=== PATIENT | male | born 1965 | race African-American/Black ===

== ENCOUNTER 2017-02-21 07:56 | Inpatient (IN) | payer OTHER ==
[~2017-02-21] VITALS: Ht 170.2 cm; Wt 97.3 kg
[2017-02-21] VITALS (7 sets, daily range): BP systolic 101–117; BP diastolic 71–75; PULSE 66–82; RESP 16–22; TEMP 98; O2SAT 93–98
[~2017-02-21 07:56] MED LIST: CLON0.2T PO; CYCL5TAB PO; LISI-360 PO; NAPR500 OR
--- NOTE | 2017-02-21 08:09 | PD ---
HPI Chief Complaint: STEMI Alert Time Seen by Provider: 07:58 Travel History International Travel<30 days: No Contact w/Intl Traveler<30days: No Traveled to known affect area: No History of Present Illness HPI The patient is a 51-year-old [place] male who presents to the emergency department via EMS for chest pain. According to the patient he developed chest pain at approximately 3 AM, that awakened him from sleeping. The chest pain was substernal, radiating to the jaw, associated with shortness of breath and diaphoresis. The patient has a [employer] business, states he has had exertional shortness of breath and chest pain with more milling over the last several months that improves at rest. The patient does have a history of hypertension and hyperlipidemia. The patient is unsure if he has any history of coronary artery disease, but denies any previous stent placement. The patient denies any tobacco use or diabetes. He does have a significant family history of heart disease, states his mother after CABG and his sister has 9 stents. The patient was being followed by Darien Mejia's office, but does not currently have a primary physician. Symptoms are moderate, alleviated with aspirin and nitroglycerin, his pain went from a 10/10 to a 6/10 with nitroglycerin provided by EMS. PFSH Past Medical History Asthma: Yes Cardiovascular Problems: Yes (HTN) High Cholesterol: Yes Diminished Hearing: No Hypertension: Yes Past Surgical History Appendectomy: Yes Social History Alcohol Use: No Tobacco Use: No Substance Use: No Allergies-Medications (Allergen,Severity, Reaction): Coded Allergies: No Known Allergies (Unverified , 02/21/17) Reported Meds & Prescriptions Reported Meds & Active Scripts Active No Active Prescriptions or Reported Medications Review of Systems Except as stated in HPI: all other systems reviewed are Neg General / Constitutional: No: Fever HENT: Positive: Lightheadedness Cardiovascular: Positive: Chest Pain or Discomfort, Diaphoresis, Dyspnea on exertion Respiratory: Positive: Shortness of Breath Gastrointestinal: No: Nausea, Vomiting, Abdominal Pain Musculoskeletal: No: Weakness Neurologic: No: Dizziness Physical Exam Narrative GENERAL: Awake, alert, pleasant 51-year-old male who appears his stated age and is in no acute respiratory distress. SKIN: Warm and dry. HEAD: Atraumatic. Normocephalic. EYES: No injection or drainage. ENT: No nasal bleeding or discharge. Mucous membranes pink and moist. NECK: Trachea midline. No JVD. CARDIOVASCULAR: Regular rate and rhythm. No murmur appreciated. RESPIRATORY: No accessory muscle use. Clear to auscultation. Breath sounds equal bilaterally. GASTROINTESTINAL: Abdomen soft, non-tender, nondistended. No rebound tenderness. MUSCULOSKELETAL: No obvious deformities. No clubbing. No cyanosis. No edema. NEUROLOGICAL: Awake and alert. No obvious cranial nerve deficits. Motor grossly within normal limits. Normal speech. PSYCHIATRIC: Appropriate mood and affect; insight and judgment normal. Data Data Last Documented VS Vital Signs Date Time Temp Pulse Resp B/P Pulse Ox O2 Delivery O2 Flow Rate FiO2 02/21/17 09:28 82 22 111/71 93 Nasal Cannula 2 02/21/17 08:02 98.0 Orders Electrocardiogram (02/21/17 08:04) Ckmb (Isoenzyme) Profile (02/21/17 08:04) Complete Blood Count With Diff (02/21/17 08:04) Comprehensive Metabolic Panel (02/21/17 08:04) Magnesium (Mg) (02/21/17 08:04) Prothrombin Time / Inr (Pt) (02/21/17 08:04) Act Partial Throm Time (Ptt) (02/21/17 08:04) Troponin I (02/21/17 08:04) Chest, Single Ap (02/21/17 08:04) Ecg Monitoring (02/21/17 08:04) Bilateral Bp Monitoring (02/21/17 08:04) Iv Access Insert/Monitor (02/21/17 08:04) Oximetry (02/21/17 08:04) Oxygen Administration (02/21/17 08:04) Morphine Inj (Morphine Inj) (02/21/17 08:15) Nitroglycerin 2% Oint (Nitroglycerin 2% (02/21/17 08:15) Sodium Chloride 0.9% Flush (Ns Flush) (02/21/17 08:15) Sodium Chlorid 0.9% 500 Ml Inj (Ns 500 M (02/21/17 08:15) Ondansetron Inj (Zofran Inj) (02/21/17 08:15) CKMB (02/21/17 08:10) CKMB% (02/21/17 08:10) Sodium Chlorid 0.9% 500 Ml Inj (Ns 500 M (02/21/17 09:00) Heparin Infusion NEERAJ.Q1H (02/21/17 09:26) Heparin Inj (Heparin Inj) (02/21/17 09:30) Heparin Inj (Heparin Inj) (02/21/17 15:30) Heparin Inj (Heparin Inj) (02/21/17 15:30) Heparin-D5w Inj (Heparin-D5w Inj) (02/21/17 09:30) Cbc No Diff, Includes Plts (02/24/17 06:00) Act Partial Throm Time (Ptt) (02/21/17 16:26) Occult Blood (Hemoccult) Stool (02/21/17 09:26) Consult Cardiology (02/21/17 ) Admit Order (Ed Use Only) (02/21/17 09:28) Labs Laboratory Tests Test 02/21/17 08:10 White Blood Count 6.1 TH/MM3 Red Blood Count 5.10 MIL/MM3 Hemoglobin 15.6 GM/DL Hematocrit 46.2 % Mean Corpuscular Volume 90.5 FL Mean Corpuscular Hemoglobin 30.6 PG Mean Corpuscular Hemoglobin 33.8 % Concent Red Cell Distribution Width 13.9 % Platelet Count 180 TH/MM3 Mean Platelet Volume 9.4 FL Neutrophils (%) (Auto) 60.7 % Lymphocytes (%) (Auto) 30.0 % Monocytes (%) (Auto) 6.3 % Eosinophils (%) (Auto) 2.1 % Basophils (%) (Auto) 0.9 % Neutrophils # (Auto) 3.7 TH/MM3 Lymphocytes # (Auto) 1.8 TH/MM3 Monocytes # (Auto) 0.4 TH/MM3 Eosinophils # (Auto) 0.1 TH/MM3 Basophils # (Auto) 0.1 TH/MM3 CBC Comment DIFF FINAL Differential Comment Prothrombin Time 11.1 SEC Prothromb Time International 1.0 RATIO Ratio Activated Partial 25.6 SEC Thromboplast Time Sodium Level 139 MEQ/L Potassium Level 3.8 MEQ/L Chloride Level 101 MEQ/L Carbon Dioxide Level 31.4 MEQ/L Anion Gap 7 MEQ/L Blood Urea Nitrogen 14 MG/DL Creatinine 1.61 MG/DL Estimat Glomerular Filtration 55 ML/MIN Rate Random Glucose 139 MG/DL Calcium Level 8.5 MG/DL Magnesium Level 2.2 MG/DL Total Bilirubin 0.9 MG/DL Aspartate Amino Transf 26 U/L (AST/SGOT) Alanine Aminotransferase 26 U/L (ALT/SGPT) Alkaline Phosphatase 75 U/L Total Creatine Kinase 170 U/L Creatine Kinase MB 3.3 NG/ML Troponin I 1.94 NG/ML Total Protein 6.3 GM/DL Albumin 3.3 GM/DL Exceptions Acute Myocardial Infarction ASA Not Given on Arrival: Already Given by EMS MDM Medical Decision Making Medical Screen Exam Complete: Yes Emergency Medical Condition: Yes Medical Record Reviewed: Yes Interpretation(s) EKG reveals normal sinus rhythm with a rate 81. Biphasic P wave noted in V1. Left ventricular hypertrophy. ST elevation in V1 that is not seen in V2. Tall R-wave in V2. EKG #2 reveals normal sinus rhythm with a rate 84. Tall R-wave in V2 that was initially evaluated as resolved. However, patient now has inverted T waves in lead V4, V5, and V6. Last Impressions Chest X-Ray 02/21/17 0804 Signed Impressions: Service Date/Time: Tuesday, February 21, 2017 08:09 - CONCLUSION: 1. Cardiomegaly with interstitial pulmonary edema. Mauricio Amezcua Jr., MD Laboratory Tests Test 02/21/17 08:10 White Blood Count 6.1 TH/MM3 Red Blood Count 5.10 MIL/MM3 Hemoglobin 15.6 GM/DL Hematocrit 46.2 % Mean Corpuscular Volume 90.5 FL Mean Corpuscular Hemoglobin 30.6 PG Mean Corpuscular Hemoglobin 33.8 % Concent Red Cell Distribution Width 13.9 % Platelet Count 180 TH/MM3 Mean Platelet Volume 9.4 FL Neutrophils (%) (Auto) 60.7 % Lymphocytes (%) (Auto) 30.0 % Monocytes (%) (Auto) 6.3 % Eosinophils (%) (Auto) 2.1 % Basophils (%) (Auto) 0.9 % Neutrophils # (Auto) 3.7 TH/MM3 Lymphocytes # (Auto) 1.8 TH/MM3 Monocytes # (Auto) 0.4 TH/MM3 Eosinophils # (Auto) 0.1 TH/MM3 Basophils # (Auto) 0.1 TH/MM3 CBC Comment DIFF FINAL Differential Comment Prothrombin Time 11.1 SEC Prothromb Time International 1.0 RATIO Ratio Activated Partial 25.6 SEC Thromboplast Time Sodium Level 139 MEQ/L Potassium Level 3.8 MEQ/L Chloride Level 101 MEQ/L Carbon Dioxide Level 31.4 MEQ/L Anion Gap 7 MEQ/L Blood Urea Nitrogen 14 MG/DL Creatinine 1.61 MG/DL Estimat Glomerular Filtration 55 ML/MIN Rate Random Glucose 139 MG/DL Calcium Level 8.5 MG/DL Magnesium Level 2.2 MG/DL Total Bilirubin 0.9 MG/DL Aspartate Amino Transf 26 U/L (AST/SGOT) Alanine Aminotransferase 26 U/L (ALT/SGPT) Alkaline Phosphatase 75 U/L Total Creatine Kinase 170 U/L Troponin I 1.94 NG/ML Total Protein 6.3 GM/DL Albumin 3.3 GM/DL Differential Diagnosis Differential diagnosis includes STEMI, acute coronary syndrome, GERD, esophageal spasm, cardiomyopathy, pancreatitis, pulmonary embolism. Narrative Course IV was established, labs are drawn and sent, and the patient was placed on cardiac telemetry monitoring and continuous pulse oximetry monitoring. The patient received aspirin and nitroglycerin by EMS prior to arrival. The patient was administered morphine, Zofran, and Nitropaste. Chest x-ray was obtained. Chest x-ray reveals cardiomegaly with mild interstitial edema. Troponin is positive at 1.94. The patient was reassessed at 8:55 AM, his chest pain had came back, was now 9/10. Therefore, repeat EKG was ordered. The on- call director clinical pharmacology was paged at 8:59 AM. Repeat EKG reveals inverted T waves in V4, V5, V6 that are new. Chest x-ray did reveal mild interstitial edema, however, patient's systolic blood pressure is 116 with Nitropaste, therefore, was administered another 500 cc bolus. I discussed the patient with Dr. Garcia, the on-call director clinical pharmacology, who agrees with a heparin drip. I discussed the patient with the on-call medical team who agrees with admission to [facility]. Critical Care Narrative Aggregate critical care time was 40 minutes. Time to perform other separately billable procedures was not included in the critical care time. My time did not include minutes spent treating any other patients simultaneously or on activities that did not directly contribute to the patient's treatment. The services I provided to this patient were to treat and/or prevent clinically significant deterioration that could result in: Anoxia, hypoxia, arrhythmia, sudden . I provided critical care services requiring my management, as noted below: Chart data review, documentation time, medication orders and management, vital sign assessments/reviewing monitor data, ordering and reviewing lab tests, ordering and interpreting/reviewing x-rays and diagnostic studies, care of the patient and discussion of the patient with the admitting physicians. Physician Communication Physician Communication I discussed the patient with the on-call director clinical pharmacology, Dr. Garcia. I discussed the patient with the on-call residents, who agreed with admission. Diagnosis Primary Impression: NSTEMI (non-ST elevated myocardial infarction) Admitting Information Admitting Physician Requests: Admit Scripts No Active Prescriptions or Reported Meds Condition: Stable Long Colon MD Feb 21, 2017 08:09
[2017-02-21] MEDS ORDERED: ONDANSETRON HCL 4 MG/2 ML VIAL IV PUSH ONE (08:15)
[2017-02-21] MEDS ORDERED: SODIUM CHLORIDE 0.9% FLUSH 10 ML FLUSH IVF PRN ×2 (08:15→18:15)
[2017-02-21] MEDS ORDERED: MORPHINE SULFATE 4 MG/ML INJ IV PUSH ONE (08:15)
[2017-02-21] MEDS ORDERED: NITROGLYCERIN 2% OINT 1 GM PACKET TOP ONE (08:15)
[2017-02-21] MEDS ORDERED: SODIUM CHLORID 0.9% 500 ML INJ 500 ML IV ONE ×2 (08:15→09:00)
[2017-02-21 08:16] LABS: AUTOMATED NEUTROPHIL # 3.7 TH/MM3 (1.8-7.7); BASOPHIL # 0.1 TH/MM3 (0-0.2); BASOPHIL % 0.9 % (0.0-2.0); EOSINOPHIL # 0.1 TH/MM3 (0-0.4); EOSINOPHIL % 2.1 % (0.0-4.0); HEMATOCRIT 46.2 % (39.0-51.0); HEMO FLAGS DIFF FINAL; LYMPHOCYTE # 1.8 TH/MM3 (1.0-4.8); MEAN CELL VOLUME 90.5 FL (80.0-100.0); MEAN CORPUSCULAR HEMOGLOBIN 30.6 PG (27.0-34.0); MEAN CORPUSCULAR HGB CONC 33.8 % (32.0-36.0); MONO % 6.3 % (0.0-8.0); NEUT % 60.7 % (16.0-70.0); PLATELET COUNT 180 TH/MM3 (150-450); RED CELL DISTRIBUTION WIDTH 13.9 % (11.6-17.2); WHITE BLOOD COUNT 6.1 TH/MM3 (4.0-11.0)
[2017-02-21 08:25] LABS: APTT (PATIENT) 25.6 SEC (24.3-30.1); PROTHROMBIN TIME - PATIENT 11.1 SEC (9.8-11.6)
[2017-02-21 08:45] LABS: ANION GAP 7 MEQ/L (5-15); AST (GOT) 26 U/L (15-37); BICARBONATE 31.4 MEQ/L (21.0-32.0); BLOOD UREA NITROGEN 14 MG/DL (7-18); CHLORIDE 101 MEQ/L (98-107); GLOMERULAR FILTRATION RATE 55 ML/MIN (>89); MAGNESIUM 2.2 MG/DL (1.5-2.5); POTASSIUM 3.8 MEQ/L (3.5-5.1); SODIUM (NA) 139 MEQ/L (136-145)
[2017-02-21 08:50] LABS: ALKALINE PHOSPHATASE 75 U/L (45-117); ALT (GPT) 26 U/L (12-78); CREATINE KINASE 170 U/L (39-308); TOTAL BILIRUBIN ADULT 0.9 MG/DL (0.2-1.0)
--- NOTE | 2017-02-21 08:51 | RADRPT ---
EXAM DATE/TIME: 02/21/2017 08:09 [facility] COMPARISON: CHEST SINGLE AP, January 21, 2013, 13:17. INDICATIONS : Chest pain radiating to jaw. MEDICAL HISTORY : None. SURGICAL HISTORY : None. ENCOUNTER: Initial ACUITY: 1 day PAIN SCORE: 7/10 LOCATION: Left middle chest FINDINGS: A single portable frontal view the chest shows cardiomegaly. Bilateral interstitial opacities most pr onounced in the bases. No effusions or intra-alveolar infiltrates. Degenerative thoracic spine. CONCLUSION: 1. Cardiomegaly with interstitial pulmonary edema. Mauricio Amezcua Jr., MD on February 21, 2017 at 8:49 Board Certified Radiologist. This report was verified electronically.
[2017-02-21 09:09] LABS: CKMB 3.3 NG/ML (0.5-3.6)
[2017-02-21] MEDS ORDERED: HEPARIN SODIUM - IV 10,000 UNITS/10 ML VIAL IV ONE (09:30)
--- NOTE | 2017-02-21 09:41 | HHI.HP ---
[facility] Service Family Medicine Primary Care Physician No Primary Care Physician Admission Diagnosis NSTEMI Diagnoses: Chief Complaint: Chest pain International Travel<30 Days: No Contact w/Intl Traveler<30days: No Known Affected Area: No History of Present Illness 51 y/o male with no past medical history presents with chest pain. He states that it initially started several months ago. 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 Then, after mowing, he started having chest pain, SOB. He had to rest for awhile for it go go away, then he would start mowing again. Then pain became more regular and frequent in the last few weeks, having episode everyday. The last few days, the pain was bad enough that sitting down wouldn't relieve the pain. Today, the chest pain started at 3am this morning. Was constant and worse than before so he came in to the ED. Pain in middle of chest. Feels like pressure. Pain radiates up to jaw. Endorses sweating. Sometimes takes sip of water, makes it go away. Nitro made the pain go away today in the ED. Sees doctor in [facility], doesn't have any insurance. No history of heart disease, states he was diagnosed with "enlarged heart." No palpitations or nausea/vomiting. No leg pain. (Cristiano Flor MD R1) Review of Systems Constitutional: COMPLAINS OF: Diaphoretic episodes, Dizziness, DENIES: Fever, Chills Endocrine: DENIES: Heat/cold intolerance, Polydipsia Eyes: DENIES: Eye pain, Vision loss Ears, nose, mouth, throat: DENIES: Hearing loss, Running Nose Respiratory: COMPLAINS OF: Cough, Shortness of breath Cardiovascular: COMPLAINS OF: Chest pain, DENIES: Palpitations, Syncope, Lower Extremity Edema Gastrointestinal: DENIES: Constipation, Diarrhea, Nausea, Vomiting Musculoskeletal: DENIES: Back pain, Neck pain Hematologic/lymphatic: DENIES: Bruising, Lymphadenopathy (Cristiano Flor MD R1) Past Family Social History Past Medical History "enlarged heart" HTN Past Surgical History Appendectomy Reported Medications Reported Meds & Active Scripts Active No Active Prescriptions or Reported Medications (Cristiano Flor MD R1) Allergies: Coded Allergies: No Known Allergies (Unverified , 02/21/17) Active Ordered Medications Active Medications Heparin Sodium (Porcine) (Heparin Inj) 4,000 units ONCE ONCE IV; Start at 09:30; Stop 02/21/17 at 09:31 Heparin Sodium (Porcine) (Heparin Inj) 5,000 units UNSCH PRN IV; Start at 15:30 Heparin Sodium (Porcine) 2500 units 2,500 units UNSCH PRN IV; Start 02/21/17 at 15:30 Heparin Sodium/ Dextrose (Heparin-D5W Inj) 250 ml @ 0 mls/hr TITRATE IV; Start 02/21/17 at 09:30 Morphine Sulfate (Morphine Inj) 4 mg ONCE ONCE IV PUSH Last administered on 08:34; Admin Dose 4 MG; Start 02/21/17 at 08:15; Stop 02/21/17 at 08:16 ; Status DC Nitroglycerin (Nitroglycerin 2% Oint) 1 inch ONCE ONCE TOP Last administered on 02/21/17 08:34; Admin Dose 1 INCH; Start 02/21/17 at 08:15; Stop 02/21/17 at 08:16; Status DC Ondansetron HCl 4 mg 4 mg ONCE ONCE IV PUSH Last administered on 02/21/17 08: 34; Admin Dose 4 MG; Start 02/21/17 at 08:15; Stop 02/21/17 at 08:16; Status DC Sodium Chloride (NS 500 ml Inj) 500 ml @ 500 mls/hr BOLUS ONCE IV Last administered on 02/21/17 09:28; Admin Dose 500 MLS/HR; Start 02/21/17 at 09:00 ; Stop 02/21/17 at 09:59 Sodium Chloride (NS 500 ml Inj) 500 ml @ 500 mls/hr ONCE ONCE IV Last administered on 02/21/17 08:12; Admin Dose 500 MLS/HR; Start 02/21/17 at 08:15 ; Stop 02/21/17 at 09:14; Status DC Sodium Chloride 2 ml 2 ml UNSCH PRN IVF; Start 02/21/17 at 08:15 Family History Mother-several [place], CABG Father-DM, lung cx Sister-8 heart stents Sister-[place] 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 Negative Lavines sign. No acute distress. EYES: EOMI. Lids and conjunctivae reveal no gross abnormality. No scleral icterus. ENT: Head NCAT. MMM. OP/OC clear. No cervical or supraclavicular LAD. NECK: No JVD. No carotid bruits. Neck supple, no masses. Trachea midline. No thyromegaly. RESPIRATORY: Lungs essentially CTAB, no wheezing, crackles, or increased WOB. CARDIOVASCULAR: Regular rate and rhythm, no murmurs or rubs. Radial and DP pulses 2+ and symmetric bilaterally. Brisk capillary refill. ABDOMEN: S/NT/ND. Bowel sounds x 4. No hepatosplenomegaly. Chronic mass right abdomen EXTREMITIES: No remarkable dependent edema or varicosities. No clubbing, cyanosis, or erythema. MUSCULOSKELETAL: MAEW without significant joint pain or deformity. Strength 5/5 in upper and lower extremities. No calf tenderness. SKIN: Essentially clear with no significant rash or lesions. Adequate skin turgor. Accessory nipple right upper abdomen NEUROLOGICAL: NFND. Cranial nerves 2-12 grossly intact. Reflexes +2, symmetric bilaterally in upper and lower extremities. PSYCHIATRIC: Mental status normal for age. Laboratory Laboratory Tests Test 02/21/17 08:10 White Blood Count 6.1 Red Blood Count 5.10 Hemoglobin 15.6 Hematocrit 46.2 Mean Corpuscular Volume 90.5 Mean Corpuscular Hemoglobin 30.6 Mean Corpuscular Hemoglobin 33.8 Concent Red Cell Distribution Width 13.9 Platelet Count 180 Mean Platelet Volume 9.4 Neutrophils (%) (Auto) 60.7 Lymphocytes (%) (Auto) 30.0 Monocytes (%) (Auto) 6.3 Eosinophils (%) (Auto) 2.1 Basophils (%) (Auto) 0.9 Neutrophils # (Auto) 3.7 Lymphocytes # (Auto) 1.8 Monocytes # (Auto) 0.4 Eosinophils # (Auto) 0.1 Basophils # (Auto) 0.1 CBC Comment DIFF FINAL Differential Comment Prothrombin Time 11.1 Prothromb Time International 1.0 Ratio Activated Partial 25.6 Thromboplast Time Sodium Level 139 Potassium Level 3.8 Chloride Level 101 Carbon Dioxide Level 31.4 Anion Gap 7 Blood Urea Nitrogen 14 Creatinine 1.61 Estimat Glomerular Filtration 55 Rate Random Glucose 139 Calcium Level 8.5 Magnesium Level 2.2 Total Bilirubin 0.9 Aspartate Amino Transf 26 (AST/SGOT) Alanine Aminotransferase 26 (ALT/SGPT) Alkaline Phosphatase 75 Total Creatine Kinase 170 Creatine Kinase MB 3.3 Troponin I 1.94 Total Protein 6.3 Albumin 3.3 (Cristiano Flor MD R1) Result Diagram: 02/21/17 0810 02/21/17809 Imaging Last Impressions Chest X-Ray 02/21/17803 Signed Impressions: Service Date/Time: Tuesday, February 21, 2017 08:09 - CONCLUSION: 1. Cardiomegaly with interstitial pulmonary edema. Mauricio Amezcua Jr., MD (Cristiano Flor MD R1) Assessment and Plan Assessment and Plan 51 y/o male with history of HTN presents with chest pain. Found to have STEMI. Cardiology consulted, started on heparin drip and scheduled for PCI. Code Status Full Discussed Condition With Drs. Blackmon & Rossy (Cristiano Flor MD R1) Attending Attestation Patient seen and examined. Case reviewed and discussed with the resident team. Agree with plan of care as discussed with me and documented in the resident note. (Richelle Blackmon MD) Problem List: (1) STEMI (ST elevation myocardial infarction) Status: Acute Plan: CAD risk factors include HTN, FH of [place], DM Cocaine use in the last week. Pt. states CP has resolved with nitro and morphine. Unknown previous EKG, no previous workup EKG showed normal sinus rhythm. ST elevation in V1 and V2. Inverted T waves in V4, V5 and V6. CXR showed cardiomegaly with interstitial pulmonary edema. Initial Trop 1.94. -Cardiology consulted, appreciate recs -Dr. Garcia aware of patient, taking back for PCI -Started on heparin drip -NPO except meds -UDS pending -Trend EKGs -Supplemental O2. Daily aspirin. -Lipitor 80mg HS -Morphine 2mg Q2 hrs PRN chest pain only. -No metoprolol due to cocaine use -NTG PRN -Tele. -AM BMP (2) Cocaine abuse Status: Acute Plan: Pt states he uses cocaine weekly. Started using a couple months ago. May be contributing to cardiac disease. -Counseled on the risks of cocaine and recommendations for quitting (3) FEN Status: Acute Plan: Fluids: none Electrolytes: wnl; monitor & replace PRN Nutrition: NPO for PCI DVT ppx: heparin drip (Cristiano Flor MD R1) Physician Certification 2 Midnight Certification Type: Admission for Inpatient Services Order for Inpatient Services The services are ordered in accordance with Medicare regulations or non- Medicare payer requirements, as applicable. In the case of services not specified as inpatient-only, they are appropriately provided as inpatient services in accordance with the 2-midnight benchmark. Estimated LOS (days): 2 days is the estimated time the patient will need to remain in the hospital, assuming treatment plan goals are met and no additional complications. Post-Hospital Plan: Home (Cristiano Flor MD R1) Problem Qualifiers (1) STEMI (ST elevation myocardial infarction): Qualified Code: I21.3 - ST elevation myocardial infarction (STEMI), unspecified artery Cristiano Flor MD R1 Feb 21, 2017 09:40 Richelle Blackmon MD Feb 21, 2017 15:11
[2017-02-21] MEDS: HEPARIN-D5W INJ 250 ML IV SCH ×2 (09:47→20:43)
[2017-02-21] MEDS ORDERED: ASPIRIN EC 325 MG TABEC PO SCH (10:00)
[2017-02-21] MEDS ORDERED: METOPROLOL TARTRATE 25 MG TAB PO SCH ×2 (10:00→18:15)
[2017-02-21] MEDS ORDERED: ONDANSETRON HCL 4 MG/2 ML VIAL IV PRN ×2 (10:00→13:00)
[2017-02-21] MEDS ORDERED: NITROGLYCERIN 0.4 MG SL 25 TABS/BTL SL PRN (10:00)
[2017-02-21] MEDS ORDERED: DOCUSATE SODIUM 100 MG CAP PO PRN (10:00)
[2017-02-21] MEDS ORDERED: ACETAMINOPHEN 325 MG TAB PO PRN (10:00)
--- NOTE | 2017-02-21 10:04 | HHI.FPPN ---
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 For the past 4-5 months has noticed chest pain with exertion which is relieved by rest. This has progressed to more frequent spells, lasting longer, recurring sooner. Chest pain is central, radiates to jaw, associated with diaphoresis. No SOB. this a.m. he awoke with chest pain at rest and presented to ED for care. He is a nonsmoker, nondrinker, uses cocaine admittedly every 4-5 days for the past many months. Lives with roommates. Family is here with him, sister reports significant family history of cardiac disease, with many members with DE, stents. Also + for diabetes. Father with lung ca. Please refer to admission H&P for this hospitalization for additional past, family, social history and review of systems. Objective Vitals Vital Signs Date Time Temp Pulse Resp B/P Pulse Ox O2 Delivery O2 Flow Rate FiO2 02/21/17 09:28 82 22 111/71 93 Nasal Cannula 2 02/21/17 08:14 95 Nasal Cannula 2 02/21/17 08:02 98.0 80 16 117/75 93 Room Air Result Diagram: 02/21/17 0810 02/21/17 0810 Other Results Laboratory Tests Test 02/21/17 08:10 Creatinine 1.61 MG/DL Estimat Glomerular Filtration 55 ML/MIN Rate Random Glucose 139 MG/DL Troponin I 1.94 NG/ML Total Protein 6.3 GM/DL Albumin 3.3 GM/DL Imaging EKG: normal sinus rhythm with a rate 84. Tall R-wave in V2 that was initially evaluated as resolved. However, patient now has inverted T waves in lead V4, V5 , and V6. Mild ST elevation in anteroseptal leads. Last Impressions Chest X-Ray 02/21/17 0804 Signed Impressions: Service Date/Time: Tuesday, February 21, 2017 08:09 - CONCLUSION: 1. Cardiomegaly with interstitial pulmonary edema. Mauricio Amezcua Jr., MD Objective Remarks O. CONSTITUTIONAL/GEN: normally nourished, in NAD. EYES: conjunctiva normal, PERRLA, EOMI. ENT: Mouth and pharynx normal. NECK: thyroid midline, no neck masses LUNGS: clear A-P, respiratory effort is normal. CARDIOVASCULAR: RR without murmur or gallop. No significant edema. GI/ABD: soft without masses, without organomegaly. Mass (chronic) right mid- abdomen. : no CVA tenderness, several SQ mobile nontender masses. NEURO: No focal deficits. SKIN: color normal, no rashes noted. Supernumerary nipple right upper abdomen. HEME/LYMPH: no bruising, petechia or significant adenopathy MUSC: back is normal in appearance. Extremities are normal in appearance. PSYCH/MENTAL STATUS: Alert and oriented x 3. A/P Assessment and Plan 51 yo male with exertional chest pain, abnormal EKG and elevated troponin. Hx of cocaine use. Attending Attestation Patient seen and examined. Case reviewed and discussed with the resident team. Agree with plan of care as discussed with me and documented in the resident note. Richelle Blackmon MD Feb 21, 2017 10:04
[2017-02-21] MEDS ORDERED: SODIUM CHLOR 0.9% 1000 ML INJ 1,000 ML IV SCH ×2 (10:38→13:00)
[2017-02-21] MEDS ORDERED: HEPARIN-NS/PF INJ 500 ML ONE ×2 (11:18→12:02)
[2017-02-21] MEDS ORDERED: MIDAZOLAM HCL 2 MG/2 ML VIAL ONE (11:18)
[2017-02-21] MEDS ORDERED: HEPARIN SODIUM - IV 10,000 UNITS/10 ML VIAL ONE (11:19)
[2017-02-21] MEDS ORDERED: VERAPAMIL HCL 5 MG/2 ML VIAL ONE (11:19)
--- NOTE | 2017-02-21 11:19 | MB ---
cc: CHUCK NDIAYE DO DATE OF CONSULTATION: February 21, 2017 REASON FOR CONSULTATION N-STEMI. HISTORY OF PRESENT ILLNESS Zohaib Azevedo is a pleasant 51-year-old male who presents to [facility] Emergency Room on February 21, 2017 due to chest pain and shortness of breath. 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 He previously was able to continue to finish the yard without stopping. Lately he has been getting more significant chest pain and shortness of breath so he has to sit down and rest before restarting. If he restarts too quickly the chest pain comes back on immediately. Chest pain and shortness of breath have been coming on more regular in the past few weeks. He did not seek medical advice for his chest pain. This morning at 03:00 a.m. he got pain in the center of his chest which was constant and feels like a pressure. Pain radiates up to his jaw. He also had some diaphoretic episode with it. Because of this he presented to [facility] Emergency Room. On arrival he was given nitro and this decreased the pain. In seeing him at this point, he states that the chest pain is essentially gone away. He denies shortness of breath. He does admit to cocaine use regularly around one to two times a week. His last time using cocaine was around 4-5 days ago. He also states that he was previously on medications for hypertension but has since stopped them due to not having insurance. PAST MEDICAL HISTORY 1. "Enlarged heart" most likely dilated cardiomyopathy. 2. Hypertension. 3. Cocaine abuse. PAST SURGICAL HISTORY Appendectomy. ALLERGIES NO KNOWN DRUG ALLERGIES. MEDICATIONS Denies current medications. Previous medications: 1. Lisinopril. 2. Clonidine. FAMILY HISTORY Mother had several heart attacks and underwent coronary artery bypass grafting. Father had diabetes and lung cancer. Sister has had nine heart attacks and has had eight stents. 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 He denies tobacco or alcohol. Admits to cocaine one to two times per week with his last episode being 4-5 days ago. REVIEW OF SYSTEMS 14-systems were reviewed including osteopathic pertinent positives and negatives above, otherwise negative. PHYSICAL EXAMINATION VITAL SIGNS: Temperature 98.0, heart rate 82, blood pressure 111/71, respirations 20, pulse ox 93% on 2 liters. GENERAL: In general the patient appears well, in no acute distress, alert, awake and oriented x3. HEENT: Extraocular muscles intact. Mucous membranes moist. NECK: Neck is supple. No JVD at 45 degrees. No carotid bruits heard bilaterally. Carotid upstroke is brisk in nature. HEART: Heart is regular rate and rhythm. Positive first and second heart sounds with no murmurs, gallops or rubs. PMI is difficult to determine. LUNGS: Lungs have decreased breath sounds at bilateral bases but no overt wheezes, rales or rhonchi. ABDOMEN: Abdomen is soft, nontender, nondistended. No organomegaly noted. EXTREMITIES: Show no clubbing, cyanosis or edema. Femoral and distal pulses intact bilaterally. NEUROLOGIC: No focal deficits. SKIN: Warm, dry and intact. OSTEOPATHIC: No kyphoscoliosis, lordosis or paraspinal tender points. LABORATORY FINDINGS Hemoglobin 15.6, hematocrit 46.2, platelets 180. Potassium 3.8, BUN 14, creatinine 1.61, troponin 1.94. Electrocardiogram (February 21, 2017 at 0900) sinus rhythm 84 beats per minute, left atrial enlargement, left axis deviation, LVH with possible secondary ST-T wave inversions, cannot rule out ischemia. IMPRESSION 1. [id number] myocardial infarction. 2. Increasing chest pain and shortness of breath with exertion concerning for progressive coronary artery disease with unstable angina. 3. Cocaine abuse, one to two times per week with last use around 4 days ago. 4. Noncompliance with medications due to inability to afford. 5. History of "enlarged heart" most likely dilated cardiomyopathy. 6. Hypertension. 7. Chronic kidney disease versus acute kidney injury. RECOMMENDATIONS 1. As Mr. Azevedo had significant chest pain with an elevation of his troponin to 1.94, he will plan on undergoing coronary visualization today. He will be n.p.o. in anticipation of the procedure. 2. I did discuss with him his current use of cocaine and its consequences to the cardiovascular system including arrhythmias, sudden cardiac , rapidly progressing coronary artery disease and increased plaque rupture. My other concern is for increased risk of restenosis and acute stent thrombosis with increased noncompliance within this group. 3. We will plan on placing him on aspirin and statin therapy. We will hold off on beta aleksandra therapy due to his current history and recent use of cocaine. 4. Will check a 2-D echo to look at his overall left ventricular function, cardiac structure and overall possible valvulopathies. 5. Further recommendations will be made after coronary visualization. Thank you for allowing me to see Zohaib Azevedo, if there are any questions, please do not hesitate to call. Chuck Ndiaye DO VGP/TLL /10:29 AM /11:01 AM
[2017-02-21] MEDS ORDERED: SODIUM CHLORIDE 0.9% FLUSH 10 ML FLUSH IV FLUSH PRN ×2 (12:45)
[2017-02-21] MEDS ORDERED: ATROPINE SULFATE 1 MG/ML VIAL IV PRN (12:45)
[2017-02-21] MEDS ORDERED: SODIUM CHLOR 0.9% 250 ML INJ 250 ML IV PRN (13:00)
[2017-02-21 15:05] LABS: HDL CHOLESTEROL 54.6 MG/DL (40.0-60.0)
[2017-02-21] MEDS ORDERED: HEPARIN SODIUM - IV 10,000 UNITS/10 ML VIAL IV PRN (15:30)
[2017-02-21] MEDS: MORPHINE SULFATE 4 MG/ML INJ IV PRN ×2 (15:39→22:25)
--- NOTE | 2017-02-21 17:12 | EC ---
Study Study Date:02/21/2017 STUDY CONCLUSIONS SUMMARY - Left ventricle: The cavity size was moderately dilated. Wall thickness was increased in a pattern of mild LVH. There was concentric hypertrophy. Systolic function was severely reduced. The estimated ejection fraction was in the range of 20% to 25%. Akinesis of the inferior myocardium; consistent with infarction. Hypokinesis of the anterior, lateral, and apical myocardium. 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 Doppler parameters are consistent with a reversible restrictive pattern, indicative of decreased left ventricular diastolic compliance and/or increased left atrial pressure (grade 3 diastolic dysfunction). - Mitral valve: Mild to moderate regurgitation. - Right ventricle: Systolic function was moderately reduced. - Tricuspid valve: Mild regurgitation. If LV function is below 40, please consider prescribing an ACEI or ARB or document rationale for non-use. PROCEDURE DATA STUDY STATUS: Elective. Procedure: Transthoracic echocardiography. Image quality was good. Scanning was performed from the parasternal, apical, and subcostal acoustic windows. Study completion: The patient tolerated the procedure well. Transthoracic echocardiography. M-mode, complete 2D, complete spectral Doppler, and color Doppler. Height: Height: 67in. Weight: Weight: 210.6lb. Body mass index: BMI: 33kg/m^2. Body surface area: BSA: 2.07m^2. Patient status: Inpatient. CARDIAC ANATOMY LEFT VENTRICLE: The cavity size was moderately dilated. Wall thickness was increased in a pattern of mild LVH. There was concentric hypertrophy. Systolic function was severely reduced. The estimated ejection fraction was in the range of 20% to 25%. Regional wall motion abnormalities: Akinesis of the inferior myocardium; consistent with infarction. Hypokinesis of the anterior, lateral, and apical myocardium. 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 Doppler parameters are consistent with a reversible restrictive pattern, indicative of decreased left ventricular diastolic compliance and/or increased left atrial pressure (grade 3 diastolic dysfunction). AORTIC VALVE: The valve appears to be grossly normal. Trileaflet. Doppler: There was no stenosis. No significant regurgitation. Valve area: 2.76cm^2(VTI). Indexed valve area: 1.33cm^2/m^2 (VTI). Valve area: 2.48cm^2 (Vmax). Indexed valve area: 1.2cm^2/m^2 (Vmax). Mean gradient: 5mm Hg (S). MITRAL VALVE: The valve appears to be grossly normal. Doppler: There was no evidence for stenosis. Mild to moderate regurgitation. Peak gradient: 5mm Hg (D). LEFT ATRIUM: The atrium was mildly dilated. RIGHT VENTRICLE: Systolic function was moderately reduced. PULMONIC VALVE: Not well visualized. Doppler: There was no evidence for stenosis. No significant regurgitation. TRICUSPID VALVE: The valve appears to be grossly normal. Doppler: There was no evidence for stenosis. Mild regurgitation. PERICARDIUM: There was no pericardial effusion. Patient weight: 210.6lb _Ejection fraction:_ 65-75% _Fractional shortening:_ 32% up to 5Kg 5-11.5Kg 11.6-22.9Kg 23-45Kg 45-57Kg Aortic Root 7-13 <17 13-22 17-27 17-27 LA diam 6-13 <23 24-38 33-47 37-40 RVID 10-17 7-15 7-15 7-18 8-17 LVIDd 12-22 <32 24-38 33-47 37-40 LVPW 2-4 3-6 5-7 6-8 7-8 IVS 2-4 3-6 5-7 6-8 7-8 BASIC MEASUREMENTS ADULT NORMAL Left ventricle LV internal dimension, ED, chordal *64.6 mm 43-52 level, PLAX LV internal dimension, ES, chordal *59.4 mm 23-38 level, PLAX Fractional shortening, chordal level, *8 % >29 PLAX LV posterior wall thickness, ED 10.5 mm IVS/LVPW ratio, ED *1.33 <1.3 Ventricular septum Septal thickness, ED 14 mm Aortic valve Leaflet separation 21 mm 15-26 Aorta Root diameter, ED 32 mm Left atrium Anterior-posterior dimension 42 mm Anterior-posterior dimension index 2.03 cm/m^2 <2.2 BASIC MEASUREMENTS ADULT NORMAL Aortic valve Leaflet separation 21 mm 15-26 DOPPLER MEASUREMENTS ADULT NORMAL Aortic valve Peak velocity, S 148 cm/s Mean velocity, S 105 cm/s VTI, S 23.6 cm Mean gradient, S 5 mm Hg Valve area, VTI 2.76 cm^2 Valve area index, VTI 1.33 cm^2/m^2 Valve area, Vmax 2.48 cm^2 Valve area index, Vmax 1.2 cm^2/m^2 Mitral valve Peak E-wave velocity 112 cm/s Peak A-wave velocity 49.4 cm/s Deceleration time *123 ms 150-230 Peak gradient, D 5 mm Hg Peak E/A ratio 2.3 Pulmonic valve Peak velocity, S 66.9 cm/s LEGEND: Mean values are shown as u=mean value. Asterisk (*) fletcher values outside specified normal range. Prepared and signed by Chuck Garcia [id number]
[2017-02-21] MEDS ORDERED: INSULIN REGULAR (IV INFUSION) 100 UNITS in SODIUM CHLORIDE 0.9% INJ 100 ML IV SCH (18:15)
[2017-02-21] MEDS ORDERED: CEFAZOLIN INJ 500 MG in SODIUM CHLORIDE 0.9% IRR BTL 500 ML IRRIGATION SCH (18:15)
[2017-02-21] MEDS ORDERED: PAPAVERINE INJ 60 MG, NITROGLYCERIN INJ 100 MCG, DILTIAZEM INJ 100 MG in SODIUM CHLORID... IRRIGATION SCH (18:15)
[2017-02-21] MEDS ORDERED: ceFAZolin 2 GM PREMIX 50 ML IV SCH (18:15)
[2017-02-21] MEDS ORDERED: CHLORHEXIDINE GLUCONATE 4% SOLN 120 ML BTL TOPICAL SCH (18:15)
--- NOTE | 2017-02-21 18:22 | PD.CAR.PN ---
CVT Progress Note Subjective/Hospital Course: sts data discussed with pt RISK SCORES About the STS Risk Calculator Procedure: CAB Only Risk of Mortality: 1.419% Morbidity or Mortality: 25.988% Long Length of Stay: 7.843% Short Length of Stay: 35.078% Permanent Stroke: 1.039% Prolonged Ventilation: 18.079% DSW Infection: 0.605% Renal Failure: 5.039% Reoperation: 8.084% Objective: Vital Signs Date Time Temp Pulse Resp B/P Pulse Ox O2 Delivery O2 Flow Rate FiO2 02/21/17 13:28 95 Room Air 02/21/17 10:52 93 Nasal Cannula 2.00 02/21/17 09:28 82 22 111/71 93 Nasal Cannula 2 02/21/17 08:14 95 Nasal Cannula 2 02/21/17 08:02 98.0 80 16 117/75 93 Room Air Labs: Laboratory Tests Test 02/21/17 08:10 White Blood Count 6.1 TH/MM3 (4.0-11.0) Red Blood Count 5.10 MIL/MM3 (4.50-5.90) Hemoglobin 15.6 GM/DL (13.0-17.0) Hematocrit 46.2 % (39.0-51.0) Mean Corpuscular Volume 90.5 FL (80.0-100.0) Mean Corpuscular Hemoglobin 30.6 PG (27.0-34.0) Mean Corpuscular Hemoglobin 33.8 % Concent (32.0-36.0) Red Cell Distribution Width 13.9 % (11.6-17.2) Platelet Count 180 TH/MM3 (150-450) Mean Platelet Volume 9.4 FL (7.0-11.0) Neutrophils (%) (Auto) 60.7 % (16.0-70.0) Lymphocytes (%) (Auto) 30.0 % (9.0-44.0) Monocytes (%) (Auto) 6.3 % (0.0-8.0) Eosinophils (%) (Auto) 2.1 % (0.0-4.0) Basophils (%) (Auto) 0.9 % (0.0-2.0) Neutrophils # (Auto) 3.7 TH/MM3 (1.8-7.7) Lymphocytes # (Auto) 1.8 TH/MM3 (1.0-4.8) Monocytes # (Auto) 0.4 TH/MM3 (0-0.9) Eosinophils # (Auto) 0.1 TH/MM3 (0-0.4) Basophils # (Auto) 0.1 TH/MM3 (0-0.2) CBC Comment DIFF FINAL Differential Comment Prothrombin Time 11.1 SEC (9.8-11.6) Prothromb Time International 1.0 RATIO Ratio Activated Partial 25.6 SEC Thromboplast Time (24.3-30.1) Sodium Level 139 MEQ/L (136-145) Potassium Level 3.8 MEQ/L (3.5-5.1) Chloride Level 101 MEQ/L (98-107) Carbon Dioxide Level 31.4 MEQ/L (21.0-32.0) Anion Gap 7 MEQ/L (5-15) Blood Urea Nitrogen 14 MG/DL (7-18) Creatinine 1.61 MG/DL (0.60-1.30) Estimat Glomerular Filtration 55 ML/MIN (>89) Rate Random Glucose 139 MG/DL (74-106) Calcium Level 8.5 MG/DL (8.5-10.1) Magnesium Level 2.2 MG/DL (1.5-2.5) Total Bilirubin 0.9 MG/DL (0.2-1.0) Aspartate Amino Transf 26 U/L (15-37) (AST/SGOT) Alanine Aminotransferase 26 U/L (12-78) (ALT/SGPT) Alkaline Phosphatase 75 U/L (45-117) Total Creatine Kinase 170 U/L (39-308) Creatine Kinase MB 3.3 NG/ML (0.5-3.6) Troponin I 1.94 NG/ML (0.02-0.05) Total Protein 6.3 GM/DL (6.4-8.2) Albumin 3.3 GM/DL (3.4-5.0) Triglycerides Level 81 MG/DL (42-150) Cholesterol Level 174 MG/DL (120-200) LDL Cholesterol 103 MG/DL (0-99) HDL Cholesterol 54.6 MG/DL (40.0-60.0) Cholesterol/HDL Ratio 3.18 RATIO Result Diagram: 02/21/17 0810 02/21/17 0810 Pattie Godinez Feb 21, 2017 18:22
[2017-02-21] MEDS ORDERED: PILL SPLITTER OTHER PRN (18:45)
[2017-02-21] MEDS: SODIUM CHLORIDE 0.9% FLUSH 10 ML FLUSH IVF SCH (21:00)
[2017-02-21] MEDS ORDERED: SODIUM CHLORIDE 0.9% FLUSH 10 ML FLUSH IV FLUSH SCH ×3 (21:00)
[2017-02-21] MEDS ORDERED: ATORVASTATIN 10 MG TAB PO SCH (21:00)
[2017-02-21] MEDS: ATORVASTATIN 80 MG TAB PO SCH (21:50)
[2017-02-21] MEDS: NITROGLYCERIN 2% OINT 1 GM PACKET TOP PRN (22:32)
--- NOTE | 2017-02-21 22:57 | RADRPT ---
EXAM DATE/TIME: 02/21/2017 22:05 [facility] COMPARISON: No previous studies available for comparison. INDICATIONS : Preop cardiac surgery. MEDICAL HISTORY : Hypercholesterolemia. Hypertension. Osteoarthritis. Hyperlipidemia. Asthma. Dyspnea. Chronic back nalini n. Substance use. Chest pain. SOB. SURGICAL HISTORY : Appendectomy. Cardiac cath. ENCOUNTER: Initial ACUITY: 2 day PAIN SCORE: 6/10 LOCATION: Bilateral leg. GREATER SAPHENOUS VEIN THIGH: PROXIMAL: Right 4 mm Left 4 mm MID: Right 4 mm Left 4 mm DISTAL: Right 4 mm Left 3 mm CALF: PROXIMAL: Right 2 mm Left 2 mm MID: Right 2 mm Left 1 mm DISTAL: Right 2 mm Left 2 mm FINDINGS: The venous system of the lower extremities are patent by color Doppler imaging. Measurements of the leg veins (in mm) are listed above. CONCLUSION: Normal examination. Mushtaq Harrison MD on February 21, 2017 at 22:54 Board Certified Radiologist. This report was verified electronically.
--- NOTE | 2017-02-21 23:06 | RADRPT ---
EXAM DATE/TIME: 02/21/2017 21:57 [facility] COMPARISON: No previous studies available for comparison. INDICATIONS : Preop cardiac surgery. MEDICAL HISTORY : Hypercholesterolemia. Hypertension. Osteoarthritis. Hyperlipidemia. Asthma. Dyspnea. Chronic back nalini n. Substance use. Chest pain. SOB. SURGICAL HISTORY : Appendectomy. Cardiac cath. ENCOUNTER: Initial ACUITY: 2 day PAIN SCORE: 6/10 LOCATION: Bilateral leg. TECHNIQUE: Venous ultrasound of the left and right leg was performed from the inguinal ligament to the proximal calf. Real-time, color Doppler and spectral tracing, compression and augmentation techniques were us ed. FINDINGS: RIGHT LEG: There is normal compressibility of the deep venous system from the inguinal region to the proximal ca lf. No echogenic clot is seen in the lumen of the common femoral, femoral, popliteal, and posterior tibial veins. There is a normal response of the venous system to proximal and distal augmentation an d respiration. LEFT LEG: There is normal compressibility of the deep venous system from the inguinal region to the proximal ca lf. No echogenic clot is seen in the lumen of the common femoral, femoral, popliteal, and posterior tibial veins. There is a normal response of the venous system to proximal and distal augmentation an d respiration. CONCLUSION: No evidence of deep venous thrombosis within the lower extremities. Carlos Randolph MD on February 21, 2017 at 23:04 Board Certified Radiologist. This report was verified electronically.
--- NOTE | 2017-02-21 23:07 | RADRPT ---
EXAM DATE/TIME: 02/21/2017 21:37 [facility] COMPARISON: No previous studies available for comparison. INDICATIONS : Preop cardiac surgery. MEDICAL HISTORY : Hypertension. Hypercholesterolemia. Osteoarthritis. Hyperlipidemia. Asthma. Dyspnea. Chronic back nalini n. Substance use. Chest pain. SOB. SURGICAL HISTORY : Appendectomy. Cardiac cath. ENCOUNTER: Initial ACUITY: 2 days PAIN SCORE: 6/10 LOCATION: Bilateral neck PEAK SYSTOLIC VELOCITIES (cm/sec): ICA/CCA RATIO: Right: 1.3 Left: 0.8 ICA: Right: 84 Left: 64 CCA: Right: 67 Left: 82 ECA: Right: 79 Left: 121 VERTEBRAL: Right: 46 antegrade Left: 38 antegrade Elevated flow velocities and ICA/CCA ratios have been found to correlate with increased degrees of vessel stenosis, calculated as percentage of diameter relative to a normal segment of distal ICA/CCA FINDINGS: RIGHT CAROTID: No significant stenosis is visualized. The waveforms are within normal limits. Minimal calcified ath erosclerotic plaque is noted within the right carotid bulb and right proximal internal carotid artery .LEFT CAROTID: No significant stenosis is visualized. The waveforms are within normal limits. VERTEBRAL ARTERIES: Antegrade flow is seen in both vertebral arteries. MISCELLANEOUS: None. CONCLUSION: No hemodynamically significant stenosis. Minimal calcified atherosclerotic plaque wit hin the right carotid bulb and right proximal internal carotid artery. Carlos Randolph MD on February 21, 2017 at 23:04 Board Certified Radiologist. This report was verified electronically.
[2017-02-22] VITALS (28 sets, daily range): BP systolic 79–128; BP diastolic 50–88; PULSE 63–88; RESP 18; TEMP 97.9–98.6; O2SAT 96–98
[2017-02-22 03:48] LABS: AUTOMATED NEUTROPHIL # 3.5 TH/MM3 (1.8-7.7); BASOPHIL % 0.4 % (0.0-2.0); EOSINOPHIL # 0.2 TH/MM3 (0-0.4); EOSINOPHIL % 2.7 % (0.0-4.0); HEMATOCRIT 42.3 % (39.0-51.0); HEMO FLAGS DIFF FINAL; LYMPH % 36.3 % (9.0-44.0); LYMPHOCYTE # 2.3 TH/MM3 (1.0-4.8); MEAN CELL VOLUME 90.7 FL (80.0-100.0); MEAN CORPUSCULAR HEMOGLOBIN 31.4 PG (27.0-34.0); MEAN CORPUSCULAR HGB CONC 34.6 % (32.0-36.0); MONO % 6.1 % (0.0-8.0); NEUT % 54.5 % (16.0-70.0); PLATELET COUNT 164 TH/MM3 (150-450); RED BLOOD COUNT 4.66 MIL/MM3 (4.50-5.90); RED CELL DISTRIBUTION WIDTH 13.9 % (11.6-17.2); WHITE BLOOD COUNT 6.4 TH/MM3 (4.0-11.0)
[2017-02-22 03:56] LABS: APTT (PATIENT) 30.7 SEC (24.3-30.1)
[2017-02-22 04:05] LABS: ANION GAP 7 MEQ/L (5-15); BICARBONATE 28.1 MEQ/L (21.0-32.0); BLOOD UREA NITROGEN 14 MG/DL (7-18); CHLORIDE 108 MEQ/L (98-107); GLOMERULAR FILTRATION RATE 73 ML/MIN (>89); POTASSIUM 4.2 MEQ/L (3.5-5.1); SODIUM (NA) 143 MEQ/L (136-145)
[2017-02-22] MEDS: HEPARIN SODIUM - IV 10,000 UNITS/10 ML VIAL IV PRN ×3 (04:06→17:05)
--- NOTE | 2017-02-22 06:43 | MA ---
cc: CHUCK NDIAYE DO DATE OF PROCEDURE February 21, 2017 PROCEDURE Left heart catheterization, coronary angiogram. Moderate sedation for 45 minutes. PREPROCEDURE DIAGNOSIS NSTEMI, chest pain. POSTPROCEDURE DIAGNOSIS NSTEMI. Multivessel coronary artery disease. MEDICATIONS GIVEN 1. Nitroglycerin 200 mcg. 2. Verapamil 5 mg. 3. Heparin 3800 units. 4. Versed 0.5 mg. 5. Fentanyl 25 mcg. CONTRAST 90 cc. FLUOROSCOPY 14.1 minutes. SEDATION Moderate sedation given for 45 minutes. PROCEDURAL STATEMENT Zohaib Azevedo is a pleasant 51-year-old male who presented to [facility] emergency room due to chest pain. He was found to have an NSTEMI and it was felt that he should undergo cardiac catheterization. The risks, benefits and alternatives were explained to him and he consented as such. He was brought to the lab and prepped in the usual sterile fashion. The right radial artery was accessed using a modified Seldinger technique and placement of a 5/6 Slender Sheath. This was easily aspirated and flushed. The JR-4 was then advanced over a J-wire to the ascending aorta and across the aortic valve. LVEDP was measured at 21. This was pulled back across the aortic valve showing no significant gradient of aortic stenosis. A JR-4 was unable to engage the right coronary artery so it was then exchanged for a 3DRC catheter. The 3DRC was unable to engage the right coronary artery. This was then exchanged for a JL-3.5. The JL-3.5 was used for selective angiography of the left coronary system. The left main is a long vessel with a 60% distal tapering. It bifurcates into an LAD and circumflex. The LAD proximally has a 50% lesion. The midportion of the LAD has a 70% lesion with a distal lesion of 50%. The LAD gives off one major diagonal which has a 60-70% lesion within it. The left circumflex has a 95% lesion in the proximal portion of it. It gives off two obtuse marginals with the first obtuse marginal being a relatively small vessel with a 90% lesion. The JL-3.5 was then attempted to be exchanged for the JR-4 but during this I was unable to advance the JR-4 into the ascending aorta due to tortuosity and radial spasm. The JR-4 was then removed and he was given another dose of verapamil 2.5. Once again I attempted to advance the JR-4 but was unable to. At this time I felt that radial access should be abandoned for femoral access. The right femoral artery was accessed using a modified Seldinger technique and placement of a 5-Divehi sheath. The patient has a somewhat high bifurcation and access appears to be at the ostium of the right SFA. JR-4 was advanced over a J-wire to the ascending aorta. This was used for selective angiography of the right coronary artery. It is difficult to determine true Dominance of the heart as the RCA is occluded in the midportion. The right coronary artery does supply collaterals to what appears to be the distal circumflex which may provide an LPDA. At this point the JR-4 was then removed over a J-wire. The right femoral arterial line was sutured into place with a plan to remove once ACTs were at an acceptable level. The patient left the cardiac catheterization lab cardiovascularly stable. IMPRESSION 1. NSTEMI. 2. Multivessel coronary artery disease, as above. 3. Elevated LVEDP. 4. Acute kidney injury versus chronic kidney disease. 5. Cocaine abuse. RECOMMENDATIONS 1. Mr. Azevedo appears to have had an NSTEMI with multivessel coronary artery disease. Because of his significant coronary artery disease, it was felt that he was a better coronary artery bypass grafting candidate. 2. He will be placed back on a heparin drip 6 hours after removal of this femoral sheath. 3. He will be placed on fluids due to his acute kidney injury versus chronic kidney disease. 4. We will obtain a 2-D echo to look at his overall left ventricular function, cardiac structure and possible valvopathies. 5. The case will be discussed with CT surgery about possible targets for coronary artery bypass grafting. Thank you for allowing me to see Zohaib Azevedo. If there are any questions, please do not hesitate to call. Chuck Ndiaye DO VGP/SSB /11:00 PM /6:31 AM
--- NOTE | 2017-02-22 07:21 | MB ---
cc: ASHLEY DEL VALLE DATE OF CONSULTATION 02/21/2017 DATE OF 1965, 51-year-old male HISTORY A 51 year-old male presented to the emergency room with chest pain. 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 Started having some chest pain and shortness of breath. Normally he had been able to finish the yard without stopping, lately he has had more significant chest discomfort, shortness of breath where he had to sit down and rest before restarting. He has had the pain off and on for the past couple of weeks. He did not initially seek advice for his chest pain. Apparently he woke up 3 o'clock in the morning and had this significant pain radiating to his jaw, also became diaphoretic. He presented to the emergency room and was found to have a Non-ST elevation myocardial infarction. Troponin was elevated to 1.94. He does apparently admit to using cocaine one to two times a week, the last time was four or five days ago. He was also known to have history of enlarged heart and hypertension but has run out of his medication for quite some time. PAST MEDICAL HISTORY The patient underwent cardiac cath by Dr. Garcia showing a left main disease of 60%, proximal LAD 50%, mid distal LAD 70%, diagonal 30%. The circ was 95%. OM 90%. RCA 100%. He underwent also echocardiogram which showed a reduced ejection fraction of 20-25% with severe systolic function reduced. Also some consistent akinesis of the inferior myocardium consistent with infarct. 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 Doppler parameters consistent with reversible restrictive pattern. Also some decreased left ventricular diastolic compliance, grade 3 diastolic dysfunction. Mitral valve had some mild moderate regurgitation. The systolic function of the right ventricle was moderately reduced and some mild tricuspid regurgitation. Also some mild LVH. 1. Other past medical history of: Hypertension. 2. Enlarged heart most likely dilated cardiomyopathy. 3. Cocaine abuse. PAST SURGICAL HISTORY Surgeries include: Appendectomy. MEDICATIONS No home medications. FAMILY HISTORY Mother had in her 70s after having coronary artery bypass grafting. Father had diabetes and lung cancer. He has had a sister who has had multiple heart attacks and multiple stents. SOCIAL HISTORY The patient , works in the [employer] business. Denies tobacco or alcohol. Admits to cocaine one to two times a week, the last being four to five days ago. He has been incarcerated in the past. REVIEW OF SYSTEMS As above in the HPI. Other 12 systems unremarkable other than pertinent positives. PHYSICAL EXAMINATION VITAL SIGNS: On exam blood pressure 110/70, heart rate of 82, afebrile. O2 sat 95 on room air. GENERAL: Patient is awake, alert, no acute distress. HEENT: Head is normocephalic, atraumatic. Pupils equal and reactive. Oral mucosa pink, moist. NECK: Supple. No JVD. CARDIOVASCULAR: Heart sounds S1-S2, regular rate and rhythm. No rubs, murmurs, gallops. LUNGS: Clear to auscultation. No wheezes, rales or rhonchi. ABDOMEN: Soft, nontender. No masses or organomegaly. EXTREMITIES: No cyanosis, clubbing or edema. LABORATORY DATA Lab work shows hemoglobin 15, hematocrit of 46, white cell count 6.1, platelet count went 180. Sodium 139, potassium 3.8, BUN 14, creatinine 1.61. Troponin 1.94. Triglycerides 81, cholesterol 174, LDL 103. INR 1.0. IMAGING Chest x-ray shows cardiomegaly with some interstitial pulmonary edema. IMPRESSION This is a 51-year-old male with multivessel disease with [id number] also cocaine abuse, noncompliance with medications which he was unable to afford. Systolic function severely reduced with EF of 20-25%, akinesis of the inferior myocardium consistent with infarct. Concern for also possible reversal restrictive pattern indicative of decreased left ventricular diastolic compliance. Also mild to moderate regurgitation. Cardiac cath will be reviewed by Dr. Ashley Del Valle. Procedures, alternatives and risks will be discussed and evaluated for possible coronary artery bypass grafting. The patient presents at increased risk due to his poor ejection fraction and history of cocaine use and noncompliance. STS data will be discussed with the patient and documented in the electronic record. DICTATED BY: NAVDEEP Cummins MD TIFFANY Diaz/MANSI /6:25 PM /7:20 AM
[2017-02-22] MEDS: ASPIRIN 81 MG CHEW TAB CHEW SCH (08:43)
[2017-02-22] MEDS: SODIUM CHLORIDE 0.9% FLUSH 10 ML FLUSH IVF SCH ×2 (08:43→20:13)
[2017-02-22] MEDS ORDERED: SODIUM CHLORID 0.9% 500 ML INJ 500 ML IV ONE (09:30)
[2017-02-22 09:53] LABS: APTT (PATIENT) 39.5 SEC (24.3-30.1)
--- NOTE | 2017-02-22 12:28 | HHI.FPPN ---
Subjective Remarks No acute events overnight the patient did have cardiac catheter on the day of admission which showed multivessel disease requiring treatment with CABG. This morning he reports that his chest pain comes and goes but is currently asymptomatic. He otherwise has no concerns this morning besides being hungry and wanting breakfast. (Marleni Blair MD R2) Objective Vitals Vital Signs Date Time Temp Pulse Resp B/P Pulse Ox O2 Delivery O2 Flow Rate FiO2 02/22/17 12:00 69 02/22/17 11:00 73 02/22/17 11:00 98.6 66 18 102/74 98 02/22/17 10:00 79 02/22/17 09:47 97 21 02/22/17 09:00 68 02/22/17 08:00 82 02/22/17 07:00 98.4 80 18 83/56 98 02/22/17 07:00 82 02/22/17 06:00 66 02/22/17 05:00 66 02/22/17 04:00 98.3 80 18 123/78 98 02/22/17 04:00 65 02/22/17 03:00 79 02/22/17 02:00 77 02/22/17 01:00 82 02/22/17 00:00 79 02/22/17 00:00 98.1 66 18 111/69 98 02/21/17 23:00 82 02/21/17 22:00 66 02/21/17 21:00 74 02/21/17 20:00 98.0 79 18 101/71 98 02/21/17 13:28 95 Room Air I/O 02/21/17 02/21/17 02/21/17 02/22/17 02/22/17 02/22/17 07:00 15:00 23:00 07:00 15:00 23:00 Intake Total 480 ml 124 ml Output Total 900 ml Balance 480 ml -776 ml Intake Oral 480 ml IV Total 124 ml Output Urine Total 900 ml (Marleni Blair MD R2) Result Diagram: 02/22/1731902/22/17319 Objective Remarks GEN: Well-developed, well-nourished patient. No acute distress. CV: Regular rate and rhythm without obvious murmurs LUNGS: Clear to auscultation bilaterally. Normal respiratory effort. No wheezes , rales, rhonchi. EXT: No edema. No calf tenderness. NEURO/PSYCH: Awake, alert. Appropriate insight and judgment. Normal speech ( Marleni Blair MD R2) A/P Assessment and Plan 51 y/o male with history of HTN presents with chest pain. Admitted for STEMI Discharge Planning 3-5days pending recovery from CABG sdw Dr. Blackmon and Dr. Flor (Marleni Blair MD R2) Attending Attestation Patient seen and examined. Case reviewed and discussed with the resident team. Agree with plan of care as discussed with me and documented in the resident note. (Richelle Blackmon MD) Problem List: (1) STEMI (ST elevation myocardial infarction) Status: Acute Plan: CAD risk factors include HTN, FH of NE, DM. Cocaine use in the last week. Initial EKG showed normal sinus rhythm. ST elevation in V1 and V2. Inverted T waves in V4, V5 and V6. CXR showed cardiomegaly with interstitial pulmonary edema. -Initial Trop 1.94. -Cr improved -lipid panel unremarkable -A1c pending Cardiology consulted, appreciate recs -cardiac cath showed multivessel disease -continue heparin drip -EF of 20-25% with mild to moderate MR, will need follow up for consideration of ICD placement in 3mths -ASA/Lipitor -No metoprolol due to cocaine use CT surgery consulted: appreciate recs * plan for CABG 02/23/17 * pt at increased risk due to poor ejection fraction, history of cocaine use and noncompliance (2) Cocaine abuse Status: Acute Plan: Pt states he uses cocaine weekly. Started using a couple months ago. May be contributing to cardiac disease. -Counseled on the risks of cocaine and recommendations for quitting (3) FEN Status: Acute Plan: Fluids: none Electrolytes: wnl; monitor & replace PRN Nutrition: NPO for CABG DVT ppx: heparin drip GI PPX: not indicated (Marleni Blair MD R2) Problem Qualifiers (1) STEMI (ST elevation myocardial infarction): Qualified Code: I21.3 - ST elevation myocardial infarction (STEMI), unspecified artery Marleni Blair MD R2 Feb 22, 2017 12:28 Richelle Blackmon MD Feb 23, 2017 09:16
--- NOTE | 2017-02-22 12:33 | PD.CARD.PN ---
Subjective Subjective Remarks Chest pain last night, although somewhat pleuritic in nature No chest pain this morning, no shortness of breath Objective Medications Current Medications Medications (Trade) Dose Ordered Sig/Angel Route Start Time Stop Time Status Last Admin (Heparin Inj) 5,000 units UNSCH PRN IV 02/21/17 15:30 Heparin Sodium (Porcine) 2500 units 2,500 units UNSCH PRN IV 02/21/17 15:30 02/22/17 10:14 (Heparin-D5W Inj) 250 ml @ 0 mls/hr TITRATE IV 02/21/17 09:30 02/21/17 20:43 (Nitroglycerin 2% Oint) 1.5 inch Q6HR PRN TOP 02/21/17 10:00 02/21/17 22:32 (Nitrostat Sl) 0.4 mg Q5M PRN SL 02/21/17 10:00 (Morphine Inj) 2 mg Q30M PRN IV 02/21/17 10:00 02/21/17 22:25 (Tylenol) 650 mg Q6H PRN PO 02/21/17 10:00 (Colace) 100 mg BID PRN PO 02/21/17 10:00 (Lipitor) 80 mg HS PO 02/21/17 21:00 02/21/17 21:50 (Aspirin Chew) 81 mg DAILY CHEW 02/22/17 09:00 02/22/17 08:43 Atropine Sulfate 0.5 mg 0.5 mg UNSCH PRN IV 02/21/17 12:45 (NS 250 ml Inj) 250 ml @ 500 mls/hr ONCE PRN IV 02/21/17 13:00 02/22/17 12:59 (Zofran Inj) 4 mg Q4H PRN IV 02/21/17 13:00 (NS Flush) 2 ml BID IVF 02/21/17 21:00 02/21/17 21:00 (NS Flush) 2 ml UNSCH PRN IVF 02/21/17 18:15 (Pill Splitter) 1 ea UNSCH PRN OTHER 02/21/17 18:45 Vital Signs / I&O Vital Signs Date Time Temp Pulse Resp B/P Pulse Ox O2 Delivery O2 Flow Rate FiO2 02/22/17 12:00 69 02/22/17 11:00 73 02/22/17 11:00 98.6 66 18 102/74 98 02/22/17 10:00 79 02/22/17 09:47 97 21 02/22/17 09:00 68 02/22/17 08:00 82 02/22/17 07:00 98.4 80 18 83/56 98 02/22/17 07:00 82 02/22/17 06:00 66 02/22/17 05:00 66 02/22/17 04:00 98.3 80 18 123/78 98 02/22/17 04:00 65 02/22/17 03:00 79 02/22/17 02:00 77 02/22/17 01:00 82 02/22/17 00:00 79 02/22/17 00:00 98.1 66 18 111/69 98 02/21/17 23:00 82 02/21/17 22:00 66 02/21/17 21:00 74 02/21/17 20:00 98.0 79 18 101/71 98 02/21/17 13:28 95 Room Air I/O 02/21/17 02/21/17 02/21/17 02/22/17 02/22/17 02/22/17 07:00 15:00 23:00 07:00 15:00 23:00 Intake Total 480 ml 124 ml Output Total 900 ml Balance 480 ml -776 ml Intake Oral 480 ml IV Total 124 ml Output Urine Total 900 ml Physical Exam GENERAL: NAD, AAOx3 SKIN: Warm and dry. HEAD: Atraumatic. Normocephalic. EYES: Pupils equal and round. No scleral icterus. No injection or drainage. ENT: No nasal bleeding or discharge. Mucous membranes pink and moist. NECK: Trachea midline. No JVD. CARDIOVASCULAR: Regular rate and rhythm. RESPIRATORY: No accessory muscle use. Clear to auscultation. Breath sounds equal bilaterally. GASTROINTESTINAL: Abdomen soft, non-tender, nondistended. Hepatic and splenic margins not palpable. MUSCULOSKELETAL: Extremities without clubbing, cyanosis, or edema. No obvious deformities. NEUROLOGICAL: Awake and alert. No obvious cranial nerve deficits. Motor grossly within normal limits. Five out of 5 muscle strength in the arms and legs. Normal speech. PSYCHIATRIC: Appropriate mood and affect; insight and judgment normal. Laboratory Laboratory Tests Test 02/22/17 02/22/17 02/22/17 03:20 04:15 09:33 White Blood Count 6.4 TH/MM3 Red Blood Count 4.66 MIL/MM3 Hemoglobin 14.6 GM/DL Hematocrit 42.3 % Mean Corpuscular Volume 90.7 FL Mean Corpuscular Hemoglobin 31.4 PG Mean Corpuscular Hemoglobin 34.6 % Concent Red Cell Distribution Width 13.9 % Platelet Count 164 TH/MM3 Mean Platelet Volume 9.6 FL Neutrophils (%) (Auto) 54.5 % Lymphocytes (%) (Auto) 36.3 % Monocytes (%) (Auto) 6.1 % Eosinophils (%) (Auto) 2.7 % Basophils (%) (Auto) 0.4 % Neutrophils # (Auto) 3.5 TH/MM3 Lymphocytes # (Auto) 2.3 TH/MM3 Monocytes # (Auto) 0.4 TH/MM3 Eosinophils # (Auto) 0.2 TH/MM3 Basophils # (Auto) 0.0 TH/MM3 CBC Comment DIFF FINAL Differential Comment Activated Partial 30.7 SEC 39.5 SEC Thromboplast Time Sodium Level 143 MEQ/L Potassium Level 4.2 MEQ/L Chloride Level 108 MEQ/L Carbon Dioxide Level 28.1 MEQ/L Anion Gap 7 MEQ/L Blood Urea Nitrogen 14 MG/DL Creatinine 1.25 MG/DL Estimat Glomerular Filtration 73 ML/MIN Rate Random Glucose 82 MG/DL Calcium Level 8.0 MG/DL Blood Type B POSITIVE B POSITIVE Antibody Screen NEGATIVE Crossmatch Leukocyte-Reduced Red Blood Cells Blood Bank Comment Assessment and Plan Problem List: (1) NSTEMI (non-ST elevated myocardial infarction) (2) Congestive heart failure (CHF) (3) Cocaine abuse (4) 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
[2017-02-22 13:27] LABS: BLOOD, URINE NEG (NEG); COMMENT (UR) CULT NOT INDICATED; CULTURE IF INDICATED CULT NOT INDICATED; GLUCOSE,URINE NEG (NEG); KETONE, URINE NEG (NEG); MUCUS URINE FEW /lpf (OCC); NITRITE,URINE NEG (NEG); PH, URINE 5.5 (5.0-8.5); SQUAMOUS EPITHELIAL CELL URINE <1 /hpf (0-5); URINE COLOR LIGHT-YELLOW (YELLW/STRAW)
[2017-02-22 14:05] LABS: AMPHETAMINE, URINE NEG (NEG); BARBITURATES, URINE NEG (NEG); COCAINE, URINE POS (NEG)
--- NOTE | 2017-02-22 15:53 | PD.CAR.PN ---
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 hx of dilated CM 02/22 remains pain free, on heparin gtt/ scheduled for surgery in am may need to be eval for Life Vest at discharge/ will discuss with Dr Garcia Objective: GENERAL: SKIN: Warm and dry. HEAD: Normocephalic. EYES: No scleral icterus. No injection or drainage. NECK: Supple, trachea midline. No JVD or lymphadenopathy. CARDIOVASCULAR: Regular rate and rhythm without murmurs, gallops, or rubs. RESPIRATORY: Breath sounds equal bilaterally. No accessory muscle use. GASTROINTESTINAL: Abdomen soft, non-tender, nondistended. MUSCULOSKELETAL: No cyanosis, or edema. BACK: Nontender without obvious deformity. No CVA tenderness. Vital Signs Date Time Temp Pulse Resp B/P Pulse Ox O2 Delivery O2 Flow Rate FiO2 02/22/17 15:10 98.4 66 18 79/50 97 02/22/17 14:00 76 02/22/17 13:00 63 02/22/17 12:00 69 02/22/17 11:00 73 02/22/17 11:00 98.6 66 18 102/74 98 02/22/17 10:00 79 02/22/17 09:47 97 21 02/22/17 09:00 68 02/22/17 08:00 82 02/22/17 07:00 98.4 80 18 83/56 98 02/22/17 07:00 82 02/22/17 06:00 66 02/22/17 05:00 66 02/22/17 04:00 98.3 80 18 123/78 98 02/22/17 04:00 65 02/22/17 03:00 79 02/22/17 02:00 77 02/22/17 01:00 82 02/22/17 00:00 79 02/22/17 00:00 98.1 66 18 111/69 98 02/21/17 23:00 82 02/21/17 22:00 66 02/21/17 21:00 74 02/21/17 20:00 98.0 79 18 101/71 98 Labs: Laboratory Tests Test 02/22/17 02/22/17 02/22/17 02/22/17 04:15 09:33 12:05 12:42 Blood Type B POSITIVE Activated Partial 39.5 SEC Thromboplast Time (24.3-30.1) Nasal Screen MRSA (PCR) NEGATIVE (NEGATIVE) Urine Color LIGHT-YELLOW (YELLW/STRAW) Urine Turbidity CLEAR (CLEAR) Urine pH 5.5 (5.0-8.5) Urine Specific [place] 1.010 (1.002-1.035) Urine Protein NEG mg/dL (NEG-TRACE) Urine Glucose (UA) NEG mg/dL (NEG) Urine Ketones NEG mg/dL (NEG) Urine Occult Blood NEG (NEG) Urine Nitrite NEG (NEG) Urine Bilirubin NEG (NEG) Urine Urobilinogen LESS THAN 2.0 MG/DL (LESS THAN 2.0) Urine Leukocyte Esterase NEG (NEG) Urine RBC LESS THAN 1 /hpf (0-3) Urine WBC 3 /hpf (0-5) Urine Squamous Epithelial <1 /hpf (0-5) Cells Urine Mucus FEW /lpf (OCC) Microscopic Urinalysis Comment CULT NOT INDICATED Urine Opiates Screen NEG (NEG) Urine Barbiturates Screen NEG (NEG) Urine Amphetamines Screen NEG (NEG) Urine Benzodiazepines Screen NEG (NEG) Urine Cocaine Screen POS (NEG) Urine Cannabinoids Screen NEG (NEG) Result Diagram: 02/22/17 0320 02/22/17 0320 (1) NSTEMI (non-ST elevated myocardial infarction) Plan: on ASA, statin , for surgery in am will need to caution use of BB, with his hx of cocaine use/ will need to discuss importance of illicit drug cessation (2) Congestive heart failure (CHF) (3) Cocaine abuse Plan: illicit drug cessation (4) 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
[2017-02-22 16:20] LABS: APTT (PATIENT) 29.7 SEC (24.3-30.1)
[2017-02-22 16:29] LABS: HEMOGLOBIN A1a 1.2 %; HEMOGLOBIN Ao 85.7 %; HEMOGLOBIN F 0.9 %; HEMOGLOBIN LA1C 1.6 %; HEMOGLOBIN P3 3.5 %
[2017-02-22] MEDS: ATORVASTATIN 80 MG TAB PO SCH (20:12)
--- NOTE | 2017-02-22 21:42 | EKG ---
Date Performed: 02/21/2017 Time Performed: 09:00:37 PTAGE: 51 years EKG: Sinus rhythm LEFT ATRIAL ENLARGEMENT MARKED LEFT AXIS DEVIATION LEFT VENTRICULAR HYPERTROPHY AND ST-T CHANGE POSS IBLE INFERIOR MYOCARDIAL INFARCTION Since previous tracing, no significant change noted ABNORMAL ECG PREVIOUS TRACING : 02/21/2017 08.02 DOCTOR: Yumiko Joseph Interpretating Date/Time 02/22/2017 21:40:38
[2017-02-22 23:59] LABS: APTT (PATIENT) 47.1 SEC (24.3-30.1)
[2017-02-23] VITALS (16 sets, daily range): BP systolic 110–133; BP diastolic 64–74; PULSE 65–95; RESP 16–20; TEMP 97.4–99.1; O2SAT 82–96
[2017-02-23] MEDS: NITROGLYCERIN 2% OINT 1 GM PACKET TOP PRN (00:35)
[2017-02-23] MEDS: MORPHINE SULFATE 4 MG/ML INJ IV PRN (00:37)
[2017-02-23] MEDS ORDERED: ceFAZolin 2 GM PREMIX 50 ML IV ONE (05:00)
[2017-02-23] MEDS ORDERED: PROPOFOL 1000 MG/100 ML INJ 100 ML IV ONE (05:00)
[2017-02-23] MEDS ORDERED: DOPamine INJ PREMIX 500 ML IV ONE (05:00)
[2017-02-23] MEDS ORDERED: FUROSEMIDE 100 MG/10 ML VIAL IV PUSH ONE (05:00)
[2017-02-23] MEDS ORDERED: PROTAMINE SULFATE 250 MG/25 ML VIAL IV ONE ×2 (05:00→11:08)
[2017-02-23] MEDS ORDERED: PHENYLEPHRINE HCL 10 MG/ML VIAL IV ONE (05:00)
[2017-02-23] MEDS ORDERED: AMINOCAPROIC ACID INJ 250 MG/ML 20 ML VIAL IV ONE ×2 (05:00→11:08)
[2017-02-23] MEDS ORDERED: EPINEPHrine HCL (1:1000) 30 MG/30 ML VIAL IV ONE (05:00)
[2017-02-23] MEDS ORDERED: ceFAZolin INJ 1,000 MG VIAL IV ONE (05:00)
[2017-02-23] MEDS ORDERED: MAGNESIUM SULFATE 1000 MG/2 ML VIAL (PED) IV ONE (05:00)
[2017-02-23] MEDS ORDERED: EPINEPHrine HCL (1:10,000) 1 MG/10 ML SYRINGE IV ONE (05:00)
[2017-02-23] MEDS ORDERED: DEXMEDETOMIDINE INJ 50 ML IV ONE (05:00)
[2017-02-23] MEDS ORDERED: HEPARIN SODIUM - SQ 10,000 UNITS/ML VIAL SQ ONE (05:00)
[2017-02-23] MEDS ORDERED: CALCIUM CHLORIDE 10% SOLN 1 GRAM/10 ML SYR IV ONE (05:00)
[2017-02-23] MEDS ORDERED: HEPARIN SODIUM - SQ 10,000 UNITS/ML VIAL ONE (06:32)
[2017-02-23] MEDS ORDERED: methylPREDNISolone SOD SUCC 125 MG/2 ML VIAL ONE (06:32)
[2017-02-23] MEDS ORDERED: VANCOMYCIN HCL 1000 MG VIAL ONE (06:32)
[2017-02-23] MEDS ORDERED: CARDIOPLEGIC IRR 1,000 ML ONE (06:49)
[2017-02-23] MEDS ORDERED: POTASSIUM CHLORIDE 40 MEQ/20 ML VIAL ONE (06:49)
[2017-02-23] MEDS ORDERED: ALBUMIN HUMAN 25% 12.5 GM/50 ML BAGP IV ONE (06:49)
[2017-02-23] MEDS ORDERED: SODIUM BICARBONATE 8.4% INJ 50 ML ONE (06:50)
[2017-02-23] MEDS ORDERED: MANNITOL INJ 50 ML ONE (06:50)
--- NOTE | 2017-02-23 08:21 | EKG ---
Date Performed: 02/21/2017 Time Performed: 08:02:01 PTAGE: 51 years EKG: Sinus rhythm LEFT ATRIAL ENLARGEMENT MARKED LEFT AXIS DEVIATION LEFT VENTRICULAR HYPERTROPHY AND ST-T CHANGE ABNO RMAL ECG Compared to PREVIOUS TRACING , the patient has developed progressive criteria for LVH with secondary ST-T wave changes. The previously noted deep symetric T-wave inversion in the anterolateral leads is no longer evident. PREVIOUS TRACIN01/22/2013 00.48 DOCTOR: Yumiko Joseph Interpretating Date/Time 02/23/2017 08:20:01
--- NOTE | 2017-02-23 09:20 | RSPPFT ---
DATE OF PROCEDURE: 02/22/17 COMMENTS: VOLUMES DYNAMIC: FVC and FEV1 moderately reduced. FLOWS: FEV1% normal; FEF 25-75 mildly reduced. IMPRESSION: Probable mild restrictive ventilatory defect although full lung volumes would be required to exclude obstruction. Post-bronchodilator study may be helpful as well in managing therapy.
[2017-02-23] MEDS ORDERED: LACTATED RINGER'S 1000 ML INJ 1,000 ML IV ONE (11:08)
[2017-02-23] MEDS ORDERED: SODIUM CHLOR 0.9% 250 ML INJ 250 ML IV ONE (11:08)
[2017-02-23] MEDS ORDERED: SODIUM CHLORID 0.9% 500 ML INJ 500 ML IV ONE (11:08)
[2017-02-23] MEDS ORDERED: SODIUM CHLORIDE 0.9% INJ 100 ML IV ONE (11:08)
[2017-02-23] MEDS ORDERED: NORMOSOL R INJ 2,000 ML IV ONE (11:08)
[2017-02-23] MEDS ORDERED: SODIUM CHLOR 0.9% 1000 ML INJ 1,000 ML IV ONE (11:08)
[2017-02-23] MEDS ORDERED: LACTATED RINGER'S 1000 ML INJ 500 ML IV PRN (12:47)
[2017-02-23] MEDS ORDERED: POTASSIUM CHLORIDE 20 MEQ CONTROLLED RELEASE TAB PO PRN ×2 (13:00)
[2017-02-23] MEDS ORDERED: POTASSIUM CHLOR 20 MEQ PREMIX 100 ML IV PRN ×3 (13:00)
[2017-02-23] MEDS ORDERED: CALCIUM CHLORIDE INJ 1 GM in SODIUM CHLORIDE 0.9% INJ 100 ML IV PRN (13:00)
[2017-02-23] MEDS ORDERED: oxyCODONE/ACETAMINOPHEN 5 MG/325 MG TAB PO PRN (13:00)
[2017-02-23] MEDS ORDERED: INSULIN REGULAR (IV INFUSION) 100 UNITS in SODIUM CHLORIDE 0.9% INJ 99 ML IV SCH (13:00)
[2017-02-23] MEDS ORDERED: DEXTROSE 50% IN WATER 50 ML VIAL(D50) IV PUSH PRN (13:00)
[2017-02-23] MEDS ORDERED: MAGNESIUM SULFATE INJ 2 GM in SODIUM CHLORIDE 0.9% INJ 100 ML IV PRN ×4 (13:00)
[2017-02-23] MEDS ORDERED: CALCIUM CHLORIDE 10% 1 GRAM/10 ML VIAL IV PRN (13:00)
[2017-02-23] MEDS ORDERED: ACETAMINOPHEN 650 MG SUPP RECTAL PRN (13:00)
[2017-02-23] MEDS ORDERED: DOPamine INJ PREMIX 500 ML IV SCH (13:00)
[2017-02-23] MEDS ORDERED: hydrALAZINE HCL 20 MG/ML VIAL IV PRN (13:00)
[2017-02-23] MEDS ORDERED: METOPROLOL TARTRATE 5 MG/5 ML VIAL IV PUSH PRN (13:00)
[2017-02-23] MEDS ORDERED: ACETAMINOPHEN 325 MG TAB PO PRN (13:00)
[2017-02-23] MEDS ORDERED: Post-op Orders (for Pharmacy) MISC OTHER ONE (13:00)
--- NOTE | 2017-02-23 13:11 | PD.OP ---
cc: Ashley Del Valle MD; GarciaChuck zamarripa DO Operative Report Date of Surgery: Feb 23, 2017 Preoperative Diagnosis: (1) NSTEMI (non-ST elevated myocardial infarction) (2) Multi-vessel coronary artery stenosis (3) Systolic CHF Postoperative Diagnosis: same Procedure: Urgent CABG x 3 ART to LAD - good SVG to OM2 - good SVG to OM1 - poor EVH MOUNA Anesthesia: Dr. Casanova Surgeon: Ashley Del Valle Prepress Proofer(s): Aaron Verdin Operation and Findings: The risks, benefits, complications, treatment options, and expected outcomes were discussed with the patient. The possibilities of reaction to medication, pulmonary aspiration, perforation of viscus, bleeding, recurrent infection, the need for additional procedures, failure to diagnose a condition, and creating a complication requiring transfusion or operation were discussed with the patient. The patient concurred with the proposed plan, giving informed consent. The site of surgery properly noted/marked. The patient was taken to Operating Room, identified as Zohaib Azevedo and the procedure verified as CABG, EVH, MOUNA. A Time Out was held and the above information confirmed. Standard monitoring lines and Guzman catheter were placed. General anesthesia was induced. The patient was prepped and draped in a sterile fashion. A median sternotomy was performed and electrocautery was used to obtain hemostasis. The left internal mammary artery was procured as a pedicle from the 7th rib to the 1st rib in the usual manner. Simultaneously left greater saphenous vein was procured from the left leg using a minimally invasive endoscopic technique. The vein was prepared for anastomosis and the leg wound was irrigated and closed in 2 layers. The pericardium was opened and a pericardial sling was created using interrupted 0 silk sutures. The patient was heparinized for cardiopulmonary bypass and the distal mammary pedicle was instrumented for anastomosis. The heart was instrumented for cardiopulmonary bypass in the usual manner. Antegrade blood cardioplegia was employed. The patient was placed on cardiopulmonary bypass. An aortic cross-clamp was applied and the heart was arrested using cold blood cardioplegia. Antegrade cardioplegia was administered after he each anastomosis. After adequate arrest, the OM2 was opened with a [place] blade and found to be a 2 millimeter good target. Saphenous vein was approximated to the OM2 artery using a running 7 0 Prolene suture. The graft was measured for length and orientation and the proximal anastomosis was constructed to the ascending aorta using a running 5 0 Prolene suture after creating an aortotomy with a 5 millimeter punch. The 1st circumflex marginal artery was then opened with a [place] blade and found to be a 1 millimeter poor target. Saphenous vein was approximated to the OM1 artery using a running 7 0 Prolene suture. The graft was measured for length and orientation and was suspended from the pericardium. The distal LAD was opened with a [place] blade and found to be a 1.5 millimeter good target. The left internal mammary artery was approximated to the LAD using a running 7 0 Prolene suture. The pedicle was attached to the epicardium using interrupted 5 0 silk suture. The patient was systemically rewarmed and received a hotshot dose of warm blood cardioplegia. The aorta was vented and the proximal anastomosis to the OM1 graft was accomplished using a running 5 0 Prolene suture after creating an aortotomy was a 5 millimeter punch. The cross -clamp was removed and all proximal and distal anastomoses were examined for hemostasis. The patient was weaned from cardiopulmonary bypass. Protamine was given. There was no adverse reaction. Decannulation was carried out without incident. Wound was checked for hemostasis which was obtained using electrocautery. A 36 [place] mediastinal and 32 [place] left pleural chest was were placed and secured to the skin with 0 silk suture. The sternum was closed with stainless steel wire. The fascia was closed with 1. PDS. The subcutaneous tissue was closed using a running 2-0 Vicryl suture. The skin was closed with 4- 0 Monocryl. Sterile dressings were placed. At the end of the operation, all sponge, instruments, and needle counts were correct. The patient was transferred to the CICU in stable condition. Findings: Poor OM1 target. Very small left PDA was noted - too small to graft. XC: 79 min CPB: 94 min Drains: mediastinal x 1 pleural x 1 Complications: none Disposition: to CVICU instable condition Ashley Del Valle MD Feb 23, 2017 13:11
[2017-02-23] MEDS ORDERED: RESP: ALBUTEROL 2.5 MG/IPRATROPIUM 0.5 MG NEB (PRN) NEB (14:00)
[2017-02-23] MEDS ORDERED: ceFAZolin 2 GM PREMIX 50 ML IV SCH (14:00)
[2017-02-23] MEDS ORDERED: RESP: RACEPINEPHRINE 2.25% 0.5 ML NEB NEB PRN (14:00)
[2017-02-23] MEDS: ACETAMINOPHEN 1000 MG/100 ML VIAL IV SCH ×2 (14:11→19:29)
[2017-02-23] MEDS ORDERED: MIDAZOLAM HCL 5 MG/5 ML VIAL ONE (14:21)
[2017-02-23] MEDS ORDERED: fentaNYL CITRATE 1000 MCG/20 ML VIAL ONE (14:22)
--- NOTE | 2017-02-23 14:31 | RADRPT ---
EXAM DATE/TIME: 02/23/2017 13:47 [facility] COMPARISON: CHEST SINGLE AP, February 21, 2017, 8:09. INDICATIONS : Post-op CABG. MEDICAL HISTORY : None. SURGICAL HISTORY : None. ENCOUNTER: Subsequent ACUITY: 3 days PAIN SCORE: Non-responsive. LOCATION: chest FINDINGS: A single portable frontal view of the chest shows interval median sternotomy. Thoracostomy tube is se en in a subxiphoid location as well as overlying the left hemithorax and no pneumothorax the right-si ded central line with the tip at the cava atrial junction. Tip of the endotracheal tube 4 cm cephalad to the hever. Tip of the NG tube just at the GE junction. Lungs are clear. Heart enlarged. No effus ions. CONCLUSION: 1. Interval median sternotomy with life-support lines as detailed above. Tip of the NG tube is just a t the GE junction. 2. Cardiomegaly. 3. No pneumothorax. Mauricio Amezcua Jr., MD on February 23, 2017 at 14:28 Board Certified Radiologist. This report was verified electronically.
--- NOTE | 2017-02-23 14:55 | HHI.FPPN ---
Subjective Remarks Patient seen this afternoon after CABG. Patient remains intubated but is awake and follows commands. (Marleni Blair MD R2) Objective Vitals Vital Signs Date Time Temp Pulse Resp B/P Pulse Ox O2 Delivery O2 Flow Rate FiO2 02/23/17 14:35 95 Nasal Cannula 5.00 02/23/17 14:35 95 Nasal Cannula 5 02/23/17 13:36 82 50 02/23/17 13:35 94 Mechanical Ventilator 50 02/23/17 13:35 97.4 85 20 114/69 95 110/65 02/23/17 13:35 50 02/23/17 06:00 65 02/23/17 05:00 69 02/23/17 04:00 77 02/23/17 03:00 75 02/23/17 03:00 98.4 77 18 111/64 96 02/23/17 02:00 74 02/23/17 01:00 71 02/23/17 00:00 77 02/22/17 23:00 98.2 74 18 124/68 97 02/22/17 23:00 74 02/22/17 22:00 88 02/22/17 21:00 79 02/22/17 20:17 96 21 02/22/17 20:00 80 02/22/17 19:00 85 02/22/17 19:00 97.9 85 18 128/88 98 02/22/17 18:00 76 02/22/17 17:41 97 21 02/22/17 17:00 75 02/22/17 16:00 74 02/22/17 15:10 98.4 66 18 79/50 97 02/22/17 15:00 73 I/O 02/22/17 02/22/17 02/22/17 02/23/17 02/23/17 02/23/17 07:00 15:00 23:00 07:00 15:00 23:00 Intake Total 124 ml 1100 ml 850 ml Output Total 900 ml 800 ml 750 ml Balance -776 ml 300 ml 100 ml Intake Oral 1100 ml 720 ml IV Total 124 ml 130 ml Output Urine Total 900 ml 800 ml 750 ml # Bowel Movements 0 1 (Marleni Blair MD R2) Result Diagram: 02/22/1731902/22/17319 Objective Remarks GEN: Well-developed, well-nourished patient. Intubated but awake. Follows commands and moves all 4 extremities. CV: Regular rate and rhythm without obvious murmurs. Bandage over incision clean and dry. LUNGS: Clear to auscultation bilaterally. Normal respiratory effort. No wheezes , rales, rhonchi. NEURO/PSYCH: Awake, alert. (Marleni Blair MD R2) A/P Assessment and Plan 51 y/o male with history of HTN presents with chest pain. Admitted for STEMI Discharge Planning 3-5days pending recovery from CABG wdw Dr. Blackmon (Marleni Blair MD R2) Attending Attestation Patient seen and examined. Case reviewed and discussed with the resident team. Agree with plan of care as discussed with me and documented in the resident note. (Richelle Blackmon MD) Problem List: (1) STEMI (ST elevation myocardial infarction) Status: Acute Plan: CAD risk factors include HTN, FH of [place], DM. Cocaine use in the last week. Initial EKG showed normal sinus rhythm. ST elevation in V1 and V2. Inverted T waves in V4, V5 and V6. CXR showed cardiomegaly with interstitial pulmonary edema. -Initial Trop 1.94. -Cr improved -lipid panel and A1c unremarkable Cardiology consulted, appreciate recs -cardiac cath showed multivessel disease, will need CABG -EF of 20-25% with mild to moderate MR, will need follow up for consideration of ICD placement in 3mths -ASA/Lipitor -No metoprolol due to cocaine use CT surgery consulted: appreciate recs * s/p CABG 02/23/17 * pt at increased risk due to poor ejection fraction, history of cocaine use and noncompliance (2) Cocaine abuse Status: Acute Plan: Pt states he uses cocaine weekly. Started using a couple months ago. May be contributing to cardiac disease. -Counseled on the risks of cocaine and recommendations for quitting (3) FEN Status: Acute Plan: Fluids: none Electrolytes: wnl; monitor & replace PRN Nutrition: NPO for CABG DVT ppx: heparin drip discontinued, will need SCD once patient is stabilized s/ p surgery GI PPX: not indicated (Marleni Blair MD R2) Problem Qualifiers (1) STEMI (ST elevation myocardial infarction): Qualified Code: I21.3 - ST elevation myocardial infarction (STEMI), unspecified artery Marleni Blair MD R2 Feb 23, 2017 14:55 Richelle Blackmon MD Feb 23, 2017 15:52
[2017-02-23] MEDS: RESP: ALBUTEROL 2.5 MG/IPRATROPIUM 0.5 MG NEB (SCH) NEB ×2 (15:51→21:00)
[2017-02-23] MEDS: METOCLOPRAMIDE HCL 10 MG/2 ML VIAL IV PUSH SCH ×2 (16:00→22:05)
[2017-02-23] MEDS: ceFAZolin 2 GM PREMIX 50 ML IV SCH (19:25)
[2017-02-23] MEDS: SODIUM CHLORIDE 0.9% FLUSH 10 ML FLUSH IVF SCH (21:00)
[2017-02-23] MEDS: AMIODARONE 200 MG TAB PO SCH (21:13)
[2017-02-23] MEDS: ATORVASTATIN 80 MG TAB PO SCH (21:14)
--- NOTE | 2017-02-23 23:43 | PD.CARD.PN ---
Subjective Subjective Remarks Patient seen earlier No chest pain, no shortness of breath, doing well post-operatively Objective Medications Current Medications Medications (Trade) Dose Ordered Sig/Angel Route Start Time Stop Time Status Last Admin (Heparin Inj) 5,000 units UNSCH PRN IV 02/21/17 15:30 Heparin Sodium (Porcine) 2500 units 2,500 units UNSCH PRN IV 02/21/17 15:30 02/22/17 17:05 (Heparin-D5W Inj) 250 ml @ 0 mls/hr TITRATE IV 02/21/17 09:30 02/21/17 20:43 (Colace) 100 mg BID PRN PO 02/21/17 10:00 (Lipitor) 80 mg HS PO 02/21/17 21:00 02/23/17 21:14 (Aspirin Chew) 81 mg DAILY CHEW 02/22/17 09:00 02/22/17 08:43 (Atropine Inj) 0.5 mg UNSCH PRN IV 02/21/17 12:45 (NS Flush) 2 ml BID IVF 02/21/17 21:00 02/23/17 21:00 (NS Flush) 2 ml UNSCH PRN IVF 02/21/17 18:15 Miscellaneous 1 ea 1 ea UNSCH PRN OTHER 02/21/17 18:45 Dopamine HCl/ Dextrose 500 ml @ 0 mls/hr UNSCH IV 02/23/17 13:00 (Lr 1000 ml Inj) 500 ml @ 500 mls/hr Q1H PRN IV 02/23/17 12:47 (Protonix) 40 mg DAILY@06 PO 02/24/17 06:00 (Reglan Inj) 10 mg ACHS IV PUSH 02/23/17 16:00 02/23/17 22:05 (Cordarone) 200 mg Q12HR PO 02/23/17 21:00 02/23/17 21:13 (Tylenol) 650 mg Q4H PRN PO 02/23/17 13:00 (Tylenol Supp) 650 mg Q4H PRN RECTAL 02/23/17 13:00 (Ofirmev Inj) 1,000 mg Q6H IV 02/23/17 14:00 02/24/17 08:01 02/23/17 19:29 (Percocet 5-325 Mg) 1 tab Q3H PRN PO 02/23/17 13:00 02/23/17 18:16 (fentaNYL INJ) 25 mcg Q1H PRN IV 02/23/17 13:00 02/23/17 19:30 (Zofran Inj) 4 mg Q6H PRN IV PUSH 02/23/17 13:00 (Apresoline Inj) 10 mg Q4H PRN IV 02/23/17 13:00 Metoprolol Tartrate 2.5 mg 2.5 mg Q1H PRN IV PUSH 02/23/17 13:00 Potassium Chloride 100 ml @ 50 mls/hr UNSCH PRN IV 02/23/17 13:00 02/23/17 21:13 Potassium Chloride 100 ml @ 50 mls/hr UNSCH PRN IV 02/23/17 13:00 Potassium Chloride 100 ml @ 50 mls/hr UNSCH PRN IV 02/23/17 13:00 Magnesium Sulfate 2 gm/Sodium Chloride 104 ml @ 100 mls/hr UNSCH PRN IV 02/23/17 13:00 Magnesium Sulfate 2 gm/Sodium Chloride 104 ml @ 50 mls/hr UNSCH PRN IV 02/23/17 13:00 (Calcium Chloride Inj/NS Inj) 110 ml @ 100 mls/hr UNSCH PRN IV 02/23/17 13:00 02/23/17 14:11 Calcium Chloride 0.5 gm 0.5 gm UNSCH PRN IV 02/23/17 13:00 (NovoLIN R (IV INFUSION)/NS Inj) 100 ml @ 0 mls/hr TITRATE IV 02/23/17 13:00 Dextrose 25 ml 25 ml UNSCH PRN IV PUSH 02/23/17 13:00 02/23/17 17:32 (Ancef 2 Gm Premix) 50 ml @ 100 mls/hr Q8H IV 02/23/17 20:00 02/25/17 04:29 02/23/17 19:25 Vital Signs / I&O Vital Signs Date Time Temp Pulse Resp B/P Pulse Ox O2 Delivery O2 Flow Rate FiO2 02/23/17 21:00 95 Nasal Cannula 4.00 02/23/17 20:15 20 02/23/17 20:15 20 02/23/17 20:00 94 Nasal Cannula 4.00 02/23/17 20:00 99.1 95 20 94 132/74 02/23/17 19:00 96 Nasal Cannula 4.00 02/23/17 17:38 89 02/23/17 15:30 79 02/23/17 15:25 97.6 79 16 95 133/74 02/23/17 15:00 79 02/23/17 14:35 95 Nasal Cannula 5.00 02/23/17 14:35 95 Nasal Cannula 5 02/23/17 14:00 40 02/23/17 13:36 82 50 02/23/17 13:35 94 Mechanical Ventilator 50 02/23/17 13:35 85 02/23/17 13:35 97.4 85 20 114/69 95 110/65 02/23/17 13:35 85 02/23/17 13:35 50 02/23/17 06:00 65 02/23/17 05:00 69 02/23/17 04:00 77 02/23/17 03:00 75 02/23/17 03:00 98.4 77 18 111/64 96 02/23/17 02:00 74 02/23/17 01:00 71 02/23/17 00:00 77 I/O 02/22/17 02/22/17 02/22/17 02/23/17 02/23/17 02/23/17 07:00 15:00 23:00 07:00 15:00 23:00 Intake Total 124 ml 1100 ml 850 ml 2590 ml Output Total 900 ml 800 ml 750 ml 1635 ml Balance -776 ml 300 ml 100 ml 955 ml Intake Oral 1100 ml 720 ml IV Total 124 ml 130 ml 2590 ml Output Urine Total 900 ml 800 ml 750 ml 1490 ml Gastric Drainage Total 0 ml Chest Tube Drainage Total 145 ml # Bowel Movements 0 1 0 Physical Exam GENERAL: NAD, AAOx3 SKIN: Warm and dry. HEAD: Atraumatic. Normocephalic. EYES: Pupils equal and round. No scleral icterus. No injection or drainage. ENT: No nasal bleeding or discharge. Mucous membranes pink and moist. NECK: Trachea midline. No JVD. CARDIOVASCULAR: Regular rate and rhythm. RESPIRATORY: No accessory muscle use. Clear to auscultation. Breath sounds equal bilaterally. GASTROINTESTINAL: Abdomen soft, non-tender, nondistended. Hepatic and splenic margins not palpable. MUSCULOSKELETAL: Extremities without clubbing, cyanosis, or edema. No obvious deformities. NEUROLOGICAL: Awake and alert. No obvious cranial nerve deficits. Motor grossly within normal limits. Five out of 5 muscle strength in the arms and legs. Normal speech. PSYCHIATRIC: Appropriate mood and affect; insight and judgment normal. 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
[2017-02-24] VITALS (13 sets, daily range): BP systolic 114–145; BP diastolic 72–91; PULSE 86–103; RESP 18; TEMP 98–99.3; O2SAT 91–97
[2017-02-24] MEDS: RESP: ALBUTEROL 2.5 MG/IPRATROPIUM 0.5 MG NEB (SCH) NEB ×3 (03:41→20:19)
[2017-02-24] MEDS: ceFAZolin 2 GM PREMIX 50 ML IV SCH ×3 (04:01→21:23)
[2017-02-24] MEDS: ACETAMINOPHEN 1000 MG/100 ML VIAL IV SCH ×2 (04:02→09:31)
[2017-02-24 05:53] LABS: HEMATOCRIT 40.7 % (39.0-51.0); MEAN CELL VOLUME 90.1 FL (80.0-100.0); MEAN CORPUSCULAR HEMOGLOBIN 30.8 PG (27.0-34.0); MEAN CORPUSCULAR HGB CONC 34.2 % (32.0-36.0); PLATELET COUNT 137 TH/MM3 (150-450); RED BLOOD COUNT 4.51 MIL/MM3 (4.50-5.90); REVIEW FLAG FINAL; WHITE BLOOD COUNT 13.3 TH/MM3 (4.0-11.0)
--- NOTE | 2017-02-24 05:59 | RADRPT ---
EXAM DATE/TIME: 02/24/2017 04:10 [facility] COMPARISON: CHEST SINGLE AP, February 23, 2017, 13:47. INDICATIONS : Shortness of breath, possible pulmonary disease. MEDICAL HISTORY : None. SURGICAL HISTORY : CABG. ENCOUNTER: Subsequent ACUITY: 4 - 6 days PAIN SCORE: 7/10 LOCATION: Bilateral chest FINDINGS: A single view of the chest demonstrates right central line in superior vena cava. Central and left ch est tube present. Global cardiomegaly. Mild basilar airspace disease. No effusion or pneumothorax. CONCLUSION: 1. Extubation and removal of previous NG tube. Chest tubes remain without pneumothorax. Mild basilar airspace disease similar to prior study. Mushtaq Harrison MD on February 24, 2017 at 5:56 Board Certified Radiologist. This report was verified electronically.
[2017-02-24 06:11] LABS: BICARBONATE 25.9 MEQ/L (21.0-32.0); MAGNESIUM 2.3 MG/DL (1.5-2.5); POTASSIUM 4.4 MEQ/L (3.5-5.1)
[2017-02-24] MEDS: PANTOPRAZOLE SOD 40 MG DELAYED RELEASE TAB PO SCH (06:35)
[2017-02-24] MEDS: METOCLOPRAMIDE HCL 10 MG/2 ML VIAL IV PUSH SCH (06:35)
[2017-02-24] MEDS: SODIUM CHLORIDE 0.9% FLUSH 10 ML FLUSH IVF SCH (09:00)
[2017-02-24] MEDS ORDERED: DEXTROSE 50% IN WATER 50 ML VIAL(D50) IV PRN (09:15)
[2017-02-24] MEDS ORDERED: BISACODYL 10 MG SUPP RECTAL PRN (09:15)
[2017-02-24] MEDS ORDERED: GLUCAGON 1 MG/ML VIAL OTHER PRN (09:15)
[2017-02-24] MEDS ORDERED: SOD PHOSPHATE/SOD BIPHOSPHATE (ADULT) ENEMA 133ML RECTAL PRN (09:15)
--- NOTE | 2017-02-24 09:18 | RSPPFT ---
DATE OF PROCEDURE: 02/21/17 COMMENTS: VOLUMES DYNAMIC: FVC and FEV1 mildly reduced. FLOWS: FEV1% normal; FEF 25-75 mildly reduced. IMPRESSION: Possible mild restrictive ventilatory defect with terminal airflow obstruction. Full lung volumes would be necessary for further information.
[2017-02-24] MEDS: ASPIRIN 81 MG CHEW TAB CHEW SCH (09:32)
[2017-02-24] MEDS: AMIODARONE 200 MG TAB PO SCH ×2 (09:32→21:20)
[2017-02-24] MEDS: oxyCODONE/ACETAMINOPHEN 5 MG/325 MG TAB PO PRN ×3 (09:32→21:19)
--- NOTE | 2017-02-24 09:45 | HHI.FPPN ---
Subjective Remarks Pt seen and examined this morning. No acute events overnight. Pt reports back pain this morning, has history of back injury and has pain after laying supine for long periods. Otherwise, doing well, no complaints. (Cristiano Flor MD R1 ) Objective Vitals Vital Signs Date Time Temp Pulse Resp B/P Pulse Ox O2 Delivery O2 Flow Rate FiO2 02/24/17 05:25 18 02/24/17 04:43 18 02/24/17 04:00 99.3 100 18 132/85 97 145/81 02/24/17 04:00 100 02/24/17 00:10 99.0 02/24/17 00:00 99.1 86 18 93 143/91 02/24/17 00:00 86 02/23/17 21:00 95 Nasal Cannula 4.00 02/23/17 20:15 20 02/23/17 20:00 94 Nasal Cannula 4.00 02/23/17 20:00 99.1 95 20 94 132/74 02/23/17 20:00 95 02/23/17 19:00 96 Nasal Cannula 4.00 02/23/17 17:38 89 02/23/17 15:30 79 02/23/17 15:25 97.6 79 16 95 133/74 02/23/17 15:00 79 02/23/17 14:35 95 Nasal Cannula 5.00 02/23/17 14:35 95 Nasal Cannula 5 02/23/17 14:00 40 02/23/17 13:36 82 50 02/23/17 13:35 94 Mechanical Ventilator 50 02/23/17 13:35 85 02/23/17 13:35 97.4 85 20 114/69 95 110/65 02/23/17 13:35 85 02/23/17 13:35 50 I/O 02/23/17 02/23/17 02/23/17 02/24/17 02/24/17 02/24/17 07:00 15:00 23:00 07:00 15:00 23:00 Intake Total 850 ml 2590 ml 1498 ml Output Total 750 ml 1635 ml 1935 ml Balance 100 ml 955 ml -437 ml Intake Oral 720 ml 240 ml IV Total 130 ml 2590 ml 1258 ml Output Urine Total 750 ml 1490 ml 1750 ml Gastric Drainage Total 0 ml Chest Tube Drainage Total 145 ml 185 ml # Bowel Movements 1 0 0 (Cristiano Flor MD R1) Result Diagram: 02/24/17 0500 02/24/17 0500 Objective Remarks GEN: Well-developed, well-nourished patient. Laying in bed, NAD CV: Regular rate and rhythm without obvious murmurs. Bandage over incision clean and dry. LUNGS: Clear to auscultation bilaterally. Normal respiratory effort. No wheezes , rales, rhonchi. NEURO/PSYCH: Awake, alert, oriented. (Cristiano Flor MD R1) A/P Assessment and Plan 51 y/o male with history of HTN presents with chest pain. Admitted for STEMI Discharge Planning 3-5days pending recovery from CABG wdw Dr. Blackmon (Cristiano Flor MD R1) Attending Attestation Patient seen and examined. Case reviewed and discussed with the resident team. Agree with plan of care as discussed with me and documented in the resident note. (Richelle Blackmon MD) Problem List: (1) STEMI (ST elevation myocardial infarction) Status: Acute Plan: CAD risk factors include HTN, FH of [place], DM. Cocaine use in the last week. Initial EKG showed normal sinus rhythm. ST elevation in V1 and V2. Inverted T waves in V4, V5 and V6. CXR showed cardiomegaly with interstitial pulmonary edema. -Initial Trop 1.94. -Cr improved -lipid panel and A1c unremarkable Cardiology consulted, appreciate recs -cardiac cath showed multivessel disease, will need CABG -EF of 20-25% with mild to moderate MR, will need follow up for consideration of ICD placement in 3mths -ASA/Lipitor -No metoprolol due to cocaine use CT surgery consulted: appreciate recs * s/p CABG 02/23/17 * Continue post-op management, per CTS * pt at increased risk due to poor ejection fraction, history of cocaine use and noncompliance (2) Cocaine abuse Status: Acute Plan: Pt states he uses cocaine weekly. Started using a couple months ago. May be contributing to cardiac disease. -Counseled on the risks of cocaine and recommendations for quitting -Avoid beta aleksandra use (3) FEN Status: Acute Plan: Fluids: none Electrolytes: wnl; monitor & replace PRN Nutrition: CLD DVT ppx: Rickie hose GI PPX: not indicated (Cristiano Flor MD R1) Problem Qualifiers (1) STEMI (ST elevation myocardial infarction): Qualified Code: I21.3 - ST elevation myocardial infarction (STEMI), unspecified artery Cristiano Flor MD R1 Feb 24, 2017 09:45 Richelle Blackmon MD Feb 24, 2017 12:12
[2017-02-24] MEDS ORDERED: FUROSEMIDE 40 MG/4 ML VIAL IV PUSH ONE (10:00)
[2017-02-24] MEDS ORDERED: POTASSIUM CHLORIDE 20 MEQ CONTROLLED RELEASE TAB PO ONE (10:00)
[2017-02-24] MEDS: INSULIN ASPART SUPPLEMENTAL SCALE SQ SCH ×4 (10:00→22:00)
--- NOTE | 2017-02-24 10:09 | PD.CARD.PN ---
Subjective Subjective Remarks No chest pain, no shortness of breath Back pain Objective Medications Current Medications Medications (Trade) Dose Ordered Sig/Angel Route Start Time Stop Time Status Last Admin (Lipitor) 80 mg HS PO 02/21/17 21:00 02/23/17 21:14 (Aspirin Chew) 81 mg DAILY CHEW 02/22/17 09:00 02/24/17 09:32 (NS Flush) 2 ml BID IVF 02/21/17 21:00 02/24/17 09:00 (NS Flush) 2 ml UNSCH PRN IVF 02/21/17 18:15 Miscellaneous 1 ea 1 ea UNSCH PRN OTHER 02/21/17 18:45 (Lr 1000 ml Inj) 500 ml @ 500 mls/hr Q1H PRN IV 02/23/17 12:47 (Protonix) 40 mg DAILY@06 PO 02/24/17 06:00 02/24/17 06:35 (Cordarone) 200 mg Q12HR PO 02/23/17 21:00 02/24/17 09:32 (Tylenol) 650 mg Q4H PRN PO 02/23/17 13:00 (Percocet 5-325 Mg) 1 tab Q3H PRN PO 02/23/17 13:00 02/23/17 18:16 (Zofran Inj) 4 mg Q6H PRN IV PUSH 02/23/17 13:00 Hydralazine HCl 10 mg 10 mg Q4H PRN IV 02/23/17 13:00 Magnesium Sulfate 2 gm/Sodium Chloride 104 ml @ 100 mls/hr UNSCH PRN IV 02/23/17 13:00 Magnesium Sulfate 2 gm/Sodium Chloride 104 ml @ 50 mls/hr UNSCH PRN IV 02/23/17 13:00 (Ancef 2 Gm Premix) 50 ml @ 100 mls/hr Q8H IV 02/23/17 20:00 02/25/17 04:29 02/24/17 04:01 (Percocet 5-325 Mg) 2 tab Q3H PRN PO 02/24/17 04:30 02/24/17 09:32 (Colace) 100 mg BID PO 02/24/17 21:00 (Theragran M Tab) 1 tab DAILY PO 02/25/17 09:00 (Milk Of Magnesia Liq) 30 ml DAILY PO 02/25/17 09:00 (Miralax) 17 gm DAILY PO 02/25/17 09:00 (Senokot) 8.6 mg HS PO 02/24/17 21:00 (Fleets Enema (Adult)) 133 ml UNSCH PRN RECTAL 02/24/17 09:15 (NovoLOG SUPPLEMENTAL SCALE) 1 02,06,10,14,18,22 SQ 02/24/17 10:00 02/25/17 06:01 (D50w (Vial) Inj) 25 ml UNSCH PRN IV 02/24/17 09:15 (Glucagon Inj) 1 mg UNSCH PRN OTHER 02/24/17 09:15 Vital Signs / I&O Vital Signs Date Time Temp Pulse Resp B/P Pulse Ox O2 Delivery O2 Flow Rate FiO2 02/24/17 05:25 18 02/24/17 04:43 18 02/24/17 04:00 99.3 100 18 132/85 97 145/81 02/24/17 04:00 100 02/24/17 00:10 99.0 02/24/17 00:00 99.1 86 18 93 143/91 02/24/17 00:00 86 02/23/17 21:00 95 Nasal Cannula 4.00 02/23/17 20:15 20 02/23/17 20:00 94 Nasal Cannula 4.00 02/23/17 20:00 99.1 95 20 94 132/74 02/23/17 20:00 95 02/23/17 19:00 96 Nasal Cannula 4.00 02/23/17 17:38 89 02/23/17 15:30 79 02/23/17 15:25 97.6 79 16 95 133/74 02/23/17 15:00 79 02/23/17 14:35 95 Nasal Cannula 5.00 02/23/17 14:35 95 Nasal Cannula 5 02/23/17 14:00 40 02/23/17 13:36 82 50 02/23/17 13:35 94 Mechanical Ventilator 50 02/23/17 13:35 85 02/23/17 13:35 97.4 85 20 114/69 95 110/65 02/23/17 13:35 85 02/23/17 13:35 50 I/O 02/23/17 02/23/17 02/23/17 02/24/1730/17 3/30/17 07:00 15:00 23:00 07:00 15:00 23:00 Intake Total 850 ml 2590 ml 1498 ml Output Total 750 ml 1635 ml 1935 ml Balance 100 ml 955 ml -437 ml Intake Oral 720 ml 240 ml IV Total 130 ml 2590 ml 1258 ml Output Urine Total 750 ml 1490 ml 1750 ml Gastric Drainage Total 0 ml Chest Tube Drainage Total 145 ml 185 ml # Bowel Movements 1 0 0 Physical Exam GENERAL: NAD, AAOx3 SKIN: Warm and dry. HEAD: Atraumatic. Normocephalic. EYES: Pupils equal and round. No scleral icterus. No injection or drainage. ENT: No nasal bleeding or discharge. Mucous membranes pink and moist. NECK: Trachea midline. No JVD. CARDIOVASCULAR: Regular rate and rhythm. Sternotomy with wound vac RESPIRATORY: No accessory muscle use. Decreased breath sounds bilaterally GASTROINTESTINAL: Abdomen soft, non-tender, nondistended. Hepatic and splenic margins not palpable. MUSCULOSKELETAL: Extremities without clubbing, cyanosis, or edema. No obvious deformities. NEUROLOGICAL: Awake and alert. No obvious cranial nerve deficits. Motor grossly within normal limits. Five out of 5 muscle strength in the arms and legs. Normal speech. PSYCHIATRIC: Appropriate mood and affect; insight and judgment normal. Laboratory Laboratory Tests Test 02/24/17 05:00 White Blood Count 13.3 TH/MM3 Red Blood Count 4.51 MIL/MM3 Hemoglobin 13.9 GM/DL Hematocrit 40.7 % Mean Corpuscular Volume 90.1 FL Mean Corpuscular Hemoglobin 30.8 PG Mean Corpuscular Hemoglobin 34.2 % Concent Red Cell Distribution Width 14.0 % Platelet Count 137 TH/MM3 Mean Platelet Volume 9.6 FL Sodium Level 140 MEQ/L Potassium Level 4.4 MEQ/L Chloride Level 107 MEQ/L Carbon Dioxide Level 25.9 MEQ/L Anion Gap 7 MEQ/L Blood Urea Nitrogen 9 MG/DL Creatinine 1.06 MG/DL Estimat Glomerular Filtration 89 ML/MIN Rate Random Glucose 122 MG/DL Calcium Level 8.0 MG/DL Magnesium Level 2.3 MG/DL Assessment and Plan Problem List: (1) NSTEMI (non-ST elevated myocardial infarction) (2) Congestive heart failure (CHF) (3) Cocaine abuse (4) 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
--- NOTE | 2017-02-24 11:59 | PD.CAR.PN ---
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 hx of dilated CM 02/22 remains pain free, on heparin gtt/ scheduled for surgery in am may need to be eval for Life Vest at discharge/ will discuss with Dr Garcia 02/23 surgery: Urgent CABG x 3, ART to LAD - good, SVG to OM2 - good, SVG to OM1 - poor, L EVH Objective: GENERAL: SKIN: Warm and dry.prevena to chest, osbaldo wrap to left leg HEAD: Normocephalic. EYES: No scleral icterus. No injection or drainage. NECK: Supple, trachea midline. No JVD or lymphadenopathy. CARDIOVASCULAR: Regular rate and rhythm without murmurs, gallops, or rubs. RESPIRATORY: Breath sounds equal bilaterally. No accessory muscle use. chest tube to wall suction/ no air leak GASTROINTESTINAL: Abdomen soft, non-tender, nondistended. MUSCULOSKELETAL: No cyanosis, or edema. BACK: Nontender without obvious deformity. No CVA tenderness. Vital Signs Date Time Temp Pulse Resp B/P Pulse Ox O2 Delivery O2 Flow Rate FiO2 02/24/17 05:25 18 02/24/17 04:43 18 02/24/17 04:00 99.3 100 18 132/85 97 145/81 02/24/17 04:00 100 02/24/17 00:10 99.0 02/24/17 00:00 99.1 86 18 93 143/91 02/24/17 00:00 86 02/23/17 21:00 95 Nasal Cannula 4.00 02/23/17 20:15 20 02/23/17 20:00 94 Nasal Cannula 4.00 02/23/17 20:00 99.1 95 20 94 132/74 02/23/17 20:00 95 02/23/17 19:00 96 Nasal Cannula 4.00 02/23/17 17:38 89 02/23/17 15:30 79 02/23/17 15:25 97.6 79 16 95 133/74 02/23/17 15:00 79 02/23/17 14:35 95 Nasal Cannula 5.00 02/23/17 14:35 95 Nasal Cannula 5 02/23/17 14:00 40 02/23/17 13:36 82 50 02/23/17 13:35 94 Mechanical Ventilator 50 02/23/17 13:35 85 02/23/17 13:35 97.4 85 20 114/69 95 110/65 02/23/17 13:35 85 02/23/17 13:35 50 Labs: Laboratory Tests Test 02/24/17 05:00 White Blood Count 13.3 TH/MM3 (4.0-11.0) Red Blood Count 4.51 MIL/MM3 (4.50-5.90) Hemoglobin 13.9 GM/DL (13.0-17.0) Hematocrit 40.7 % (39.0-51.0) Mean Corpuscular Volume 90.1 FL (80.0-100.0) Mean Corpuscular Hemoglobin 30.8 PG (27.0-34.0) Mean Corpuscular Hemoglobin 34.2 % Concent (32.0-36.0) Red Cell Distribution Width 14.0 % (11.6-17.2) Platelet Count 137 TH/MM3 (150-450) Mean Platelet Volume 9.6 FL (7.0-11.0) Sodium Level 140 MEQ/L (136-145) Potassium Level 4.4 MEQ/L (3.5-5.1) Chloride Level 107 MEQ/L (98-107) Carbon Dioxide Level 25.9 MEQ/L (21.0-32.0) Anion Gap 7 MEQ/L (5-15) Blood Urea Nitrogen 9 MG/DL (7-18) Creatinine 1.06 MG/DL (0.60-1.30) Estimat Glomerular Filtration 89 ML/MIN (>89) Rate Random Glucose 122 MG/DL (74-106) Calcium Level 8.0 MG/DL (8.5-10.1) Magnesium Level 2.3 MG/DL (1.5-2.5) Result Diagram: 02/24/17 0500 02/24/17 0500 Telemetry: NSR (1) NSTEMI (non-ST elevated myocardial infarction) (2) S/P CABG x 3 Plan: ASA, statin , weaning off dopamine avoid BB with his History of cocaine abuse pulm toileting nebs/ ezpap wean 02 as tolerated OOB / ambulate (3) Congestive heart failure (CHF) (4) Cocaine abuse Plan: illicit drug cessation (5) Multi-vessel coronary artery stenosis (6) Non-compaction cardiomyopathy Plan: EF 20% / will need life vest as per Dr Garcia at discharge Pattie Godinez Feb 24, 2017 11:59
--- NOTE | 2017-02-24 12:04 | HHI.FF ---
Face to Face Verification Diagnosis: (1) NSTEMI (non-ST elevated myocardial infarction) (2) Congestive heart failure (CHF) (3) Non-compaction cardiomyopathy (4) S/P CABG x 3 (5) Cocaine abuse Physical Therapy Order: Evaluate and Treat Home Health Nursing Order: Signs/symptoms of disease process CHF education Wound care and dressing changes Instructions: Heart and Vascular Surgery patients *Special attention to sternal dressing Mandatory frequency Assess and evaluation, 4 days in a row The next week 3X week 2 times a week for 4 weeks 1 time a week for 5 weeks Schedule Heart and Vascular patients for full 60 day certification period Initial visit Review Open Heart Surgery Discharge Instructions (Sternal precautions, Activity, Elastic hose, Incision care, Driving, Incentive spirometry, Smoking, [place], Work and other) Need Betadine to paint incision Medication reconciliation Importance of follow up care/ check on appointments Make calendar record temperature daily When to call [facility] nurse, review instructions, phone list Incentive Spirometry, demonstration Visit 1- Begin discharge instruction for patient family and/ or caregiver using teach back method- Signs and symptoms of infection Disease characteristics Medicines and side effects Foods and nutrition/ appetite Infection control/ hand washing/ hygiene Visit 2- Continue teaching Discharge instructions- include additional information on smoking cessation , sternal dressing (sternal vac) Visit 3- Continue teaching- Cough and deep breathing, incision monitoring. Choose my plate Visit 4- Continue teaching- Discuss limitations Discuss how they are feeling Discuss progress toward goals Remaining visits- continue teaching and monitoring Incentive spirometry Q1 hr x 10, while awake, also use acapella device hourly whole awake Sternal Breast Bone Precautions: NO pushing or pulling, ( pt must use sternal pillow to support chest with all activities and with coughing ( takes up to 3 months breast bone to heal ) Daily incision care: ok to shower daily, no tub bath. Wash all incisions with liquid dial soap, clean wash cloth to each site, rinse and pat dry. Observe for any signs of infection, such as drainage which is dark yellow, bueno, green or foul smelling. Immediately report to the surgeon any drainage from the chest incision, or legs, and for any abnormal drainage from the chest tube sites. Notify surgeon if any temp >101.5 degrees F. When specialty dressing removed/ or if you do not have one, continue to shower daily as above, then rinse and pat incision dry and paint with betadine daily x 5 days. Allow steri strips to fall off if you have any. Avoid lotions, creams, salves, oils, etc. for the first month Please see attached forms for additional instructions regarding post Open Heart specialty wound vacuum dressings. PIPER or Prevena , Dressing to be removed by Nursing staff on For Dr. Del Valle patients , please obtain CBC, BMP, PA & Lat CXR in 2 weeks, results to Dr. Del Valle ( prescription will be given) ( ) (Tele: [phone]) , F/U appointment: as per DC instructions: PCP in 2 weeks, CV surgeon 2 weeks, Road Design Engineer 3-4 weeks For any questions regarding incisions/ dressing / meds / post op care or above Symptoms, Tuesday 8am-5pm Heart & Vascular Surgery Office ( Dr. Paniagua & Dr. Del Valle), After Hours / Nights (5pm -8am) Weekends and Holidays Please call [facility] Card[facility] ([facility]) Charge Nurse I have seen patient Zohaib Azevedo on 02/24/17. My clinical findings support the need for the requested home health care services because: Deconditioned w/ increased weakness I certify that my clinical findings support that this patient is homebound because: Post-op weakness Pattie Godinez Feb 24, 2017 12:04
--- NOTE | 2017-02-24 13:37 | EKG ---
Date Performed: 02/24/2017 Time Performed: 06:27:24 PTAGE: 51 years EKG: Sinus rhythm Leftward axis LVH with secondary repolarization abnormality Extensive ST-T changes may be due to hyp ertrophy and/or ischemia Abnormal ECG PREVIOUS TRACING : 02/21/2017 09.00 Compared to prior tracing no significant change DOCTOR: Remy Arteaga Interpretating Date/Time 02/24/2017 13:35:07
[2017-02-24] MEDS: ATORVASTATIN 80 MG TAB PO SCH (21:18)
[2017-02-24] MEDS: DOCUSATE SODIUM 100 MG CAP PO SCH (21:19)
[2017-02-24] MEDS: SENNOSIDES 8.6 MG TAB PO SCH (21:20)
[2017-02-25] VITALS (16 sets, daily range): BP systolic 113–149; BP diastolic 42–85; PULSE 82–104; RESP 16–20; TEMP 98–98.9; O2SAT 90–94
[2017-02-25] MEDS: oxyCODONE/ACETAMINOPHEN 5 MG/325 MG TAB PO PRN ×4 (00:01→09:11)
[2017-02-25] MEDS: SODIUM CHLORIDE 0.9% FLUSH 10 ML FLUSH IVF SCH ×2 (00:01→21:18)
[2017-02-25] MEDS: INSULIN ASPART SUPPLEMENTAL SCALE SQ SCH ×4 (02:00→21:00)
[2017-02-25] MEDS: ceFAZolin 2 GM PREMIX 50 ML IV SCH (03:10)
[2017-02-25 04:54] LABS: AUTOMATED NEUTROPHIL # 10.7 TH/MM3 (1.8-7.7); BASOPHIL % 0.1 % (0.0-2.0); EOSINOPHIL % 0.2 % (0.0-4.0); HEMATOCRIT 39.9 % (39.0-51.0); HEMO FLAGS DIFF FINAL; LYMPH % 10.5 % (9.0-44.0); LYMPHOCYTE # 1.4 TH/MM3 (1.0-4.8); MEAN CELL VOLUME 91.1 FL (80.0-100.0); MONO % 7.9 % (0.0-8.0); NEUT % 81.3 % (16.0-70.0); PLATELET COUNT 133 TH/MM3 (150-450); RED BLOOD COUNT 4.37 MIL/MM3 (4.50-5.90); RED CELL DISTRIBUTION WIDTH 14.1 % (11.6-17.2); WHITE BLOOD COUNT 13.1 TH/MM3 (4.0-11.0)
[2017-02-25 04:55] LABS: BICARBONATE 30.4 MEQ/L (21.0-32.0); MAGNESIUM 2.3 MG/DL (1.5-2.5); POTASSIUM 4.2 MEQ/L (3.5-5.1)
[2017-02-25] MEDS: PANTOPRAZOLE SOD 40 MG DELAYED RELEASE TAB PO SCH (06:00)
[2017-02-25] MEDS: RESP: ALBUTEROL 2.5 MG/IPRATROPIUM 0.5 MG NEB (SCH) NEB ×3 (07:30→20:09)
--- NOTE | 2017-02-25 08:16 | HHI.FPPN ---
Subjective Remarks Pt seen and examined this morning. No acute events overnight. Pt reports doing well this morning. Pain much improved today. No SOB. (Cristiano Flor MD R1) Objective Vitals Vital Signs Date Time Temp Pulse Resp B/P Pulse Ox O2 Delivery O2 Flow Rate FiO2 02/25/17 07:33 94 21 02/25/17 07:30 82 02/25/17 07:30 98.5 92 18 137/84 93 Arterial Line 02/25/17 07:30 94 Room Air 02/25/17 05:53 98.2 97 18 149/42 94 02/25/17 02:49 98.0 99 18 126/85 91 02/25/17 02:00 96 02/25/17 01:00 100 02/25/17 00:00 102 02/24/17 23:00 103 02/24/17 22:00 94 02/24/17 21:54 91 Nasal Cannula 2.00 02/24/17 21:00 102 02/24/17 21:00 98.0 101 18 138/89 91 02/24/17 20:19 95 02/24/17 20:00 92 02/24/17 19:00 98 02/24/17 15:50 98.8 92 18 114/82 95 02/24/17 11:50 99.0 89 18 122/82 95 I/O 02/24/17 02/24/17 02/24/17 02/25/17 02/25/17 02/25/17 07:00 15:00 23:00 07:00 15:00 23:00 Intake Total 1498 ml 864 ml 240 ml Output Total 1935 ml 1510 ml 450 ml Balance -437 ml -646 ml -210 ml Intake Oral 240 ml 750 ml 240 ml IV Total 1258 ml 114 ml Output Urine Total 1750 ml 1300 ml 400 ml Chest Tube Drainage Total 185 ml 210 ml 50 ml # Bowel Movements 0 0 (Cristiano Flor MD R1) Result Diagram: 02/25/1732902/25/17329 Objective Remarks GEN: Well-developed, well-nourished patient. Laying in bed, NAD CV: Regular rate and rhythm without obvious murmurs. Bandage over incision clean and dry. LUNGS: Clear to auscultation bilaterally. Normal respiratory effort. No wheezes , rales, rhonchi. NEURO/PSYCH: Awake, alert, oriented. (Cristiano Flor MD R1) A/P Assessment and Plan 51 y/o male with history of HTN presents with chest pain. Admitted for NSTEMI Discharge Planning Pending recovery from CABG & CTS recs (Cristiano Flor MD R1) Attending Attestation Patient seen and examined. Case reviewed and discussed with the resident team. Agree with plan of care as discussed with me and documented in the resident note. pleasant gentleman doing his best to get up and walk around. doing very well post op (Danelle Arizmendi MD) Problem List: (1) NSTEMI (non-ST elevated myocardial infarction) Status: Acute Plan: CAD risk factors include HTN, FH of [place], DM. Cocaine use in the last week. Initial EKG showed normal sinus rhythm. ST elevation in V1 and V2. Inverted T waves in V4, V5 and V6. CXR showed cardiomegaly with interstitial pulmonary edema. -Initial Trop 1.94. -Cr improved -lipid panel and A1c unremarkable Cardiology consulted, appreciate recs -cardiac cath showed multivessel disease, will need CABG -EF of 20-25% with mild to moderate MR, will need follow up for consideration of ICD placement in 3mths -ASA/Lipitor -Amiodarone -Percocet for pain -No metoprolol due to cocaine use CT surgery consulted: appreciate recs * s/p CABG 02/23/17 * Continue post-op management, per CTS * pt at increased risk due to poor ejection fraction, history of cocaine use and noncompliance (2) Cocaine abuse Status: Acute Plan: Pt states he uses cocaine weekly. Started using a couple months ago. May be contributing to cardiac disease. -Counseled on the risks of cocaine and recommendations for quitting -Avoid beta aleksandra use (3) FEN Status: Acute Plan: Fluids: none Electrolytes: wnl; monitor & replace PRN Nutrition: Heart healthy DVT ppx: Rickie hose GI PPX: not indicated (Cristiano Flor MD R1) Cristiano Flor MD R1 Feb 25, 2017 08:16 Danelle Arizmendi MD Feb 27, 2017 10:10
--- NOTE | 2017-02-25 08:43 | PD.CARD.PN ---
Subjective Subjective Remarks Doing better out of bed, back pain better controlled No chest pain, no shortness of breath Objective Medications Current Medications Medications (Trade) Dose Ordered Sig/Angel Route Start Time Stop Time Status Last Admin (Lipitor) 80 mg HS PO 02/21/17 21:00 02/24/17 21:18 (Aspirin Chew) 81 mg DAILY CHEW 02/22/17 09:00 02/24/17 09:32 (NS Flush) 2 ml BID IVF 02/21/17 21:00 02/25/17 00:01 (NS Flush) 2 ml UNSCH PRN IVF 02/21/17 18:15 02/24/17 11:06 Miscellaneous 1 ea 1 ea UNSCH PRN OTHER 02/21/17 18:45 (Lr 1000 ml Inj) 500 ml @ 500 mls/hr Q1H PRN IV 02/23/17 12:47 (Protonix) 40 mg DAILY@06 PO 02/24/17 06:00 02/25/17 06:00 (Cordarone) 200 mg Q12HR PO 02/23/17 21:00 02/24/17 21:20 (Tylenol) 650 mg Q4H PRN PO 02/23/17 13:00 (Percocet 5-325 Mg) 1 tab Q3H PRN PO 02/23/17 13:00 02/23/17 18:16 (Zofran Inj) 4 mg Q6H PRN IV PUSH 02/23/17 13:00 Hydralazine HCl 10 mg 10 mg Q4H PRN IV 02/23/17 13:00 Magnesium Sulfate 2 gm/Sodium Chloride 104 ml @ 100 mls/hr UNSCH PRN IV 02/23/17 13:00 (Magnesium Sulfate Inj/NS Inj) 104 ml @ 50 mls/hr UNSCH PRN IV 02/23/17 13:00 (Percocet 5-325 Mg) 2 tab Q3H PRN PO 02/24/17 04:30 02/25/17 06:12 (Colace) 100 mg BID PO 02/24/17 21:00 02/24/17 21:19 (Theragran M Tab) 1 tab DAILY PO 02/25/17 09:00 (Milk Of Magnesia Liq) 30 ml DAILY PO 02/25/17 09:00 (Miralax) 17 gm DAILY PO 02/25/17 09:00 (Senokot) 8.6 mg HS PO 02/24/17 21:00 02/24/17 21:20 (Fleets Enema (Adult)) 133 ml UNSCH PRN RECTAL 02/24/17 09:15 (D50w (Vial) Inj) 25 ml UNSCH PRN IV 02/24/17 09:15 (Glucagon Inj) 1 mg UNSCH PRN OTHER 02/24/17 09:15 Vital Signs / I&O Vital Signs Date Time Temp Pulse Resp B/P Pulse Ox O2 Delivery O2 Flow Rate FiO2 02/25/17 07:33 94 21 02/25/17 07:30 82 02/25/17 07:30 98.5 92 18 137/84 93 Arterial Line 02/25/17 07:30 94 Room Air 02/25/17 05:53 98.2 97 18 149/42 94 02/25/17 02:49 98.0 99 18 126/85 91 02/25/17 02:00 96 02/25/17 01:00 100 02/25/17 00:00 102 02/24/17 23:00 103 02/24/17 22:00 94 02/24/17 21:54 91 Nasal Cannula 2.00 02/24/17 21:00 102 02/24/17 21:00 98.0 101 18 138/89 91 02/24/17 20:19 95 02/24/17 20:00 92 02/24/17 19:00 98 02/24/17 15:50 98.8 92 18 114/82 95 02/24/17 11:50 99.0 89 18 122/82 95 I/O 02/24/17 02/24/17 02/24/17 02/25/17 02/25/17 02/25/17 07:00 15:00 23:00 07:00 15:00 23:00 Intake Total 1498 ml 864 ml 240 ml Output Total 1935 ml 1510 ml 450 ml Balance -437 ml -646 ml -210 ml Intake Oral 240 ml 750 ml 240 ml IV Total 1258 ml 114 ml Output Urine Total 1750 ml 1300 ml 400 ml Chest Tube Drainage Total 185 ml 210 ml 50 ml # Bowel Movements 0 0 Physical Exam GENERAL: NAD, AAOx3 SKIN: Warm and dry. HEAD: Atraumatic. Normocephalic. EYES: Pupils equal and round. No scleral icterus. No injection or drainage. ENT: No nasal bleeding or discharge. Mucous membranes pink and moist. NECK: Trachea midline. No JVD. CARDIOVASCULAR: Regular rate and rhythm. Sternotomy with wound vac RESPIRATORY: No accessory muscle use. Decreased breath sounds bilaterally GASTROINTESTINAL: Abdomen soft, non-tender, nondistended. Hepatic and splenic margins not palpable. MUSCULOSKELETAL: Extremities without clubbing, cyanosis, or edema. No obvious deformities. NEUROLOGICAL: Awake and alert. No obvious cranial nerve deficits. Motor grossly within normal limits. Five out of 5 muscle strength in the arms and legs. Normal speech. PSYCHIATRIC: Appropriate mood and affect; insight and judgment normal. Laboratory Laboratory Tests Test 02/25/17 03:30 White Blood Count 13.1 TH/MM3 Red Blood Count 4.37 MIL/MM3 Hemoglobin 13.6 GM/DL Hematocrit 39.9 % Mean Corpuscular Volume 91.1 FL Mean Corpuscular Hemoglobin 31.0 PG Mean Corpuscular Hemoglobin 34.0 % Concent Red Cell Distribution Width 14.1 % Platelet Count 133 TH/MM3 Mean Platelet Volume 10.1 FL Neutrophils (%) (Auto) 81.3 % Lymphocytes (%) (Auto) 10.5 % Monocytes (%) (Auto) 7.9 % Eosinophils (%) (Auto) 0.2 % Basophils (%) (Auto) 0.1 % Neutrophils # (Auto) 10.7 TH/MM3 Lymphocytes # (Auto) 1.4 TH/MM3 Monocytes # (Auto) 1.0 TH/MM3 Eosinophils # (Auto) 0.0 TH/MM3 Basophils # (Auto) 0.0 TH/MM3 CBC Comment DIFF FINAL Differential Comment Sodium Level 140 MEQ/L Potassium Level 4.2 MEQ/L Chloride Level 102 MEQ/L Carbon Dioxide Level 30.4 MEQ/L Anion Gap 8 MEQ/L Blood Urea Nitrogen 15 MG/DL Creatinine 1.12 MG/DL Estimat Glomerular Filtration 83 ML/MIN Rate Random Glucose 127 MG/DL Calcium Level 8.3 MG/DL Magnesium Level 2.3 MG/DL Assessment and Plan Problem List: (1) NSTEMI (non-ST elevated myocardial infarction) (2) S/P CABG x 3 (3) Congestive heart failure (CHF) (4) Cocaine abuse (5) Multi-vessel coronary artery stenosis (6) Non-compaction cardiomyopathy Assessment and Plan 1) CABG x3 (ART to LAD, SVG to OM1, SVG to OM2) POD#2 2) ASA/Lipitor/Amio 3) Will avoid BB therapy due to cocaine history 4) Probable non-compaction of the LV with EF 20-25%, discussed with him about Lifevest, will have sales representative public utilities come talk to him about it today 5) Will need repeat echo in 3 months to consider ICD therapy Chuck Garcia DO Feb 25, 2017 08:43
[2017-02-25] MEDS: DOCUSATE SODIUM 100 MG CAP PO SCH ×2 (09:00→21:18)
[2017-02-25] MEDS: POLYETHYLENE GLYCOL 17 GM PKG PO SCH (09:12)
[2017-02-25] MEDS: ASPIRIN 81 MG CHEW TAB CHEW SCH (09:13)
[2017-02-25] MEDS: AMIODARONE 200 MG TAB PO SCH ×2 (09:13→21:18)
[2017-02-25] MEDS: MAGNESIUM HYDROXIDE SUSP 30 ML CUP PO SCH (09:13)
[2017-02-25] MEDS: MULTIVITAMINS/MINERALS THERAPEUTIC TAB PO SCH (09:13)
[2017-02-25] MEDS: oxyCODONE/ACETAMINOPHEN 7.5 MG/325 MG TAB PO PRN ×2 (15:37→21:19)
--- NOTE | 2017-02-25 17:09 | PD.CAR.PN ---
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 hx of dilated CM 02/22 remains pain free, on heparin gtt/ scheduled for surgery in am may need to be eval for Life Vest at discharge/ will discuss with Dr Torres 02/23 surgery: Urgent CABG x 3, ART to LAD - good, SVG to OM2 - good, SVG to OM1 - poor, L EVH 02/24 keep chest tubes in place wean [address] torres/ will need Life vest at discharge 2/ EF 20 % no BB 2/2 recent cocaine abuse transfer to stepdown 02/25 pt taking 2 percocets at a time for pain / changed to 7.5mg prn q4hr chest tube removed without difficulty ambulating gentle diuresis Objective: GENERAL: SKIN: Warm and dry.prevena dressing to chest / incision intact to leg HEAD: Normocephalic. EYES: No scleral icterus. No injection or drainage. NECK: Supple, trachea midline. No JVD or lymphadenopathy. CARDIOVASCULAR: Regular rate and rhythm without murmurs, gallops, or rubs. mild general edema RESPIRATORY: diminished in bases Breath sounds equal bilaterally. No accessory muscle use. GASTROINTESTINAL: Abdomen soft, non-tender, nondistended. MUSCULOSKELETAL: No cyanosis, or edema. BACK: Nontender without obvious deformity. No CVA tenderness. Vital Signs Date Time Temp Pulse Resp B/P Pulse Ox O2 Delivery O2 Flow Rate FiO2 02/25/17 15:50 98.2 97 20 122/84 94 02/25/17 11:30 98.9 97 18 142/82 94 02/25/17 07:33 94 21 02/25/17 07:30 82 02/25/17 07:30 98.5 92 18 137/84 93 Arterial Line 02/25/17 07:30 94 Room Air 02/25/17 05:53 98.2 97 18 149/42 94 3/31/17 02:49 98.0 99 18 126/85 91 02/25/17 02:00 96 02/25/17 01:00 100 02/25/17 00:00 102 02/24/17 23:00 103 02/24/17 22:00 94 02/24/17 21:54 91 Nasal Cannula 2.00 02/24/17 21:54 91 Nasal Cannula 2.00 02/24/17 21:00 102 02/24/17 21:00 98.0 101 18 138/89 91 02/24/17 20:19 95 02/24/17 20:00 92 02/24/17 19:00 98 Result Diagram: 02/25/1732902/25/17329 (1) NSTEMI (non-ST elevated myocardial infarction) (2) S/P CABG x 3 Plan: on statin , no BB with cocaine hx ASA will need life vest at discharge ambulate, wean 02 eval for possible dc on tuesday (3) Congestive heart failure (CHF) (4) Cocaine abuse Plan: illicit drug cessation (5) 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
[2017-02-25] MEDS ORDERED: FUROSEMIDE 40 MG/4 ML VIAL IV PUSH ONE (17:15)
[2017-02-25] MEDS ORDERED: POTASSIUM CHLORIDE 20 MEQ CONTROLLED RELEASE TAB PO ONE (17:15)
[2017-02-25] MEDS: DILTIAZEM HCL 30 MG TAB PO SCH (17:58)
[2017-02-25] MEDS: ATORVASTATIN 80 MG TAB PO SCH (21:18)
[2017-02-25] MEDS: SENNOSIDES 8.6 MG TAB PO SCH (21:19)
[2017-02-25] MEDS: ONDANSETRON HCL 4 MG/2 ML VIAL IV PUSH PRN (21:22)
[2017-02-26] VITALS (26 sets, daily range): BP systolic 113–147; BP diastolic 60–94; PULSE 76–89; RESP 16–18; TEMP 98.2–98.8; O2SAT 90–97
[2017-02-26] MEDS: oxyCODONE/ACETAMINOPHEN 7.5 MG/325 MG TAB PO PRN ×3 (01:38→20:29)
[2017-02-26] MEDS: DILTIAZEM HCL 30 MG TAB PO SCH ×2 (01:38→05:38)
[2017-02-26 05:11] LABS: MEAN CELL VOLUME 91.3 FL (80.0-100.0); MEAN CORPUSCULAR HEMOGLOBIN 30.8 PG (27.0-34.0); MEAN CORPUSCULAR HGB CONC 33.8 % (32.0-36.0); PLATELET COUNT 136 TH/MM3 (150-450); RED BLOOD COUNT 4.06 MIL/MM3 (4.50-5.90); RED CELL DISTRIBUTION WIDTH 13.8 % (11.6-17.2); REVIEW FLAG FINAL; WHITE BLOOD COUNT 11.3 TH/MM3 (4.0-11.0)
--- NOTE | 2017-02-26 05:20 | RADRPT ---
EXAM DATE/TIME: 02/26/2017 04:42 [place] COMPARISON: CHEST SINGLE AP, February 24, 2017, 4:10. INDICATIONS : Shortness of breath, possible pulmonary disease. MEDICAL HISTORY : None. SURGICAL HISTORY : CABG. ENCOUNTER: Subsequent ACUITY: 1 week PAIN SCORE: 3/10 LOCATION: Bilateral chest FINDINGS: Portable AP view of the chest demonstrates mild enlargement of the cardiac silhouette in this patient post median sternotomy. The lungs are underinflated and there is mild streaky opacity at the lung ba ses likely representing atelectasis. The left chest tube and mediastinal drain have been removed and no pneumothorax is visualized. Right IJ line has also been removed. CONCLUSION: 1. Interval left chest tube removal without a pneumothorax visualized. 2. Linear opacities at the bases likely represents atelectasis. 3. Stable moderate enlargement of the cardiac silhouette. Jacek Shine MD on February 26, 2017 at 5:17 Board Certified Radiologist. This report was verified electronically.
[2017-02-26 05:25] LABS: BICARBONATE 33.1 MEQ/L (21.0-32.0); POTASSIUM 4.4 MEQ/L (3.5-5.1)
[2017-02-26] MEDS: PANTOPRAZOLE SOD 40 MG DELAYED RELEASE TAB PO SCH (05:37)
--- NOTE | 2017-02-26 08:07 | HHI.FPPN ---
Subjective Remarks Pt seen and examined this morning. No acute events overnight. Pt reports pain well controlled and is getting out of bed without difficulty. Denies any SOB, abdominal pain, leg pain. (Cristiano Flor MD R1) Objective Vitals Vital Signs Date Time Temp Pulse Resp B/P Pulse Ox O2 Delivery O2 Flow Rate FiO2 02/26/17 05:45 98.4 84 16 113/60 94 02/26/17 04:00 82 02/26/17 03:00 84 02/26/17 02:00 84 02/26/17 01:19 98.2 87 16 136/74 92 02/26/17 01:00 88 02/26/17 00:00 82 02/25/17 23:00 84 02/25/17 22:00 94 02/25/17 21:04 93 Room Air 02/25/17 21:03 98.4 98 16 113/84 93 02/25/17 21:00 92 02/25/17 20:11 90 Nasal Cannula 21 02/25/17 20:00 96 02/25/17 19:00 104 02/25/17 15:50 98.2 97 20 122/84 94 02/25/17 11:30 98.9 97 18 142/82 94 I/O 02/25/17 02/25/17 02/25/17 02/26/17 02/26/17 02/26/17 07:00 15:00 23:00 07:00 15:00 23:00 Intake Total 240 ml 1020 ml 240 ml Output Total 450 ml 730 ml 50 ml Balance -210 ml 290 ml 190 ml Intake Oral 240 ml 1020 ml 240 ml IV Total 0 ml Output Urine Total 400 ml 700 ml Chest Tube Drainage Total 50 ml 30 ml 50 ml # Voids 2 # Bowel Movements 0 0 (Cristiano Flor MD R1) Result Diagram: 02/26/1742702/26/17427 Objective Remarks GEN: Well-developed, well-nourished patient. Laying in bed, NAD CV: Regular rate and rhythm without obvious murmurs. Bandage over incision clean and dry. LUNGS: Clear to auscultation bilaterally. No wheezes, rales, rhonchi. NEURO/PSYCH: Awake, alert, oriented. (Cristiano Flor MD R1) A/P Assessment and Plan 51 y/o male with history of HTN presents with chest pain. Admitted for NSTEMI Discharge Planning Pending recovery from CABG & CTS recs. Possibly tomorrow after receiving Lifevest (Cristiano Flor MD R1) Attending Attestation Patient seen and examined. Case reviewed and discussed with the resident team. Agree with plan of care as discussed with me and documented in the resident note. doing well overall (Danelle Arizmendi MD) Problem List: (1) NSTEMI (non-ST elevated myocardial infarction) Status: Acute Plan: CAD risk factors include HTN, FH of [place], DM. Cocaine use in the last week. Initial EKG showed normal sinus rhythm. ST elevation in V1 and V2. Inverted T waves in V4, V5 and V6. CXR showed cardiomegaly with interstitial pulmonary edema. -Initial Trop 1.94. -Cr improved -Lipid panel and A1c unremarkable Cardiology consulted, appreciate recs -Cardiac cath showed multivessel disease, will need CABG -EF of 20-25% with mild to moderate MR, will need follow up for consideration of ICD placement in 3mths -ASA/Lipitor -Amiodarone/Cardizem -Percocet for pain -No metoprolol due to cocaine use -Will need Lifevest upon discharge CT surgery consulted: appreciate recs * s/p CABG 02/23/17 * Continue post-op management, per CTS * Pt at increased risk due to poor ejection fraction, history of cocaine use and noncompliance (2) Cocaine abuse Status: Acute Plan: Pt states he uses cocaine weekly. Started using a couple months ago. May be contributing to cardiac disease. -Counseled on the risks of cocaine and recommendations for quitting -Avoid beta aleksandra use (3) FEN Status: Acute Plan: Fluids: none Electrolytes: wnl; monitor & replace PRN Nutrition: Heart healthy DVT ppx: Rickie hose GI PPX: not indicated (Cristiano Flor MD R1) Cristiano Flor MD R1 Feb 26, 2017 08:07 Danelle Arizmendi MD Feb 27, 2017 14:31
[2017-02-26] MEDS: RESP: ALBUTEROL 2.5 MG/IPRATROPIUM 0.5 MG NEB (SCH) NEB ×2 (08:15→12:48)
[2017-02-26] MEDS: SODIUM CHLORIDE 0.9% FLUSH 10 ML FLUSH IVF SCH ×2 (09:00→21:06)
[2017-02-26] MEDS: AMIODARONE 200 MG TAB PO SCH ×2 (09:12→21:06)
[2017-02-26] MEDS: MULTIVITAMINS/MINERALS THERAPEUTIC TAB PO SCH (09:12)
[2017-02-26] MEDS: MAGNESIUM HYDROXIDE SUSP 30 ML CUP PO SCH (09:12)
[2017-02-26] MEDS: ONDANSETRON HCL 4 MG/2 ML VIAL IV PUSH PRN (09:13)
[2017-02-26] MEDS: DOCUSATE SODIUM 100 MG CAP PO SCH ×2 (09:14→21:06)
[2017-02-26] MEDS: POLYETHYLENE GLYCOL 17 GM PKG PO SCH (09:17)
[2017-02-26] MEDS: ASPIRIN 81 MG CHEW TAB CHEW SCH (09:18)
--- NOTE | 2017-02-26 09:29 | PD.CARD.PN ---
Subjective Subjective Remarks No chest pain, no shortness of breath No bowel movement yet Objective Medications Current Medications Medications (Trade) Dose Ordered Sig/Angel Route Start Time Stop Time Status Last Admin (Lipitor) 80 mg HS PO 02/21/17 21:00 02/25/17 21:18 (Aspirin Chew) 81 mg DAILY CHEW 02/22/17 09:00 02/25/17 09:13 (NS Flush) 2 ml BID IVF 02/21/17 21:00 02/25/17 21:18 (NS Flush) 2 ml UNSCH PRN IVF 02/21/17 18:15 02/24/17 11:06 Miscellaneous 1 ea 1 ea UNSCH PRN OTHER 02/21/17 18:45 (Lr 1000 ml Inj) 500 ml @ 500 mls/hr Q1H PRN IV 02/23/17 12:47 (Protonix) 40 mg DAILY@06 PO 02/24/17 06:00 02/26/17 05:37 (Cordarone) 200 mg Q12HR PO 02/23/17 21:00 03/12/17 09:00 02/25/17 21:18 (Tylenol) 650 mg Q4H PRN PO 02/23/17 13:00 (Zofran Inj) 4 mg Q6H PRN IV PUSH 02/23/17 13:00 02/25/17 21:22 Hydralazine HCl 10 mg 10 mg Q4H PRN IV 02/23/17 13:00 Magnesium Sulfate 2 gm/Sodium Chloride 104 ml @ 100 mls/hr UNSCH PRN IV 02/23/17 13:00 (Magnesium Sulfate Inj/NS Inj) 104 ml @ 50 mls/hr UNSCH PRN IV 02/23/17 13:00 (Colace) 100 mg BID PO 02/24/17 21:00 02/25/17 21:18 (Theragran M Tab) 1 tab DAILY PO 02/25/17 09:00 02/25/17 09:13 (Milk Of Magnesia Liq) 30 ml DAILY PO 02/25/17 09:00 02/25/17 09:13 (Miralax) 17 gm DAILY PO 02/25/17 09:00 02/25/17 09:12 (Senokot) 8.6 mg HS PO 02/24/17 21:00 02/25/17 21:19 (Fleets Enema (Adult)) 133 ml UNSCH PRN RECTAL 02/24/17 09:15 (D50w (Vial) Inj) 25 ml UNSCH PRN IV 02/24/17 09:15 (Glucagon Inj) 1 mg UNSCH PRN OTHER 02/24/17 09:15 (Cardizem) 30 mg Q6HR PO 02/25/17 12:00 02/26/17 05:38 (Percocet 7.5-325 Mg) 1 tab Q4H PRN PO 02/25/17 15:45 02/26/17 05:39 Vital Signs / I&O Vital Signs Date Time Temp Pulse Resp B/P Pulse Ox O2 Delivery O2 Flow Rate FiO2 02/26/17 05:45 98.4 84 16 113/60 94 02/26/17 04:00 82 02/26/17 03:00 84 02/26/17 02:00 84 02/26/17 01:19 98.2 87 16 136/74 92 02/26/17 01:00 88 02/26/17 00:00 82 02/25/17 23:00 84 02/25/17 22:00 94 02/25/17 21:04 93 Room Air 02/25/17 21:03 98.4 98 16 113/84 93 02/25/17 21:00 92 02/25/17 20:11 90 Nasal Cannula 21 02/25/17 20:00 96 02/25/17 19:00 104 02/25/17 15:50 98.2 97 20 122/84 94 02/25/17 11:30 98.9 97 18 142/82 94 I/O 02/25/17 02/25/17 02/25/17 02/26/17 02/26/17 02/26/17 07:00 15:00 23:00 07:00 15:00 23:00 Intake Total 240 ml 1020 ml 240 ml Output Total 450 ml 730 ml 50 ml Balance -210 ml 290 ml 190 ml Intake Oral 240 ml 1020 ml 240 ml IV Total 0 ml Output Urine Total 400 ml 700 ml Chest Tube Drainage Total 50 ml 30 ml 50 ml # Voids 2 # Bowel Movements 0 0 Physical Exam GENERAL: NAD, AAOx3 SKIN: Warm and dry. HEAD: Atraumatic. Normocephalic. EYES: Pupils equal and round. No scleral icterus. No injection or drainage. ENT: No nasal bleeding or discharge. Mucous membranes pink and moist. NECK: Trachea midline. No JVD. CARDIOVASCULAR: Regular rate and rhythm. Sternotomy with wound vac RESPIRATORY: No accessory muscle use. Decreased breath sounds bilaterally GASTROINTESTINAL: Abdomen soft, non-tender, nondistended. Hepatic and splenic margins not palpable. MUSCULOSKELETAL: Extremities without clubbing, cyanosis, or edema. No obvious deformities. NEUROLOGICAL: Awake and alert. No obvious cranial nerve deficits. Motor grossly within normal limits. Five out of 5 muscle strength in the arms and legs. Normal speech. PSYCHIATRIC: Appropriate mood and affect; insight and judgment normal. Laboratory Laboratory Tests Test 02/26/17 04:28 White Blood Count 11.3 TH/MM3 Red Blood Count 4.06 MIL/MM3 Hemoglobin 12.5 GM/DL Hematocrit 37.0 % Mean Corpuscular Volume 91.3 FL Mean Corpuscular Hemoglobin 30.8 PG Mean Corpuscular Hemoglobin 33.8 % Concent Red Cell Distribution Width 13.8 % Platelet Count 136 TH/MM3 Mean Platelet Volume 9.7 FL Sodium Level 138 MEQ/L Potassium Level 4.4 MEQ/L Chloride Level 100 MEQ/L Carbon Dioxide Level 33.1 MEQ/L Anion Gap 5 MEQ/L Blood Urea Nitrogen 19 MG/DL Creatinine 1.18 MG/DL Estimat Glomerular Filtration 78 ML/MIN Rate Random Glucose 106 MG/DL Calcium Level 8.7 MG/DL Assessment and Plan Problem List: (1) NSTEMI (non-ST elevated myocardial infarction) (2) S/P CABG x 3 (3) Congestive heart failure (CHF) (4) Cocaine abuse (5) 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
--- NOTE | 2017-02-26 09:50 | PD.CAR.PN ---
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 hx of dilated CM 02/22 remains pain free, on heparin gtt/ scheduled for surgery in am may need to be eval for Life Vest at discharge/ will discuss with Dr Torres 02/23 surgery: Urgent CABG x 3, ART to LAD - good, SVG to OM2 - good, SVG to OM1 - poor, L EVH 02/24 keep chest tubes in place wean [address] torres/ will need Life vest at discharge 2/ EF 20 % no BB 2/2 recent cocaine abuse transfer to stepdown 02/25 pt taking 2 percocets at a time for pain / changed to 7.5mg prn q4hr chest tube removed without difficulty ambulating gentle diuresis 02/26 Doing well Likely D/C tomorrow with Lifevest Objective: Vital Signs Date Time Temp Pulse Resp B/P Pulse Ox O2 Delivery O2 Flow Rate FiO2 02/26/17 05:45 98.4 84 16 113/60 94 02/26/17 04:00 82 02/26/17 03:00 84 02/26/17 02:00 84 02/26/17 01:19 98.2 87 16 136/74 92 02/26/17 01:00 88 02/26/17 00:00 82 02/25/17 23:00 84 02/25/17 22:00 94 02/25/17 21:04 93 Room Air 02/25/17 21:03 98.4 98 16 113/84 93 02/25/17 21:00 92 02/25/17 20:11 90 Nasal Cannula 21 02/25/17 20:00 96 02/25/17 19:00 104 02/25/17 15:50 98.2 97 20 122/84 94 02/25/17 11:30 98.9 97 18 142/82 94 Labs: Laboratory Tests Test 02/26/17 04:28 White Blood Count 11.3 TH/MM3 (4.0-11.0) Red Blood Count 4.06 MIL/MM3 (4.50-5.90) Hemoglobin 12.5 GM/DL (13.0-17.0) Hematocrit 37.0 % (39.0-51.0) Mean Corpuscular Volume 91.3 FL (80.0-100.0) Mean Corpuscular Hemoglobin 30.8 PG (27.0-34.0) Mean Corpuscular Hemoglobin 33.8 % Concent (32.0-36.0) Red Cell Distribution Width 13.8 % (11.6-17.2) Platelet Count 136 TH/MM3 (150-450) Mean Platelet Volume 9.7 FL (7.0-11.0) Sodium Level 138 MEQ/L (136-145) Potassium Level 4.4 MEQ/L (3.5-5.1) Chloride Level 100 MEQ/L (98-107) Carbon Dioxide Level 33.1 MEQ/L (21.0-32.0) Anion Gap 5 MEQ/L (5-15) Blood Urea Nitrogen 19 MG/DL (7-18) Creatinine 1.18 MG/DL (0.60-1.30) Estimat Glomerular Filtration 78 ML/MIN (>89) Rate Random Glucose 106 MG/DL (74-106) Calcium Level 8.7 MG/DL (8.5-10.1) Result Diagram: 02/26/1742702/26/17427 (1) NSTEMI (non-ST elevated myocardial infarction) (2) S/P CABG x 3 Plan: on statin , no BB with cocaine hx ASA will need life vest at discharge ambulate, wean 02 eval for possible dc on tuesday (3) Congestive heart failure (CHF) (4) Cocaine abuse Plan: illicit drug cessation (5) 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
[2017-02-26] MEDS: INSULIN ASPART SUPPLEMENTAL SCALE SQ SCH ×3 (11:00→21:00)
[2017-02-26] MEDS ORDERED: MAGNESIUM SULFATE 2 GM/NS 100 ML IV ONE ×2 (14:45)
[2017-02-26] MEDS: ATORVASTATIN 80 MG TAB PO SCH (21:06)
[2017-02-26] MEDS: SENNOSIDES 8.6 MG TAB PO SCH (21:07)
[2017-02-27] VITALS (28 sets, daily range): BP systolic 119–136; BP diastolic 62–84; PULSE 58–90; RESP 17–18; TEMP 97.8–98.4; O2SAT 95–99
[2017-02-27] MEDS: oxyCODONE/ACETAMINOPHEN 7.5 MG/325 MG TAB PO PRN ×3 (00:39→22:03)
[2017-02-27] MEDS: PANTOPRAZOLE SOD 40 MG DELAYED RELEASE TAB PO SCH (06:00)
[2017-02-27] MEDS: INSULIN ASPART SUPPLEMENTAL SCALE SQ SCH ×4 (06:51→21:00)
[2017-02-27 07:00] LABS: HEMATOCRIT 35.4 % (39.0-51.0); MEAN CELL VOLUME 91.6 FL (80.0-100.0); MEAN CORPUSCULAR HEMOGLOBIN 30.1 PG (27.0-34.0); MEAN CORPUSCULAR HGB CONC 32.9 % (32.0-36.0); PLATELET COUNT 149 TH/MM3 (150-450); RED BLOOD COUNT 3.87 MIL/MM3 (4.50-5.90); RED CELL DISTRIBUTION WIDTH 13.9 % (11.6-17.2); REVIEW FLAG FINAL; WHITE BLOOD COUNT 7.2 TH/MM3 (4.0-11.0)
[2017-02-27 07:05] LABS: BICARBONATE 32.8 MEQ/L (21.0-32.0); MAGNESIUM 2.5 MG/DL (1.5-2.5); POTASSIUM 4.4 MEQ/L (3.5-5.1)
[2017-02-27] MEDS: DOCUSATE SODIUM 100 MG CAP PO SCH ×2 (08:41→21:47)
[2017-02-27] MEDS: ASPIRIN 81 MG CHEW TAB CHEW SCH (08:41)
[2017-02-27] MEDS: POLYETHYLENE GLYCOL 17 GM PKG PO SCH (08:41)
[2017-02-27] MEDS: MAGNESIUM HYDROXIDE SUSP 30 ML CUP PO SCH (08:41)
[2017-02-27] MEDS: MULTIVITAMINS/MINERALS THERAPEUTIC TAB PO SCH (08:42)
[2017-02-27] MEDS: SODIUM CHLORIDE 0.9% FLUSH 10 ML FLUSH IVF SCH ×2 (08:42→21:00)
[2017-02-27] MEDS: AMIODARONE 200 MG TAB PO SCH ×2 (08:42→21:47)
--- NOTE | 2017-02-27 09:31 | PD.CAR.PN ---
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 hx of dilated CM 02/22 remains pain free, on heparin gtt/ scheduled for surgery in am may need to be eval for Life Vest at discharge/ will discuss with Dr Torres 02/23 surgery: Urgent CABG x 3, ART to LAD - good, SVG to OM2 - good, SVG to OM1 - poor, L EVH 02/24 keep chest tubes in place wean [address] torres/ will need Life vest at discharge 12/30 EF 20 % no BB 2/ recent cocaine abuse transfer to stepdown 02/25 pt taking 2 percocets at a time for pain / changed to 7.5mg prn q4hr chest tube removed without difficulty ambulating gentle diuresis 02/26 Doing well Likely D/C tomorrow with Lifevest 02/27 D/C pending Lifevest Objective: Vital Signs Date Time Temp Pulse Resp B/P Pulse Ox O2 Delivery O2 Flow Rate FiO2 02/27/17 06:00 78 02/27/17 05:00 80 02/27/17 04:00 86 02/27/17 03:32 98.4 68 120/77 95 02/27/17 03:00 76 02/27/17 02:00 90 02/27/17 01:00 84 02/27/17 00:00 82 02/26/17 23:00 98.4 85 137/76 97 02/26/17 23:00 85 02/26/17 22:00 88 02/26/17 21:00 84 02/26/17 20:00 88 02/26/17 20:00 98.8 87 18 129/82 95 02/26/17 19:00 89 02/26/17 19:00 Room Air 2.00 21 02/26/17 18:00 88 02/26/17 18:00 88 02/26/17 17:00 82 02/26/17 17:00 76 02/26/17 16:00 98.5 76 18 147/94 92 02/26/17 16:00 82 02/26/17 16:00 78 02/26/17 15:00 82 02/26/17 15:00 80 02/26/17 14:00 89 02/26/17 13:00 85 02/26/17 12:00 86 02/26/17 11:15 98.5 83 18 122/79 90 02/26/17 11:00 82 02/26/17 10:35 91 Room Air 02/26/17 10:00 88 Labs: Laboratory Tests Test 02/27/17 05:27 White Blood Count 7.2 TH/MM3 (4.0-11.0) Red Blood Count 3.87 MIL/MM3 (4.50-5.90) Hemoglobin 11.7 GM/DL (13.0-17.0) Hematocrit 35.4 % (39.0-51.0) Mean Corpuscular Volume 91.6 FL (80.0-100.0) Mean Corpuscular Hemoglobin 30.1 PG (27.0-34.0) Mean Corpuscular Hemoglobin 32.9 % Concent (32.0-36.0) Red Cell Distribution Width 13.9 % (11.6-17.2) Platelet Count 149 TH/MM3 (150-450) Mean Platelet Volume 9.6 FL (7.0-11.0) Sodium Level 140 MEQ/L (136-145) Potassium Level 4.4 MEQ/L (3.5-5.1) Chloride Level 102 MEQ/L (98-107) Carbon Dioxide Level 32.8 MEQ/L (21.0-32.0) Anion Gap 5 MEQ/L (5-15) Blood Urea Nitrogen 15 MG/DL (7-18) Creatinine 1.13 MG/DL (0.60-1.30) Estimat Glomerular Filtration 82 ML/MIN (>89) Rate Random Glucose 104 MG/DL (74-106) Calcium Level 8.4 MG/DL (8.5-10.1) Magnesium Level 2.5 MG/DL (1.5-2.5) Result Diagram: 02/27/1727 02/27/1727 (1) NSTEMI (non-ST elevated myocardial infarction) (2) S/P CABG x 3 Plan: on statin , no BB with cocaine hx ASA will need life vest at discharge ambulate, wean 02 eval for possible dc on tuesday (3) Congestive heart failure (CHF) (4) Cocaine abuse Plan: illicit drug cessation (5) Multi-vessel coronary artery stenosis (6) Non-compaction cardiomyopathy Plan: life vest at dc Gianfranco Paniagua MD Feb 27, 2017 09:31
[2017-02-27] MEDS ORDERED: LIPI80TA PO (09:35)
[2017-02-27] MEDS ORDERED: Aspirin Chew CHEW (09:35)
[2017-02-27] MEDS ORDERED: AMIO200T PO (09:35)
[2017-02-27] MEDS ORDERED: OXYC1TAB35 PO (09:35)
--- NOTE | 2017-02-27 09:36 | HHI.DS ---
Discharge Summary Admission Date Feb 21, 2017 at 09:30 Discharge Date: Feb 27, 2017 Admitting Diagnosis NSTEMI CBC/BMP: 02/27/17 0527 02/27/17 0527 Significant Findings Laboratory Tests Test 02/25/17 02/26/17 02/27/17 03:30 04:28 05:27 White Blood Count 13.1 TH/MM3 11.3 TH/MM3 (4.0-11.0) (4.0-11.0) Red Blood Count 4.37 MIL/MM3 4.06 MIL/MM3 3.87 MIL/MM3 (4.50-5.90) (4.50-5.90) (4.50-5.90) Platelet Count 133 TH/MM3 136 TH/MM3 149 TH/MM3 (150-450) (150-450) (150-450) Neutrophils (%) (Auto) 81.3 % (16.0-70.0) Neutrophils # (Auto) 10.7 TH/MM3 (1.8-7.7) Monocytes # (Auto) 1.0 TH/MM3 (0-0.9) Estimat Glomerular Filtration 83 ML/MIN (>89) 78 ML/MIN (>89) 82 ML/MIN (>89) Rate Random Glucose 127 MG/DL (74-106) Calcium Level 8.3 MG/DL 8.4 MG/DL (8.5-10.1) (8.5-10.1) Hemoglobin 12.5 GM/DL 11.7 GM/DL (13.0-17.0) (13.0-17.0) Hematocrit 37.0 % 35.4 % (39.0-51.0) (39.0-51.0) Carbon Dioxide Level 33.1 MEQ/L 32.8 MEQ/L (21.0-32.0) (21.0-32.0) Blood Urea Nitrogen 19 MG/DL (7-18) Hospital 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 hx of dilated CM 02/22 remains pain free, on heparin gtt/ scheduled for surgery in am may need to be eval for Life Vest at discharge/ will discuss with Dr Torres 02/23 surgery: Urgent CABG x 3, ART to LAD - good, SVG to OM2 - good, SVG to OM1 - poor, L EVH 02/24 keep chest tubes in place wean [address] torres/ will need Life vest at discharge 2/ EF 20 % no BB 2/ recent cocaine abuse transfer to stepdown 02/25 pt taking 2 percocets at a time for pain / changed to 7.5mg prn q4hr chest tube removed without difficulty ambulating gentle diuresis 02/26 Doing well Likely D/C tomorrow with Lifevest 02/27 D/C pending Lifevest Discharge Disposition: Disch w/ Home Health Serv Discharge Instructions DIET: Follow Instructions for: Heart Healthy Diet Activities you can perform: Full Weight Bearing, Shower Only-No Bath Activities to avoid: Lifting/Bending, Strenuous Activity, Driving, Sexual Activity Follow up Referrals: Cardiology Surgical New Medications: Amiodarone (Amiodarone) 200 Mg Tab 200 MG PO Q12HR z Days 14 TAB Atorvastatin (Lipitor) 80 Mg Tab 80 MG PO HS Cholesterol Management Days 90 TAB Oxycodone-Acetaminophen (Oxycodone-Acetaminophen) 7.5-325 mg Tab 1 TAB PO Q4H PRN PAIN #40 TAB ([Aspirin Chew]) 81 MG CHEW 81 MG CHEW DAILY #90 TAB.CHEW Gianfranco Paniagua MD Feb 27, 2017 09:36
--- NOTE | 2017-02-27 10:00 | HHI.FPPN ---
Subjective Remarks Pt seen and examined this morning. No acute events overnight. Pt reports doing well this morning, ready to go home. Awaiting lifevest fitting. Moving around well, no SOB. (Cristiano Flor MD R1) Objective Vitals Vital Signs Date Time Temp Pulse Resp B/P Pulse Ox O2 Delivery O2 Flow Rate FiO2 02/27/17 06:00 78 02/27/17 05:00 80 02/27/17 04:00 86 02/27/17 03:32 98.4 68 120/77 95 02/27/17 03:00 76 02/27/17 02:00 90 02/27/17 01:00 84 02/27/17 00:00 82 02/26/17 23:00 98.4 85 137/76 97 02/26/17 23:00 85 02/26/17 22:00 88 02/26/17 21:00 84 02/26/17 20:00 88 02/26/17 20:00 98.8 87 18 129/82 95 02/26/17 19:00 89 02/26/17 19:00 Room Air 2.00 21 02/26/17 18:00 88 02/26/17 18:00 88 02/26/17 17:00 82 02/26/17 17:00 76 02/26/17 16:00 98.5 76 18 147/94 92 02/26/17 16:00 82 02/26/17 16:00 78 02/26/17 15:00 82 02/26/17 15:00 80 02/26/17 14:00 89 02/26/17 13:00 85 02/26/17 12:00 86 02/26/17 11:15 98.5 83 18 122/79 90 02/26/17 11:00 82 02/26/17 10:35 91 Room Air 02/26/17 10:00 88 I/O 02/26/17 02/26/17 02/26/17 02/27/17 02/27/17 02/27/17 07:00 15:00 23:00 07:00 15:00 23:00 Intake Total 240 ml 1060 ml 240 ml Output Total 50 ml 1050 ml 950 ml Balance 190 ml 10 ml -710 ml Intake Oral 240 ml 960 ml 240 ml IV Total 0 ml 100 ml Output Urine Total 1050 ml 950 ml Chest Tube Drainage Total 50 ml # Voids 2 # Bowel Movements 0 0 (Cristiano Flor MD R1) Result Diagram: 02/27/1752602/27/17526 Objective Remarks GEN: Well-developed, well-nourished patient. Sitting up in bed, NAD. CV: Regular rate and rhythm without obvious murmurs. Bandage over incision clean and dry. LUNGS: Clear to auscultation bilaterally. No wheezes, rales, rhonchi. NEURO/PSYCH: Awake, alert, oriented. (Cristiano Flor MD R1) A/P Assessment and Plan 51 y/o male with history of HTN presents with chest pain. Admitted for NSTEMI Discharge Planning Pending recovery from CABG & CTS recs. Possibly today after receiving Lifevest ( Cristiano Flor MD R1) Attending Attestation Patient seen and examined. Case reviewed and discussed with the resident team. Agree with plan of care as discussed with me and documented in the resident note. he will likely get electrophysiology study tomorrow and may get life vest after that (Danelle Arizmendi MD) Problem List: (1) NSTEMI (non-ST elevated myocardial infarction) Status: Acute Plan: CAD risk factors include HTN, FH of [place], DM. Cocaine use in the last week. Initial EKG showed normal sinus rhythm. ST elevation in V1 and V2. Inverted T waves in V4, V5 and V6. CXR showed cardiomegaly with interstitial pulmonary edema. -Initial Trop 1.94. -Cr improved -Lipid panel and A1c unremarkable Cardiology consulted, appreciate recs -Cardiac cath showed multivessel disease, will need CABG -EF of 20-25% with mild to moderate MR, will need follow up for consideration of ICD placement in 3mths -ASA/Lipitor -Amiodarone/Cardizem -Percocet for pain -No metoprolol due to cocaine use -Will need Lifevest upon discharge CT surgery consulted: appreciate recs * s/p CABG 02/23/17 * Continue post-op management, per CTS * Pt at increased risk due to poor ejection fraction, history of cocaine use and noncompliance (2) Cocaine abuse Status: Acute Plan: Pt states he uses cocaine weekly. Started using a couple months ago. May be contributing to cardiac disease. -Counseled on the risks of cocaine and recommendations for quitting -Avoid beta aleksandra use (3) FEN Status: Acute Plan: Fluids: none Electrolytes: wnl; monitor & replace PRN Nutrition: Heart healthy DVT ppx: Rickie hose GI PPX: not indicated (Cristiano Flor MD R1) Cristiano Flor MD R1 Feb 27, 2017 10:00 Danelle Arizmendi MD Feb 27, 2017 14:49
--- NOTE | 2017-02-27 12:41 | PD.CARD.PN ---
Subjective Subjective Remarks No chest pain, no shortness of breath Having runs of 3-6 beats of NSVT over night (since stopping Cardizem) Objective Medications Current Medications Medications (Trade) Dose Ordered Sig/Angel Route Start Time Stop Time Status Last Admin (Lipitor) 80 mg HS PO 02/21/17 21:00 02/26/17 21:06 (Aspirin Chew) 81 mg DAILY CHEW 02/22/17 09:00 02/27/17 08:41 (NS Flush) 2 ml BID IVF 02/21/17 21:00 02/27/17 08:42 (NS Flush) 2 ml UNSCH PRN IVF 02/21/17 18:15 02/24/17 11:06 Miscellaneous 1 ea 1 ea UNSCH PRN OTHER 02/21/17 18:45 (Lr 1000 ml Inj) 500 ml @ 500 mls/hr Q1H PRN IV 02/23/17 12:47 (Protonix) 40 mg DAILY@06 PO 02/24/17 06:00 02/27/17 06:00 (Cordarone) 200 mg Q12HR PO 02/23/17 21:00 03/12/17 09:00 02/27/17 08:42 (Tylenol) 650 mg Q4H PRN PO 02/23/17 13:00 (Zofran Inj) 4 mg Q6H PRN IV PUSH 02/23/17 13:00 02/26/17 09:13 Hydralazine HCl 10 mg 10 mg Q4H PRN IV 02/23/17 13:00 Magnesium Sulfate 2 gm/Sodium Chloride 104 ml @ 100 mls/hr UNSCH PRN IV 02/23/17 13:00 (Magnesium Sulfate Inj/NS Inj) 104 ml @ 50 mls/hr UNSCH PRN IV 02/23/17 13:00 (Colace) 100 mg BID PO 02/24/17 21:00 02/27/17 08:41 (Theragran M Tab) 1 tab DAILY PO 02/25/17 09:00 02/27/17 08:42 (Milk Of Magnesia Liq) 30 ml DAILY PO 02/25/17 09:00 02/27/17 08:41 (Miralax) 17 gm DAILY PO 02/25/17 09:00 02/27/17 08:41 (Senokot) 8.6 mg HS PO 02/24/17 21:00 02/26/17 21:07 (Fleets Enema (Adult)) 133 ml UNSCH PRN RECTAL 02/24/17 09:15 (D50w (Vial) Inj) 25 ml UNSCH PRN IV 02/24/17 09:15 (Glucagon Inj) 1 mg UNSCH PRN OTHER 02/24/17 09:15 (Percocet 7.5-325 Mg) 1 tab Q4H PRN PO 02/25/17 15:45 02/27/17 08:41 Vital Signs / I&O Vital Signs Date Time Temp Pulse Resp B/P Pulse Ox O2 Delivery O2 Flow Rate FiO2 02/27/17 11:29 98.2 84 136/62 98 02/27/17 09:51 99 Room Air 02/27/17 07:30 97.8 77 17 119/82 99 02/27/17 06:00 78 02/27/17 05:00 80 02/27/17 04:00 86 02/27/17 03:32 98.4 68 120/77 95 02/27/17 03:00 76 02/27/17 02:00 90 02/27/17 01:00 84 02/27/17 00:00 82 02/26/17 23:00 98.4 85 137/76 97 02/26/17 23:00 85 02/26/17 22:00 88 02/26/17 21:00 84 02/26/17 20:00 88 02/26/17 20:00 98.8 87 18 129/82 95 02/26/17 19:00 89 02/26/17 19:00 Room Air 2.00 21 02/26/17 18:00 88 02/26/17 18:00 88 02/26/17 17:00 82 02/26/17 17:00 76 02/26/17 16:00 98.5 76 18 147/94 92 02/26/17 16:00 82 02/26/17 16:00 78 02/26/17 15:00 82 02/26/17 15:00 80 02/26/17 14:00 89 02/26/17 13:00 85 I/O 02/26/17 02/26/17 02/26/17 02/27/17 02/27/17 02/27/17 07:00 15:00 23:00 07:00 15:00 23:00 Intake Total 240 ml 1060 ml 240 ml Output Total 50 ml 1050 ml 950 ml Balance 190 ml 10 ml -710 ml Intake Oral 240 ml 960 ml 240 ml IV Total 0 ml 100 ml Output Urine Total 1050 ml 950 ml Chest Tube Drainage Total 50 ml # Voids 2 # Bowel Movements 0 1 Physical Exam GENERAL: NAD, AAOx3 SKIN: Warm and dry. HEAD: Atraumatic. Normocephalic. EYES: Pupils equal and round. No scleral icterus. No injection or drainage. ENT: No nasal bleeding or discharge. Mucous membranes pink and moist. NECK: Trachea midline. No JVD. CARDIOVASCULAR: Regular rate and rhythm. Sternotomy with wound vac RESPIRATORY: No accessory muscle use. Decreased breath sounds bilaterally GASTROINTESTINAL: Abdomen soft, non-tender, nondistended. Hepatic and splenic margins not palpable. MUSCULOSKELETAL: Extremities without clubbing, cyanosis, or edema. No obvious deformities. NEUROLOGICAL: Awake and alert. No obvious cranial nerve deficits. Motor grossly within normal limits. Five out of 5 muscle strength in the arms and legs. Normal speech. PSYCHIATRIC: Appropriate mood and affect; insight and judgment normal. Laboratory Laboratory Tests Test 02/27/17 05:27 White Blood Count 7.2 TH/MM3 Red Blood Count 3.87 MIL/MM3 Hemoglobin 11.7 GM/DL Hematocrit 35.4 % Mean Corpuscular Volume 91.6 FL Mean Corpuscular Hemoglobin 30.1 PG Mean Corpuscular Hemoglobin 32.9 % Concent Red Cell Distribution Width 13.9 % Platelet Count 149 TH/MM3 Mean Platelet Volume 9.6 FL Sodium Level 140 MEQ/L Potassium Level 4.4 MEQ/L Chloride Level 102 MEQ/L Carbon Dioxide Level 32.8 MEQ/L Anion Gap 5 MEQ/L Blood Urea Nitrogen 15 MG/DL Creatinine 1.13 MG/DL Estimat Glomerular Filtration 82 ML/MIN Rate Random Glucose 104 MG/DL Calcium Level 8.4 MG/DL Magnesium Level 2.5 MG/DL Assessment and Plan Problem List: (1) NSTEMI (non-ST elevated myocardial infarction) (2) S/P CABG x 3 (3) Congestive heart failure (CHF) (4) Cocaine abuse (5) 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 Since stopping Cardizem having NSVT... 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
[2017-02-27] MEDS: CARVEDILOL 3.125 MG TAB PO SCH ×2 (12:57→21:48)
[2017-02-27] MEDS ORDERED: LORazepam 1 MG TAB PO PRN (14:00)
[2017-02-27] MEDS ORDERED: CHLORHEXIDINE GLUCONATE 4% SOLN 120 ML BTL TOPICAL SCH (16:15)
[2017-02-27] MEDS: ATORVASTATIN 80 MG TAB PO SCH (21:47)
[2017-02-27] MEDS: SENNOSIDES 8.6 MG TAB PO SCH (21:48)
[2017-02-28] VITALS (27 sets, daily range): BP systolic 92–130; BP diastolic 54–95; PULSE 60–91; RESP 14–18; TEMP 97.3–98.7; O2SAT 95–98
[2017-02-28] MEDS ORDERED: POVIDONE IODINE 5% (ANTISEPSIS KIT) 4 APPLICATIONS EACH NARE PRN (01:00)
[2017-02-28] MEDS ORDERED: METOPROLOL TARTRATE 25 MG TAB PO PRN (01:00)
[2017-02-28] MEDS ORDERED: INSULIN HUMAN REGULAR 1,000 UNITS/10 ML VIAL SQ PRN (01:00)
[2017-02-28] MEDS ORDERED: SODIUM CHLORID 0.9% 500 ML IV PRN (01:00)
[2017-02-28] MEDS ORDERED: CHLORHEXIDINE GLUCONATE 2 % 1 PACK (2 CLOTHS) TOPICAL PRN (01:00)
[2017-02-28] MEDS ORDERED: LACTATED RINGER'S 1000 ML IV PRN (01:00)
[2017-02-28] MEDS: oxyCODONE/ACETAMINOPHEN 7.5 MG/325 MG TAB PO PRN ×4 (04:13→21:07)
[2017-02-28] MEDS: PANTOPRAZOLE SOD 40 MG DELAYED RELEASE TAB PO SCH (04:14)
--- NOTE | 2017-02-28 05:36 | MB ---
cc: EMANUEL VELA M.D., HANSCY M.D. MEYERS, CARY DATE OF CONSULTATION 02/27/2017 REASON FOR CONSULTATION Heart failure, nonsustained ventricular tachycardia. HISTORY OF PRESENT ILLNESS Mr. Azevedo is a 51-year-old -[place] gentleman with history of coronary artery disease, coronary artery bypass grafting by Dr. Michaud on February 23, 2017, ejection fraction 20%, on optimal medical treatment. A beta-aleksandra initiated despite the patient's history of cocaine abuse. During hospitalization he did develop an episode of nonsustained ventricular tachycardia. I was consulted by Dr. Garcia for further evaluation and management. The chart was reviewed. The patient was evaluated. ALLERGIES None reported. SOCIAL HISTORY As mentioned before, the patient used to use cocaine before hospitalization. FAMILY HISTORY Noncontributory to his current medical condition. MEDICATIONS The gentleman is currently on - 1. Magnesium. 2. Tylenol. 3. Amiodarone 200 mg twice a day. 4. Atorvastatin 80 mg a day. 5. He is on Coreg 3.125 mg twice a day. 6. He is on insulin on a sliding scale. 7. He is on Protonix. REVIEW OF SYSTEMS Currently the gentleman refers no chest pain, no chest discomfort. No vomiting. No fever. PHYSICAL EXAMINATION GENERAL: Alert, fully oriented. VITAL SIGNS: Blood pressure 136/62, pulse 84, respiratory rate 18. LUNGS: Ventilated. CARDIOVASCULAR: S1-S2 regular. No gallop. There is a wound VAC in the midsternal a area at the site of surgical wound. ABDOMEN: Soft. No mass or bruit. EXTREMITIES: No edema. ELECTROCARDIOGRAM Sinus rhythm. LVH. Diffuse ST changes. LABORATORY DATA Hemoglobin is 11.7, white blood cell 7.2 - coming down. Potassium 4.4, creatinine 1.13. INR is 1.0. ASSESSMENT AND RECOMMENDATIONS Mr. Azevedo has an EF of 20%. On conversation with Dr. Garcia, there is some doubt if the EF is going to be improved, but the gentleman just had a bypass eight. He is just getting revascularized. The surgery was on the . The gentleman subsequently yesterday developed episodes of nonsustained ventricular tachyarrhythmia. The gentleman is on amiodarone. He is on beta-aleksandra. My recommendation at this point is electrophysiology study. If ventricular tachycardia is induced, then he will need a defibrillator. If not the gentleman per guidelines will need a defibrillatory vest for at least 60 days. There is a lot of conversation about the possibility of EF improvement. There is some doubt about it, but in any case, if no VT is induced the best approach is defibrillatory vest and wait. Also I am going to decrease the amiodarone to 200 mg a day. If blood pressures are low, I will not increase the Coreg tomorrow. Case extensively discussed with the gentleman. Electrophysiology study and possible device tomorrow afternoon. MD ABELARDO Pennington/SSB /12:52 PM /5:22 AM
[2017-02-28] MEDS: INSULIN ASPART SUPPLEMENTAL SCALE SQ SCH ×4 (06:08→21:00)
[2017-02-28] MEDS: POLYETHYLENE GLYCOL 17 GM PKG PO SCH (07:53)
[2017-02-28] MEDS: ASPIRIN 81 MG CHEW TAB CHEW SCH ×2 (07:54→09:00)
[2017-02-28] MEDS: CARVEDILOL 3.125 MG TAB PO SCH ×2 (07:54→21:07)
[2017-02-28] MEDS: DOCUSATE SODIUM 100 MG CAP PO SCH ×2 (07:54→21:07)
[2017-02-28] MEDS: AMIODARONE 200 MG TAB PO SCH ×2 (07:54→21:07)
[2017-02-28] MEDS: MULTIVITAMINS/MINERALS THERAPEUTIC TAB PO SCH (07:54)
[2017-02-28] MEDS: MAGNESIUM HYDROXIDE SUSP 30 ML CUP PO SCH (07:55)
[2017-02-28] MEDS: SODIUM CHLORIDE 0.9% FLUSH 10 ML FLUSH IVF SCH ×2 (07:55→21:08)
--- NOTE | 2017-02-28 11:29 | HHI.FPPN ---
Subjective Remarks Pt seen and examined this morning. No acute events overnight. BP ranging from 90 -130s/60-90s. Pt denies chest pain, feeling short of breath, abdominal pain. He anticipates having electrophysiology study, per cardiology recommendations, later this afternoon. He also requests to see his sister who is in the [facility], as she will be having care withdrawn later today. (Manish Arteaga MD R2) Objective Vitals Vital Signs Date Time Temp Pulse Resp B/P Pulse Ox O2 Delivery O2 Flow Rate FiO2 02/28/17 09:15 18 02/28/17 07:30 98.5 91 18 121/68 97 02/28/17 07:30 97 Room Air 02/28/17 06:00 70 02/28/17 05:00 76 02/28/17 04:16 98.1 60 18 122/66 95 02/28/17 03:56 83 02/28/17 03:00 72 02/28/17 02:00 74 02/28/17 01:00 78 02/28/17 00:00 72 14 92/54 98 02/28/17 00:00 80 02/27/17 23:00 80 02/27/17 22:00 80 02/27/17 21:00 78 02/27/17 20:00 98.4 79 18 124/84 96 02/27/17 20:00 81 02/27/17 20:00 98 Room Air 02/27/17 19:00 78 02/27/17 18:00 78 02/27/17 17:00 82 02/27/17 16:00 73 02/27/17 15:30 98.0 80 18 119/76 97 02/27/17 15:00 78 02/27/17 14:00 86 02/27/17 13:00 82 02/27/17 12:00 82 02/27/17 11:29 98.2 84 136/62 98 I/O 02/27/17 02/27/17 02/27/17 02/28/17 02/28/17 02/28/17 07:00 15:00 23:00 07:00 15:00 23:00 Intake Total 240 ml 600 ml 480 ml Output Total 950 ml 700 ml 350 ml Balance -710 ml -100 ml 130 ml Intake Oral 240 ml 600 ml 480 ml IV Total 0 ml Output Urine Total 950 ml 700 ml 350 ml # Voids 3 # Bowel Movements 0 1 (Manish Arteaga MD R2) Result Diagram: 02/27/1752602/27/17526 Objective Remarks GEN: Well-developed, well-nourished patient. Sitting up in chair, NAD. CV: Regular rate and rhythm without obvious murmurs. Bandage over incision clean and dry. LUNGS: Clear to auscultation bilaterally. No wheezes, rales, rhonchi. NEURO/PSYCH: Awake, alert, oriented. (Manish Arteaga MD R2) A/P Assessment and Plan 51 y/o male with history of HTN presents with chest pain. Admitted for NSTEMI Discharge Planning Pending recovery from CABG & CTS recs. Possibly today after receiving Lifevest ( Manish Arteaga MD R2) Attending Attestation Patient seen and examined. Case reviewed and discussed with the resident team. Agree with plan of care as discussed with me and documented in the resident note. (Danelle Arizmendi MD) Problem List: (1) NSTEMI (non-ST elevated myocardial infarction) Status: Acute Plan: CAD risk factors include HTN, FH of [place], DM. Cocaine use in the last week. Initial EKG showed normal sinus rhythm. ST elevation in V1 and V2. Inverted T waves in V4, V5 and V6. CXR showed cardiomegaly with interstitial pulmonary edema. -Initial Trop 1.94. -Cr improved -Lipid panel and A1c unremarkable Cardiology consulted, appreciate recs -Cardiac cath showed multivessel disease, will need CABG -EF of 20-25% with mild to moderate MR, will need follow up for consideration of AICD placement in 3mths -ASA/Lipitor -Amiodarone/Cardizem -Percocet for pain -No metoprolol due to cocaine use -Electrophysiology study scheduled for later today, results will determine if pt will require AICD placement vs Lifevest CT surgery consulted: appreciate recs * s/p CABG 02/23/17 * Continue post-op management, per CTS * Pt at increased risk due to poor ejection fraction, history of cocaine use and noncompliance (2) Cocaine abuse Status: Acute Plan: Pt states he uses cocaine weekly. Started using a couple months ago. May be contributing to cardiac disease. -Counseled on the risks of cocaine and recommendations for quitting -Avoid beta aleksandra use (3) FEN Status: Acute Plan: Fluids: none Electrolytes: wnl; monitor & replace PRN Nutrition: NPO in anticipation of procedure later today DVT ppx: Rickie mckeon GI PPX: not indicated (Manish Arteaga MD R2) Manish Arteaga MD R2 Feb 28, 2017 11:29 Danelle Arizmendi MD Mar 06, 2017 14:08
--- NOTE | 2017-02-28 11:56 | PD.CAR.PN ---
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 hx of dilated CM 02/22 remains pain free, on heparin gtt/ scheduled for surgery in am may need to be eval for Life Vest at discharge/ will discuss with Dr Torres 02/23 surgery: Urgent CABG x 3, ART to LAD - good, SVG to OM2 - good, SVG to OM1 - poor, L EVH 02/24 keep chest tubes in place wean [address] torres/ will need Life vest at discharge 12/30 EF 20 % no BB 2/ recent cocaine abuse transfer to stepdown 02/25 pt taking 2 percocets at a time for pain / changed to 7.5mg prn q4hr chest tube removed without difficulty ambulating gentle diuresis 02/26 Doing well Likely D/C tomorrow with Lifevest 02/27 D/C pending Lifevest 02/28/17 No complaints. Doing well. On schedule for AICD today secondary to low EF Objective: Vital Signs Date Time Temp Pulse Resp B/P Pulse Ox O2 Delivery O2 Flow Rate FiO2 02/28/17 11:00 97.9 76 18 130/95 98 02/28/17 09:15 18 02/28/17 07:30 98.5 91 18 121/68 97 02/28/17 07:30 97 Room Air 02/28/17 06:00 70 02/28/17 05:00 76 02/28/17 04:16 98.1 60 18 122/66 95 02/28/17 03:56 83 02/28/17 03:00 72 02/28/17 02:00 74 02/28/17 01:00 78 02/28/17 00:00 72 14 92/54 98 02/28/17 00:00 80 02/27/17 23:00 80 02/27/17 22:00 80 02/27/17 21:00 78 02/27/17 20:00 98.4 79 18 124/84 96 02/27/17 20:00 81 02/27/17 20:00 98 Room Air 02/27/17 19:00 78 02/27/17 18:00 78 02/27/17 17:00 82 02/27/17 16:00 73 02/27/17 15:30 98.0 80 18 119/76 97 02/27/17 15:00 78 02/27/17 14:00 86 02/27/17 13:00 82 02/27/17 12:00 82 Result Diagram: 02/27/1752602/27/17526 Cardiovascular: RRR Pulmonary: CTA GI/: NABS, NT Incision: dry and intact Plan: AICD per Dr. Oropeza D/C pending AICD No acute issues in regard to CABG. (1) NSTEMI (non-ST elevated myocardial infarction) (2) S/P CABG x 3 (3) Congestive heart failure (CHF) (4) Cocaine abuse (5) Multi-vessel coronary artery stenosis (6) Non-compaction cardiomyopathy (7) NSVT (nonsustained ventricular tachycardia) Ashley Del Valle MD Feb 28, 2017 11:56
--- NOTE | 2017-02-28 16:14 | PD.CARD.PN ---
Subjective Subjective Remarks No chest pain, no shortness of breath, up and ambulating Objective Medications Current Medications Medications (Trade) Dose Ordered Sig/Angel Route Start Time Stop Time Status Last Admin (Lipitor) 80 mg HS PO 02/21/17 21:00 02/27/17 21:47 (Aspirin Chew) 81 mg DAILY CHEW 02/22/17 09:00 02/27/17 08:41 (NS Flush) 2 ml BID IVF 02/21/17 21:00 02/28/17 07:55 (NS Flush) 2 ml UNSCH PRN IVF 02/21/17 18:15 02/24/17 11:06 Miscellaneous 1 ea 1 ea UNSCH PRN OTHER 02/21/17 18:45 (Lr 1000 ml Inj) 500 ml @ 500 mls/hr Q1H PRN IV 02/23/17 12:47 (Protonix) 40 mg DAILY@06 PO 02/24/17 06:00 02/28/17 04:14 (Cordarone) 200 mg Q12HR PO 02/23/17 21:00 03/12/17 09:00 02/28/17 07:54 (Tylenol) 650 mg Q4H PRN PO 02/23/17 13:00 (Zofran Inj) 4 mg Q6H PRN IV PUSH 02/23/17 13:00 02/26/17 09:13 Hydralazine HCl 10 mg 10 mg Q4H PRN IV 02/23/17 13:00 Magnesium Sulfate 2 gm/Sodium Chloride 104 ml @ 100 mls/hr UNSCH PRN IV 02/23/17 13:00 (Magnesium Sulfate Inj/NS Inj) 104 ml @ 50 mls/hr UNSCH PRN IV 02/23/17 13:00 (Colace) 100 mg BID PO 02/24/17 21:00 02/28/17 07:54 (Theragran M Tab) 1 tab DAILY PO 02/25/17 09:00 02/28/17 07:54 (Milk Of Magnesia Liq) 30 ml DAILY PO 02/25/17 09:00 02/27/17 08:41 (Miralax) 17 gm DAILY PO 02/25/17 09:00 02/28/17 07:53 (Senokot) 8.6 mg HS PO 02/24/17 21:00 02/27/17 21:48 (Fleets Enema (Adult)) 133 ml UNSCH PRN RECTAL 02/24/17 09:15 (D50w (Vial) Inj) 25 ml UNSCH PRN IV 02/24/17 09:15 (Glucagon Inj) 1 mg UNSCH PRN OTHER 02/24/17 09:15 (Percocet 7.5-325 Mg) 1 tab Q4H PRN PO 02/25/17 15:45 02/28/17 08:10 (Coreg) 3.125 mg Q12HR PO 02/27/17 12:45 02/28/17 07:54 (Ativan) 1 mg Q8H PRN PO 02/27/17 14:00 02/27/17 21:48 Chlorhexidine Gluconate 1 applic 1 applic UNSCH TOPICAL 02/27/17 16:15 02/28/17 23:59 Lactated Ringer's 1,000 ml @ 0 mls/hr Q0M PRN IV 02/28/17 01:00 03/03/17 00:59 (NS 500 ml Inj) 500 ml @ 30 mls/hr [id number] PRN IV 02/28/17 01:00 03/03/17 00:59 Vital Signs / I&O Vital Signs Date Time Temp Pulse Resp B/P Pulse Ox O2 Delivery O2 Flow Rate FiO2 02/28/17 16:00 87 02/28/17 15:00 80 02/28/17 15:00 98.2 87 18 122/93 98 02/28/17 14:00 76 02/28/17 13:00 79 02/28/17 12:00 74 02/28/17 11:00 84 02/28/17 11:00 97.9 76 18 130/95 98 02/28/17 10:00 82 02/28/17 09:15 18 02/28/17 09:00 78 02/28/17 08:00 74 02/28/17 07:30 98.5 91 18 121/68 97 02/28/17 07:30 97 Room Air 02/28/17 07:00 73 02/28/17 06:00 70 02/28/17 05:00 76 02/28/17 04:16 98.1 60 18 122/66 95 02/28/17 03:56 83 02/28/17 03:00 72 02/28/17 02:00 74 02/28/17 01:00 78 02/28/17 00:00 72 14 92/54 98 02/28/17 00:00 80 02/27/17 23:00 80 02/27/17 22:00 80 02/27/17 21:00 78 02/27/17 20:00 98.4 79 18 124/84 96 02/27/17 20:00 81 02/27/17 20:00 98 Room Air 02/27/17 19:00 78 02/27/17 18:00 78 02/27/17 17:00 82 I/O 02/27/17 02/27/17 02/27/17 02/28/17 02/28/17 02/28/17 07:00 15:00 23:00 07:00 15:00 23:00 Intake Total 240 ml 600 ml 480 ml Output Total 950 ml 700 ml 350 ml Balance -710 ml -100 ml 130 ml Intake Oral 240 ml 600 ml 480 ml IV Total 0 ml Output Urine Total 950 ml 700 ml 350 ml # Voids 3 # Bowel Movements 0 1 Physical Exam GENERAL: NAD, AAOx3 SKIN: Warm and dry. HEAD: Atraumatic. Normocephalic. EYES: Pupils equal and round. No scleral icterus. No injection or drainage. ENT: No nasal bleeding or discharge. Mucous membranes pink and moist. NECK: Trachea midline. No JVD. CARDIOVASCULAR: Regular rate and rhythm. Sternotomy with wound vac RESPIRATORY: No accessory muscle use. Decreased breath sounds bilaterally GASTROINTESTINAL: Abdomen soft, non-tender, nondistended. Hepatic and splenic margins not palpable. MUSCULOSKELETAL: Extremities without clubbing, cyanosis, or edema. No obvious deformities. NEUROLOGICAL: Awake and alert. No obvious cranial nerve deficits. Motor grossly within normal limits. Five out of 5 muscle strength in the arms and legs. Normal speech. PSYCHIATRIC: Appropriate mood and affect; insight and judgment normal. Laboratory Laboratory Tests Test 02/26/17 02/27/17 04:28 05:27 White Blood Count 11.3 TH/MM3 7.2 TH/MM3 (4.0-11.0) (4.0-11.0) Red Blood Count 4.06 MIL/MM3 3.87 MIL/MM3 (4.50-5.90) (4.50-5.90) Hemoglobin 12.5 GM/DL 11.7 GM/DL (13.0-17.0) (13.0-17.0) Hematocrit 37.0 % 35.4 % (39.0-51.0) (39.0-51.0) Mean Corpuscular Volume 91.3 FL 91.6 FL (80.0-100.0) (80.0-100.0) Mean Corpuscular Hemoglobin 30.8 PG 30.1 PG (27.0-34.0) (27.0-34.0) Mean Corpuscular Hemoglobin 33.8 % 32.9 % Concent (32.0-36.0) (32.0-36.0) Red Cell Distribution Width 13.8 % 13.9 % (11.6-17.2) (11.6-17.2) Platelet Count 136 TH/MM3 149 TH/MM3 (150-450) (150-450) Mean Platelet Volume 9.7 FL 9.6 FL (7.0-11.0) (7.0-11.0) Sodium Level 138 MEQ/L 140 MEQ/L (136-145) (136-145) Potassium Level 4.4 MEQ/L 4.4 MEQ/L (3.5-5.1) (3.5-5.1) Chloride Level 100 MEQ/L 102 MEQ/L (98-107) (98-107) Carbon Dioxide Level 33.1 MEQ/L 32.8 MEQ/L (21.0-32.0) (21.0-32.0) Anion Gap 5 MEQ/L (5-15) 5 MEQ/L (5-15) Blood Urea Nitrogen 19 MG/DL (7-18) 15 MG/DL (7-18) Creatinine 1.18 MG/DL 1.13 MG/DL (0.60-1.30) (0.60-1.30) Estimat Glomerular Filtration 78 ML/MIN (>89) 82 ML/MIN (>89) Rate Random Glucose 106 MG/DL 104 MG/DL (74-106) (74-106) Calcium Level 8.7 MG/DL 8.4 MG/DL (8.5-10.1) (8.5-10.1) Magnesium Level 2.5 MG/DL (1.5-2.5) Assessment and Plan Problem List: (1) NSTEMI (non-ST elevated myocardial infarction) (2) S/P CABG x 3 (3) Congestive heart failure (CHF) (4) Cocaine abuse (5) Multi-vessel coronary artery stenosis (6) Non-compaction cardiomyopathy (7) NSVT (nonsustained ventricular tachycardia) Assessment and Plan 1) CABG x3 (ART to LAD, SVG to OM1, SVG to OM2) POD#5 2) ASA/Lipitor/Amio 3) Was avoiding BB due to cocaine history so placed on Cardizem, but with low ejection fraction will stop this... Since stopping Cardizem having NSVT... will place on Coreg due to alpha/beta blocking and consult EP 4) Probable non-compaction of the LV with EF 20-25%, discussed with him about Lifevest, currently working on getting him a vest for 3 months but case management saying hospital not willing to lease, will discuss further with administration 5) Will need repeat echo in 3 months to consider ICD therapy 6) Plan EP study today with possible ICD due to NSVT after NSTEMI Chuck Garcia DO Feb 28, 2017 16:14
[2017-02-28] MEDS: SENNOSIDES 8.6 MG TAB PO SCH (21:07)
[2017-02-28] MEDS: ATORVASTATIN 80 MG TAB PO SCH (21:07)
[2017-03-01] VITALS (23 sets, daily range): BP systolic 107–126; BP diastolic 59–83; PULSE 60–78; RESP 16–19; TEMP 98–98.7; O2SAT 97–99
[2017-03-01] MEDS: oxyCODONE/ACETAMINOPHEN 7.5 MG/325 MG TAB PO PRN ×4 (02:32→20:55)
[2017-03-01] MEDS: PANTOPRAZOLE SOD 40 MG DELAYED RELEASE TAB PO SCH (06:00)
[2017-03-01 06:20] LABS: BASOPHIL % 0.5 % (0.0-2.0); EOSINOPHIL # 0.3 TH/MM3 (0-0.4); HEMATOCRIT 36.5 % (39.0-51.0); HEMO FLAGS DIFF FINAL; LYMPH % 22.8 % (9.0-44.0); LYMPHOCYTE # 1.5 TH/MM3 (1.0-4.8); MEAN CELL VOLUME 91.8 FL (80.0-100.0); MEAN CORPUSCULAR HEMOGLOBIN 30.9 PG (27.0-34.0); MEAN CORPUSCULAR HGB CONC 33.7 % (32.0-36.0); MONO % 10.6 % (0.0-8.0); NEUT % 62.1 % (16.0-70.0); PLATELET COUNT 233 TH/MM3 (150-450); RED BLOOD COUNT 3.97 MIL/MM3 (4.50-5.90); WHITE BLOOD COUNT 6.4 TH/MM3 (4.0-11.0)
[2017-03-01 06:42] LABS: BICARBONATE 32.8 MEQ/L (21.0-32.0); POTASSIUM 4.4 MEQ/L (3.5-5.1)
[2017-03-01] MEDS: INSULIN ASPART SUPPLEMENTAL SCALE SQ SCH ×4 (06:45→20:55)
--- NOTE | 2017-03-01 08:37 | HHI.FPPN ---
Subjective Remarks Pt seen and examined this morning. AFVSS. No acute events overnight. Pts sister yesterday, he reports that his mood is stable. He believes that he is handling everything well. He is having some difficulty sleeping. He anticipates having electrophysiology study done later today and will be NPO after breakfast. He was unable to have this procedure done yesterday due to issues with scheduling. He is eager to go home as soon as possible after this procedure in order to assist with arrangements for his sister's . ( Manish Arteaga MD R2) Objective Vitals Vital Signs Date Time Temp Pulse Resp B/P Pulse Ox O2 Delivery O2 Flow Rate FiO2 03/01/17 06:33 67 03/01/17 05:09 71 03/01/17 04:16 72 03/01/17 03:03 98.4 72 16 111/73 97 03/01/17 03:03 74 03/01/17 02:17 74 03/01/17 01:04 76 03/01/17 00:50 77 02/28/17 23:10 98.7 79 16 108/64 97 02/28/17 23:10 78 02/28/17 22:52 81 02/28/17 21:00 88 02/28/17 20:00 78 02/28/17 19:22 98 21 02/28/17 19:20 88 02/28/17 19:20 97.3 82 16 126/77 97 02/28/17 18:00 91 02/28/17 17:34 18 02/28/17 17:00 80 02/28/17 16:00 87 02/28/17 15:00 80 02/28/17 15:00 98.2 87 18 122/93 98 02/28/17 14:00 76 02/28/17 13:00 79 02/28/17 12:00 84 02/28/17 12:00 74 02/28/17 11:00 84 02/28/17 11:00 97.9 76 18 130/95 98 02/28/17 10:00 82 02/28/17 09:00 78 I/O 02/28/17 02/28/17 02/28/17 03/01/17 03/01/17 03/01/17 07:00 15:00 23:00 07:00 15:00 23:00 Intake Total 480 ml 120 ml 960 ml Output Total 350 ml 900 ml Balance 130 ml 120 ml 60 ml Intake Oral 480 ml 120 ml 960 ml IV Total 0 ml Output Urine Total 350 ml 900 ml # Voids 3 3 # Bowel Movements 1 1 (Manish Arteaga MD R2) Result Diagram: 03/01/1753 03/01/1753 Objective Remarks GEN: Well-developed, well-nourished patient. Sitting up in chair, NAD. CV: Regular rate and rhythm without obvious murmurs. Bandage over incision clean and dry. LUNGS: Clear to auscultation bilaterally. No wheezes, rales, rhonchi. NEURO/PSYCH: Awake, alert, oriented. (Manish Arteaga MD R2) A/P Assessment and Plan 51 y/o male with history of HTN presents with chest pain. Admitted for NSTEMI. Discharge Planning Pending recovery from CABG & CTS recs. Patient to have electrophysiology study later today to determine if he in fact needs a LifeVest. (Manish Arteaga MD R2 ) Attending Attestation Patient seen and examined. Case reviewed and discussed with the resident team. Agree with plan of care as discussed with me and documented in the resident note. (Danelle Arizmendi MD) Problem List: (1) NSTEMI (non-ST elevated myocardial infarction) Status: Acute Plan: CAD risk factors include HTN, FH of [place], DM. Cocaine use in the last week. Initial EKG showed normal sinus rhythm. ST elevation in V1 and V2. Inverted T waves in V4, V5 and V6. CXR showed cardiomegaly with interstitial pulmonary edema. -Initial Trop 1.94. -Cr improved -Lipid panel and A1c unremarkable Cardiology consulted, appreciate recs -Cardiac cath showed multivessel disease, will need CABG -EF of 20-25% with mild to moderate MR, will need follow up for consideration of AICD placement in 3mths -ASA/Lipitor -Amiodarone -Carvedilol -Percocet for pain -No metoprolol due to cocaine use -Electrophysiology study scheduled for later today, results will determine if pt will require AICD placement vs Lifevest. Procedure did not take place yesterday due to scheduling conflicts. CT surgery consulted: appreciate recs * s/p CABG 02/23/17 * Continue post-op management, per CTS * Pt at increased risk due to poor ejection fraction, history of cocaine use and noncompliance (2) Cocaine abuse Status: Acute Plan: Pt states he uses cocaine weekly. Started using a couple months ago. May be contributing to cardiac disease. -Counseled on the risks of cocaine and recommendations for quitting -Avoid beta aleksandra use (3) FEN Status: Acute Plan: Fluids: none Electrolytes: wnl; monitor & replace PRN Nutrition: NPO after breakfast in anticipation of procedure later today DVT ppx: Rickie martine GI PPX: Protonix (Manish Arteaga MD R2) Manish Arteaga MD R2 Mar 01, 2017 08:37 Danelle Arizmendi MD Mar 06, 2017 14:09
[2017-03-01] MEDS: CARVEDILOL 3.125 MG TAB PO SCH (08:58)
[2017-03-01] MEDS: MULTIVITAMINS/MINERALS THERAPEUTIC TAB PO SCH (08:58)
[2017-03-01] MEDS: AMIODARONE 200 MG TAB PO SCH ×2 (08:58→20:55)
[2017-03-01] MEDS: DOCUSATE SODIUM 100 MG CAP PO SCH ×2 (08:58→20:55)
[2017-03-01] MEDS: ASPIRIN 81 MG CHEW TAB CHEW SCH (08:58)
[2017-03-01] MEDS: MAGNESIUM HYDROXIDE SUSP 30 ML CUP PO SCH (08:59)
[2017-03-01] MEDS: POLYETHYLENE GLYCOL 17 GM PKG PO SCH (08:59)
[2017-03-01] MEDS: SODIUM CHLORIDE 0.9% FLUSH 10 ML FLUSH IVF SCH (09:00)
[2017-03-01] MEDS ORDERED: PROPOFOL 200 MG/20 ML AMP OTHER ONE (10:01)
--- NOTE | 2017-03-01 11:33 | PD.CARD.PN ---
Subjective Subjective Remarks No chest pain, no shortness of breath EP study cancelled last night, plan for today Still with NSVT over night Objective Medications Current Medications Medications (Trade) Dose Ordered Sig/Angel Route Start Time Stop Time Status Last Admin (Lipitor) 80 mg HS PO 02/21/17 21:00 02/28/17 21:07 (Aspirin Chew) 81 mg DAILY CHEW 02/22/17 09:00 03/01/17 08:58 (NS Flush) 2 ml BID IVF 02/21/17 21:00 03/01/17 09:00 (NS Flush) 2 ml UNSCH PRN IVF 02/21/17 18:15 02/24/17 11:06 Miscellaneous 1 ea 1 ea UNSCH PRN OTHER 02/21/17 18:45 (Lr 1000 ml Inj) 500 ml @ 500 mls/hr Q1H PRN IV 02/23/17 12:47 (Protonix) 40 mg DAILY@06 PO 02/24/17 06:00 03/01/17 06:00 (Cordarone) 200 mg Q12HR PO 02/23/17 21:00 03/12/17 09:00 03/01/17 08:58 (Tylenol) 650 mg Q4H PRN PO 02/23/17 13:00 (Zofran Inj) 4 mg Q6H PRN IV PUSH 02/23/17 13:00 02/26/17 09:13 Hydralazine HCl 10 mg 10 mg Q4H PRN IV 02/23/17 13:00 Magnesium Sulfate 2 gm/Sodium Chloride 104 ml @ 100 mls/hr UNSCH PRN IV 02/23/17 13:00 (Magnesium Sulfate Inj/NS Inj) 104 ml @ 50 mls/hr UNSCH PRN IV 02/23/17 13:00 (Colace) 100 mg BID PO 02/24/17 21:00 03/01/17 08:58 (Theragran M Tab) 1 tab DAILY PO 02/25/17 09:00 03/01/17 08:58 (Milk Of Magnesia Liq) 30 ml DAILY PO 02/25/17 09:00 02/27/17 08:41 (Miralax) 17 gm DAILY PO 02/25/17 09:00 02/28/17 07:53 (Senokot) 8.6 mg HS PO 02/24/17 21:00 02/28/17 21:07 (Fleets Enema (Adult)) 133 ml UNSCH PRN RECTAL 02/24/17 09:15 (D50w (Vial) Inj) 25 ml UNSCH PRN IV 02/24/17 09:15 (Glucagon Inj) 1 mg UNSCH PRN OTHER 02/24/17 09:15 (Percocet 7.5-325 Mg) 1 tab Q4H PRN PO 02/25/17 15:45 03/01/17 10:36 (Coreg) 3.125 mg Q12HR PO 02/27/17 12:45 03/01/17 08:58 Lorazepam 1 mg 1 mg Q8H PRN PO 02/27/17 14:00 02/27/17 21:48 Lactated Ringer's 1,000 ml @ 0 mls/hr Q0M PRN IV 02/28/17 01:00 03/03/17 00:59 (NS 500 ml Inj) 500 ml @ 30 mls/hr [id number] PRN IV 02/28/17 01:00 03/03/17 00:59 Vital Signs / I&O Vital Signs Date Time Temp Pulse Resp B/P Pulse Ox O2 Delivery O2 Flow Rate FiO2 03/01/17 09:11 18 03/01/17 09:00 78 03/01/17 08:00 68 03/01/17 07:30 98.4 71 18 126/81 97 03/01/17 07:00 75 03/01/17 06:33 67 03/01/17 05:09 71 03/01/17 04:16 72 03/01/17 03:03 98.4 72 16 111/73 97 03/01/17 03:03 74 03/01/17 02:17 74 03/01/17 01:04 76 03/01/17 00:50 77 02/28/17 23:10 98.7 79 16 108/64 97 02/28/17 23:10 78 02/28/17 22:52 81 02/28/17 21:00 88 02/28/17 20:00 78 02/28/17 19:22 98 21 02/28/17 19:20 88 02/28/17 19:20 97.3 82 16 126/77 97 02/28/17 18:00 91 02/28/17 17:00 80 02/28/17 16:00 87 02/28/17 15:00 80 02/28/17 15:00 98.2 87 18 122/93 98 02/28/17 14:00 76 02/28/17 13:00 79 02/28/17 12:00 84 02/28/17 12:00 74 I/O 02/28/17 02/28/17 02/28/17 03/01/17 03/01/17 03/01/17 07:00 15:00 23:00 07:00 15:00 23:00 Intake Total 480 ml 120 ml 960 ml Output Total 350 ml 900 ml Balance 130 ml 120 ml 60 ml Intake Oral 480 ml 120 ml 960 ml IV Total 0 ml Output Urine Total 350 ml 900 ml # Voids 3 3 # Bowel Movements 1 1 Physical Exam GENERAL: NAD, AAOx3 SKIN: Warm and dry. HEAD: Atraumatic. Normocephalic. EYES: Pupils equal and round. No scleral icterus. No injection or drainage. ENT: No nasal bleeding or discharge. Mucous membranes pink and moist. NECK: Trachea midline. No JVD. CARDIOVASCULAR: Regular rate and rhythm. Sternotomy with wound vac RESPIRATORY: No accessory muscle use. Decreased breath sounds bilaterally GASTROINTESTINAL: Abdomen soft, non-tender, nondistended. Hepatic and splenic margins not palpable. MUSCULOSKELETAL: Extremities without clubbing, cyanosis, or edema. No obvious deformities. NEUROLOGICAL: Awake and alert. No obvious cranial nerve deficits. Motor grossly within normal limits. Five out of 5 muscle strength in the arms and legs. Normal speech. PSYCHIATRIC: Appropriate mood and affect; insight and judgment normal. Laboratory Laboratory Tests Test 03/01/17 05:53 White Blood Count 6.4 TH/MM3 Red Blood Count 3.97 MIL/MM3 Hemoglobin 12.3 GM/DL Hematocrit 36.5 % Mean Corpuscular Volume 91.8 FL Mean Corpuscular Hemoglobin 30.9 PG Mean Corpuscular Hemoglobin 33.7 % Concent Red Cell Distribution Width 14.0 % Platelet Count 233 TH/MM3 Mean Platelet Volume 8.9 FL Neutrophils (%) (Auto) 62.1 % Lymphocytes (%) (Auto) 22.8 % Monocytes (%) (Auto) 10.6 % Eosinophils (%) (Auto) 4.0 % Basophils (%) (Auto) 0.5 % Neutrophils # (Auto) 4.0 TH/MM3 Lymphocytes # (Auto) 1.5 TH/MM3 Monocytes # (Auto) 0.7 TH/MM3 Eosinophils # (Auto) 0.3 TH/MM3 Basophils # (Auto) 0.0 TH/MM3 CBC Comment DIFF FINAL Differential Comment Sodium Level 140 MEQ/L Potassium Level 4.4 MEQ/L Chloride Level 101 MEQ/L Carbon Dioxide Level 32.8 MEQ/L Anion Gap 6 MEQ/L Blood Urea Nitrogen 17 MG/DL Creatinine 1.13 MG/DL Estimat Glomerular Filtration 82 ML/MIN Rate Random Glucose 105 MG/DL Calcium Level 8.2 MG/DL Assessment and Plan Problem List: (1) NSTEMI (non-ST elevated myocardial infarction) (2) S/P CABG x 3 (3) Congestive heart failure (CHF) (4) Cocaine abuse (5) 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 Since stopping Cardizem having NSVT... Started on Coreg, still with NSVT, will titrate up 4) Probable non-compaction of the LV with EF 20-25%, discussed with him about Lifevest, currently working on getting him a vest for 3 months but case management saying hospital not willing to lease, will discuss further with administration after EP study 5) Will need repeat echo in 3 months to consider ICD therapy 6) Plan EP study today with possible ICD due to NSVT after NSTEMI Chuck Garcia DO Mar 01, 2017 11:33
--- NOTE | 2017-03-01 13:11 | PD.CAR.PN ---
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 hx of dilated CM 02/22 remains pain free, on heparin gtt/ scheduled for surgery in am may need to be eval for Life Vest at discharge/ will discuss with Dr Torres 02/23 surgery: Urgent CABG x 3, ART to LAD - good, SVG to OM2 - good, SVG to OM1 - poor, L EVH 02/24 keep chest tubes in place wean [address] torres/ will need Life vest at discharge 2/ EF 20 % no BB 2/2 recent cocaine abuse transfer to stepdown 02/25 pt taking 2 percocets at a time for pain / changed to 7.5mg prn q4hr chest tube removed without difficulty ambulating gentle diuresis 02/26 Doing well Likely D/C tomorrow with Lifevest 02/27 D/C pending Lifevest 02/28/17 No complaints. Doing well. On schedule for AICD today secondary to low EF 03/01 for EP study today / eval for AICD 2/2 arrhythmia and low EF will remove prevena dressing Objective: GENERAL: SKIN: Warm and dry.incision intact to chest and left leg HEAD: Normocephalic. EYES: No scleral icterus. No injection or drainage. NECK: Supple, trachea midline. No JVD or lymphadenopathy. CARDIOVASCULAR: Regular rate and rhythm without murmurs, gallops, or rubs. mild lower ext edema RESPIRATORY: Breath sounds equal bilaterally. No accessory muscle use. GASTROINTESTINAL: Abdomen soft, non-tender, nondistended. MUSCULOSKELETAL: No cyanosis, or edema. BACK: Nontender without obvious deformity. No CVA tenderness. Vital Signs Date Time Temp Pulse Resp B/P Pulse Ox O2 Delivery O2 Flow Rate FiO2 03/01/17 12:19 18 03/01/17 12:00 68 03/01/17 11:30 98.2 68 18 118/77 97 03/01/17 11:00 74 03/01/17 10:00 66 03/01/17 09:00 78 03/01/17 08:00 68 03/01/17 07:30 98.4 71 18 126/81 97 03/01/17 07:00 75 03/01/17 06:33 67 03/01/17 05:09 71 03/01/17 04:16 72 03/01/17 03:03 98.4 72 16 111/73 97 03/01/17 03:03 74 03/01/17 02:17 74 03/01/17 01:04 76 03/01/17 00:50 77 02/28/17 23:10 98.7 79 16 108/64 97 02/28/17 23:10 78 02/28/17 22:52 81 02/28/17 21:00 88 02/28/17 20:00 78 02/28/17 19:22 98 21 02/28/17 19:20 88 02/28/17 19:20 97.3 82 16 126/77 97 02/28/17 18:00 91 02/28/17 17:00 80 02/28/17 16:00 87 02/28/17 15:00 80 02/28/17 15:00 98.2 87 18 122/93 98 02/28/17 14:00 76 02/28/17 13:00 79 Labs: Laboratory Tests Test 03/01/17 05:53 White Blood Count 6.4 TH/MM3 (4.0-11.0) Red Blood Count 3.97 MIL/MM3 (4.50-5.90) Hemoglobin 12.3 GM/DL (13.0-17.0) Hematocrit 36.5 % (39.0-51.0) Mean Corpuscular Volume 91.8 FL (80.0-100.0) Mean Corpuscular Hemoglobin 30.9 PG (27.0-34.0) Mean Corpuscular Hemoglobin 33.7 % Concent (32.0-36.0) Red Cell Distribution Width 14.0 % (11.6-17.2) Platelet Count 233 TH/MM3 (150-450) Mean Platelet Volume 8.9 FL (7.0-11.0) Neutrophils (%) (Auto) 62.1 % (16.0-70.0) Lymphocytes (%) (Auto) 22.8 % (9.0-44.0) Monocytes (%) (Auto) 10.6 % (0.0-8.0) Eosinophils (%) (Auto) 4.0 % (0.0-4.0) Basophils (%) (Auto) 0.5 % (0.0-2.0) Neutrophils # (Auto) 4.0 TH/MM3 (1.8-7.7) Lymphocytes # (Auto) 1.5 TH/MM3 (1.0-4.8) Monocytes # (Auto) 0.7 TH/MM3 (0-0.9) Eosinophils # (Auto) 0.3 TH/MM3 (0-0.4) Basophils # (Auto) 0.0 TH/MM3 (0-0.2) CBC Comment DIFF FINAL Differential Comment Sodium Level 140 MEQ/L (136-145) Potassium Level 4.4 MEQ/L (3.5-5.1) Chloride Level 101 MEQ/L (98-107) Carbon Dioxide Level 32.8 MEQ/L (21.0-32.0) Anion Gap 6 MEQ/L (5-15) Blood Urea Nitrogen 17 MG/DL (7-18) Creatinine 1.13 MG/DL (0.60-1.30) Estimat Glomerular Filtration 82 ML/MIN (>89) Rate Random Glucose 105 MG/DL (74-106) Calcium Level 8.2 MG/DL (8.5-10.1) Result Diagram: 03/01/17 0553 03/01/17 0553 Telemetry: NSR (1) NSTEMI (non-ST elevated myocardial infarction) (2) S/P CABG x 3 Plan: ASA, statin , on coreg pulm toileting OOB, ambulate eval for dc tomorrow if cleared by Dr Oropeza (3) Congestive heart failure (CHF) (4) Cocaine abuse Plan: cessation (5) 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
[2017-03-01] MEDS ORDERED: MIDAZOLAM HCL 2 MG/2 ML VIAL ONE (14:18)
[2017-03-01] MEDS ORDERED: ISOPROTERENOL HCL 1 MG/5 ML AMP ONE (14:38)
[2017-03-01] MEDS ORDERED: BACITRACIN OINT 0.9 GM PKT TOP ONE (16:00)
[2017-03-01] MEDS ORDERED: LIDOCAINE HCL 1% 50 ML VIAL INFIL PRN (16:00)
[2017-03-01] MEDS ORDERED: ATROPINE SULFATE 1 MG/ML VIAL IV PRN (16:00)
[2017-03-01] MEDS ORDERED: METOCLOPRAMIDE HCL 10 MG/2 ML VIAL IV PRN (16:00)
[2017-03-01] MEDS ORDERED: SODIUM CHLOR 0.9% 250 ML INJ 250 ML IV PRN (16:00)
[2017-03-01] MEDS ORDERED: LORazepam 2 MG/ML VIAL IV PRN (16:00)
[2017-03-01] MEDS ORDERED: ONDANSETRON HCL 4 MG/2 ML VIAL IV PRN (16:00)
[2017-03-01] MEDS: CARVEDILOL 6.25 MG TAB PO SCH (20:52)
[2017-03-01] MEDS: ATORVASTATIN 80 MG TAB PO SCH (20:52)
[2017-03-01] MEDS: hydrOXYzine HCL 25 MG TAB PO PRN (20:55)
[2017-03-01] MEDS: SENNOSIDES 8.6 MG TAB PO SCH (21:00)
[2017-03-02] VITALS (24 sets, daily range): BP systolic 112–124; BP diastolic 65–81; PULSE 64–96; RESP 18–20; TEMP 97.5–98.7; O2SAT 20–100
[2017-03-02] MEDS: oxyCODONE/ACETAMINOPHEN 7.5 MG/325 MG TAB PO PRN ×4 (03:32→20:56)
[2017-03-02] MEDS: SODIUM CHLORIDE 0.9% FLUSH 10 ML FLUSH IVF SCH ×3 (03:35→20:57)
[2017-03-02] MEDS: PANTOPRAZOLE SOD 40 MG DELAYED RELEASE TAB PO SCH (05:08)
[2017-03-02 06:50] LABS: AUTOMATED NEUTROPHIL # 3.6 TH/MM3 (1.8-7.7); BASOPHIL # 0.1 TH/MM3 (0-0.2); BASOPHIL % 0.9 % (0.0-2.0); EOSINOPHIL # 0.2 TH/MM3 (0-0.4); EOSINOPHIL % 3.6 % (0.0-4.0); HEMATOCRIT 37.6 % (39.0-51.0); HEMO FLAGS DIFF FINAL; LYMPH % 31.6 % (9.0-44.0); LYMPHOCYTE # 2.1 TH/MM3 (1.0-4.8); MEAN CELL VOLUME 91.8 FL (80.0-100.0); MEAN CORPUSCULAR HGB CONC 32.6 % (32.0-36.0); MONO % 9.3 % (0.0-8.0); NEUT % 54.6 % (16.0-70.0); PLATELET COUNT 241 TH/MM3 (150-450); RED CELL DISTRIBUTION WIDTH 13.8 % (11.6-17.2); WHITE BLOOD COUNT 6.6 TH/MM3 (4.0-11.0)
[2017-03-02] MEDS: INSULIN ASPART SUPPLEMENTAL SCALE SQ SCH ×4 (07:00→21:00)
[2017-03-02 07:16] LABS: BICARBONATE 30.1 MEQ/L (21.0-32.0); POTASSIUM 4.1 MEQ/L (3.5-5.1)
[2017-03-02] MEDS: MAGNESIUM HYDROXIDE SUSP 30 ML CUP PO SCH (08:24)
[2017-03-02] MEDS: POLYETHYLENE GLYCOL 17 GM PKG PO SCH (08:24)
[2017-03-02] MEDS: AMIODARONE 200 MG TAB PO SCH ×2 (08:24→20:56)
[2017-03-02] MEDS: DOCUSATE SODIUM 100 MG CAP PO SCH ×2 (08:24→20:56)
[2017-03-02] MEDS: CARVEDILOL 6.25 MG TAB PO SCH ×2 (08:24→20:56)
[2017-03-02] MEDS: ASPIRIN 81 MG CHEW TAB CHEW SCH (08:24)
[2017-03-02] MEDS: MULTIVITAMINS/MINERALS THERAPEUTIC TAB PO SCH (08:27)
--- NOTE | 2017-03-02 09:47 | HHI.FPPN ---
Subjective Remarks Pt seen and examined this morning. No acute events overnight. AFVSS. Pt had Electrophysiology yesterday, it was determined that he does not need an AICD. He does need a LifeVest. He denies acute chest pain, shortness of breath, abdominal pain, pain of lower extremities. He has no other concerns at this time. (Manish Arteaga MD R2) Objective Vitals Vital Signs Date Time Temp Pulse Resp B/P Pulse Ox O2 Delivery O2 Flow Rate FiO2 03/02/17 09:00 75 03/02/17 08:00 72 03/02/17 07:00 97.9 65 18 121/81 100 03/02/17 07:00 69 03/02/17 06:00 73 03/02/17 05:00 70 03/02/17 04:00 64 03/02/17 03:00 98.0 66 20 112/71 99 03/02/17 03:00 68 03/02/17 02:00 65 03/02/17 01:00 66 03/02/17 00:00 70 03/01/17 23:00 69 03/01/17 23:00 98.4 69 19 107/59 99 03/01/17 22:00 70 03/01/17 21:00 69 03/01/17 20:00 60 03/01/17 19:00 98.7 67 18 117/81 97 03/01/17 19:00 73 03/01/17 16:45 98.0 77 18 121/83 99 03/01/17 16:30 74 03/01/17 13:00 70 03/01/17 12:19 18 03/01/17 12:00 68 03/01/17 11:30 98.2 68 18 118/77 97 03/01/17 11:00 74 03/01/17 10:00 66 I/O 03/01/17 03/01/17 03/01/17 03/02/17 03/02/17 03/02/17 07:00 15:00 23:00 07:00 15:00 23:00 Intake Total 960 ml 480 ml 840 ml Output Total 900 ml 1300 ml 650 ml Balance 60 ml -820 ml 190 ml Intake Oral 960 ml 480 ml 840 ml IV Total 0 ml Output Urine Total 900 ml 1300 ml 650 ml # Bowel Movements 1 0 (Mainsh Arteaga MD R2) Result Diagram: 03/02/17 0610 03/02/1710 Objective Remarks GEN: Well-developed, well-nourished patient. Sitting up in chair, NAD. CV: Regular rate and rhythm without obvious murmurs. Bandage over incision clean and dry. LUNGS: Clear to auscultation bilaterally. No wheezes, rales, rhonchi. NEURO/PSYCH: Awake, alert, oriented. (Manish Arteaga MD R2) A/P Assessment and Plan 51 y/o male with history of HTN presents with chest pain. Admitted for NSTEMI. Discharge Planning Pending arrangements for patient to receive LifeVest. (Manish Arteaga MD R2) Attending Attestation Patient seen and examined. Case reviewed and discussed with the resident team. Agree with plan of care as discussed with me and documented in the resident note. (Danelle Arizmendi MD) Problem List: (1) NSTEMI (non-ST elevated myocardial infarction) Status: Acute Plan: CAD risk factors include HTN, FH of FL, DM. Cocaine use in the last week. Initial EKG showed normal sinus rhythm. ST elevation in V1 and V2. Inverted T waves in V4, V5 and V6. CXR showed cardiomegaly with interstitial pulmonary edema. -Initial Trop 1.94. -Cr improved -Lipid panel and A1c unremarkable Cardiology consulted, appreciate recs -Cardiac cath showed multivessel disease, see below regarding CT surgery recs /intervention -EF of 20-25% with mild to moderate MR -ASA/Lipitor -Amiodarone -Carvedilol -Percocet for pain -No metoprolol due to cocaine use -Electrophysiology study determined that pt does not need an AICD placed and instead arrangements will be made for him to get a LifeVest. Pt is self pay. CT surgery consulted: appreciate recs * s/p CABG 02/23/17 * Continue post-op management, per CTS * Pt at increased risk due to poor ejection fraction, history of cocaine use and noncompliance (2) Cocaine abuse Status: Acute Plan: Pt states he uses cocaine weekly. Started using a couple months ago. May be contributing to cardiac disease. -Counseled on the risks of cocaine and recommendations for quitting -Avoid beta aleksandra use (3) FEN Status: Acute Plan: Fluids: none Electrolytes: wnl; monitor & replace PRN Nutrition: Heart Healthy diet DVT ppx: Rickie hose GI PPX: Protonix (Manish Arteaga MD R2) Manish Arteaga MD R2 Mar 02, 2017 09:47 Danelle Arizmendi MD Mar 06, 2017 14:09
--- NOTE | 2017-03-02 10:12 | PD.CAR.PN ---
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 hx of dilated CM 02/22 remains pain free, on heparin gtt/ scheduled for surgery in am may need to be eval for Life Vest at discharge/ will discuss with Dr Torres 02/23 surgery: Urgent CABG x 3, ART to LAD - good, SVG to OM2 - good, SVG to OM1 - poor, L EVH 02/24 keep chest tubes in place wean [address] torres/ will need Life vest at discharge 2/2 EF 20 % no BB 2/2 recent cocaine abuse transfer to stepdown 02/25 pt taking 2 percocets at a time for pain / changed to 7.5mg prn q4hr chest tube removed without difficulty ambulating gentle diuresis 02/26 Doing well Likely D/C tomorrow with Lifevest 02/27 D/C pending Lifevest 02/28/17 No complaints. Doing well. On schedule for AICD today secondary to low EF / for EP study today / eval for AICD 2/2 arrhythmia and low EF will remove prevena dressing / pt underwent EP study by Dr Oropeza no ICD placed, still recommend Life Vest at discharge continue amiodarone x 2 weeks ok to dc from CVS standpoint start low dose OSWALDO inhibitor / EF 20-25% Objective: GENERAL: SKIN: Warm and dry.incision intact and well approximated to chest / incision intact to leg HEAD: Normocephalic. EYES: No scleral icterus. No injection or drainage. NECK: Supple, trachea midline. No JVD or lymphadenopathy. CARDIOVASCULAR: Regular rate and rhythm without murmurs, gallops, or rubs. RESPIRATORY: Breath sounds equal bilaterally. No accessory muscle use. GASTROINTESTINAL: Abdomen soft, non-tender, nondistended. MUSCULOSKELETAL: No cyanosis, or edema. BACK: Nontender without obvious deformity. No CVA tenderness. Vital Signs Date Time Temp Pulse Resp B/P Pulse Ox O2 Delivery O2 Flow Rate FiO2 03/02/17 10:00 71 03/02/17 09:00 75 03/02/17 08:00 72 03/02/17 07:00 97.9 65 18 121/81 100 03/02/17 07:00 69 03/02/17 06:00 73 03/02/17 05:00 70 03/02/17 04:00 64 03/02/17 03:00 98.0 66 20 112/71 99 03/02/17 03:00 68 03/02/17 02:00 65 03/02/17 01:00 66 03/02/17 00:00 70 03/01/17 23:00 69 03/01/17 23:00 98.4 69 19 107/59 99 03/01/17 22:00 70 03/01/17 21:00 69 03/01/17 20:00 60 03/01/17 19:00 98.7 67 18 117/81 97 03/01/17 19:00 73 03/01/17 16:45 98.0 77 18 121/83 99 03/01/17 16:30 74 03/01/17 13:00 70 03/01/17 12:19 18 03/01/17 12:00 68 03/01/17 11:30 98.2 68 18 118/77 97 03/01/17 11:00 74 Labs: Laboratory Tests Test 03/02/17 06:10 White Blood Count 6.6 TH/MM3 (4.0-11.0) Red Blood Count 4.10 MIL/MM3 (4.50-5.90) Hemoglobin 12.3 GM/DL (13.0-17.0) Hematocrit 37.6 % (39.0-51.0) Mean Corpuscular Volume 91.8 FL (80.0-100.0) Mean Corpuscular Hemoglobin 30.0 PG (27.0-34.0) Mean Corpuscular Hemoglobin 32.6 % Concent (32.0-36.0) Red Cell Distribution Width 13.8 % (11.6-17.2) Platelet Count 241 TH/MM3 (150-450) Mean Platelet Volume 8.8 FL (7.0-11.0) Neutrophils (%) (Auto) 54.6 % (16.0-70.0) Lymphocytes (%) (Auto) 31.6 % (9.0-44.0) Monocytes (%) (Auto) 9.3 % (0.0-8.0) Eosinophils (%) (Auto) 3.6 % (0.0-4.0) Basophils (%) (Auto) 0.9 % (0.0-2.0) Neutrophils # (Auto) 3.6 TH/MM3 (1.8-7.7) Lymphocytes # (Auto) 2.1 TH/MM3 (1.0-4.8) Monocytes # (Auto) 0.6 TH/MM3 (0-0.9) Eosinophils # (Auto) 0.2 TH/MM3 (0-0.4) Basophils # (Auto) 0.1 TH/MM3 (0-0.2) CBC Comment DIFF FINAL Differential Comment Sodium Level 140 MEQ/L (136-145) Potassium Level 4.1 MEQ/L (3.5-5.1) Chloride Level 104 MEQ/L (98-107) Carbon Dioxide Level 30.1 MEQ/L (21.0-32.0) Anion Gap 6 MEQ/L (5-15) Blood Urea Nitrogen 12 MG/DL (7-18) Creatinine 1.18 MG/DL (0.60-1.30) Estimat Glomerular Filtration 78 ML/MIN (>89) Rate Random Glucose 111 MG/DL (74-106) Calcium Level 8.4 MG/DL (8.5-10.1) Result Diagram: 03/02/17 0610 03/02/17 0610 (1) NSTEMI (non-ST elevated myocardial infarction) (2) S/P CABG x 3 Plan: ASA, statin , on coreg, oswaldo pulm toileting OOB, ambulate ok to dc from CVS standpoint, still recommend placement of Life Vest at discharge (3) Congestive heart failure (CHF) (4) Cocaine abuse Plan: cessation (5) 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
[2017-03-02] MEDS: LISINOPRIL 5 MG TAB PO SCH (11:29)
[2017-03-02] MEDS: ATORVASTATIN 80 MG TAB PO SCH (20:55)
[2017-03-02] MEDS: SENNOSIDES 8.6 MG TAB PO SCH (20:56)
[2017-03-02] MEDS: hydrOXYzine HCL 25 MG TAB PO PRN (20:56)
--- NOTE | 2017-03-02 21:10 | PD.CARD.PN ---
Subjective Subjective Remarks Patient seen this morning No chest pain, no shortness of breath 5 beat run of NSVT today Objective Medications Current Medications Medications (Trade) Dose Ordered Sig/Angel Route Start Time Stop Time Status Last Admin (Lipitor) 80 mg HS PO 02/21/17 21:00 03/02/17 20:55 (Aspirin Chew) 81 mg DAILY CHEW 02/22/17 09:00 03/02/17 08:24 (NS Flush) 2 ml BID IVF 02/21/17 21:00 03/02/17 20:57 (NS Flush) 2 ml UNSCH PRN IVF 02/21/17 18:15 02/24/17 11:06 Miscellaneous 1 ea 1 ea UNSCH PRN OTHER 02/21/17 18:45 (Lr 1000 ml Inj) 500 ml @ 500 mls/hr Q1H PRN IV 02/23/17 12:47 (Protonix) 40 mg DAILY@06 PO 02/24/17 06:00 03/02/17 05:08 (Cordarone) 200 mg Q12HR PO 02/23/17 21:00 03/16/17 09:00 03/02/17 20:56 (Tylenol) 650 mg Q4H PRN PO 02/23/17 13:00 (Zofran Inj) 4 mg Q6H PRN IV PUSH 02/23/17 13:00 02/26/17 09:13 Hydralazine HCl 10 mg 10 mg Q4H PRN IV 02/23/17 13:00 Magnesium Sulfate 2 gm/Sodium Chloride 104 ml @ 100 mls/hr UNSCH PRN IV 02/23/17 13:00 (Magnesium Sulfate Inj/NS Inj) 104 ml @ 50 mls/hr UNSCH PRN IV 02/23/17 13:00 (Colace) 100 mg BID PO 02/24/17 21:00 03/02/17 20:56 (Theragran M Tab) 1 tab DAILY PO 02/25/17 09:00 03/02/17 08:27 (Milk Of Magnesia Liq) 30 ml DAILY PO 02/25/17 09:00 02/27/17 08:41 (Miralax) 17 gm DAILY PO 02/25/17 09:00 02/28/17 07:53 (Senokot) 8.6 mg HS PO 02/24/17 21:00 03/02/17 20:56 (Fleets Enema (Adult)) 133 ml UNSCH PRN RECTAL 02/24/17 09:15 (D50w (Vial) Inj) 25 ml UNSCH PRN IV 02/24/17 09:15 (Glucagon Inj) 1 mg UNSCH PRN OTHER 02/24/17 09:15 (Percocet 7.5-325 Mg) 1 tab Q4H PRN PO 02/25/17 15:45 03/02/17 20:56 Lorazepam 1 mg 1 mg Q8H PRN PO 02/27/17 14:00 02/27/17 21:48 Lactated Ringer's 1,000 ml @ 0 mls/hr Q0M PRN IV 02/28/17 01:00 03/03/17 00:59 (NS 500 ml Inj) 500 ml @ 30 mls/hr [id number] PRN IV 02/28/17 01:00 03/03/17 00:59 (Coreg) 6.25 mg Q12HR PO 03/01/17 21:00 03/02/17 20:56 (Atarax) 25 mg HS PRN PO 03/01/17 15:15 03/02/17 20:56 (Atropine Inj) 0.5 mg UNSCH PRN IV 03/01/17 16:00 (Reglan Inj) 10 mg Q4H PRN IV 03/01/17 16:00 (Zofran Inj) 4 mg Q4H PRN IV 03/01/17 16:00 (Prinivil) 2.5 mg DAILY PO 03/02/17 10:15 03/02/17 11:29 Vital Signs / I&O Vital Signs Date Time Temp Pulse Resp B/P Pulse Ox O2 Delivery O2 Flow Rate FiO2 03/02/17 18:00 79 03/02/17 17:00 81 03/02/17 16:00 70 03/02/17 15:03 97.5 67 18 124/80 100 03/02/17 15:00 69 03/02/17 14:00 67 03/02/17 13:08 69 03/02/17 12:00 75 03/02/17 11:30 98.4 66 18 115/65 100 03/02/17 11:30 69 03/02/17 10:00 71 03/02/17 09:00 75 03/02/17 08:00 72 03/02/17 07:00 97.9 65 18 121/81 100 03/02/17 07:00 69 03/02/17 06:00 73 03/02/17 05:00 70 03/02/17 04:00 64 03/02/17 03:00 98.0 66 20 112/71 99 03/02/17 03:00 68 03/02/17 02:00 65 03/02/17 01:00 66 03/02/17 00:00 70 03/01/17 23:00 69 03/01/17 23:00 98.4 69 19 107/59 99 03/01/17 22:00 70 I/O 03/01/17 03/01/17 03/01/17 03/02/17 03/02/17 03/02/17 07:00 15:00 23:00 07:00 15:00 23:00 Intake Total 960 ml 480 ml 840 ml 560 ml Output Total 900 ml 1300 ml 650 ml Balance 60 ml -820 ml 190 ml 560 ml Intake Oral 960 ml 480 ml 840 ml 560 ml IV Total 0 ml Output Urine Total 900 ml 1300 ml 650 ml # Voids 4 # Bowel Movements 1 0 Physical Exam GENERAL: NAD, AAOx3 SKIN: Warm and dry. HEAD: Atraumatic. Normocephalic. EYES: Pupils equal and round. No scleral icterus. No injection or drainage. ENT: No nasal bleeding or discharge. Mucous membranes pink and moist. NECK: Trachea midline. No JVD. CARDIOVASCULAR: Regular rate and rhythm. Sternotomy with wound vac RESPIRATORY: No accessory muscle use. Decreased breath sounds bilaterally GASTROINTESTINAL: Abdomen soft, non-tender, nondistended. Hepatic and splenic margins not palpable. MUSCULOSKELETAL: Extremities without clubbing, cyanosis, or edema. No obvious deformities. NEUROLOGICAL: Awake and alert. No obvious cranial nerve deficits. Motor grossly within normal limits. Five out of 5 muscle strength in the arms and legs. Normal speech. PSYCHIATRIC: Appropriate mood and affect; insight and judgment normal. Laboratory Laboratory Tests Test 03/02/17 06:10 White Blood Count 6.6 TH/MM3 Red Blood Count 4.10 MIL/MM3 Hemoglobin 12.3 GM/DL Hematocrit 37.6 % Mean Corpuscular Volume 91.8 FL Mean Corpuscular Hemoglobin 30.0 PG Mean Corpuscular Hemoglobin 32.6 % Concent Red Cell Distribution Width 13.8 % Platelet Count 241 TH/MM3 Mean Platelet Volume 8.8 FL Neutrophils (%) (Auto) 54.6 % Lymphocytes (%) (Auto) 31.6 % Monocytes (%) (Auto) 9.3 % Eosinophils (%) (Auto) 3.6 % Basophils (%) (Auto) 0.9 % Neutrophils # (Auto) 3.6 TH/MM3 Lymphocytes # (Auto) 2.1 TH/MM3 Monocytes # (Auto) 0.6 TH/MM3 Eosinophils # (Auto) 0.2 TH/MM3 Basophils # (Auto) 0.1 TH/MM3 CBC Comment DIFF FINAL Differential Comment Sodium Level 140 MEQ/L Potassium Level 4.1 MEQ/L Chloride Level 104 MEQ/L Carbon Dioxide Level 30.1 MEQ/L Anion Gap 6 MEQ/L Blood Urea Nitrogen 12 MG/DL Creatinine 1.18 MG/DL Estimat Glomerular Filtration 78 ML/MIN Rate Random Glucose 111 MG/DL Calcium Level 8.4 MG/DL Assessment and Plan Problem List: (1) NSTEMI (non-ST elevated myocardial infarction) (2) S/P CABG x 3 (3) Congestive heart failure (CHF) (4) Cocaine abuse (5) Multi-vessel coronary artery stenosis (6) Non-compaction cardiomyopathy (7) NSVT (nonsustained ventricular tachycardia) Assessment and Plan 1) CABG x3 (ART to LAD, SVG to OM1, SVG to OM2) POD#7 2) ASA/Lipitor/Amio/Coreg 3) Was avoiding BB due to cocaine history so placed on Cardizem, but with low ejection fraction will stop this... Since stopping Cardizem having NSVT... Started on Coreg 4) Probable non-compaction of the LV with EF 20-25%, discussed with him about Lifevest, currently working on getting him a vest for 3 months but case management saying hospital not willing to lease 5) Will need repeat echo in 3 months to consider ICD therapy 6) EP study showing no inducible VT 7) Unable to place ICD, unable to get Lifevest... unable to further decrease risk of VT, cardiovascularly stable for discharge Chuck Garcia DO Mar 02, 2017 21:10
[2017-03-03] VITALS (12 sets, daily range): BP systolic 115–125; BP diastolic 74–82; PULSE 59–77; RESP 18; TEMP 97.5–98.6; O2SAT 100
[2017-03-03] MEDS: PANTOPRAZOLE SOD 40 MG DELAYED RELEASE TAB PO SCH (04:27)
[2017-03-03] MEDS: oxyCODONE/ACETAMINOPHEN 7.5 MG/325 MG TAB PO PRN (04:27)
[2017-03-03 06:05] LABS: MEAN CELL VOLUME 92.2 FL (80.0-100.0); MEAN CORPUSCULAR HEMOGLOBIN 30.1 PG (27.0-34.0); MEAN CORPUSCULAR HGB CONC 32.6 % (32.0-36.0); PLATELET COUNT 267 TH/MM3 (150-450); RED BLOOD COUNT 4.12 MIL/MM3 (4.50-5.90); RED CELL DISTRIBUTION WIDTH 13.9 % (11.6-17.2); REVIEW FLAG FINAL; WHITE BLOOD COUNT 7.4 TH/MM3 (4.0-11.0)
[2017-03-03 06:33] LABS: BICARBONATE 30.8 MEQ/L (21.0-32.0); POTASSIUM 4.2 MEQ/L (3.5-5.1)
[2017-03-03] MEDS: INSULIN ASPART SUPPLEMENTAL SCALE SQ SCH ×2 (07:00→11:00)
[2017-03-03] MEDS: MULTIVITAMINS/MINERALS THERAPEUTIC TAB PO SCH (08:10)
[2017-03-03] MEDS: SODIUM CHLORIDE 0.9% FLUSH 10 ML FLUSH IVF SCH (08:10)
[2017-03-03] MEDS: AMIODARONE 200 MG TAB PO SCH (08:11)
[2017-03-03] MEDS: LISINOPRIL 5 MG TAB PO SCH (08:11)
[2017-03-03] MEDS: CARVEDILOL 6.25 MG TAB PO SCH (08:11)
[2017-03-03] MEDS: ASPIRIN 81 MG CHEW TAB CHEW SCH (08:11)
[2017-03-03] MEDS: DOCUSATE SODIUM 100 MG CAP PO SCH (08:11)
[2017-03-03] MEDS: POLYETHYLENE GLYCOL 17 GM PKG PO SCH (08:38)
[2017-03-03] MEDS: MAGNESIUM HYDROXIDE SUSP 30 ML CUP PO SCH (08:38)
--- NOTE | 2017-03-03 09:26 | PD.CARD.PN ---
Subjective Subjective Remarks No chest pain, no shortness of breath 3 and 4 beat run of NSVT, asymptomatic Objective Medications Current Medications Medications (Trade) Dose Ordered Sig/Angel Route Start Time Stop Time Status Last Admin (Lipitor) 80 mg HS PO 02/21/17 21:00 03/02/17 20:55 (Aspirin Chew) 81 mg DAILY CHEW 02/22/17 09:00 03/03/17 08:11 (NS Flush) 2 ml BID IVF 02/21/17 21:00 03/03/17 08:10 (NS Flush) 2 ml UNSCH PRN IVF 02/21/17 18:15 02/24/17 11:06 Miscellaneous 1 ea 1 ea UNSCH PRN OTHER 02/21/17 18:45 (Lr 1000 ml Inj) 500 ml @ 500 mls/hr Q1H PRN IV 02/23/17 12:47 (Protonix) 40 mg DAILY@06 PO 02/24/17 06:00 03/03/17 04:27 (Cordarone) 200 mg Q12HR PO 02/23/17 21:00 03/16/17 09:00 03/03/17 08:11 (Tylenol) 650 mg Q4H PRN PO 02/23/17 13:00 (Zofran Inj) 4 mg Q6H PRN IV PUSH 02/23/17 13:00 02/26/17 09:13 Hydralazine HCl 10 mg 10 mg Q4H PRN IV 02/23/17 13:00 Magnesium Sulfate 2 gm/Sodium Chloride 104 ml @ 100 mls/hr UNSCH PRN IV 02/23/17 13:00 (Magnesium Sulfate Inj/NS Inj) 104 ml @ 50 mls/hr UNSCH PRN IV 02/23/17 13:00 (Colace) 100 mg BID PO 02/24/17 21:00 03/03/17 08:11 (Theragran M Tab) 1 tab DAILY PO 02/25/17 09:00 03/03/17 08:10 (Milk Of Magnesia Liq) 30 ml DAILY PO 02/25/17 09:00 02/27/17 08:41 (Miralax) 17 gm DAILY PO 02/25/17 09:00 02/28/17 07:53 (Senokot) 8.6 mg HS PO 02/24/17 21:00 03/02/17 20:56 (Fleets Enema (Adult)) 133 ml UNSCH PRN RECTAL 02/24/17 09:15 (D50w (Vial) Inj) 25 ml UNSCH PRN IV 02/24/17 09:15 (Glucagon Inj) 1 mg UNSCH PRN OTHER 02/24/17 09:15 (Percocet 7.5-325 Mg) 1 tab Q4H PRN PO 02/25/17 15:45 03/03/17 04:27 (Ativan) 1 mg Q8H PRN PO 02/27/17 14:00 02/27/17 21:48 (Coreg) 6.25 mg Q12HR PO 03/01/17 21:00 03/03/17 08:11 (Atarax) 25 mg HS PRN PO 03/01/17 15:15 03/02/17 20:56 (Atropine Inj) 0.5 mg UNSCH PRN IV 03/01/17 16:00 (Reglan Inj) 10 mg Q4H PRN IV 03/01/17 16:00 (Zofran Inj) 4 mg Q4H PRN IV 03/01/17 16:00 (Prinivil) 2.5 mg DAILY PO 03/02/17 10:15 03/03/17 08:11 Vital Signs / I&O Vital Signs Date Time Temp Pulse Resp B/P Pulse Ox O2 Delivery O2 Flow Rate FiO2 03/03/17 08:00 69 03/03/17 07:00 98.6 77 18 118/82 100 03/03/17 07:00 65 03/03/17 06:00 62 03/03/17 05:00 64 03/03/17 04:20 97.5 68 18 115/74 100 03/03/17 04:19 76 03/03/17 03:26 68 03/03/17 01:06 64 03/03/17 00:00 59 03/02/17 23:00 98.2 96 20 121/81 20 03/02/17 23:00 72 03/02/17 22:00 64 03/02/17 21:00 68 03/02/17 19:00 75 03/02/17 19:00 98.7 72 18 114/69 98 03/02/17 18:00 79 03/02/17 17:00 81 03/02/17 16:00 70 03/02/17 15:03 97.5 67 18 124/80 100 03/02/17 15:00 69 03/02/17 14:00 67 03/02/17 13:08 69 03/02/17 12:00 75 03/02/17 11:30 98.4 66 18 115/65 100 03/02/17 11:30 69 03/02/17 10:00 71 I/O 03/02/17 03/02/17 03/02/17 03/03/17 03/03/17 03/03/17 07:00 15:00 23:00 07:00 15:00 23:00 Intake Total 840 ml 560 ml 800 ml Output Total 650 ml Balance 190 ml 560 ml 800 ml Intake Oral 840 ml 560 ml 800 ml IV Total 0 ml 0 ml Output Urine Total 650 ml # Voids 4 4 # Bowel Movements 0 0 Physical Exam GENERAL: NAD, AAOx3 SKIN: Warm and dry. HEAD: Atraumatic. Normocephalic. EYES: Pupils equal and round. No scleral icterus. No injection or drainage. ENT: No nasal bleeding or discharge. Mucous membranes pink and moist. NECK: Trachea midline. No JVD. CARDIOVASCULAR: Regular rate and rhythm. Sternotomy with wound vac RESPIRATORY: No accessory muscle use. Decreased breath sounds bilaterally GASTROINTESTINAL: Abdomen soft, non-tender, nondistended. Hepatic and splenic margins not palpable. MUSCULOSKELETAL: Extremities without clubbing, cyanosis, or edema. No obvious deformities. NEUROLOGICAL: Awake and alert. No obvious cranial nerve deficits. Motor grossly within normal limits. Five out of 5 muscle strength in the arms and legs. Normal speech. PSYCHIATRIC: Appropriate mood and affect; insight and judgment normal. Laboratory Laboratory Tests Test 03/03/17 05:30 White Blood Count 7.4 TH/MM3 Red Blood Count 4.12 MIL/MM3 Hemoglobin 12.4 GM/DL Hematocrit 38.0 % Mean Corpuscular Volume 92.2 FL Mean Corpuscular Hemoglobin 30.1 PG Mean Corpuscular Hemoglobin 32.6 % Concent Red Cell Distribution Width 13.9 % Platelet Count 267 TH/MM3 Mean Platelet Volume 8.4 FL Sodium Level 141 MEQ/L Potassium Level 4.2 MEQ/L Chloride Level 105 MEQ/L Carbon Dioxide Level 30.8 MEQ/L Anion Gap 5 MEQ/L Blood Urea Nitrogen 17 MG/DL Creatinine 1.23 MG/DL Estimat Glomerular Filtration 75 ML/MIN Rate Random Glucose 72 MG/DL Calcium Level 8.4 MG/DL Protein Corrected Calcium 9.0 MG/DL Total Protein 6.2 GM/DL Assessment and Plan Problem List: (1) NSTEMI (non-ST elevated myocardial infarction) (2) S/P CABG x 3 (3) Congestive heart failure (CHF) (4) Cocaine abuse (5) Multi-vessel coronary artery stenosis (6) Non-compaction cardiomyopathy (7) NSVT (nonsustained ventricular tachycardia) Assessment and Plan 1) CABG x3 (ART to LAD, SVG to OM1, SVG to OM2) POD#8 2) ASA/Lipitor/Amio/Coreg 3) Was avoiding BB due to cocaine history so placed on Cardizem, but with low ejection fraction will stop this... Since stopping Cardizem having NSVT... Started on Coreg 4) Probable non-compaction of the LV with EF 20-25%, discussed with him about Lifevest, currently working on getting him a vest for 3 months but case management saying hospital not willing to lease 5) Will need repeat echo in 3 months to consider ICD therapy 6) EP study showing no inducible VT 7) Unable to place ICD, unable to get Lifevest... unable to further decrease risk of VT, cardiovascularly stable for discharge... con't on BB/Amio for NSVT Chuck Garcia DO Mar 03, 2017 09:26
--- NOTE | 2017-03-03 11:30 | HHI.FPPN ---
Subjective Remarks Pt seen and examined. No acute events overnight. AFVSS. At this time pt will not be able to get LifeVest. He denies acute chest pain, difficulty breathing, abdominal pain, calf pain. He is eager to be discharged. He has no other acute concerns. (Manish Arteaga MD R2) Objective Vitals Vital Signs Date Time Temp Pulse Resp B/P Pulse Ox O2 Delivery O2 Flow Rate FiO2 03/03/17 11:00 98.6 61 18 125/78 100 03/03/17 10:00 70 03/03/17 09:00 68 03/03/17 08:00 69 03/03/17 07:00 98.6 77 18 118/82 100 03/03/17 07:00 65 03/03/17 06:00 62 03/03/17 05:00 64 03/03/17 04:20 97.5 68 18 115/74 100 03/03/17 04:19 76 03/03/17 03:26 68 03/03/17 01:06 64 03/03/17 00:00 59 03/02/17 23:00 98.2 96 20 121/81 20 03/02/17 23:00 72 03/02/17 22:00 64 03/02/17 21:00 68 03/02/17 19:00 75 03/02/17 19:00 98.7 72 18 114/69 98 03/02/17 18:00 79 03/02/17 17:00 81 03/02/17 16:00 70 03/02/17 15:03 97.5 67 18 124/80 100 03/02/17 15:00 69 03/02/17 14:00 67 03/02/17 13:08 69 03/02/17 12:00 75 03/02/17 11:30 98.4 66 18 115/65 100 03/02/17 11:30 69 I/O 03/02/17 03/02/17 03/02/17 03/03/17 03/03/17 03/03/17 07:00 15:00 23:00 07:00 15:00 23:00 Intake Total 840 ml 560 ml 800 ml Output Total 650 ml Balance 190 ml 560 ml 800 ml Intake Oral 840 ml 560 ml 800 ml IV Total 0 ml 0 ml Output Urine Total 650 ml # Voids 4 4 # Bowel Movements 0 0 (Manish Arteaga MD R2) Result Diagram: 03/03/17 0530 03/03/17 0530 Objective Remarks GEN: Well-developed, well-nourished patient. Sitting up in bed, NAD. CV: Regular rate and rhythm without obvious murmurs. Bandage over incision clean and dry. LUNGS: Clear to auscultation bilaterally. No wheezes, rales, rhonchi. EXT: no calf tenderness, vein harvest site on left leg appears to be well healing. NEURO/PSYCH: Awake, alert, oriented. (Manish Arteaga MD R2) A/P Assessment and Plan 51 y/o male with history of HTN presents with chest pain. Admitted for NSTEMI. Discharge Planning Anticipate discharge later today. (Manish Arteaga MD R2) Attending Attestation Patient seen and examined. Case reviewed and discussed with the resident team. Agree with plan of care as discussed with me and documented in the resident note. (Danelle Arizmendi MD) Problem List: (1) NSTEMI (non-ST elevated myocardial infarction) Status: Acute Plan: CAD risk factors include HTN, FH of NH, DM. Cocaine use in the last week. Initial EKG showed normal sinus rhythm. ST elevation in V1 and V2. Inverted T waves in V4, V5 and V6. CXR showed cardiomegaly with interstitial pulmonary edema. -Initial Trop 1.94. -Cr improved -Lipid panel and A1c unremarkable Cardiology consulted, appreciate recs -Cardiac cath showed multivessel disease, see below regarding CT surgery recs /intervention -EF of 20-25% with mild to moderate MR -ASA/Lipitor -Amiodarone -Carvedilol -Percocet for pain -No metoprolol due to cocaine use -Electrophysiology study determined that pt does not need an AICD placed. -He will not be able to get a LifeVest at this time. CT surgery consulted: appreciate recs * s/p CABG 02/23/17 * Continue post-op management, per CTS * Pt at increased risk due to poor ejection fraction, history of cocaine use and noncompliance (2) Cocaine abuse Status: Acute Plan: Pt states he uses cocaine weekly. Started using a couple months ago. May be contributing to cardiac disease. -Counseled on the risks of cocaine and recommendations for quitting -Avoid beta aleksandra use (3) FEN Status: Acute Plan: Fluids: None Electrolytes: wnl; monitor & replace PRN Nutrition: Heart Healthy diet DVT ppx: Rickie hose GI PPX: Protonix (Manish Arteaga MD R2) Manish Arteaga MD R2 Mar 03, 2017 11:30 Danelle Arizmendi MD Mar 06, 2017 14:10
[2017-03-03] MEDS ORDERED: LISI-519 PO (11:34)
[2017-03-03] MEDS ORDERED: PANT40TA3 PO (11:34)
[2017-03-03] MEDS ORDERED: CARV6.25 PO (11:34)
[2017-03-03] MEDS ORDERED: DOCU1CAP39 PO (11:34)
--- NOTE | 2017-03-14 12:23 | MA ---
cc: LATRELL CLIFTON M.D. DATE: 03/01/2017 PROCEDURE Electrophysiology study, CS cannulation, repeat electrophysiology study on Isuprel infusion. INDICATION Mr. Azevedo is a 51-year-old -[place] gentleman with history of myocardial infarction, congestive heart failure, cardiomyopathy, ejection fraction 20%, episode of nonsustained ventricular tachycardia, to undergo electrophysiology study. The risk, the nature and the benefit of the procedure are clearly stated to him. Risks include pneumothorax, cardiac perforation, stroke and even . He understood and agreed to proceed. PROCEDURE After written informed consent was obtained, the patient was brought to the EP lab where he was prepped and draped in the usual sterile fashion. Conscious sedation was initiated and maintained throughout the procedure by anesthesiologist. Once sedation was verified, the right inguinal area was anesthetized with 2% Xylocaine. Using modified Seldinger technique, the right femoral vein was cannulated on four occasions, four guidewires were advanced. Over the wire 3, 5 and a 6-E[place]ian Hemaquet were advanced. Then under fluoroscopic guidance through the 5 and 6 [place]ian Hemaquet, four 5-[place]ian Becca curved quadripolar electrophysiology catheters were advanced and placed around the His, upper right atrium, coronary sinus and right ventricular apex. Basic interval was measured. HV was prolonged. Then atrial pacing protocol was performed. Atrial pacing protocol consists of incremental atrial pacing as well as program stimulation with 110 cycle length and up to one excess stimuli delivered. No tachyarrhythmia was induced. Then ventricular pacing protocol was performed. There was VA conduction. Ventricular pacing protocol consists of incremental ventricular pacing as well as program stimulation with 110 cycle length and up to three excess stimuli delivered. No tachyarrhythmia was induced. Then Isuprel infusion was initiated. During Isuprel infusion no tachyarrhythmia was induced. Post Isuprel no tachyarrhythmia was induced. At that point the procedure was complete. All catheters were removed. The patient is going to be transferred to recovery room. No incident report. The patient tolerated the procedure. Blood loss was minimal. 1. Electrocardiogram. At baseline the patient was in sinus. Postprocedure electrocardiogram was unchanged. 2. Basic interval. Base cycle length was around 670 milliseconds, AH at 74 and HV at 70 milliseconds. 3. Atrial pacing protocol. Wenckebach of the node was around 380 milliseconds. ERP 600-120 milliseconds. 4. Ventricular pacing protocol. There was VA conduction. No tachyarrhythmia was induced. CONCLUSION 1. Negative electrophysiology study for supraventricular tachycardia. 2. ____. COMMENT AND RECOMMENDATION The gentleman's ejection fraction is 20%. He has an episode of ventricular tachycardia. He is on amiodarone as well as metoprolol. At this point my recommendation is defibrillatory vest, repeat echo in 60 days. If the patient's ejection fraction is still low, then he will need a defibrillator for sudden prevention. Case will be discussed with the patient and his family. MD ABELARDO Pennington/FLOWER /11:08 AM /12:09 PM
[2017-03-15] MEDS ORDERED: AMIO200T PO (10:00)
[2017-03-15] MEDS ORDERED: LISI-519 PO (10:00)
[2017-03-15] MEDS ORDERED: LIPI80TA PO (10:00)
[2017-03-15] MEDS ORDERED: CARV6.25 PO (10:00)
== END 2017-03-03 12:35 | disposition home health service (06) | DRG 234 ==
LOC: NEPE 07:56 → NEDA 09:30 → HCIS 20:25 → HCVR 02-22 18:27 → HCIN 02-24 13:00
PROVIDERS: ADMIT Family Medicine; ATTEND Family Medicine
PROC: 4A023N7 Measurement of Cardiac Sampling and Pressure, Left Heart, Percutaneous Approach (ICD-10-PCS; 2017-02-21)
PROC: B2111ZZ Fluoroscopy of Multiple Coronary Arteries using Low Osmolar Contrast (ICD-10-PCS; 2017-02-21)
PROC: 021109W Bypass Coronary Artery, Two Arteries from Aorta with Autologous Venous Tissue, Open Approach (ICD-10-PCS; 2017-02-23)
PROC: 06BQ4ZZ Excision of Left Saphenous Vein, Percutaneous Endoscopic Approach (ICD-10-PCS; 2017-02-23)
PROC: B246ZZ4 Ultrasonography of Right and Left Heart, Transesophageal (ICD-10-PCS; 2017-02-23)
PROC: 5A1221Z Performance of Cardiac Output, Continuous (ICD-10-PCS; 2017-02-23)
PROC: 02100Z9 Bypass Coronary Artery, One Artery from Left Internal Mammary, Open Approach (ICD-10-PCS; principal; 2017-02-23 07:15)
PROC: 4A0234Z Measurement of Cardiac Electrical Activity, Percutaneous Approach (ICD-10-PCS; 2017-03-01)
DX: I21.4 Non-ST elevation (NSTEMI) myocardial infarction (principal); I47.2 Ventricular tachycardia; I42.8 Other cardiomyopathies; I11.0 Hypertensive heart disease with heart failure; I50.20 Unspecified systolic (congestive) heart failure; E11.9 Type 2 diabetes mellitus without complications; I08.1 Rheumatic disorders of both mitral and tricuspid valves; I25.10 Atherosclerotic heart disease of native coronary artery without angina pectoris; F14.10 Cocaine abuse, uncomplicated; E78.5 Hyperlipidemia, unspecified; E78.00 Pure hypercholesterolemia, unspecified; Z91.19 Patient's noncompliance with other medical treatment and regimen; Z82.49 Family history of ischemic heart disease and other diseases of the circulatory system
CPT/HCPCS: 36430; 71010; 76937; 80048; 80053; 80061; 80307; 81001; 82550; 82552; 82948; 83036; 83735; 84155; 84484; 85002; 85014; 85025; 85027; 85610; 85730; 86850; 86900; 86901; 86920; 87641; 93005; 93306; 93318; 93454; 93620; 93623; 93880; 93970; 93998; 94002; 94010; 94150; 94640; 94664; 94667; 94668; 96361; 96374; 96375; C1730; C1769; C1893; C9399; J0131; J0171; J0690; J1265; J1644; J1815; J1940; J2150; J2250; J2270; J2370; J2405; J2440; J2720; J2765; J2930; J3010; J3370; J3475; J3480; J7030; J7040; J7050; J7120; P9016; P9047

== ENCOUNTER 2017-03-24 20:30 | Observation (INO) | payer OTHER ==
[~2017-03-24] VITALS: Ht 170.2 cm; Wt 101.1 kg
[~2017-03-24 20:30] MED LIST changes: +AMIO200T PO; +Aspirin Chew CHEW; +CARV6.25 PO; -CLON0.2T PO; -CYCL5TAB PO; +DOCU1CAP39 PO; +LIPI80TA PO; -LISI-360 PO; +LISI-519 PO; -NAPR500 OR; +OXYC1TAB35 PO; +PANT40TA3 PO
[2017-03-24 20:32] VITALS: BP 166/106; PULSE 61; RESP 16; TEMP 98.6; O2SAT 97
[2017-03-24 20:56] VITALS: BP_SYST 154; BP_SYST 156; BP_DIAS 78; BP_DIAS 91; PULSE 60; PULSE 63; RESP 18; TEMP 98.1; O2SAT 96; O2SAT 98
[2017-03-24] MEDS ORDERED: SODIUM CHLORIDE 0.9% FLUSH 10 ML FLUSH IVF PRN (21:00)
--- NOTE | 2017-03-24 21:00 | PD ---
HPI Chief Complaint: Chest Pain Time Seen by Provider: 20:42 Travel History International Travel<30 days: No Contact w/Intl Traveler<30days: No Traveled to known affect area: No History of Present Illness HPI 51yo M with PMH of HTN, CHF EF 20%, CAD with multivessel disease s/p CABG by Dr. Garcia, EP study by Dr. Sutherland 03/01/17 presents to the ED with c/o chest pain since 2-3pm today. Pain is midsternal and pressure like. It is constant and has been relieving on its own. Pain is worst with movement. Denies any sob, n/v, abdominal pain, focal weakness or numbness. As per record , pt was suppose to be discharge with lifevest but it said unable to get life vest. Pt has follow up with Dr. Garcia tomorrow but wanted to come today because of the chest pain. Pt took his aspirin today. PFSH Past Medical History Asthma: Yes Cardiovascular Problems: Yes (HTN) High Cholesterol: Yes Diminished Hearing: No Hypertension: Yes Past Surgical History Appendectomy: Yes Social History Alcohol Use: No Tobacco Use: No Substance Use: Yes (COCAINE) Allergies-Medications (Allergen,Severity, Reaction): Coded Allergies: No Known Allergies (Unverified , 03/24/17) Reported Meds & Prescriptions Reported Meds & Active Scripts Active Lisinopril 5 Mg Tab 2.5 Mg PO DAILY Coreg (Carvedilol) 6.25 Mg Tab 6.25 Mg PO Q12HR Lipitor (Atorvastatin Calcium) 80 Mg Tab 80 Mg PO HS Pantoprazole (Pantoprazole Sodium) 40 Mg Tab 40 Mg PO DAILY@06 Oxycodone-Acetaminophen 7.5-325 mg Tab 1 Tab PO Q4H PRN [Aspirin Chew] 81 MG Chew 81 Mg CHEW DAILY Review of Systems Except as stated in HPI: all other systems reviewed are Neg Physical Exam Narrative GENERAL: 51yo M in mild distress. SKIN: Desquamation of skin in bilateral legs. HEAD: Atraumatic. Normocephalic. EYES: Pupils equal and round. No scleral icterus. No injection or drainage. ENT: No nasal bleeding or discharge. Mucous membranes pink and moist. NECK: Trachea midline. No JVD. CARDIOVASCULAR: Regular rate and rhythm. No murmur appreciated. CHEST WALL: Midline surgical scar, well healed. No erythema or edema. No crepitus. +TTP around the scar. RESPIRATORY: No accessory muscle use. Clear to auscultation. Breath sounds equal bilaterally. GASTROINTESTINAL: Abdomen soft, non-tender, nondistended. Hepatic and splenic margins not palpable. MUSCULOSKELETAL: No obvious deformities. No clubbing. No cyanosis. +Bilateral lower ext edema. NEUROLOGICAL: Awake and alert. No obvious cranial nerve deficits. Motor grossly within normal limits. Normal speech. PSYCHIATRIC: Appropriate mood and affect; insight and judgment normal. Data Data Last Documented VS Vital Signs Date Time Temp Pulse Resp B/P Pulse Ox O2 Delivery O2 Flow Rate FiO2 03/24/17 20:56 96 Room Air 03/24/17 20:56 73 18 03/24/17 20:56 154/78 03/24/17 20:56 98.1 Orders Electrocardiogram (03/24/17 20:48) Basic Metabolic Panel (Bmp) (03/24/17 20:48) Ckmb (Isoenzyme) Profile (03/24/17 20:48) Complete Blood Count With Diff (03/24/17 20:48) Magnesium (Mg) (03/24/17 20:48) Prothrombin Time / Inr (Pt) (03/24/17 20:48) Act Partial Throm Time (Ptt) (03/24/17 20:48) Troponin I (03/24/17 20:48) Chest, Single Ap (03/24/17 20:48) Ecg Monitoring (03/24/17 20:48) Bilateral Bp Monitoring (03/24/17 20:48) Iv Access Insert/Monitor (03/24/17 20:48) Oximetry (03/24/17 20:48) Oxygen Administration (03/24/17 20:48) Sodium Chloride 0.9% Flush (Ns Flush) (03/24/17 21:00) Nitroglycerin Sl (Nitrostat Sl) (03/24/17 21:15) Admit Order (Ed Use Only) (03/24/17 23:05) Labs Laboratory Tests Test 03/24/17 20:57 White Blood Count 5.0 TH/MM3 Red Blood Count 4.56 MIL/MM3 Hemoglobin 13.7 GM/DL Hematocrit 41.2 % Mean Corpuscular Volume 90.3 FL Mean Corpuscular Hemoglobin 30.1 PG Mean Corpuscular Hemoglobin 33.4 % Concent Red Cell Distribution Width 14.2 % Platelet Count 230 TH/MM3 Mean Platelet Volume 9.1 FL Neutrophils (%) (Auto) 44.0 % Lymphocytes (%) (Auto) 40.2 % Monocytes (%) (Auto) 8.4 % Eosinophils (%) (Auto) 6.4 % Basophils (%) (Auto) 1.0 % Neutrophils # (Auto) 2.2 TH/MM3 Lymphocytes # (Auto) 2.0 TH/MM3 Monocytes # (Auto) 0.4 TH/MM3 Eosinophils # (Auto) 0.3 TH/MM3 Basophils # (Auto) 0.0 TH/MM3 CBC Comment DIFF FINAL Differential Comment Prothrombin Time 10.7 SEC Prothromb Time International 1.0 RATIO Ratio Activated Partial 26.0 SEC Thromboplast Time Sodium Level 139 MEQ/L Potassium Level 4.4 MEQ/L Chloride Level 104 MEQ/L Carbon Dioxide Level 27.8 MEQ/L Anion Gap 7 MEQ/L Blood Urea Nitrogen 23 MG/DL Creatinine 1.45 MG/DL Estimat Glomerular Filtration 62 ML/MIN Rate Random Glucose 86 MG/DL Calcium Level 8.7 MG/DL Magnesium Level 2.1 MG/DL Total Creatine Kinase 94 U/L Troponin I 0.03 NG/ML [facility] Medical Decision Making Medical Screen Exam Complete: Yes Emergency Medical Condition: Yes Interpretation(s) EKG: Sinus bradycardia at 57bpm. LAD. TWI I, aVL, V2-V6 and II. LVH. Similar to prior. Differential Diagnosis Unstable angina vs. musculoskeletal pain vs. arrhythmia Narrative Course 51yo M with recent CABG here with midsternal chest pain. Labs reviewed, no leukocytosis. BUN/creatinine mildly increased from baseline at 23/1.45. Troponin 0.03. CXR showed no acute cardiopulmonary disease. Pt given sublingual nitroglycerin with improvement of chest pain. Will consult Dr. Garcia. Accepted to Dr. Crain's service after discussion with Dr. Denton. Diagnosis Primary Impression: Chest pain Qualified Code: R07.9 - Chest pain, unspecified type Admitting Information Admitting Physician Requests: Admit Scripts Nitroglycerin SL (Nitrostat SL)0.4 Mg Subl0.4 Mg SL Q5M PRN (chest pain) #10 MG Ref 0 Prov:Madi Crain DO 03/25/17 Isosorbide Mononitrate ER 30 Mg Taber30 Mg PO DAILY@07 #30 TAB Ref 0 Prov:Madi Crain DO 03/25/17 Ciara Baig DO Mar 24, 2017 21:00
[2017-03-24] MEDS: NITROGLYCERIN 0.4 MG SL 25 TABS/BTL SL PRN (21:09)
--- NOTE | 2017-03-24 21:20 | RADRPT ---
EXAM DATE/TIME: 03/24/2017 20:58 [facility] COMPARISON: CHEST SINGLE AP, February 26, 2017, 4:42. INDICATIONS : Patient states he had chest pain since this morning. He had triple bypass surgery three weeks ago. Diego salvador had x-rays on Tuesday at Dr. Carbajal office. MEDICAL HISTORY : Hypertension. SURGICAL HISTORY : CABG. ENCOUNTER: Initial ACUITY: 1 day PAIN SCORE: 6/10 LOCATION: chest Center. FINDINGS: Cardiomegaly has not changed. Lungs are clear. There is evidence for prior median sternotomy. Previou sly seen parenchymal opacities have resolved. CONCLUSION: No acute cardiopulmonary disease. Jason Bacon MD on March 24, 2017 at 21:18 Board Certified Radiologist. This report was verified electronically.
[2017-03-24 21:22] LABS: AUTOMATED NEUTROPHIL # 2.2 TH/MM3 (1.8-7.7); EOSINOPHIL # 0.3 TH/MM3 (0-0.4); EOSINOPHIL % 6.4 % (0.0-4.0); HEMATOCRIT 41.2 % (39.0-51.0); HEMO FLAGS DIFF FINAL; LYMPH % 40.2 % (9.0-44.0); MEAN CELL VOLUME 90.3 FL (80.0-100.0); MEAN CORPUSCULAR HEMOGLOBIN 30.1 PG (27.0-34.0); MEAN CORPUSCULAR HGB CONC 33.4 % (32.0-36.0); MONO % 8.4 % (0.0-8.0); PLATELET COUNT 230 TH/MM3 (150-450); RED BLOOD COUNT 4.56 MIL/MM3 (4.50-5.90); RED CELL DISTRIBUTION WIDTH 14.2 % (11.6-17.2)
[2017-03-24 21:27] LABS: PROTHROMBIN TIME - PATIENT 10.7 SEC (9.8-11.6)
[2017-03-24 21:39] LABS: BICARBONATE 27.8 MEQ/L (21.0-32.0); MAGNESIUM 2.1 MG/DL (1.5-2.5); POTASSIUM 4.4 MEQ/L (3.5-5.1)
[2017-03-24] MEDS ORDERED: oxyCODONE/ACETAMINOPHEN 7.5 MG/325 MG TAB PO PRN (23:15)
[2017-03-24] MEDS ORDERED: ONDANSETRON HCL 4 MG/2 ML VIAL IVP PRN (23:15)
[2017-03-24] MEDS ORDERED: TEMAZEPAM 15 MG CAP PO PRN (23:15)
[2017-03-24] MEDS ORDERED: SODIUM CHLORIDE 0.9% FLUSH 10 ML FLUSH IV FLUSH PRN (23:15)
[2017-03-24] MEDS ORDERED: BISACODYL 10 MG SUPP RECTAL PRN (23:15)
[2017-03-24] MEDS ORDERED: NALOXONE HCL 0.4 MG/ML AMP IV PRN (23:15)
--- NOTE | 2017-03-24 23:27 | HHI.HP ---
HPI Service [facility] Hospitalists Primary Care Physician Obed Carbajal MD Admission Diagnosis Chest pain Chief Complaint: chest pain today Travel History International Travel<30 Days: No Contact w/Intl Traveler <30 Da: No Traveled to Known Affected Are: No History of Present Illness 51yo M with PMH of HTN, CHF EF 20%, CAD with multivessel disease s/p CABG by Dr. Garcia, EP study by Dr. Sutherland 03/01/17 presents to the ED with c/o chest pain since 2-3pm today. Pain is midsternal and pressure like. It is constant and has been relieving on its own. Pain is worst with movement. Denies any sob, n/v, abdominal pain, focal weakness or numbness. As per record , pt was suppose to be discharge with lifevest but it said unable to get life vest. Patient had problem with insurance before getting [facility] Pt has follow up with Dr. Garcia tomorrow but wanted to come today because of the chest pain. Dr. Garcia told patient any chest symptoms to come to hospital as he just had bypass surgery in january . Pt took his aspirin today. Patient work up in er has been negative for acute DC . Will admit and consult cardiology . Review of Systems Cardiovascular: COMPLAINS OF: Chest pain Past Family Social History Past Medical History asthma,hypertension,hyperlipidemia,hypertension,cad Past Surgical History appendix,CABS eps study not candidate for pacemaker and life vest considered. Reported Medications lisinopril2.5,coreg 6.25 q 12,lipitor 80,protonix 40,oxycodone 7.5/325 prn asa 81 Allergies: Coded Allergies: No Known Allergies (Unverified , 03/24/17) Social History cocaine in past Physical Exam Vital Signs Vital Signs Date Time Temp Pulse Resp B/P Pulse Ox O2 Delivery O2 Flow Rate FiO2 03/24/17 20:56 96 Room Air 03/24/17 20:56 73 18 98 Room Air 03/24/17 20:56 60 18 154/78 98 Room Air 03/24/17 20:56 96 Room Air 03/24/17 20:56 98.1 63 18 156/91 98 Room Air 03/24/17 20:32 98.6 61 16 166/106 97 Room Air Physical Exam GENERAL: This is a well-nourished, well-developed patient, in no apparent distress. SKIN: No rashes, ecchymoses or lesions. Cool and dry. Large scar from recent heart surgery HEAD: Atraumatic. Normocephalic. No temporal or scalp tenderness. EYES: Pupils equal round and reactive. Extraocular motions intact. No scleral icterus. No injection or drainage. ENT: Nose without bleeding, purulent drainage or septal hematoma. Throat without erythema, tonsillar hypertrophy or exudate. Uvula midline. Airway patent. NECK: Trachea midline. No JVD or lymphadenopathy. Supple, nontender, no meningeal signs. CARDIOVASCULAR: Regular rate and rhythm without murmurs, gallops, or rubs. RESPIRATORY: Clear to auscultation. Breath sounds equal bilaterally. No wheezes , rales, or rhonchi. GASTROINTESTINAL: Abdomen soft, non-tender, nondistended. No hepato-splenomegaly , or palpable masses. No guarding. MUSCULOSKELETAL: Extremities without clubbing, cyanosis, or edema. No joint tenderness, effusion, or edema noted. No calf tenderness. Negative Homans sign bilaterally. NEUROLOGICAL: Awake and alert. Cranial nerves II through XII intact. Motor and sensory grossly within normal limits. Five out of 5 muscle strength in all muscle groups. Normal speech. Laboratory Laboratory Tests Test 03/24/17 20:57 White Blood Count 5.0 Red Blood Count 4.56 Hemoglobin 13.7 Hematocrit 41.2 Mean Corpuscular Volume 90.3 Mean Corpuscular Hemoglobin 30.1 Mean Corpuscular Hemoglobin 33.4 Concent Red Cell Distribution Width 14.2 Platelet Count 230 Mean Platelet Volume 9.1 Neutrophils (%) (Auto) 44.0 Lymphocytes (%) (Auto) 40.2 Monocytes (%) (Auto) 8.4 Eosinophils (%) (Auto) 6.4 Basophils (%) (Auto) 1.0 Neutrophils # (Auto) 2.2 Lymphocytes # (Auto) 2.0 Monocytes # (Auto) 0.4 Eosinophils # (Auto) 0.3 Basophils # (Auto) 0.0 CBC Comment DIFF FINAL Differential Comment Prothrombin Time 10.7 Prothromb Time International 1.0 Ratio Activated Partial 26.0 Thromboplast Time Sodium Level 139 Potassium Level 4.4 Chloride Level 104 Carbon Dioxide Level 27.8 Anion Gap 7 Blood Urea Nitrogen 23 Creatinine 1.45 Estimat Glomerular Filtration 62 Rate Random Glucose 86 Calcium Level 8.7 Magnesium Level 2.1 Total Creatine Kinase 94 Troponin I 0.03 Result Diagram: 03/24/17205603/24/172056 Imaging Last 24 hours Impressions Chest X-Ray 03/24/172047 Signed Impressions: Service Date/Time: February 20:58 - CONCLUSION: No acute cardiopulmonary disease. Jason Bacon MD Course ekg sinus bradycardia lvh strain Assessment and Plan Problem List: (1) Chest pain Status: Acute Plan: patient did improve with ntg with give ntg paste seems to be somewhat atypical as worse with movement consult cardiology ekg enzymes am (2) S/P CABG x 3 Status: Chronic Plan: continue home meds Assessment and Plan patient with recent cardiac surgery with consider for life vest with ef 20% continue home meds further plan as per cardiology Code Status full Discussed Condition With patient Physician Certification 2 Midnight Certification Type: Admission for Inpatient Services Order for Inpatient Services The services are ordered in accordance with Medicare regulations or non- Medicare payer requirements, as applicable. In the case of services not specified as inpatient-only, they are appropriately provided as inpatient services in accordance with the 2-midnight benchmark. Estimated LOS (days): 2 2 days is the estimated time the patient will need to remain in the hospital, assuming treatment plan goals are met and no additional complications. Post-Hospital Plan: Not yet determined Problem Qualifiers (1) Chest pain: Qualified Code: R07.9 - Chest pain, unspecified type Manuel Valdez MD Mar 24, 2017 23:27
[2017-03-24] MEDS ORDERED: ACETAMINOPHEN 500 MG CPLT PO PRN (23:45)
[2017-03-25] VITALS (16 sets, daily range): BP systolic 106–141; BP diastolic 56–91; PULSE 46–83; RESP 16–18; TEMP 97.9–98.1; O2SAT 93–100
[2017-03-25] MEDS ORDERED: ENOXAPARIN SODIUM 40 MG/0.4 ML SYRINGE SQ SCH
[2017-03-25] MEDS: NITROGLYCERIN 0.4 MG SL 25 TABS/BTL SL PRN (00:26)
[2017-03-25] MEDS: NITROGLYCERIN 2% OINT 1 GM PACKET TOPICAL SCH ×2 (05:59→14:00)
[2017-03-25] MEDS ORDERED: PANTOPRAZOLE SOD 40 MG DELAYED RELEASE TAB PO SCH (06:00)
--- NOTE | 2017-03-25 07:49 | EKG ---
Date Performed: 03/24/2017 Time Performed: 20:49:39 PTAGE: 51 years EKG: SINUS BRADYCARDIA MARKED LEFT AXIS DEVIATION LEFT VENTRICULAR HYPERTROPHY AND ST-T CHANGE A BNORMAL ECG COMPARED TO PRIOR ELECTROCARDIOGRAM, Rate has slowed and T-wave changes are less marked. PREVIOUS TRACING : 02/24/2017 06.27 DOCTOR: Killian Knight Interpretating Date/Time 03/25/2017 07:47:54
[2017-03-25] MEDS ORDERED: SODIUM CHLORIDE 0.9% FLUSH 10 ML FLUSH IV FLUSH SCH (09:00)
[2017-03-25] MEDS ORDERED: CARVEDILOL 6.25 MG TAB PO SCH (09:00)
[2017-03-25] MEDS ORDERED: LISINOPRIL 5 MG TAB PO SCH (09:00)
[2017-03-25] MEDS ORDERED: ASPIRIN 81 MG CHEW TAB CHEW SCH (09:00)
--- NOTE | 2017-03-25 10:35 | MB ---
cc: CHUCK NDIAYE DO DATE OF CONSULTATION 03/25/2017 REASON FOR CONSULTATION Chest pain HISTORY OF PRESENT ILLNESS Zohaib Azevedo is a pleasant 51-year-old male who presents to [facility] on March 24, 2017 due to chest pain. He states that he was sitting on the couch around 02:00 p.m. and started getting pain centered over the right side of his chest. The pain was somewhat burning and pressure like. He said it was constant and did not change with moving. The pain was 4/5 out of 10. He denied shortness of breath or diaphoresis with the episode. He was extremely anxious once the pain came on because he understands he has a low ejection fraction and is concerned arrhythmias. The pain was relieved before he got to the emergency room. On arrival to the emergency room, he was found to have a blood pressure of 166/106. PAST MEDICAL HISTORY 1. Coronary artery disease. 2. 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 3. Hypertension 4. Hyperlipidemia 5. Asthma PAST SURGICAL HISTORY 1. Coronary artery bypass grafting (February 23, 2017) with ART to LAD, SVG to OM2, SVG to OM1. 2. EP study (March 01, 2017) with AH at 74 and HV at 70 milliseconds, Wenckebach of the node was around 380 milliseconds, unable to induce tachyarrhythmia. 3. Cardiac catheterization (February 21, 2017) left main 60%. LAD 70% mid. First diagonal 60-70%. Left circumflex 95% proximal. RCA occluded in the mid portion. 4. Appendectomy ALLERGIES NO KNOWN DRUG ALLERGIES. MEDICATIONS 1. Lisinopril 2.5 mg daily 2. Coreg 6.25 mg every 12 hours 3. Lipitor 80 mg every night 4. Oxycodone/acetaminophen 7.5/325 mg every 4 hours as needed for pain 5. Aspirin 81 mg daily 6. Protonix 40 mg daily FAMILY HISTORY Mother had several heart attacks and underwent coronary artery bypass grafting. Father had diabetes and lung cancer. Sister had nine heart attacks and has had eight stents. 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 He denies tobacco or alcohol abuse. He previously used cocaine one to two times per week, but denies use since recent hospitalization. REVIEW OF SYSTEMS 14-systems were reviewed including osteopathic pertinent positives and negatives as above, otherwise negative. PHYSICAL EXAMINATION VITAL SIGNS: Temperature 98.1, heart rate 58, blood pressure 137/91, respirations 18, pulse ox 95% on room air. GENERAL: The patient appears well in no acute distress, alert awake and oriented x3. HEAD, EYES, EARS, NOSE, AND THROAT: Extraocular muscles intact. Mucous membranes moist. NECK: Supple. No JVD at 45 degrees. No carotid bruits heard bilaterally. Carotid upstroke is brisk in nature. HEART: Regular rate and rhythm. Positive first and second heart sounds with no known murmurs, gallops or rubs. PMI is difficult to ascertain, but does not appear displaced. LUNGS: Clear to auscultation bilaterally. No wheezes, rales or rhonchi. ABDOMEN: Soft, nontender and nondistended. No organomegaly noted. EXTREMITIES: Show no clubbing, cyanosis or edema. Femoral and distal pulses intact bilaterally. NEUROLOGIC: No focal deficits. SKIN: Warm, dry and intact. OSTEOPATHIC: No kyphoscoliosis, lordosis or paraspinal tender points. LABORATORY FINDINGS Hemoglobin 13.7, hematocrit 41.2 was platelets 230. Potassium 4.4, BUN 23, creatinine 1.45, troponin negative x2. Electrocardiogram (March 24, 2017 at 9) sinus bradycardia, marked left axis deviation, LVH with secondary ST-T wave changes. Compared to previous from February 24, 2017, T-wave changes are less extensive. Compared to numerous EKG's going back to 2012, no significant change. IMPRESSION 1. Chest pain which does have some typical components but also has some atypical components 2. Coronary artery disease status post coronary artery bypass grafting x3 (February 23, 2017). 3. Accelerated hypertension 4. Anxiety 5. Non-compacted left ventricular cardiomyopathy. 6. History of cocaine abuse. 7. Previous nonsustained ventricular tachycardia while in the hospital with a negative EP study. RECOMMENDATIONS 1. Mr. Azevedo did come in with some chest pain which does have some typical angina components, but also some atypical components. During his CABG, he was completely revascularized. He was quite anxious and also was relatively hypertensive on arrival. I think our best option is to increase his antianginal and blood pressure medications. 2. I am unable to increase his Coreg as his heart rate is at baseline of 50-60. 3. We will plan on adding Imdur 30 mg daily to his medical regimen for antianginal and antihypertensive component. He was instructed that if he gets a headache from the Imdur, then he should attempt to Tylenol for it. 4. We will also plan on discharging him on nitro sublingual with instructions on how to use. If he needs a second nitroglycerin, he will call to get to the emergency room. 5. He will continue on aspirin, beta aleksandra, statin and DISHA inhibitor therapy for his coronary artery disease. 6. He does deny cocaine use since his last hospitalization, but because he did come in with chest pain and hypertension, I feel that we should check this for completeness. 7. If he does have further pain which is relieved with nitro glycerin, he will call the office for consideration of further stress testing versus if it is more extensive he may be recommended to go to the emergency room. 8. He now has insurance and because of this, with his cardiomyopathy and previous nonsustained ventricular tachycardia, I feel that we should attempt to get him a LifeVest. 9. We will check a 2-D echo to look for other causes of chest pain. 10. If he remains chest pain free, hemodynamically stable and third set of troponins are negative, as well as no findings concerning on the echo, he may be discharged from a cardiovascular standpoint for followup in the office with me. Thank you for allowing me to see Zohaib Azevedo. If there are any questions, please do not hesitate to call. Chuck Ndiaye DO VGP/DJL /9:40 AM /10:18 AM
[2017-03-25] MEDS ORDERED: ISOSORBIDE MONONITRATE 30 MG TAB PO ONE (12:00)
--- NOTE | 2017-03-25 13:51 | EC ---
Study Study Date:03/25/2017 STUDY CONCLUSIONS SUMMARY - Left ventricle: The cavity size was moderately dilated. Wall thickness was increased in a pattern of mild LVH. There was concentric hypertrophy. Systolic function was severely reduced. The estimated ejection fraction was in the range of 30% to 35%. Diffuse hypokinesis. Non-compaction of left ventricle. Features are consistent with a pseudonormal left ventricular filling pattern, with concomitant abnormal relaxation and increased filling pressure (grade 2 diastolic dysfunction). - Mitral valve: Mild regurgitation. - Right ventricle: The cavity size was mildly dilated. Impressions: Compared to previous echocardiogram from 02/21/17, ejection fraction appears to be slightly better, no other changes. If LV function is below 40, please consider prescribing an ACEI or ARB or document rationale for non-use. PROCEDURE DATA STUDY STATUS: Elective. Procedure: Transthoracic echocardiography. Image quality was good. Scanning was performed from the parasternal, apical, and subcostal acoustic windows. Study completion: The patient tolerated the procedure well. Transthoracic echocardiography. M-mode, complete 2D, complete spectral Doppler, and color Doppler. Height: Height: 67in. Weight: Weight: 221.5lb. Body mass index: BMI: 34.8kg/m^2. Body surface area: BSA: 2.11m^2. Patient status: Inpatient. CARDIAC ANATOMY LEFT VENTRICLE: The cavity size was moderately dilated. Wall thickness was increased in a pattern of mild LVH. There was concentric hypertrophy. Systolic function was severely reduced. The estimated ejection fraction was in the range of 30% to 35%. Diffuse hypokinesis. Non-compaction of left ventricle. Features are consistent with a pseudonormal left ventricular filling pattern, with concomitant abnormal relaxation and increased filling pressure (grade 2 diastolic dysfunction). AORTIC VALVE: Trileaflet. Doppler: There was no stenosis. Trace regurgitation. Valve area: 1.46cm^2(VTI). Indexed valve area: 0.69cm^2/m^2 (VTI). Valve area: 1.53cm^2 (Vmax). Indexed valve area: 0.73cm^2/m^2 (Vmax). Mean gradient: 6mm Hg (S). Peak gradient: 10mm Hg (S). MITRAL VALVE: The valve appears to be grossly normal. Doppler: There was no evidence for stenosis. Mild regurgitation. Peak gradient: 2mm Hg (D). LEFT ATRIUM: The atrium was normal in size. RIGHT VENTRICLE: The cavity size was mildly dilated. PULMONIC VALVE: The valve appears to be grossly normal. Doppler: There was no evidence for stenosis. Trace to mild regurgitation. TRICUSPID VALVE: The valve appears to be grossly normal. Doppler: There was no evidence for stenosis. Trace to mild regurgitation. PERICARDIUM: There was no pericardial effusion. Patient weight: 221.5lb _Ejection fraction:_ 65-75% _Fractional shortening:_ 32% up to 5Kg 5-11.5Kg 11.6-22.9Kg 23-45Kg 45-57Kg Aortic Root 7-13 <17 13-22 17-27 17-27 LA diam 6-13 <23 24-38 33-47 37-40 RVID 10-17 7-15 7-15 7-18 8-17 LVIDd 12-22 <32 24-38 33-47 37-40 LVPW 2-4 3-6 5-7 6-8 7-8 IVS 2-4 3-6 5-7 6-8 7-8 BASIC MEASUREMENTS ADULT NORMAL Left ventricle LV internal dimension, ED, chordal *55.5 mm 43-52 level, PLAX LV internal dimension, ES, chordal *48.9 mm 23-38 level, PLAX Fractional shortening, chordal level, *12 % >29 PLAX LV posterior wall thickness, ED 13.4 mm IVS/LVPW ratio, ED 1 <1.3 Ventricular septum Septal thickness, ED 13.4 mm Aortic valve Leaflet separation 22 mm 15-26 Aorta Root diameter, ED 32 mm Left atrium Anterior-posterior dimension 39 mm Anterior-posterior dimension index 1.85 cm/m^2 <2.2 BASIC MEASUREMENTS ADULT NORMAL Aortic valve Leaflet separation 22 mm 15-26 DOPPLER MEASUREMENTS ADULT NORMAL Main pulmonary artery Pressure, S 28 mm Hg =30 Aortic valve Peak velocity, S 161 cm/s Mean velocity, S 118 cm/s VTI, S 32 cm Mean gradient, S 6 mm Hg Peak gradient, S 10 mm Hg Valve area, VTI 1.46 cm^2 Valve area index, VTI 0.69 cm^2/m^2 Valve area, Vmax 1.53 cm^2 Valve area index, Vmax 0.73 cm^2/m^2 Mitral valve Peak E-wave velocity 77.3 cm/s Peak A-wave velocity 62.7 cm/s Deceleration time *310 ms 150-230 Peak gradient, D 2 mm Hg Peak E/A ratio 1.2 Tricuspid valve Regurgitant peak velocity 229 cm/s Peak RV-RA gradient, S 21 mm Hg Maximal regurgitant velocity 229 cm/s Systemic veins Estimated CVP 10 mm Hg Right ventricle RV pressure, S *31 mm Hg <30 Pulmonic valve Peak velocity, S 82.7 cm/s LEGEND: Mean values are shown as u=mean value. Asterisk (*) fletcher values outside specified normal range. Prepared and signed by Chuck Garcia [id number]
--- NOTE | 2017-03-25 17:12 | HHI.PR ---
Subjective Remarks No new complaints. Objective Vitals Vital Signs Date Time Temp Pulse Resp B/P Pulse Ox O2 Delivery O2 Flow Rate FiO2 03/25/17 15:13 95 21 03/25/17 15:01 98.1 54 16 123/78 99 03/25/17 11:01 98.0 57 16 106/56 98 03/25/17 10:00 58 03/25/17 07:39 98.1 58 18 137/91 95 03/25/17 07:00 52 03/25/17 04:00 97.9 54 18 106/68 95 03/25/17 04:00 54 03/25/17 02:00 83 03/25/17 02:00 98.0 83 18 141/83 93 03/25/17 00:27 98.1 54 18 118/69 100 Room Air 03/25/17 00:26 18 03/24/17 20:56 96 Room Air 03/24/17 20:56 73 18 98 Room Air 03/24/17 20:56 60 18 154/78 98 Room Air 03/24/17 20:56 96 Room Air 03/24/17 20:56 98.1 63 18 156/91 98 Room Air 03/24/17 20:32 98.6 61 16 166/106 97 Room Air 03/24/17 03/24/17 03/25/17 15:00 23:00 07:00 Intake Total 960 ml Output Total 400 ml Balance 560 ml Intake Oral 960 ml Output Urine Total 400 ml # Voids 1 # Bowel Movements 1 Result Diagram: 03/24/17205603/24/172056 Imaging Last 24 hours Impressions Chest X-Ray 03/24/172047 Signed Impressions: Service Date/Time: February 20:58 - CONCLUSION: No acute cardiopulmonary disease. Jason Bacon MD Objective Remarks GENERAL: This is a well-nourished, well-developed patient, in no apparent distress. CARDIOVASCULAR: Regular rate and rhythm without murmurs, gallops, or rubs. RESPIRATORY: Clear to auscultation. Breath sounds equal bilaterally. No wheezes , rales, or rhonchi. GASTROINTESTINAL: Abdomen soft, non-tender, nondistended. Normal active bowel sounds MUSCULOSKELETAL: Extremities without clubbing, cyanosis, or edema. NEURO: Alert & Oriented x4 to person, place, time, situation. Moves all ext x4 A/P Problem List: (1) Chest pain Status: Acute Plan: - comgmt with Cardiology - medical mgmt only at this time - imdur, prn NTG, coreg, lisinopril, ASA - life vest, awaiting arrangements - Case d/w Dr. Chuck Garcia, Cardiology 03/25/17 - Dr. Garcia states that okay to discharge pt today - Dr. Garcia's office is working on arranging life vest, outpt (2) S/P CABG x 3 Status: Chronic Plan: - see above Problem Qualifiers (1) Chest pain: Qualified Code: R07.9 - Chest pain, unspecified type Madi Crain DO Mar 25, 2017 17:12
[2017-03-25] MEDS ORDERED: NITR0.4S SL (17:18)
[2017-03-25] MEDS ORDERED: ISOS30TA3 PO (17:18)
--- NOTE | 2017-03-25 17:20 | HHI.DCPOC ---
Discharge Care Plan Diagnosis: (1) Chest pain (2) Multi-vessel coronary artery stenosis Goals to Promote Your Health * To prevent worsening of your condition and complications * To maintain your health at the optimal level Directions to Meet Your Goals Take your medications as prescribed Follow your dietary instruction Follow activity as directed Keep your appointments as scheduled Take your immunizations and boosters as scheduled If your symptoms worsen call your PCP, if no PCP go to Urgent Care Center or Emergency Room Smoking is Dangerous to Your Health. Avoid second hand smoke Call the 24-hour hour crisis hotline for domestic abuse at Madi Crain DO Mar 25, 2017 17:20
[2017-03-25] MEDS ORDERED: ATORVASTATIN 80 MG TAB PO SCH (21:00)
[2017-03-26] MEDS ORDERED: ISOSORBIDE MONONITRATE 30 MG TAB PO SCH (07:00)
--- NOTE | 2017-03-26 19:32 | EKG ---
Date Performed: 03/25/2017 Time Performed: 10:32:56 PTAGE: 51 years EKG: Sinus bradycardia Possible left anterior fascicular block Inferior infarct - age undetermin ed Ant/septal and lateral ST-T changes Abnormal ECG Compared to prior tracing no significant change DOCTOR: Ricki Coughlin Interpretating Date/Time 03/26/2017 19:31:29
--- NOTE | 2017-03-28 09:03 | MB ---
cc: ASHLEY PERALTA DATE OF CONSULTATION 03/25/17 DATE OF 1965 PRIMARY CARE PHYSICIAN Obed Carbajal [employer] ATTENDANT Dr. Garcia HISTORY OF PRESENT ILLNESS A 51-year-old male, history of hypertension, CHF with ejection fraction of 20%, recent coronary artery bypass grafting February 23, 2017, ART to the LAD, saphenous vein graft to the OM2, saphenous vein graft to the OM1, was discharged home, was doing well, was actually seen in our office approximately a week or two ago and was improving. He did request additional pain medication due to his sternal postoperative pain. He apparently was doing it while he was sitting on the couch around 2 o'clock in the afternoon and started having some burning, pressure like sensation, 4 to 5 out of a 10. Denied having any shortness of breath or diaphoresis. He became very anxious, thought he had an aneurysm or a pulmonary emboli and came in because he had known that his ejection fraction was low. He was not placed on a LifeVest on his discharge due to insurance purposes; however, he did find out that he is under his ex 's insurance. His blood pressure was 166/106 on admission. PAST MEDICAL HISTORY He has history of coronary artery disease, LV dysfunction, cardiomyopathy with EF of 20-25%, hypertension, hyperlipidemia, asthma. He has history of cocaine abuse. PAST SURGICAL HISTORY Surgeries include coronary artery bypass grafting times three February 23, 2017. He had an EP study in March 01, 2017. He had some Wenckebach. They were unable to induce tachyarrhythmia. He had a cardiac cath February 21, 2017. Appendectomy. ALLERGIES No known allergies. MEDICATIONS Home meds include: 1. Lisinopril 2.5 daily. 2. Coreg 6.25 q. 12. 3. Lipitor 80 milligrams. 4. Percocet p.r.n. for pain. 5. Aspirin 81 daily. 6. Protonix 40 daily. FAMILY HISTORY Mother had several heart attacks, underwent coronary artery bypass grafting. Father had diabetes and lung cancer. Sister had multiple heart attacks and eight stents. 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 No tobacco or alcohol. Previous positive cocaine one to two times a week. Denies since his hospitalization. REVIEW OF SYSTEMS The review of systems of the 12 systems reviewed. Other than pertinent positives and negatives as above otherwise negative. PHYSICAL EXAMINATION VITAL SIGNS: On exam blood pressure 130/90, heart rate of 58, O2 sat 95 on room air. GENERAL: Patient is awake, alert, in no acute distress. HEENT: Head is normocephalic, atraumatic. Pupils are equal and reactive. Oral mucosa pink, moist. NECK: Supple. No JVD. HEART: Heart sounds S1-S2, regular rate and rhythm. No audible rubs, murmurs, gallops. LUNGS: Clear to auscultation. No wheezes, rales or rhonchi. ABDOMEN: Abdomen is soft, nontender. No masses or organomegaly. EXTREMITIES: The extremities reveal no cyanosis, clubbing or edema. LABORATORY FINDINGS Shows hemoglobin 13, hematocrit of 41, white cell count of 5, platelet count of 230, sodium 139, potassium 4.4, BUN of 23, creatinine 1.45. Troponin negative times four. Glucose of 86, INR 1.0. RADIOLOGY EXAMINATION Chest x-ray no acute disease, prior sternotomy. The patient did undergo echocardiogram which showed systolic function severely reduced, EF of range of 30-35%. Diffuse hypokinesis. Grade 2 diastolic dysfunction, mild mitral regurgitation. The right ventricle is mildly dilated, the ejection fraction appears slightly better. Aortic valve showed no evidence of stenosis and/or regurgitation and the tricuspid valve had some trace to mild regurgitation. No pericardial effusion. EKG showed some sinus bradycardia with some left axis deviation, some left ventricular hypertrophy, T-wave changes less extensive. IMPRESSION This is a chest pain, some atypical components. He was quite anxious and relatively hypertensive on arrival. PLAN Agree with cardiology to increase his antianginal and blood pressure medications. Imdur was added. The patient with recent coronary artery bypass grafting, completely revascularized. At this time continue his aspirin, beta-aleksandra, statin, DISHA inhibitor and reevaluation for LifeVest placement pending. A drug screen also is pending. No further plan as from cardiovascular standpoint. Agree with recommendations per cardiology at this time. Dictated by: JOSIAH Cummins Ashley MD TIFFANY Meneses/WING /3:38 PM /9:02 AM
== END 2017-03-25 18:49 | disposition home or self-care (01) ==
LOC: NEPE 20:30 → INTOOBSV 23:06 → NEDA 23:06 → HCVR 03-25 01:42 → HCIN 03-25 09:30
PROVIDERS: ADMIT Hospitalist; ATTEND Hospitalist
DX: R07.2 Precordial pain (principal); I25.10 Atherosclerotic heart disease of native coronary artery without angina pectoris; I11.0 Hypertensive heart disease with heart failure; I50.9 Heart failure, unspecified; J45.909 Unspecified asthma, uncomplicated; I42.9 Cardiomyopathy, unspecified; Z95.1 Presence of aortocoronary bypass graft
CPT/HCPCS: 71010; 80048; 82550; 83735; 84484; 85025; 85610; 85730; 93005; 93306; 99285; G0378; J1650

== ENCOUNTER 2017-07-06 06:06 | Day surgery (SDC) | payer OTHER ==
[~2017-07-06] VITALS: Ht 170.2 cm; Wt 91.8 kg
[2017-07-06] VITALS (12 sets, daily range): BP systolic 129–148; BP diastolic 85–96; PULSE 58–74; RESP 16–18; TEMP 97.7–98; O2SAT 97–98
[~2017-07-06 06:06] MED LIST changes: -AMIO200T PO; -DOCU1CAP39 PO; +ISOS30TA3 PO; +NITR0.4S SL
[2017-07-06] MEDS ORDERED: Hold AM Insulin & AM Hypoglycemic medications in diabetic patients PRN (06:30)
[2017-07-06] MEDS ORDERED: SODIUM CHLORID 0.9% 500 ML IV PRN (06:30)
[2017-07-06] MEDS ORDERED: ceFAZolin 2 GM PREMIX 50 ML IV SCH (06:30)
[2017-07-06] MEDS ORDERED: MUPIROCIN 2% OINT 1 APPLIC/GM SYR NASAL SCH (06:30)
[2017-07-06] MEDS ORDERED: CHLORHEXIDINE GLUCONATE 2 % 1 PACK (2 CLOTHS) TOPICAL SCH (06:30)
[2017-07-06] MEDS ORDERED: LACTATED RINGER'S 1000 ML IV PRN (06:30)
[2017-07-06] MEDS ORDERED: NS 1000 ML IV SCH (06:30)
[2017-07-06] MEDS ORDERED: POVIDONE IODINE 5% (ANTISEPSIS KIT) 4 APPLICATIONS EACH NARE SCH (06:30)
[2017-07-06] MEDS ORDERED: METOPROLOL TARTRATE 25 MG TAB PO PRN (06:30)
[2017-07-06] MEDS ORDERED: LORazepam 1 MG TAB SL SCH (06:30)
[2017-07-06] MEDS ORDERED: VANCOMYCIN 1000 MG/NS 250 ML IV SCH ×2 (06:30)
[2017-07-06] MEDS ORDERED: GABA300C5 PO (06:50)
[2017-07-06] MEDS ORDERED: TEMA15CA PO (06:50)
[2017-07-06] MEDS ORDERED: TYLE325T PO (06:50)
[2017-07-06] MEDS ORDERED: CARV3.125 PO (06:50)
[2017-07-06 07:03] LABS: AUTOMATED NEUTROPHIL # 1.5 TH/MM3 (1.8-7.7); BASOPHIL % 1.1 % (0.0-2.0); EOSINOPHIL # 0.2 TH/MM3 (0-0.4); EOSINOPHIL % 4.3 % (0.0-4.0); HEMATOCRIT 42.4 % (39.0-51.0); HEMO FLAGS DIFF FINAL; LYMPH % 51.3 % (9.0-44.0); LYMPHOCYTE # 2.3 TH/MM3 (1.0-4.8); MEAN CELL VOLUME 88.9 FL (80.0-100.0); MEAN CORPUSCULAR HEMOGLOBIN 30.4 PG (27.0-34.0); MEAN CORPUSCULAR HGB CONC 34.1 % (32.0-36.0); MONO % 9.6 % (0.0-8.0); NEUT % 33.7 % (16.0-70.0); PLATELET COUNT 169 TH/MM3 (150-450); RED BLOOD COUNT 4.76 MIL/MM3 (4.50-5.90); RED CELL DISTRIBUTION WIDTH 14.5 % (11.6-17.2); WHITE BLOOD COUNT 4.5 TH/MM3 (4.0-11.0)
[2017-07-06] MEDS ORDERED: MIDAZOLAM HCL 2 MG/2 ML VIAL ONE (07:04)
[2017-07-06 07:08] LABS: APTT (PATIENT) 25.4 SEC (24.3-30.1); PROTHROMBIN TIME - PATIENT 10.5 SEC (9.8-11.6)
[2017-07-06] MEDS ORDERED: HEPARIN-NS/PF INJ 500 ML ONE (07:12)
[2017-07-06 07:17] LABS: BICARBONATE 26.4 MEQ/L (21.0-32.0); POTASSIUM 3.9 MEQ/L (3.5-5.1)
--- NOTE | 2017-07-06 07:54 | CATHPROC ---
[email or web address] HIS Report Study Information Admission Scheduled Start Study Start Jul 06 2017 6:06AM 07/06/2017 Jul 06 2017 6:49AM [place] [facility] Cardiac Pacer/ICD Facility Department [facility] - Strategic Client Executive Physician and Clinical Staff Initial Jose Antonio Alcaraz Strategic Partner Development Manager Louie Garcia,RT(R) Other Anesthesia, PHYSICIAN OFFICE ASSISTANT Recorder Williams DAVID, Domingo Recorder Tracie Dobbins,BSRN Scrub Antoinette Rahman RCIS Equipment Time Experimental Box Tester Description Size Mfg Part Number Used/Scraped [id number] 06:50 MEDLINE INDUSTRIES PACK, CCL CUSTOM * Used *[id number] 06:50 MEDLINE PACER WOOD, LIMB * 2530 *[id number] Used [id number] 06:50 [employer] MEDICAL BLANKET,WARM AIR CCL * Used *[id number] 06:51 [employer] MEDICAL CATHETER, JSN, QUAD FR 5 Used *[id number] 06:51 [employer] MEDICAL CATHETER, JSN, QUAD FR 5 Used *[id number] 06:51 [employer] MEDICAL CATHETER, JSN, QUAD FR 5 Used *[id number] 06:51 [employer] MEDICAL CATHETER, JSN, QUAD FR 5 Used *[id number] 06:51 [employer] MEDICAL SHEATH, EPS, FR5 FAST CATH FR 5 Used *[id number] [id number] 06:51 [employer] MEDICAL SHEATH, EPS, FR5 FAST CATH FR 5 Used *[id number] [id number] 06:51 [employer] MEDICAL SHEATH, EPS, FR5 FAST CATH FR 5 Used *[id number] 06:51 [employer] MEDICAL SHEATH, EPS, FR6 FAST CATH FR 6 [id number] Used Labs Hgb (g/dl) Hct (%) RBC (MIL/MM3) WBC (l/cumm) Platelets (thousands) 11.60-17.00 35.00-51.00 4.00-5.90 4.00-11.00 150.00-450.00 14.5 42.4 4.7 4.5 169 Glucose (mg/dl) BUN (mg/dl) Creatinine (mg/dl) BUN:Creatinine (1:x) 74.00-106.00 7.00-18.00 0.50-1.30 10.00-20.00 90 38 1.1 34.5 Na (meq/l) K (meq/l) Cl (meq/l) CO2 (mmol/L) Ca (mg/dl) 136.00-145.00 3.50-5.10 98.00-107.00 21.00-32.00 8.50-10.10 138 3.9 106 26.4 8.2 PT (sec) PTT (sec) INR (PTT:PT) 9.80-11.60 24.30-30.10 0.90-1.10 10.5 25.4 1 Medication Medication Total Dose (Bolus/Oral) Medication Total Dosage/Unit 1% XYLOCAINE 20 mL Medications (Bolus/Oral) Medication Time Given Dosage/Unit Administered By Reason 1% XYLOCAINE 07/06/2017 7:35:49 AM 20 mL Jose Antonio Oropeza For pain 20 mL 1% XYLOCAINE given in lab by Jose Antonio Oropeza in Right Groin via Subcutaneous. Ordered by Citlali Oropeza. Reason: For pain. Medication (Drip) Medication Time Given Dosage/Unit Concentration/Unit Diluent (ml) Solution ANCEF 07/06/2017 7:34:00 AM 2 g 2 g ANCEF given in lab by Anesthesia, PHYSICIAN OFFICE ASSISTANT in Right Antecubital via Peripheral IV. Ordered by Jose Antonio Oropeza. Reason: As per physicians verbal order. VANCOMYCIN DRIP 07/06/2017 7:34:10 AM 1 g 1 g VANCOMYCIN DRIP given in lab by Anesthesia, PHYSICIAN OFFICE ASSISTANT in Right Antecubital via Peripheral IV. Ordered by Jose Antonio Oropeza. Reason: As per physicians verbal order. Initial Case Assessment Cardiovascular NIBP 136/83 Neurological State Oriented to time-place- Alert Moves all extremities person Respiration - General Comment: see anesthesia documentation Chronological Log Time Study Chronological Log 6:53:55 James(alannah) is supporting the case. 7:05:16 Patient arrived via Bed. 7:05:44 History and physical on the chart or being dictated. 7:05:59 Patient Warmer Placed on the Table. 7:06:10 A # 20 IV was noted in the Antecubital (left). Grade = 0 7:06:28 A # 20 IV was noted in the Antecubital (right). Grade = 0 7:06:31 Patient Name, D.O.B, / Armband Verified By R.N. 7:07:35 Cee Prominences Protected 7:08:02 Disposable Defibrillator Pads Placed On Patient. 7:08:10 Table restraints applied according to hospital policy 7:10:21 Skin Breakdown-0, cyst noted on pt right wrist/forearm 7:15:05 Reference ECG taken 7:15:49 Pre-op and post- op instructions given; patient acknowledges understanding of instructions. 7:15:56 Anesthesia at bedside. Assumes care of patient. 7:16:18 Patient has been NPO for More than 6Hrs. 7:18:23 Right and left groin prepped with 2% chlorhexidine, and with a 3 min. waiting time. 7:20:54 MD paged Assessment: Initial Case, YOIX=020/83 mmhg 7:23:56 Neurological: State=Alert, Ox3, AUGUSTE Respiration: Comment=see anesthesia documentation 7:23:58 MD responded 7:32:29 Consent signed by the physician and the patient and verified by the Strategic Client Executive staff. 2 g ANCEF given in lab by Anesthesia, PHYSICIAN OFFICE ASSISTANT in Right Antecubital via Peripheral IV. Ordered by Jose Antonio Monsalve. Reason: 7:34:00 As per physicians verbal order. 1 g VANCOMYCIN DRIP given in lab by Anesthesia, PHYSICIAN OFFICE ASSISTANT in Right Antecubital via Peripheral IV. Ord ered by Johnna 7:34:10 Jose Antonio. Reason: As per physicians verbal order. 7:34:46 Immediate Presedation assesment performed by physician. Time Out. Correct patient, procedure, procedure equipment, site and side verified with physician present. Time 7:34:49 concurred by MD, individual staff and PHYSICIAN OFFICE ASSISTANT. Time Out #2 - Consents verified, patient in correct position, all results are labled and display ed, safety precautions 7:34:54 taken, antibiotics administered. Time out concurred by MD, individual staff and PHYSICIAN OFFICE ASSISTANT in procedur e 7:34:58 Case Start 20 mL 1% XYLOCAINE given in lab by Jose Antonio Oropeza in Right Groin via Subcutaneous. Ordered by Jose Antonio Newton. 7:35:49 Reason: For pain. 7:36:13 Vascular access was obtained in the Fem Vein (right). 7:36:18 Vascular access was obtained in the Fem Vein (right). 7:36:19 Vascular access was obtained in the Fem Vein (right). 7:36:20 Vascular access was obtained in the Fem Vein (right). 7:36:27 A SHEATH, EPS, FR5 FAST CATH FR 5 was advanced into the Fem Vein (right) using the Percutane ous technique. 7:36:37 A SHEATH, EPS, FR5 FAST CATH FR 5 was advanced into the Fem Vein (right) using the Percutane ous technique. 7:36:37 A SHEATH, EPS, FR5 FAST CATH FR 5 was advanced into the Fem Vein (right) using the Percutane ous technique. 7:36:42 A SHEATH, EPS, FR6 FAST CATH FR 6 was advanced into the Fem Vein (right) using the Percutane ous technique. A CATHETER, JSN, QUAD FR 5 was advanced vis Fem Vein (right) and placed in the HRA. Placement wa s visually 7:40:09 confirmed under fluoroscopy. A CATHETER, JSN, QUAD FR 5 was advanced vis Fem Vein (right) and placed in the HIS. Placement wa s visually 7:40:25 confirmed under fluoroscopy. A CATHETER, JSN, QUAD FR 5 was advanced vis Fem Vein (right) and placed in the RVA. Placement wa s visually 7:40:38 confirmed under fluoroscopy. A CATHETER, JSN, QUAD FR 5 was advanced vis Fem Vein (right) and placed in the CS. Placement w as visually 7:41:00 confirmed under fluoroscopy. 7:43:31 EP study in progress. 7:50:28 Ventricular tachycardia induced. 7:50:35 Tachycardia broken spontaneously 7:50:42 EP Study completed. 7:51:24 Patient to have an additional procedure in lab. 7:53:00 Sheath(s) left in place, will be removed in Holding Area 7:53:10 Sterile dressing applied to site 7:53:22 No case complications noted. 7:53:26 Cine recording checked. 7:54:01 Initial procedure has been completed. Beginning additional procedure. End Study - Contrast Media Used In Study Contrast Total Opened (mL) Total Used (mL) Total Wasted (mL) Unspecified 0 0 0 End Study - Radiation Exposure Fluoro Time (minutes) 1.6 End Study - Patient Disposition Complications Interventional Outcome No successful
[2017-07-06] MEDS ORDERED: VANCOMYCIN 500 MG VIAL ONE (07:56)
[2017-07-06] MEDS ORDERED: LIDOCAINE HCL 2% 50 ML VIAL ONE (07:57)
[2017-07-06] MEDS ORDERED: STERILE WATER FOR INJECTION 10 ML VIAL ONE (07:59)
--- NOTE | 2017-07-06 08:13 | EKG ---
Date Performed: 07/06/2017 Time Performed: 06:44:00 PTAGE: 51 years EKG: Sinus arrhythmia. Leftward axis Left ventricular hypertrophy Extensive ST-T changes are pro bably due to ventricular hypertrophy Abnormal ECG PREVIOUS TRACING : 03/25/2017 10.32 DOCTOR: Jacob Flowers Interpretating Date/Time 07/06/2017 08:12:48
[2017-07-06] MEDS ORDERED: LIDOCAINE HCL 1% 50 ML VIAL INFIL PRN (08:45)
[2017-07-06] MEDS ORDERED: SODIUM CHLOR 0.9% 250 ML INJ 250 ML IV PRN (08:45)
[2017-07-06] MEDS ORDERED: METOCLOPRAMIDE HCL 10 MG/2 ML VIAL IV PRN (08:45)
[2017-07-06] MEDS ORDERED: LORazepam 2 MG/ML VIAL IV PRN (08:45)
[2017-07-06] MEDS ORDERED: BACITRACIN OINT 0.9 GM PKT TOP ONE (08:45)
[2017-07-06] MEDS ORDERED: ATROPINE SULFATE 1 MG/ML VIAL IV PRN (08:45)
[2017-07-06] MEDS ORDERED: oxyCODONE/ACETAMINOPHEN 5 MG/325 MG TAB PO PRN (08:45)
[2017-07-06] MEDS ORDERED: ONDANSETRON HCL 4 MG/2 ML VIAL IV PRN (08:45)
--- NOTE | 2017-07-06 09:05 | CATHPROC ---
[facility] HIS Report Study Information Study Number Admission Scheduled Start Study Start [id number] Jul 06 2017 6:06AM 07/06/2017 Jul 06 2017 7:55AM [place] [facility] Electrophysiology Study Admit Source Facility Department Other [facility] [address] Duplicator Punch Set Up Operator Physician and Clinical Staff Initial Jose Antonio Alcaraz Water Pipe Installer Antoinette Rahman,CIGARETTE PAPER TESTER Other Anesthesia, SCARF AND ANNEAL OPERATOR Other Lida Lee,RN Recorder Tracie Dobbins BSRBrooke Vegaub Louie Garcia,(R) Procedures Performed Procedure Lead Insertion Equipment Time Speed Winder Description Size Mfg Part Number Used/Scraped INTRODUCER SET, FR7 PEEL- [id number] 08:03 COOK/PACER * Used AWAY SHEATH [id number] DERMABOND, ADHESIVE SKIN [id number] 08:01 CORDIS/PACER * Used GLUE MINI *[id number] 08:01 Splunk INDUSTRIES SUTURE, STRIP PLUS 1/2" * Used *[id number] 08:01 Splunk PACER WOOD, LIMB * 2530 *[id number] Used [id number] 08:01 Splunk PACER PACK, PACER CUSTOM * Used *[id number] 08:09 Needle Sponge Count 2 22 Used 08:33 Needle Sponge Count 2 22 Used 08:34 Needle Sponge Count 2 22 Used 08:34 Needle Sponge Count 20 200 Used 08:33 Needle Sponge Count 20 200 Used 08:09 Needle Sponge Count 20 200 Used 08:09 Needle Sponge Count 3 3 Used 08:32 Needle Sponge Count 3 3 Used 08:34 Needle Sponge Count 3 3 Used SUTURE, 0 ETHIBOND [CT1] ([id number]), 8pk SUTURE, 2-0 VICRYL [CT1] ([id number]) SUTURE, 2-0 VICRYL [CT1] ([id number]) [id number] 08:01 [place] MEDICAL BLANKET,WARM AIR CCL * Used *[id number] DEFIBRILLATOR, FORTIFY 08:29 [employer] MAR[employer]ELY MEDICAL VVEVVVIRV [id number] Used ASSURA VR LEAD, DURATA ACTIVE FIXATION 08:23 [employer]. MARIELY MEDICAL 65CM 7122Q-65 Used 7122Q/65 [place] PAD, ELECTROSURGICAL 08:01 * [id number] *[id number] Used SURGICAL GROUNDING ORANGE [id number] 08:01 [employer] MEDICAL RAHEEM. ELECTRODE, PRO-PADZ BIPHASIC * Used *[id number] Equipment Model, Serial, Lot Number and Expiration Data Description Model Number Serial Number Lot Number Expiration Date DEFIBRILLATOR, AMARILIS WICK [id number] 04-27-2019 VR LEAD, DURATA ACTIVE FIXATION 7122Q-65 [id number] 04-27-2018 7122Q/65 History: Current Medications Medication Dosage/Unit Route Frequency Last Date/Time Taken ASA Statins (any) LISINOPRIL NTG SL History: Allergies Allergy Reaction NKDA History: Risk Factors Hypertension Dyslipidemia Previous TN Previous Heart Failure Yes No Yes Yes Prior Valve Prior PCI Prior CABG Surgery No No Yes Cerebrovascular Peripheral Artery Chronic Lung On Dialysis Diabetes Disease Disease Disease No No No No No History: Symptoms/Diagnosis Selection Items COLLAZO SOB History: CV Disease Selection Items Known CAD TN History: Arrhythmias Selection Items Non-sustained VT History: Other Disease Selection Items CAD HTN Labs INR (PTT:PT) 0.90-1.10 1 Medication Medication Total Dose (Bolus/Oral) Medication Total Dosage/Unit 2% XYLOCAINE 50 mL Medications (Bolus/Oral) Medication Time Given Dosage/Unit Administered By Reason 2% XYLOCAINE 07/06/2017 8:20:48 AM 50 mL Jose Antonio Oropeza For pain 50 mL 2% XYLOCAINE given in lab by Jose Antonio Oropeza via Subcutaneous. Ordered by Jose Antonio Oropeza. Reason: For pain. left upper chest Final Case Assessment Cardiovascular HR NIBP 74 100/65 Edema Present Skin color Skin None Normal Warm Dry Neurological State Oriented to time-place- Alert Moves all extremities person Respiration - General Respiration Rate SpO2 (%) (B/min) 18 98 Chronological Log Time Study Chronological Log 7:54:59 NOTE: This patient is undergoing an additional procedure while still in the Cardiac Cath La b. 7:55:07 Anesthesia remains at bedside 7:56:00 Reference ECG taken 8:08:27 Disposable Defibrillator Pads Placed On Patient. 8:08:29 Bovie ground pad applied to: right thigh 8:08:38 2% CHLORHEXIDINE GLUCONATE WASH AND NASAL SWIPE DONE PRIOR TO PROCEDURE. 8:08:41 Pre-procedure assessment data was performed with the previous procedure. First Sponge And Instrument Count Done by Tracie Dobbins BSRN. 8:08:49 Hypo's: 3, Sponges: 20, Bovie/scratch: 2 Sutures: 10, Blades: 1, Instruments: 26, Syveck Patches: 0 8:20:12 Immediate Presedation assesment performed by physician. Time Out. Correct patient, procedure, procedure equipment, site and side verified with physicia n present. Time 8:20:17 concurred by MD, individual staff and SCARF AND ANNEAL OPERATOR. Time Out #2 - Consents verified, patient in correct position, all results are labled and displa yed, safety precautions 8:20:21 taken, antibiotics administered. Time out concurred by MD, individual staff and SCARF AND ANNEAL OPERATOR in procedu re 8:20:25 Case Start 50 mL 2% XYLOCAINE given in lab by Jose Antonio Oropeza via Subcutaneous. Ordered by Jose Antonio Oropeza. Re ason: For pain. 8:20:48 left upper chest 8:21:28 Vascular access was obtained in the Subclav. Vein (Lft. 8:25:00 Surgical Incision Made. 8:25:10 A pocket was created at the L Upper Chest. A INTRODUCER SET, FR7 PEEL-AWAY SHEATH * was advanced into the Subclav. Vein (Lft using the Per cutaneous 8:25:31 technique. 8:25:50 A LEAD, DURATA ACTIVE FIXATION 7122Q/65 65CM was inserted and positioned in the RV. 8:26:32 Lead placement verified under fluoroscopy 8:27:28 The RV lead impedance and threshold being tested. 8:27:35 The RV lead was sutured to the fascia. 8:30:16 Pocket flushed with antibiotic solution 8:30:19 A DEFIBRILLATOR, FORTIFY ASSURA VR [id number] was connected and placed in the pocket. Second Sponge And Instrument Count Done by Antoinette Rahman RCIS. 8:31:32 Hypo's: 3, Sponges: 20, Bovie/scratch: 2 Sutures: ~SUTURE~, Blades: 1, Instruments: ~INSTRU~, Syveck Patches: ~SYVECK PATCH~ 8:32:59 Implant Procedure was performed. 8:33:13 A ICD Implant . (Single) 8:33:28 The pocket was closed. 8:33:37 Steri-strips and a sterile dressing applied to site. The Final Sponge And Instrument Count Done by Antoinette Rahman RCIS. 8:33:43 Hypo's: 3, Sponges: 20, Bovie/scratch: 2 Sutures: 11, Blades: 1, Instruments: 26, Syveck Patches: 0 one suture added 8:34:17 A sling was placed on the affected arm. 8:34:25 Bedside Report will be given. Assessment: Final Case, HR=74 BPM, LYFU=455/65 mmhg, Edema=None, Color=Normal, Skin = Warm, Dr y 8:35:46 Neurological: State=Alert, Ox3, AUGUSTE Respiration: Resp=18 B/min, SpO2=98 % 8:36:37 No case complications noted. 8:36:40 Cine recording checked. 8:36:46 Implantable Device card placed in patient's chart. 8:36:49 Defibrillator and ground pads removed. Skin intact. 8:53:15 Sheaths removed; pressure applied to access site by Louie Garcia. Hemostasis achieved. 9:04:10 Sterile dressing applied to site 9:04:26 Case End 9:15:00 [facility] and [facility] to [facility] in stable condition. End Study - Contrast Media Used In Study Contrast Total Opened (mL) Total Used (mL) Total Wasted (mL) Unspecified 0 0 0 End Study - Radiation Exposure Fluoro Time (minutes) 1.3 End Study - Sheaths Sheaths Pulled By Sheath Hold Time (min) Louie Garcia End Study - Patient Disposition Complications Transferred To Interventional Outcome No Telemetry Bed successful
[2017-07-06] MEDS: oxyCODONE/ACETAMINOPHEN 5 MG/325 MG TAB PO PRN ×3 (10:00→20:14)
[2017-07-06] MEDS ORDERED: NITROGLYCERIN 0.4 MG SL 25 TABS/BTL SL PRN (10:15)
[2017-07-06] MEDS ORDERED: PILL SPLITTER OTHER PRN (10:15)
[2017-07-06] MEDS ORDERED: PROPOFOL 200 MG/20 ML AMP IV ONE (10:23)
--- NOTE | 2017-07-06 10:26 | RADRPT ---
EXAM DATE/TIME: 07/06/2017 09:41 [place] COMPARISON: CHEST SINGLE AP, March 24, 2017, 20:58. INDICATIONS : S/p pacemaker MEDICAL HISTORY : Myocardial infarction. SURGICAL HISTORY : CABG. ENCOUNTER: Initial ACUITY: 1 day PAIN SCORE: 7/10 LOCATION: Left chest FINDINGS: Pacemaker in good position from the left. There is no pneumothorax. The heart is enlarged. There i s no significant failure. Sternal wires and bypass are noted. CONCLUSION: Negative for pneumothorax Stephen Rushing MD FACR on July 06, 2017 at 10:20 Board Certified Radiologist. This report was verified electronically.
[2017-07-06] MEDS ORDERED: ACETAMINOPHEN 325 MG TAB PO PRN (10:45)
[2017-07-06] MEDS: ISOSORBIDE MONONITRATE 30 MG TAB PO SCH (13:24)
[2017-07-06] MEDS: CARVEDILOL 3.125 MG TAB PO SCH ×2 (13:24→20:13)
[2017-07-06] MEDS: LISINOPRIL 5 MG TAB PO SCH (13:24)
[2017-07-06] MEDS: GABAPENTIN 300 MG CAP PO SCH ×2 (13:25→18:00)
[2017-07-06] MEDS: ceFAZolin 2 GM PREMIX 50 ML IV SCH ×2 (15:51→23:15)
--- NOTE | 2017-07-06 17:53 | PD.CARD ---
SINGLE CHAMBER DEFIB IMPLANT PROCEDURE DATE: Jul 06, 2017 NYHA Classification: Class II (Mild) Prevention: Primary Single Chamber Defib Implant PROCEDURE: Single chamber defibrillator implantation. INDICATIONS: Mr. Azevedo is a 51 -year-old male with hx of congestive heart failure, ejection fraction 25%, coronary artery disease, who undergo defibrillator implantation for sudden prevention. The risks, the nature and the benefit of the procedure are clearly stated to him . Risks include pneumothorax, cardiac perforation, stroke and even . He understood and agreed to proceed. PROCEDURE: As written, informed consent was obtained, the patient was brought to the EP Lab where he was prepped and draped in the sterile fashion. Conscious sedation was initiated and maintained throughout the procedure by anesthesiologist. Once sedation was verified, the left infraclavicular area was anesthetized with 2% Xylocaine. Using modified Seldinger technique, the left subclavian vein was cannulated on one occasion and one guide wire was advanced. Then, using #11 blade scalpel, a 3-cm incision was made two fingerbreadths below left clavicle. This incision was then taken down to the deep fascial layer using Bovie cautery and blunt dissection. Into the inferomedial direction, a device pocket was dissected, then the wire was dissected into the pocket. A 2-0 Vicryl suture was placed around the wires to prevent bleeding. At this point, over the wire, the 7- Belarusian dilator and introducer was advanced. As dilator and wire were removed, an active fixation right ventricular pacing, sensing and defibrillatory lead was advanced. After adequate pacing and sensing thresholds were obtained, the lead was secured in the pocket with #2 Ethibond suture. At that point, the pocket was copiously irrigated with antibiotic solution. The leads were connected to the generator and placed into the pocket. I did proceed with wound closure. The deep fascial layer was approximated with 2-0 Vicryl suture in a continuous fashion. The subcutaneous layer was approximated with 2-0 Vicryl suture in a continuous fashion. The subcuticular layer was approximated with 2-0 Vicryl suture in a continuous fashion. Dermabond adhesive was applied to the wound, followed by a sterile pressure dressing. There was no complication. The patient tolerated procedure. Blood loss minimal. 1. Implanted Hardware: The implanted defibrillator generator is a [employer], model number EX1788, serial number [id number]. The right ventricular pacing, sensing and defibrillatory lead is a [employer] model number 7122Q-65, serial number [id number]. 2. Thresholds: The right ventricular pacing threshold in the bipolar mode was 0.75volts at 0.5 milliseconds, lead impedance 710 ohms and R-wave at 6.3 mV. The right ventricular defibrillatory threshold was not measured. 3. Settings: The device set in VVI 40 defibrillatory portion for two zones, one zone for ventricular tachycardia between 170 and 250 beats per minute. Initial therapy consists of one burst of ATP, one ramp, 81%, 10 pulse, 10 millisecond decremental, followed by 20, then 30 and all subsequent shocks at 40 joules defibrillatory shock, the second zone for ventricular fibrillation above 250 beats per minute, first therapy at 30 and all subsequent shocks at 40 joules defibrillatory shock. CONCLUSIONS: Successful defibrillator implantation. COMMENT AND RECOMMENDATIONS: The patient will be transferred to the telemetry unit, will be observed and when stable can be discharged home. Jose Antonio Oropeza MD Jul 06, 2017 17:53
[2017-07-06] MEDS ORDERED: LISI2.5T3 PO (19:58)
--- NOTE | 2017-07-06 20:33 | MA ---
cc: LATRELL CLIFTON M.D. DATE 07/06/2017 Electrophysiology study and CS cannulation. INDICATION Mr. Azevedo is a 51-year-old gentleman coronary artery disease, congestive heart failure, cardiomyopathy, ejection around 25% referred for electrophysiology study and device insertion. The risks, the nature and the benefit of the procedure are clearly stated to him. The risks include pneumothorax, cardiac perforation, stroke, need for open heart surgery and even . The patient understood and agreed to proceed. PROCEDURE DETAILS After written informed consent was obtained, the patient was brought to the EP lab where he was prepped and draped in the usual sterile fashion. Conscious sedation was initiated and maintained throughout the procedure by anesthesiologist. Once sedation verified, the right inguinal area was anesthetized with 2% Xylocaine. Using modified Seldinger technique, the right femoral vein was cannulated on four occasions and four guidewire were advanced. Over the wire three 5 and 6-Italian Hemaquet were advanced. Then under fluoroscopic guidance through the 5 and 6-Italian Hemaquet, four 5-Italian Becca curved quadripolar electrophysiology catheters were advanced was positioned on the His, upper right atrium, coronary sinus and right ventricular apex. Basic interval was measured. The were within normal limits. At this point atrial pacing protocol was performed. Atrial pacing protocol consisted of incremental atrial pacing as well as programmed stimulation with 1400 cycle length and up to one extra stimuli delivered. No tachyarrhythmia was induced. Next, ventricular pacing protocol was performed. There was VA conduction. Ventricular pacing protocol consisted of incremental ventricular pacing as well as programmed stimulation with 1400 cycle length and up to three extra stimuli delivered. During ventricular pacing protocol an episode of self-limited ventricular tachycardia was induced. At that point I decided not to proceed further, tachyarrhythmia because the patient is easily inducible. All catheters were removed. The patient going to be kept on the table and a single chamber defibrillator will be implanted for sudden primary prevention. No incident to report. The patient tolerated the procedure. Blood loss minimal. IMPRESSION 1. Electrocardiogram. At baseline the patient was in sinus. Postprocedure electrocardiogram was unchanged. 2. Basic interval. Base cycle length was around 830 milliseconds. AH was around 120 and HV was around 60 milliseconds. 3. Atrial pacing protocol. Wenckebach of the node was around 300 milliseconds. ERP of the node was 600-240 milliseconds. No tachyarrhythmia was induced. 4. Ventricular pacing protocol. There was no VA conduction. An episode of self-limited ventricular tachyarrhythmia was induced. CONCLUSION Self-limited ventricular tachycardia, COMMENT AND RECOMMENDATIONS The patient going to be kept on the table and a single chamber defibrillator will be implanted for sudden primary prevention. MD ABELARDO Pennington/MANSI /6:17 PM /8:18 PM
[2017-07-06] MEDS ORDERED: ATORVASTATIN 80 MG TAB PO SCH (21:00)
[2017-07-06] MEDS ORDERED: TEMAZEPAM 15 MG CAP PO PRN (21:00)
[2017-07-07] VITALS (16 sets, daily range): BP systolic 129–157; BP diastolic 81–89; PULSE 50–79; RESP 16–20; TEMP 97.5–98.2; O2SAT 93–99
[2017-07-07] MEDS: oxyCODONE/ACETAMINOPHEN 5 MG/325 MG TAB PO PRN ×2 (03:54→08:25)
[2017-07-07] MEDS: ceFAZolin 2 GM PREMIX 50 ML IV SCH (06:10)
[2017-07-07] MEDS: ISOSORBIDE MONONITRATE 30 MG TAB PO SCH (06:10)
[2017-07-07] MEDS: GABAPENTIN 300 MG CAP PO SCH (08:15)
[2017-07-07] MEDS: CARVEDILOL 3.125 MG TAB PO SCH (08:16)
[2017-07-07] MEDS: LISINOPRIL 5 MG TAB PO SCH (08:16)
[2017-07-07] MEDS ORDERED: PANTOPRAZOLE SOD 40 MG DELAYED RELEASE TAB PO SCH (09:00)
[2017-07-07] MEDS ORDERED: ASPIRIN 81 MG CHEW TAB CHEW SCH (09:00)
--- NOTE | 2017-07-07 12:46 | HHI.PR ---
Subjective Remarks Feeling fine Objective Vital Signs Date Time Temp Pulse Resp B/P Pulse Ox O2 Delivery O2 Flow Rate FiO2 07/07/17 10:00 63 07/07/17 09:00 65 07/07/17 08:00 56 07/07/17 07:35 97.5 59 20 157/83 93 07/07/17 07:00 60 07/07/17 06:00 53 07/07/17 05:00 75 07/07/17 04:00 50 07/07/17 03:45 97.7 56 16 129/81 97 07/07/17 03:00 60 07/07/17 02:00 78 07/07/17 01:00 79 07/07/17 00:00 75 07/06/17 23:10 97.7 69 16 131/89 98 07/06/17 23:00 61 07/06/17 22:00 58 07/06/17 21:00 74 07/06/17 20:00 58 07/06/17 19:45 97.8 64 18 134/85 97 07/06/17 19:00 69 07/06/17 18:00 62 07/06/17 17:00 74 07/06/17 15:40 98.0 70 16 148/96 97 07/06/17 15:00 71 I/O 07/06/17 07/06/17 07/06/17 07/07/17 07/07/17 07/07/17 06:59 14:59 22:59 06:59 14:59 22:59 Intake Total 960 ml 530 ml Output Total 1300 ml Balance 960 ml -770 ml Intake Oral 960 ml 480 ml IV Total 50 ml Output Urine Total 1300 ml # Voids 3 # Bowel Movements 0 Result Diagram: 07/06/17 0629 07/06/17 0629 Imaging Alert, fully oriented Lungs: ventilated Heart: S1, S2 regular Abdomen: soft, no mass Ext: no edema Last Impressions Chest X-Ray 07/06/17 0000 Signed Impressions: Service Date/Time: Thursday, July 06, 2017 09:41 - CONCLUSION: Negative for pneumothorax Stephen Rushing MD FACR Current Medications Medications (Trade) Dose Ordered Sig/Angel Route Start Time Stop Time Status Last Admin Miscellaneous Information Hold AM Insulin & ... UNSCH PRN .XX 07/06/17 06:30 07/10/17 06:29 Sodium Chloride 1,000 ml @ 30 mls/hr Q24H IV 07/06/17 06:30 Lactated Ringer's 1,000 ml @ 30 mls/hr Q24H PRN IV 07/06/17 06:30 07/09/17 06:29 (NS 500 ml Inj) 500 ml @ 30 mls/hr [id number] PRN IV 07/06/17 06:30 07/09/17 06:29 (Percocet 5-325 Mg) 1 tab Q4H PRN PO 07/06/17 08:45 (Percocet 5-325 Mg) 2 tab Q4H PRN PO 07/06/17 08:45 07/07/17 08:25 (Atropine Inj) 0.5 mg UNSCH PRN IV 07/06/17 08:45 (Reglan Inj) 10 mg Q4H PRN IV 07/06/17 08:45 (Zofran Inj) 4 mg Q4H PRN IV 07/06/17 08:45 07/06/17 23:16 (Protonix) 40 mg DAILY PO 07/07/17 09:00 07/07/17 08:15 (Lipitor) 80 mg HS PO 07/06/17 21:00 07/06/17 20:13 (Aspirin Chew) 81 mg DAILY CHEW 07/07/17 09:00 07/07/17 08:16 (Prinivil) 2.5 mg DAILY PO 07/06/17 10:30 07/07/17 08:16 (Pill Splitter) 1 ea UNSCH PRN OTHER 07/06/17 10:15 (Imdur) 30 mg DAILY@07 PO 07/06/17 10:30 07/07/17 06:10 (Nitrostat Sl) 0.4 mg Q5M PRN SL 07/06/17 10:15 (Coreg) 3.125 mg BID PO 07/06/17 10:30 07/07/17 08:16 (Restoril) 15 mg HS PRN PO 07/06/17 21:00 (Neurontin) 300 mg TID PO 07/06/17 13:00 07/07/17 08:15 (Tylenol) 325 mg Q4H PRN PO 07/06/17 10:45 Assessment and Plan Problem List: (1) Congestive heart failure (CHF) Status: Acute Plan: Stable. On optimal medical management (2) ICD (implantable cardioverter-defibrillator) in place Status: Acute Plan: Device well functioning Clear surgical wound Can be DH Follow up as scheduled Jose Antonio Oropeza MD Jul 07, 2017 12:46
[2017-07-07] MEDS ORDERED: OXYC1TAB63 PO (13:09)
[2017-07-07] MEDS ORDERED: CEPH-460 PO (13:09)
--- NOTE | 2017-07-07 16:15 | EKG ---
Date Performed: 07/06/2017 Time Performed: 11:25:10 PTAGE: 51 years EKG: Sinus rhythm . Left axis deviation RBBB with left anterior fascicular block Lateral T wave changes are nonspecific Compared to the previous tracing right bundle branch block is new Abnormal ECG PREVIOUS TRACING : 07/06/2017 06.44 DOCTOR: Kenny Dunn Interpretating Date/Time 07/07/2017 16:15:45
--- NOTE | 2017-07-07 16:19 | EKG ---
Date Performed: 07/07/2017 Time Performed: 06:17:36 PTAGE: 51 years EKG: Sinus rhythm with ectopic atrial focus Prolonged QT interval Leftward axis Inferior infarct - age undetermined Po ssible anterior infarct - age undetermined Lateral ST-T changes may be due to myocardial ischemia Com pared to the previous tracing right bundle branch block resolved, ectopic atrial focus is new. Patien t no longer has left axis deviation. Poor R-wave progression, cannot exclude anteroseptal infarction. Loss of R wave V2,V3 from prior tracing. Diffuse ST T abnormalities. Significant changes have occurr ed since prior tracing. Abnormal ECG PREVIOUS TRACING : 07/06/2017 11.25 DOCTOR: Kenny Dunn Interpretating Date/Time 07/07/2017 16:18:45
== END 2017-07-07 13:55 | disposition home or self-care (01) ==
LOC: HCAT 06:06 → HDIC 06:06 → HCIS 13:18 → HCAT 07-07 13:55
PROVIDERS: ATTEND Internal Medicine Interventional Cardiology
DX: I50.9 Heart failure, unspecified (principal); I47.2 Ventricular tachycardia; I42.9 Cardiomyopathy, unspecified; I25.10 Atherosclerotic heart disease of native coronary artery without angina pectoris
CPT/HCPCS: 00534; 33249; 71010; 80048; 85025; 85610; 85730; 86850; 86900; 86901; 93005; 93620; C1722; C1730; C1777; J0690; J1644; J2250; J2405; J3010; J3370; J7050

== ENCOUNTER 2017-11-12 03:11 | Emergency (ER) | payer OTHER, MEDICAID ==
[~2017-11-12] VITALS: Ht 170.2 cm; Wt 110.0 kg
[~2017-11-12 03:11] MED LIST changes: +CARV3.125 PO; -CARV6.25 PO; +CEPH-460 PO; +GABA300C5 PO; -LISI-519 PO; +LISI2.5T3 PO; +OXYC1TAB63 PO; +TEMA15CA PO; +TYLE325T PO
[2017-11-12 03:13] VITALS: BP 159/91; PULSE 89; RESP 18; TEMP 99.5; O2SAT 97
[2017-11-12 03:21] VITALS: BP 112/66; PULSE 86; RESP 26; TEMP 99.4; O2SAT 98
[2017-11-12] MEDS: NITROGLYCERIN 0.4 MG SL 25 TABS/BTL SL SCH ×3 (03:28→03:40)
[2017-11-12] MEDS ORDERED: SODIUM CHLORIDE 0.9% FLUSH 10 ML FLUSH IVF PRN (03:30)
[2017-11-12] MEDS ORDERED: ASPIRIN 81 MG CHEW TAB PO ONE (03:30)
[2017-11-12 03:31] VITALS: BP_SYST 112; BP_SYST 118; BP_DIAS 66; BP_DIAS 73
[2017-11-12] MEDS ORDERED: CARV6.25 PO (03:32)
[2017-11-12] MEDS ORDERED: NEUR100C PO (03:32)
--- NOTE | 2017-11-12 03:32 | PD ---
HPI Chief Complaint: chest pain Time Seen by Provider: 03:21 Travel History International Travel<30 days: No Contact w/Intl Traveler<30days: No Traveled to known affect area: No History of Present Illness HPI 52-year-old male presents to the emergency department by private transportation for evaluation of chest pain. Symptoms have been present since last evening. Patient took several nitroglycerin at home. Patient states no effect from his sublingual nitroglycerin at home and last dose was 4 hours ago. Patient also took aspirin 4 hours ago. Patient states that he has known coronary vessel disease with myocardial infarction and CABG in January 2017. Patient's transitions rn care coordinator is Dr. Garcia. Patient denies fever chills nausea vomiting cough congestion sore throat earache or referred neck jaw back shoulder arm pain. Patient has had shortness of breath. Patient does note some radiation of pain to his abdomen. Patient does have hypertension. Patient also has history of dyslipidemia. Patient has family history of coronary vessel disease with mother passing away after CABG and sister with multiple stents. Patient had a non-ST elevation UT and January and then subsequently underwent cardiac catheterization and CABG. [facility] Past Medical History Narrative Medical Asthma hypertension dyslipidemia CAD myocardial infarction cardiac catheterization CABG(01/2017) AICD (06/2017) pacemaker no tobacco use positive family history of myocardial infarction; nursing notes reviewed Asthma: Yes Cancer: No Cardiovascular Problems: Yes (HTN, UT, CAD, CABG, LIFE VEST, V-TACH) High Cholesterol: Yes Chest Pain: Yes Diabetes: No Diminished Hearing: No Gastrointestinal Disorders: No Glaucoma: No Hepatitis: No Hiatal Hernia: No Hypertension: Yes Psychiatric: No Respiratory: No Integumentary: No Thyroid Disease: No Past Surgical History Appendectomy: Yes Cardiac Surgery: Yes (cabg x 3) Coronary Artery Bypass Graft: Yes () Social History Alcohol Use: No Tobacco Use: No Substance Use: Yes (7-8 months ago, cocaine) Allergies-Medications (Allergen,Severity, Reaction): Coded Allergies: No Known Allergies (Unverified Adverse Reaction, Unknown, 11/12/17) Reported Meds & Prescriptions Reported Meds & Active Scripts Active Nitrostat SL (Nitroglycerin) 0.4 Mg Subl 0.4 Mg SL Q5M PRN Isosorbide Mononitrate ER (Isosorbide Mononitrate) 30 Mg Nancy 30 Mg PO DAILY@07 Lipitor (Atorvastatin Calcium) 80 Mg Tab 80 Mg PO HS Oxycodone-Acetaminophen 7.5-325 mg Tab 1 Tab PO Q4H PRN [Aspirin Chew] 81 MG Chew 81 Mg CHEW DAILY Reported Lasix (Furosemide) 20 Mg Tab 20 Mg PO DAILY Coreg (Carvedilol) 6.25 Mg Tab 6.25 Mg PO BID Neurontin (Gabapentin) 100 Mg Cap 200 Mg PO DAILY Lisinopril 2.5 Mg Tab 2.5 Mg PO BID Temazepam 15 Mg Cap 15 Mg PO HS PRN Review of Systems Except as stated in HPI: all other systems reviewed are Neg Physical Exam Narrative GENERAL: Well-developed well-nourished obese male appears mildly distressed in no respiratory distress SKIN: Warm and dry. HEAD: Normocephalic. EYES: No scleral icterus. No injection or drainage. NECK: Supple, trachea midline. No JVD or lymphadenopathy. CARDIOVASCULAR: Regular rate and rhythm without murmurs, gallops, or rubs. RESPIRATORY: Breath sounds equal bilaterally. No accessory muscle use. GASTROINTESTINAL: Abdomen soft, non-tender, nondistended. MUSCULOSKELETAL: No cyanosis, or edema. BACK: Nontender without obvious deformity. No CVA tenderness. Data Data Last Documented VS Vital Signs Date Time Temp Pulse Resp B/P (MAP) Pulse Ox O2 Delivery O2 Flow Rate FiO2 11/12/17 04:22 20 11/12/17 03:31 112/66 (81) 118/73 (88) 11/12/17 03:27 2.00 11/12/17 03:27 85 99 Nasal Cannula 11/12/17 03:21 99.4 Orders Orders Electrocardiogram (11/12/17 03:21) Ckmb (Isoenzyme) Profile (11/12/17 03:21) Complete Blood Count With Diff (11/12/17 03:21) Magnesium (Mg) (11/12/17 03:21) Prothrombin Time / Inr (Pt) (11/12/17 03:21) Act Partial Throm Time (Ptt) (11/12/17 03:21) Troponin I (11/12/17 03:21) Chest, Single Ap (11/12/17 03:21) Ecg Monitoring (11/12/17 03:21) Bilateral Bp Monitoring (11/12/17 03:21) Iv Access Insert/Monitor (11/12/17 03:21) Oximetry (11/12/17 03:21) Oxygen Administration (11/12/17 03:21) Aspirin Chew (Aspirin Chew) (11/12/17 03:30) Sodium Chloride 0.9% Flush (Ns Flush) (11/12/17 03:30) Nitroglycerin Sl (Nitrostat Sl) (11/12/17 03:30) Comprehensive Metabolic Panel (11/12/17 03:21) Ondansetron Inj (Zofran Inj) (11/12/17 03:45) Morphine Inj (Morphine Inj) (11/12/17 03:45) Sodium Chlor 0.9% 250 Ml Inj (Ns 250 Ml (11/12/17 03:45) B-Type Natriuretic Peptide (11/12/17 03:34) Furosemide Inj (Lasix Inj) (11/12/17 04:00) CKMB (11/12/17 03:25) CKMB% (11/12/17 03:25) Ketorolac Inj (Toradol Inj) (11/12/17 04:45) Nitroglycerin 2% Oint (Nitroglycerin 2% (11/12/17 04:45) Ct Pulmonary Angiogram (11/12/17 ) Iohexol 350 Inj (Omnipaque 350 Inj) (11/12/17 05:51) Labs Laboratory Tests Test 11/12/17 03:25 White Blood Count 7.6 TH/MM3 Red Blood Count 4.83 MIL/MM3 Hemoglobin 15.2 GM/DL Hematocrit 44.6 % Mean Corpuscular Volume 92.2 FL Mean Corpuscular Hemoglobin 31.4 PG Mean Corpuscular Hemoglobin Concent 34.1 % Red Cell Distribution Width 14.1 % Platelet Count 170 TH/MM3 Mean Platelet Volume 9.3 FL Neutrophils (%) (Auto) 55.9 % Lymphocytes (%) (Auto) 31.2 % Monocytes (%) (Auto) 9.0 % Eosinophils (%) (Auto) 3.4 % Basophils (%) (Auto) 0.5 % Neutrophils # (Auto) 4.3 TH/MM3 Lymphocytes # (Auto) 2.4 TH/MM3 Monocytes # (Auto) 0.7 TH/MM3 Eosinophils # (Auto) 0.3 TH/MM3 Basophils # (Auto) 0.0 TH/MM3 CBC Comment DIFF FINAL Differential Comment Prothrombin Time 10.0 SEC Prothromb Time International Ratio 1.0 RATIO Activated Partial Thromboplast Time 25.2 SEC Blood Urea Nitrogen 18 MG/DL Creatinine 1.25 MG/DL Random Glucose 103 MG/DL Total Protein 7.4 GM/DL Albumin 3.6 GM/DL Calcium Level 8.4 MG/DL Magnesium Level 2.1 MG/DL Alkaline Phosphatase 128 U/L Aspartate Amino Transf (AST/SGOT) 49 U/L Alanine Aminotransferase (ALT/SGPT) 41 U/L Total Bilirubin 0.7 MG/DL Sodium Level 139 MEQ/L Potassium Level 4.9 MEQ/L Chloride Level 107 MEQ/L Carbon Dioxide Level 27.4 MEQ/L Anion Gap 5 MEQ/L Estimat Glomerular Filtration Rate 73 ML/MIN Total Creatine Kinase 630 U/L Creatine Kinase MB 1.9 NG/ML Creatine Kinase MB % 0.3 % Troponin I LESS THAN 0.02 NG/ML B-Type Natriuretic Peptide 44 PG/ML MDM Medical Decision Making Medical Screen Exam Complete: Yes Emergency Medical Condition: Yes Medical Record Reviewed: Yes Interpretation(s) EKG normal sinus rhythm rate [address] elevation nonspecific ST-T changes anterolaterally QS inferiorly age-indeterminate CBC & BMP Diagram 11/12/17 03:25 Total Protein 7.4, Albumin 3.6, Calcium Level 8.4 L, Magnesium Level 2.1, Alkaline Phosphatase 128 H, Aspartate Amino Transf (AST/SGOT) 49 H, Alanine Aminotransferase (ALT/SGPT) 41, Total Bilirubin 0.7 Vital Signs Date Time Temp Pulse Resp B/P (MAP) Pulse Ox O2 Delivery O2 Flow Rate FiO2 11/12/17 04:22 20 11/12/17 04:21 20 11/12/17 03:31 112/66 (81) 118/73 (88) 11/12/17 03:27 2.00 11/12/17 03:27 85 99 Nasal Cannula 2.00 11/12/17 03:21 99.4 86 26 112/66 (81) 98 11/12/17 03:13 99.5 89 18 159/91 (113) 97 Room Air Troponin I: Less than 0.02, not elevated CK total: 630, elevated MB 1.9 not elevated MB percent 0.3% not elevated Last Impressions Chest X-Ray 11/12/17 0321 Signed Impressions: Service Date/Time: Sunday, November 12, 2017 03:41 - CONCLUSION: 1. Mild pulmonary vascular congestion. 2. Minimal right basilar opacity likely representing atelectasis. Keegan Carbajal MD CT PULMONARY ANGIOGRAM: CONCLUSION: 1. No evidence of pulmonary embolus. 2. Diffuse cardiomegaly. Evidence of prior CABG and median sternotomy. Keegan Carbajal MD on November 12, 2017 at 6:03 Board Certified Radiologist. This report was verified electronically. Differential Diagnosis Chest pain ACS myocardial infarction aortic dissection aortic aneurysm also to consider uncontrolled hypertension biliary colic Narrative Course Patient placed on database security administrator with continuous pulse oximetry IV access obtained specimens collected and sent for resulting EKG performed which shows no evidence of acute ST elevation or injury patient administered aspirin 162 mg and sublingual nitroglycerin Patient's blood pressure stable complain of shortness of breath resolved patient continues to complain of pleuritic left-sided chest pain therefore proceed with CT pulmonary angiogram Patient resting comfortably waiting for imaging results CT pulmonary angiogram Call placed to patient's transitions rn care coordinator call placed to Dr. Garcia however subsequently discussed case with patient's covering physician Dr. Palacios --does not recommend putting patient in chest pain center as this does not appear to be a primary cardiac event and patient will need to follow-up as an outpatient with his transitions rn care coordinator recommends patient can be discharged to home with close outpatient follow-up. Patient informed of transitions rn care coordinator recommendation is desirous of being discharged to home and is agreeable with plan. Physician Communication Physician Communication Call placed to patient's transitions rn care coordinator --- covering transitions rn care coordinator Diagnosis Primary Impression: Chest pain Qualified Codes: R07.1 - Chest pain on breathing Admitting Information Admitting Physician Requests: Observation Referrals: Set Staff Fitter 2 days Primary Care Physician 2 days Patient Instructions: Narcotic given in the ED, General Instructions Additional Instructions: Continue current medications as presently prescribed Follow-up with your primary care provider call office on Tuesday Follow-up with her transitions rn care coordinator call office on Tuesday return to the emergency department for a concerns or change in condition take pain medication as prescribed as needed May take 800 mg of ibuprofen as often as every 8 hours for pain associated with inflammation however avoid prolonged use of high-dose ibuprofen for greater than one to 2 days as often as every 8 hours Disposition: DISCHARGE HOME Condition: Stable Susan Peterson MD Nov 12, 2017 03:32
[2017-11-12] MEDS ORDERED: FURO1TAB62 PO (03:33)
[2017-11-12 03:44] LABS: AUTOMATED NEUTROPHIL # 4.3 TH/MM3 (1.8-7.7); BASOPHIL % 0.5 % (0.0-2.0); EOSINOPHIL # 0.3 TH/MM3 (0-0.4); EOSINOPHIL % 3.4 % (0.0-4.0); HEMATOCRIT 44.6 % (39.0-51.0); HEMOGLOBIN 15.2 GM/DL (13.0-17.0); LYMPH % 31.2 % (9.0-44.0); LYMPHOCYTE # 2.4 TH/MM3 (1.0-4.8); MEAN CELL VOLUME 92.2 FL (80.0-100.0); MEAN CORPUSCULAR HEMOGLOBIN 31.4 PG (27.0-34.0); MEAN CORPUSCULAR HGB CONC 34.1 % (32.0-36.0); MEAN PLATELET VOLUME 9.3 FL (7.0-11.0); MONOCYTE # 0.7 TH/MM3 (0-0.9); NEUT % 55.9 % (16.0-70.0); PLATELET COUNT 170 TH/MM3 (150-450); RED BLOOD COUNT 4.83 MIL/MM3 (4.50-5.90); RED CELL DISTRIBUTION WIDTH 14.1 % (11.6-17.2); WHITE BLOOD COUNT 7.6 TH/MM3 (4.0-11.0)
[2017-11-12] MEDS ORDERED: ONDANSETRON HCL 4 MG/2 ML VIAL IV PUSH ONE (03:45)
[2017-11-12] MEDS ORDERED: SODIUM CHLOR 0.9% 250 ML INJ 250 ML IV ONE (03:45)
[2017-11-12] MEDS ORDERED: MORPHINE SULFATE 4 MG/ML INJ IV PUSH ONE (03:45)
--- NOTE | 2017-11-12 03:47 | RADRPT ---
EXAM DATE/TIME: 11/12/2017 03:41 [facility] COMPARISON: CHEST SINGLE AP, July 06, 2017, 9:41. INDICATIONS : Chest pain. MEDICAL HISTORY : Myocardial infarction. SURGICAL HISTORY : CABG. Pacemaker. ENCOUNTER: Initial ACUITY: 1 day PAIN SCORE: 9/10 LOCATION: Left chest FINDINGS: Single AP view of the chest. AICD in place. Median sternotomy wires. Chronic cardiac silhouette enlar gement unchanged. Mild central pulmonary vasculature prominence. Minimal patchy opacity at the right lung base. No evidence of pleural effusion or pneumothorax. CONCLUSION: 1. Mild pulmonary vascular congestion. 2. Minimal right basilar opacity likely representing atelectasis. Keegan Carbajal MD on November 12, 2017 at 3:45 Board Certified Radiologist. This report was verified electronically.
[2017-11-12] MEDS ORDERED: FUROSEMIDE 40 MG/4 ML VIAL IV PUSH ONE (04:00)
[2017-11-12 04:09] LABS: ALBUMIN 3.6 GM/DL (3.4-5.0); ALT (GPT) 41 U/L (12-78); AST (GOT) 49 U/L (15-37); BICARBONATE 27.4 MEQ/L (21.0-32.0); BLOOD UREA NITROGEN 18 MG/DL (7-18); CALCIUM 8.4 MG/DL (8.5-10.1); CHLORIDE 107 MEQ/L (98-107); CREATININE 1.25 MG/DL (0.60-1.30); GLOMERULAR FILTRATION RATE 73 ML/MIN (>89); GLUCOSE,RANDOM 103 MG/DL (74-106); MAGNESIUM 2.1 MG/DL (1.5-2.5); SODIUM (NA) 139 MEQ/L (136-145)
[2017-11-12 04:10] LABS: ALKALINE PHOSPHATASE 128 U/L (45-117); TOTAL BILIRUBIN ADULT 0.7 MG/DL (0.2-1.0); TOTAL PROTEIN 7.4 GM/DL (6.4-8.2); TROPONIN I LESS THAN 0.02 NG/ML (0.02-0.05)
[2017-11-12 04:22] VITALS: RESP 20
[2017-11-12] MEDS ORDERED: KETOROLAC TROMETHAMINE 30 MG/ML (IVP) VIAL IV PUSH ONE (04:45)
[2017-11-12] MEDS ORDERED: NITROGLYCERIN 2% OINT 1 GM PACKET TOPICAL ONE (04:45)
[2017-11-12] MEDS ORDERED: IOHEXOL 350 MG/ML 10 ML VIAL (for RAD DIAG) IVCONTRAST ONE (05:51)
--- NOTE | 2017-11-12 06:09 | RADRPT ---
EXAM DATE/TIME: 11/12/2017 05:47 [facility] COMPARISON: No previous studies available for comparison. INDICATIONS : Chest pain. IV CONTRAST: 75 cc Omnipaque 350 (iohexol) IV RADIATION DOSE: 23.26 CTDIvol (mGy) MEDICAL HISTORY : Cardiovascular disease. Coronary artery disease. SURGICAL HISTORY : Pacemaker. ENCOUNTER: Initial ACUITY: 1 day PAIN SCALE: 8/10 LOCATION: chest TECHNIQUE: Volumetric scanning of the chest was performed using a pulmonary embolism protocol MIP images were re constructed. Using automated exposure control and adjustment of the mA and/or kV according to patien t size, radiation dose was kept as low as reasonably achievable to obtain optimal diagnostic quality images. DICOM format image data is available electronically for review and comparison. Follow-up recommendations for detected pulmonary nodules are based at a minimum on nodule size and pa tient risk factors according to Fleischner Society Guidelines. FINDINGS: PULMONARY ARTERIES: No filling defects to suggest of pulmonary embolus. LUNGS: Mild bilateral lower lobe atelectasis and right middle lobe atelectasis. PLEURAE: There is no pleural thickening or pleural effusion. MEDIASTINUM: Diffuse cardiac enlargement. Evidence of prior CABG. No enlarged lymph nodes. MUSCULOSKELETAL: Median sternotomy wires. Degenerative findings thoracic spine. MISCELLANEOUS: The visualized upper abdominal organs demonstrate no acute abnormality. CONCLUSION: 1. No evidence of pulmonary embolus. 2. Diffuse cardiomegaly. Evidence of prior CABG and median sternotomy. Keegan Carbajal MD on November 12, 2017 at 6:03 Board Certified Radiologist. This report was verified electronically.
[2017-11-12 06:37] VITALS: BP 134/78
--- NOTE | 2017-11-12 10:41 | EKG ---
Date Performed: 11/12/2017 Time Performed: 03:20:03 PTAGE: 52 years EKG: Sinus rhythm POSSIBLE LEFT ATRIAL ENLARGEMENT BORDERLINE LEFT AXIS DEVIATION MINIMAL VOLTAGE CRITERIA FOR LEFT VE NTRICULAR HYPERTROPHY LATERAL T WAVE ABNORMALITY CONSIDER ISCHEMIA ABNORMAL ECG PREVIOUS TRACING : 07/07/2017 06.17 Compared to previous tracing, heart rate has increased, T w ave inversion in V4-V6 has improved. DOCTOR: Donnie Mcguire Interpretating Date/Time 11/12/2017 10:39:17
== END 2017-11-12 06:42 | disposition home or self-care (01) ==
LOC: NEPC 03:11
DX: R07.1 Chest pain on breathing (principal); E78.00 Pure hypercholesterolemia, unspecified; I10 Essential (primary) hypertension; I25.10 Atherosclerotic heart disease of native coronary artery without angina pectoris; I25.2 Old myocardial infarction; Z79.899 Other long term (current) drug therapy; Z95.1 Presence of aortocoronary bypass graft
CPT/HCPCS: 71010; 71275; 80053; 82550; 82552; 83735; 83880; 84484; 85025; 85610; 85730; 93005; 96374; 96375; 99285; J1885; J1940; J2270; J2405; Q9967

== ENCOUNTER 2017-11-13 20:22 | Observation (INO) | payer OTHER, MEDICAID ==
[~2017-11-13] VITALS: Ht 170.2 cm; Wt 110.0 kg
[~2017-11-13 20:22] MED LIST changes: -CARV3.125 PO; +CARV6.25 PO; -CEPH-460 PO; +FURO1TAB62 PO; -GABA300C5 PO; +NEUR100C PO; -OXYC1TAB63 PO; -PANT40TA3 PO; -TYLE325T PO
[2017-11-13 20:24] VITALS: BP 171/100; PULSE 72; RESP 16; TEMP 98.7; O2SAT 95
--- NOTE | 2017-11-13 20:54 | PD ---
HPI Chief Complaint: Chest Pain Time Seen by Provider: 20:43 Travel History International Travel<30 days: No Contact w/Intl Traveler<30days: No Traveled to known affect area: No History of Present Illness HPI The patient is a 52 year old male who presents to the [facility] emergency department with a history of chest pain that began on Tuesday. The patient reports he was actually seen in the emergency department regarding this and was discharged home. He reports that the pain is continued. He denies taking any nitroglycerin related to the pain as it was not helping previously. The pain is worse with movement or deep breath. He denies any trauma or injury. He denies participating in any exercise program. He has associated shortness of breath. The pain is constant. It is sharp and aching in character. It is improved with staying still. He took his low dose aspirin earlier today. He reports that yesterday he also began to have an itching and burning sensation in bilateral lower extremities. He was concerned that it may be related to an allergic reaction to the contrast that was administered for his CTA of the chest. The patient reports having a prior history of myocardial infarction in February, status post coronary artery bypass grafting in February 3 vessels. He denies having his AICD fire. On review of systems otherwise, the patient denies having any known recent fevers, cough, congestion, neck pain, abdominal pain, vomiting, diarrhea, urinary symptoms, or new neurologic symptoms. PCP: Dr. Reyna. Heart Specialist: Dr. Garcia- last seen 08/2017. [facility] Past Medical History Narrative Medical The patient's past medical history is significant for asthma, hypertension, hyperlipidemia, history of coronary artery disease, history of prior STEMI in January 2017, history of AICD placement, prior history of V. tach, history of neuropathy, history of cocaine use, last used approximately 6 months ago. Asthma: Yes Cancer: No Cardiovascular Problems: Yes High Cholesterol: Yes Chest Pain: Yes Coronary Artery Disease: Yes Diabetes: No Diminished Hearing: No Gastrointestinal Disorders: No Glaucoma: No Hepatitis: No Hiatal Hernia: No Hypertension: Yes Psychiatric: No Respiratory: No Integumentary: No Myocardial Infarction: Yes Thyroid Disease: No Past Surgical History Narrative Surgical The patient's past surgical history is significant for appendectomy, coronary artery bypass grafting of 3 vessels, history of AICD and pacemaker placement. AICD: Yes Appendectomy: Yes Body Medical Devices: AICD Cardiac Surgery: Yes (OPEN HEART, AICD PLACEMENT) Coronary Artery Bypass Graft: Yes () Other Surgery: Yes Family History Family Myocardial Infarction: Yes Social History Alcohol Use: No Tobacco Use: No Substance Use: Yes (7-8 months ago, cocaine) Allergies-Medications (Allergen,Severity, Reaction): Coded Allergies: No Known Allergies (Unverified Adverse Reaction, Unknown, 11/12/17) Uncoded Allergies: CT DYE (Allergy, Intermediate, Burning, 11/13/17) BURNIGN AND ITCHING IN LEGS Reported Meds & Prescriptions Reported Meds & Active Scripts Active Nitrostat SL (Nitroglycerin) 0.4 Mg Subl 0.4 Mg SL Q5M PRN Isosorbide Mononitrate ER (Isosorbide Mononitrate) 30 Mg Nancy 30 Mg PO DAILY@07 Lipitor (Atorvastatin Calcium) 80 Mg Tab 80 Mg PO HS Oxycodone-Acetaminophen 7.5-325 mg Tab 1 Tab PO Q4H PRN [Aspirin Chew] 81 MG Chew 81 Mg CHEW DAILY Reported Lasix (Furosemide) 20 Mg Tab 20 Mg PO DAILY Coreg (Carvedilol) 6.25 Mg Tab 6.25 Mg PO BID Neurontin (Gabapentin) 100 Mg Cap 200 Mg PO DAILY Lisinopril 2.5 Mg Tab 2.5 Mg PO BID Temazepam 15 Mg Cap 15 Mg PO HS PRN Review of Systems Except as stated in HPI: all other systems reviewed are Neg General / Constitutional: No: Fever Eyes: No: Visual changes HENT: No: Headaches, Congestion Cardiovascular: Positive: Chest Pain or Discomfort, Dyspnea on exertion Respiratory: Positive: Shortness of Breath, No: Cough Gastrointestinal: No: Nausea, Vomiting, Diarrhea, Abdominal Pain Genitourinary: No: Dysuria Musculoskeletal: No: Pain Skin: No Rash Neurologic: No: Weakness, Focal Abnormalities, Change in Mentation, Slurred Speech Psychiatric: No: Depression Endocrine: No: Polydipsia Hematologic/Lymphatic: No: Easy Bruising Physical Exam Narrative General: The patient is well-developed well-nourished male in no acute distress. Head and Neck exam: Head is normocephalic atraumatic. Eyes: EOMI, pupils are equal round and reactive to light. Nose: Midline septum with pink mucous membranes Mouth: Dentition unremarkable. Moist mucus membranes. Posterior oropharynx is not erythematous. No tonsillar hypertrophy. Uvula midline. Airway patent. Neck: No palpable lymphadenopathy. No nuchal rigidity. No thyromegaly. Cardiovascular: Regular rate and rhythm without murmurs, gallops, or rubs. No pulse deficit to the extremities on simultaneous auscultation and palpation of his radial artery. The patient reports that the pain is in the left side of his chest, however there is no chest wall tenderness on palpation. No step-off or crepitus. No erythema or ecchymosis. No flail segment. The patient has a palpable AICD/pacemaker in place and a pocket in the left side of his chest. There is no surrounding edema, erythema, or tenderness of the pocket itself. Lungs: Clear to auscultation bilaterally. No wheezes, rhonchi, or rales. Abdomen: Soft, without tenderness to palpation in all 4 quadrants of the abdomen. No guarding, rebound, or rigidity. Normal bowel sounds are audible. No tenderness on palpation of McBurney's point. Extremities: No clubbing, cyanosis, or edema. 2+ pulses in all 4 extremities. No calf tenderness on palpation. Back: No costovertebral angle tenderness to palpation. Neurologic Exam: Grossly nonfocal. Skin Exam: No rash noted. Intact skin that is warm and dry. Patient has dry skin on his lower extremities. The patient reports having itching and burning sensations to his lower extremities since yesterday. There is no visible rash. Data Data Last Documented VS Vital Signs Date Time Temp Pulse Resp B/P (MAP) Pulse Ox O2 Delivery O2 Flow Rate FiO2 11/13/17 21:05 99 Room Air 11/13/17 20:24 98.7 72 16 Orders Orders Electrocardiogram (11/13/17 20:48) B-Type Natriuretic Peptide (11/13/17 20:48) Ckmb (Isoenzyme) Profile (11/13/17 20:48) Complete Blood Count With Diff (11/13/17 20:48) Comprehensive Metabolic Panel (11/13/17 20:48) Magnesium (Mg) (11/13/17 20:48) Prothrombin Time / Inr (Pt) (11/13/17 20:48) Act Partial Throm Time (Ptt) (11/13/17 20:48) Troponin I (11/13/17 20:48) Lipase (11/13/17 20:48) Chest, Single Ap (11/13/17 20:48) Ecg Monitoring (11/13/17 20:48) Bilateral Bp Monitoring (11/13/17 20:48) Iv Access Insert/Monitor (11/13/17 20:48) Oximetry (11/13/17 20:48) Oxygen Administration (11/13/17 20:48) Sodium Chloride 0.9% Flush (Ns Flush) (11/13/17 21:00) Aspirin Chew (Aspirin Chew) (11/13/17 21:15) Nitroglycerin Sl (Nitrostat Sl) (11/13/17 21:15) Nitroglycerin 2% Oint (Nitroglycerin 2% (11/13/17 21:15) Diphenhydramine (Benadryl) (11/13/17 21:15) CKMB (11/13/17 21:00) CKMB% (11/13/17 21:00) Admit Order (Ed Use Only) (11/13/17 22:49) Labs Laboratory Tests Test 11/13/17 21:00 11/13/17 22:35 Blood Urea Nitrogen 22 MG/DL Creatinine 1.42 MG/DL Random Glucose 89 MG/DL Total Protein 6.9 GM/DL Albumin 3.2 GM/DL Calcium Level 8.3 MG/DL Magnesium Level 2.1 MG/DL Alkaline Phosphatase 127 U/L Aspartate Amino Transf (AST/SGOT) 49 U/L Alanine Aminotransferase (ALT/SGPT) 39 U/L Total Bilirubin 0.7 MG/DL Sodium Level 137 MEQ/L Potassium Level 4.8 MEQ/L Chloride Level 106 MEQ/L Carbon Dioxide Level 26.4 MEQ/L Anion Gap 5 MEQ/L Estimat Glomerular Filtration Rate 63 ML/MIN Total Creatine Kinase 362 U/L Creatine Kinase MB 1.7 NG/ML Creatine Kinase MB % 0.5 % Troponin I LESS THAN 0.02 NG/ML B-Type Natriuretic Peptide 26 PG/ML Lipase 127 U/L White Blood Count 6.6 TH/MM3 Red Blood Count 4.49 MIL/MM3 Hemoglobin 14.2 GM/DL Hematocrit 41.3 % Mean Corpuscular Volume 91.9 FL Mean Corpuscular Hemoglobin 31.6 PG Mean Corpuscular Hemoglobin Concent 34.4 % Red Cell Distribution Width 13.8 % Platelet Count 151 TH/MM3 Mean Platelet Volume 8.9 FL Neutrophils (%) (Auto) 49.7 % Lymphocytes (%) (Auto) 36.9 % Monocytes (%) (Auto) 5.8 % Eosinophils (%) (Auto) 7.0 % Basophils (%) (Auto) 0.6 % Neutrophils # (Auto) 3.3 TH/MM3 Lymphocytes # (Auto) 2.4 TH/MM3 Monocytes # (Auto) 0.4 TH/MM3 Eosinophils # (Auto) 0.5 TH/MM3 Basophils # (Auto) 0.0 TH/MM3 CBC Comment DIFF FINAL Differential Comment Prothrombin Time 10.0 SEC Prothromb Time International Ratio 1.0 RATIO Activated Partial Thromboplast Time 25.8 SEC MDM Medical Decision Making Medical Screen Exam Complete: Yes Emergency Medical Condition: Yes Medical Record Reviewed: Yes Interpretation(s) Last Impressions Chest X-Ray 11/13/172047 Signed Impressions: Service Date/Time: Monday, November 13, 2017 21:02 - CONCLUSION: 1. Cardiomegaly. 2. Minimal suspected atelectasis at the bases. Jacek Mccormack MD Differential Diagnosis Acute coronary syndrome, versus musculoskeletal strain, versus pulmonary embolism, versus pneumonia, versus congestive heart failure Narrative Course During the course of the patients emergency department visit, the patients history, examination, and differential diagnosis were reviewed with the patient. The patient was placed on a cardiac specialist with oximetry and frequent blood pressure monitoring. The patient had IV access obtained and blood work sent for analysis. The patient had an ECG done on arrival that shows a sinus rhythm heart rate of 62, borderline left axis deviation, QRS duration is 107 ms , QTC 440 ms. T waves are inverted in V3, V4, V5, V6, no acute ST segment elevation. The patient's electronic medical record was reviewed. The patient yesterday underwent a CTA of the chest including initial laboratory studies. CTA showed no evidence of pulmonary embolism, diffuse cardiomegaly, evidence of prior CABG and median sternotomy. The patient was initially provided aspirin 243 mg by mouth 1 as he did take his clothes dose aspirin earlier today, nitroglycerin sublingual 1, nitroglycerin 1 inch to the chest wall, Benadryl 25 mg by mouth 1. The patients laboratory studies were reviewed and remarkable for a white count of 6.6, hemoglobin 14.2, platelets 151 with eosinophils, CMP is remarkable for a BUN of 22, creatinine 1.42, AST 49, alkaline phosphatase 127, CPK 362 with an MB percent of 0.5, troponin I less than 0.02, BNP is 26, lipase 127. PT PTT within normal limits. Given the patient's slight elevation of his BUN and creatinine compared to previously after having a CTA, the patient will receive normal saline IV fluids, 1 500 mL bolus 1. Radiology studies were reviewed and remarkable for a chest x-ray that shows cardiomegaly, minimal suspected atelectasis at the bases. The patients results were discussed with the patient, including the plan of care. I explained that further testing and/ or monitoring is indicated based on the patients history, examination, and/ or laboratory findings. Therefore, I recommended admission for additional evaluation. The patient expressed understanding and was agreeable with this plan. The patient was admitted to the hospital in stable condition and sent to a bed under the care of chest pain center. Diagnosis Primary Impression: Chest pain, rule out acute myocardial infarction Admitting Information Admitting Physician Requests: Observation Rafaela Dunn MD Nov 13, 2017 20:54
[2017-11-13] MEDS ORDERED: SODIUM CHLORIDE 0.9% FLUSH 10 ML FLUSH IVF PRN (21:00)
[2017-11-13 21:05] VITALS: O2SAT 99
[2017-11-13] MEDS ORDERED: NITROGLYCERIN 0.4 MG SL 25 TABS/BTL SL ONE (21:15)
[2017-11-13] MEDS ORDERED: ASPIRIN 81 MG CHEW TAB CHEW ONE (21:15)
[2017-11-13] MEDS ORDERED: diphenhydrAMINE HCL 25 MG CAP PO ONE (21:15)
[2017-11-13] MEDS ORDERED: NITROGLYCERIN 2% OINT 1 GM PACKET TOPICAL ONE (21:15)
--- NOTE | 2017-11-13 21:23 | RADRPT ---
EXAM DATE/TIME: 11/13/2017 21:02 [facility] COMPARISON: CHEST SINGLE AP, November 12, 2017, 3:41. INDICATIONS : Chest Pain MEDICAL HISTORY : Cardiovascular disease. SURGICAL HISTORY : CABG. Pacemaker. ENCOUNTER: Initial ACUITY: 1 day PAIN SCORE: 6/10 LOCATION: Bilateral chest FINDINGS: The heart size is enlarged. The patient is status post sternotomy. There is a pacing device in place from the left subclavian approach. There is minimal increased density at the lung bases. The mid and upper lungs are clear. CONCLUSION: 1. Cardiomegaly. 2. Minimal suspected atelectasis at the bases. Jacek Mccormack MD on November 13, 2017 at 21:20 Board Certified Radiologist. This report was verified electronically.
[2017-11-13 21:44] LABS: ALT (GPT) 39 U/L (12-78)
[2017-11-13 21:55] LABS: ALKALINE PHOSPHATASE 127 U/L (45-117); ANION GAP 5 MEQ/L (5-15); AST (GOT) 49 U/L (15-37); BICARBONATE 26.4 MEQ/L (21.0-32.0); BLOOD UREA NITROGEN 22 MG/DL (7-18); CHLORIDE 106 MEQ/L (98-107); CREATINE KINASE 362 U/L (39-308); GLOMERULAR FILTRATION RATE 63 ML/MIN (>89); MAGNESIUM 2.1 MG/DL (1.5-2.5); SODIUM (NA) 137 MEQ/L (136-145); TOTAL BILIRUBIN ADULT 0.7 MG/DL (0.2-1.0)
[2017-11-13 21:58] LABS: POTASSIUM 4.8 MEQ/L (3.5-5.1)
[2017-11-13 22:11] LABS: CKMB 1.7 NG/ML (0.5-3.6)
[2017-11-13 22:47] LABS: AUTOMATED NEUTROPHIL # 3.3 TH/MM3 (1.8-7.7); BASOPHIL % 0.6 % (0.0-2.0); EOSINOPHIL # 0.5 TH/MM3 (0-0.4); HEMATOCRIT 41.3 % (39.0-51.0); HEMO FLAGS DIFF FINAL; LYMPH % 36.9 % (9.0-44.0); LYMPHOCYTE # 2.4 TH/MM3 (1.0-4.8); MEAN CELL VOLUME 91.9 FL (80.0-100.0); MEAN CORPUSCULAR HEMOGLOBIN 31.6 PG (27.0-34.0); MEAN CORPUSCULAR HGB CONC 34.4 % (32.0-36.0); MONO % 5.8 % (0.0-8.0); NEUT % 49.7 % (16.0-70.0); PLATELET COUNT 151 TH/MM3 (150-450); RED BLOOD COUNT 4.49 MIL/MM3 (4.50-5.90); RED CELL DISTRIBUTION WIDTH 13.8 % (11.6-17.2); WHITE BLOOD COUNT 6.6 TH/MM3 (4.0-11.0)
[2017-11-13 22:55] VITALS: BP 158/75; PULSE 78; RESP 18; O2SAT 99
[2017-11-13 23:01] LABS: APTT (PATIENT) 25.8 SEC (24.3-30.1)
[2017-11-13] MEDS ORDERED: ONDANSETRON HCL 4 MG/2 ML VIAL IV PUSH PRN (23:30)
[2017-11-13] MEDS ORDERED: ACETAMINOPHEN/HYDROcodone 325 MG/7.5 MG TAB PO PRN (23:30)
[2017-11-13] MEDS ORDERED: SODIUM CHLORIDE 0.9% FLUSH 10 ML FLUSH IV FLUSH PRN (23:30)
[2017-11-13 23:40] VITALS: O2SAT 96
[2017-11-13] MEDS ORDERED: SODIUM CHLORID 0.9% 500 ML INJ 500 ML IV ONE (23:45)
[2017-11-14 00:46] VITALS: BP 119/65; PULSE 53; RESP 20; TEMP 98; O2SAT 97
[2017-11-14 01:23] VITALS: PULSE 64
[2017-11-14 01:34] LABS: CREATINE KINASE 278 U/L (39-308)
[2017-11-14 01:46] LABS: CKMB 1.6 NG/ML (0.5-3.6)
[2017-11-14 03:47] VITALS: BP 123/68; PULSE 62; RESP 18; TEMP 98.1; O2SAT 96
[2017-11-14 04:43] LABS: CREATINE KINASE 262 U/L (39-308)
[2017-11-14 04:49] VITALS: PULSE 69
[2017-11-14 04:56] LABS: CKMB 1.6 NG/ML (0.5-3.6)
[2017-11-14 07:59] VITALS: PULSE 49
[2017-11-14] MEDS ORDERED: oxyCODONE/ACETAMINOPHEN 7.5 MG/325 MG TAB PO PRN (08:15)
[2017-11-14] MEDS ORDERED: TEMAZEPAM 15 MG CAP PO PRN (08:15)
--- NOTE | 2017-11-14 08:15 | HHI.HP ---
[facility] Primary Care Physician Obed Carbajal MD Chief Complaint Chest pain History of Present Illness This is a 52-year-old male with history of cardiomyopathy and CAD with a three- vessel bypass January 2017 that presents to ED with a complaint of chest discomfort. Patient states is been constantly there on his left side for 3 days. Certain movements seem to worsen the discomfort. No shortness of breath with the symptoms however taking a deep breath does seem to worsen the symptoms. No nausea or diaphoresis. Follows Dr. Garcia of cardiology. Patient was seen early on Tuesday morning. Had a CTA to rule out pulmonary embolus. There was no PE. He states that when he got home he began to itch but had no rash. Itching was still present when he came back to the ED last evening however it improved after getting Benadryl. Review of Systems General: Patient denies fevers, chills recent, and recent travel HEENT: Patient denies headache, sore throat, difficulty swallowing. Cardiovascular: Has the chest discomfort as mentioned above. Denies sensation of heart beating rapidly or irregularly. No syncope. Respiratory: Denies shortness of breath but has increased discomfort with inspiration. Denies coughing wheezing or hemoptysis. GI: Patient denies nausea, vomiting, diarrhea, abdominal pain, bloody stools. Musculoskeletal: Patient denies joint pain or edema. Denies calf pain or edema. Neurovascular: Patient denies numbness, tingling, weakness in extremities. Denies headache. Endocrine: Denies polyuria and polydipsia. Hematologic: Denies easy bruising. Skin: Denies rash however he was itching which improved after getting Benadryl in the ED. Past Family Social History Allergies: Coded Allergies: No Known Allergies (Unverified Allergy, Unknown, 11/14/17) Uncoded Allergies: CT DYE (Allergy, Intermediate, Burning, 11/13/17) BURNIGN AND ITCHING IN LEGS Past Medical History Cardiomyopathy with AICD. CAD with three-vessel bypass January 2013. Hypertension and hyperlipidemia. Denies diabetes. Past Surgical History Four-vessel bypass January 2017. AICD placement. Reported Medications Reported Meds & Active Scripts Active Nitrostat SL (Nitroglycerin) 0.4 Mg Subl 0.4 Mg SL Q5M PRN Isosorbide Mononitrate ER (Isosorbide Mononitrate) 30 Mg Nancy 30 Mg PO DAILY@07 Lipitor (Atorvastatin Calcium) 80 Mg Tab 80 Mg PO HS Oxycodone-Acetaminophen 7.5-325 mg Tab 1 Tab PO Q4H PRN [Aspirin Chew] 81 MG Chew 81 Mg CHEW DAILY Reported Lasix (Furosemide) 20 Mg Tab 20 Mg PO DAILY Coreg (Carvedilol) 6.25 Mg Tab 6.25 Mg PO BID Neurontin (Gabapentin) 100 Mg Cap 200 Mg PO DAILY Lisinopril 2.5 Mg Tab 2.5 Mg PO BID Temazepam 15 Mg Cap 15 Mg PO HS PRN Active Ordered Medications Current Medications Medications (Trade) Dose Ordered Sig/Angel Route Start Time Stop Time Status Last Admin (NS Flush) 2 ml UNSCH PRN IVF 11/13/17 21:00 (NS Flush) 2 ml UNSCH PRN IV FLUSH 11/13/17 23:30 (NS Flush) 2 ml BID IV FLUSH 11/14/17 09:00 ([place] 7.5-325 Mg) 1 tab Q4H PRN PO 11/13/17 23:30 11/14/17 00:56 (Zofran Inj) 4 mg Q6H PRN IV PUSH 11/13/17 23:30 (Toradol Inj) 30 mg ONCE ONCE IVP 11/14/17 09:00 11/14/17 09:01 Family History There is family history of CAD. Social History Not smoking. Denies illicit drug use. Denies alcohol abuse. Physical Exam Vital Signs Vital Signs Date Time Temp Pulse Resp B/P (MAP) Pulse Ox O2 Delivery O2 Flow Rate FiO2 11/14/17 04:49 69 11/14/17 03:47 98.1 62 18 123/68 (86) 96 11/14/17 01:23 64 11/14/17 00:46 98.0 53 20 119/65 (83) 97 11/13/17 23:57 11/13/17 23:40 96 21 11/13/17 23:03 18 11/13/17 22:55 78 18 158/75 (102) 99 Room Air 11/13/17 21:05 99 Room Air 11/13/17 21:05 99 Room Air 11/13/17 20:24 98.7 72 16 171/100 (123) 95 Room Air Physical Exam GENERAL: This is a well-nourished, well-developed patient, in no apparent distress. Patient speaks in clear complete sentences. Patient is pleasant. HEENT: Head is atraumatic and normocephalic. Neck is supple without lymphadenopathy and trachea is midline. No JVD or carotid bruits. CARDIOVASCULAR: Regular rate and rhythm without murmurs, gallops, or rubs. RESPIRATORY: Clear to auscultation. Breath sounds equal bilaterally. No wheezes , rales, or rhonchi. Chest wall is tender. No use of accessory muscles. GASTROINTESTINAL: Abdomen is nontender, nondistended. Abdomen soft. No obvious pulsatile mass or bruit. No CVA tenderness. Strong femoral pulses bilaterally. Normal bowel sounds in all quadrants. MUSCULOSKELETAL: Patient is moving upper and lower extremities freely. No calf tenderness or edema, no Homans sign. Strong pulses in upper and lower extremities. NEUROLOGICAL: Patient is alert and oriented. Cranial nerves 2-12 are grossly intact. No focal deficits and speech is clear. SKIN: No rash and turgor is normal. Laboratory Laboratory Tests Test 11/13/17 21:00 11/13/17 22:35 11/14/17 00:35 11/14/17 04:06 Blood Urea Nitrogen 22 Creatinine 1.42 Random Glucose 89 Total Protein 6.9 Albumin 3.2 Calcium Level 8.3 Magnesium Level 2.1 Alkaline Phosphatase 127 Aspartate Amino Transf (AST/SGOT) 49 Alanine Aminotransferase (ALT/SGPT) 39 Total Bilirubin 0.7 Sodium Level 137 Potassium Level 4.8 Chloride Level 106 Carbon Dioxide Level 26.4 Anion Gap 5 Estimat Glomerular Filtration Rate 63 Total Creatine Kinase 362 278 262 Creatine Kinase MB 1.7 1.6 1.6 Creatine Kinase MB % 0.5 Troponin I LESS THAN 0.02 LESS THAN 0.02 LESS THAN 0.02 B-Type Natriuretic Peptide 26 Lipase 127 White Blood Count 6.6 Red Blood Count 4.49 Hemoglobin 14.2 Hematocrit 41.3 Mean Corpuscular Volume 91.9 Mean Corpuscular Hemoglobin 31.6 Mean Corpuscular Hemoglobin Concent 34.4 Red Cell Distribution Width 13.8 Platelet Count 151 Mean Platelet Volume 8.9 Neutrophils (%) (Auto) 49.7 Lymphocytes (%) (Auto) 36.9 Monocytes (%) (Auto) 5.8 Eosinophils (%) (Auto) 7.0 Basophils (%) (Auto) 0.6 Neutrophils # (Auto) 3.3 Lymphocytes # (Auto) 2.4 Monocytes # (Auto) 0.4 Eosinophils # (Auto) 0.5 Basophils # (Auto) 0.0 CBC Comment DIFF FINAL Differential Comment Prothrombin Time 10.0 Prothromb Time International Ratio 1.0 Activated Partial Thromboplast Time 25.8 Result Diagram: 11/13/175 11/13/17 2100 Imaging Last 48 hours Impressions Chest X-Ray 11/13/172047 Signed Impressions: Service Date/Time: Monday, November 13, 2017 21:02 - CONCLUSION: 1. Cardiomegaly. 2. Minimal suspected atelectasis at the bases. Jacek Mccormack MD Course EKGs have sinus rhythm with diffuse T-wave changes that were present on prior EKG. Caprini VTE Risk Assessment Caprini VTE Risk Assessment: No/Low Risk (score <= 1) Caprini Risk Assessment Model Point Value = 1 Point Value = 2 Point Value = 3 Point Value = 5 Age 41-60 Minor surgery BMI > 25 kg/m2 Swollen legs Varicose veins or History of unexplained or recurrent spontaneous Oral contraceptives or hormone replacement Sepsis (< 1 month) Serious lung disease, including pneumonia (< 1 month) Abnormal pulmonary function Acute myocardial infarction Congestive heart failure (< 1 month) History of inflammatory bowel disease Medical patient at bed rest Age 61-74 Arthroscopic surgery Major open surgery (> 45 min) Laparoscopic surgery (> 45 min) Malignancy Confined to bed (> 72 hours) Immobilizing plaster cast Central venous access Age >= 75 History of VTE Family history of VTE Factor V Leiden Prothrombin [id number] Lupus anticoagulant Anticardiolipin antibodies Elevated serum homocysteine Heparin-induced thrombocytopenia Other congenital or acquired thrombophilia Stroke (< 1 month) Elective arthroplasty Hip, pelvis, or leg fracture Acute spinal cord injury (< 1 month) Prophylaxis Regimen Total Risk Factor Score Risk Level Prophylaxis Regimen 0-1 Low Early ambulation 2 Moderate Order ONE of the following: *Sequential Compression Device (SCD) *Heparin 5000 units SQ BID 3-4 Higher Order ONE of the following medications: *Heparin 5000 units SQ TID *Enoxaparin/Lovenox 40 mg SQ daily (WT < 150 kg, CrCl > 30 mL/min) *Enoxaparin/Lovenox 30 mg SQ daily (WT < 150 kg, CrCl > 10-29 mL/min) *Enoxaparin/Lovenox 30 mg SQ BID (WT < 150 kg, CrCl > 30 mL/min) AND/OR *Sequential Compression Device (SCD) 5 or more Highest Order ONE of the following medications: *Heparin 5000 units SQ TID (Preferred with Epidurals) *Enoxaparin/Lovenox 40 mg SQ daily (WT < 150 kg, CrCl > 30 mL/min) *Enoxaparin/Lovenox 30 mg SQ daily (WT < 150 kg, CrCl > 10-29 mL/min) *Enoxaparin/Lovenox 30 mg SQ BID (WT < 150 kg, CrCl > 30 mL/min) AND *Sequential Compression Device (SCD) Assessment and Plan Assessment and Plan * Chest pain: His discomfort appears atypical. He had serial cardiac enzymes and EKGs for ruling out purposes. He was seen by Dr. Remy Arteaga of cardiology in the chest pain center. Patient will be given Toradol 1. Dr. Arteaga spoke with Dr. Garcia. Patient be discharged at this time and will follow-up with Dr. Garcia on outpatient basis. Return to ED for interval issues. * Renal insufficiency: Patient was given IV fluids. Will need to follow-up with PCP. * CAD: Patient will follow-up with his uniform room attendant. Continue current medications. * Cardiomyopathy: Patient has AICD. States it has not fired. Continue follow- up with cardiology. * Hypertension: Continue current medication. Patient is stable at this time. He is agreeable to this plan. Hakeem Constantino Nov 14, 2017 08:15
--- NOTE | 2017-11-14 08:18 | HHI.DCPOC ---
Discharge Care Plan Diagnosis: (1) Chest pain (2) CAD (coronary artery disease) (3) S/P CABG x 3 (4) Cardiomyopathy (5) Hypertension (6) Hyperlipidemia (7) Renal insufficiency Goals to Promote Your Health * To prevent worsening of your condition and complications * To maintain your health at the optimal level Directions to Meet Your Goals Take your medications as prescribed Follow your dietary instruction Follow activity as directed Keep your appointments as scheduled Take your immunizations and boosters as scheduled If your symptoms worsen call your PCP, if no PCP go to Urgent Care Center or Emergency Room Smoking is Dangerous to Your Health. Avoid second hand smoke Call the 24-hour hour crisis hotline for domestic abuse at Hakeem Constantino Nov 14, 2017 08:18
[2017-11-14] MEDS ORDERED: PILL SPLITTER OTHER PRN (08:45)
[2017-11-14 09:00] VITALS: BP 116/68; PULSE 63; RESP 18; TEMP 97.6; O2SAT 97
[2017-11-14] MEDS ORDERED: LISINOPRIL 5 MG TAB PO SCH (09:00)
[2017-11-14] MEDS ORDERED: ASPIRIN 81 MG CHEW TAB CHEW SCH (09:00)
[2017-11-14] MEDS ORDERED: FUROSEMIDE 20 MG TAB PO SCH (09:00)
[2017-11-14] MEDS ORDERED: SODIUM CHLORIDE 0.9% FLUSH 10 ML FLUSH IV FLUSH SCH (09:00)
[2017-11-14] MEDS ORDERED: KETOROLAC TROMETHAMINE 30 MG/ML (IVP) VIAL IVP ONE (09:00)
[2017-11-14] MEDS ORDERED: GABAPENTIN 100 MG CAP PO SCH (09:00)
[2017-11-14] MEDS ORDERED: CARVEDILOL 6.25 MG TAB PO SCH (09:00)
[2017-11-14] MEDS ORDERED: ATORVASTATIN 80 MG TAB PO SCH (21:00)
[2017-11-15] MEDS ORDERED: ISOSORBIDE MONONITRATE 30 MG TAB PO SCH (07:00)
--- NOTE | 2017-11-15 07:53 | EKG ---
Date Performed: 11/14/2017 Time Performed: 03:43:54 PTAGE: 52 years EKG: SINUS BRADYCARDIA LEFT VENTRICULAR HYPERTROPHY AND ST-T CHANGE ABNORMAL ECG Since PREVIOUS TRACING , no significant change noted PREVIOUS TRACIN11/14/2017 00.51 DOCTOR: Anna Belle Interpretating Date/Time 11/15/2017 07:52:24
--- NOTE | 2017-11-15 08:05 | EKG ---
Date Performed: 11/13/2017 Time Performed: 20:52:04 PTAGE: 52 years EKG: Sinus rhythm BORDERLINE LEFT AXIS DEVIATION LEFT VENTRICULAR HYPERTROPHY AND ST-T CHANGE ABNORMAL ECG Since PREVIOUS TRACING , no significant change noted PREVIOUS TRACIN11/13/2017 20.50 DOCTOR: Anna Belle Interpretating Date/Time 11/15/2017 08:04:10
--- NOTE | 2017-11-15 08:05 | EKG ---
Date Performed: 11/14/2017 Time Performed: 00:51:13 PTAGE: 52 years EKG: SINUS BRADYCARDIA BORDERLINE LEFT AXIS DEVIATION LEFT VENTRICULAR HYPERTROPHY AND ST-T DRIVER GE ABNORMAL ECG Since PREVIOUS TRACING , no significant change noted PREVIOUS TRACIN11/13/2017 20.52 DOCTOR: Anna Belle Interpretating Date/Time 11/15/2017 08:04:45
== END 2017-11-14 09:39 | disposition home or self-care (01) ==
LOC: NEPE 20:22 → NEDA 22:51 → NEPFCDU 11-14 00:02
PROVIDERS: ADMIT Internal Medicine Interventional Cardiology; ATTEND Internal Medicine Interventional Cardiology
DX: R07.9 Chest pain, unspecified (principal); R94.31 Abnormal electrocardiogram [ECG] [EKG]; I10 Essential (primary) hypertension; I25.10 Atherosclerotic heart disease of native coronary artery without angina pectoris; I42.9 Cardiomyopathy, unspecified; N28.9 Disorder of kidney and ureter, unspecified; E78.5 Hyperlipidemia, unspecified; J45.909 Unspecified asthma, uncomplicated; I25.2 Old myocardial infarction; Z79.82 Long term (current) use of aspirin; Z95.1 Presence of aortocoronary bypass graft; Z95.810 Presence of automatic (implantable) cardiac defibrillator
CPT/HCPCS: 71010; 80053; 82550; 82552; 83690; 83735; 83880; 84484; 85025; 85610; 85730; 93005; 96361; 96374; 99285; G0378; J1885; J7040

== ENCOUNTER 2018-07-18 08:27 | Observation (INO) ==
--- NOTE | 2018-07-18 09:11 | ED ---
HPI General Chief Complaint: Dizziness Stated Complaint: Dizziness Time Seen by Provider: 07/18/18 09:08 Source: patient Mode of arrival: ambulatory Limitations: no limitations History of Present Illness HPI Narrative: 52-year-old male patient with history of hypertension, CAD status post four-vessel CABG, follows up with Dr. Garcia, presents to the ER today for several days of dizziness, and a syncopal episode today. He denies any chest pains or trouble breathing. He denies any recent fevers, vomiting, abdominal pain, or other symptoms. He reports no injuries. Related Data Home Medications Medication Instructions Recorded Confirmed Depression Pill 07/18/18 atorvastatin mg PO DAILY 07/18/18 carvedilol mg PO DAILY 07/18/18 furosemide [Lasix] mg PO DAILY 07/18/18 gabapentin mg PO DAILY 07/18/18 metformin mg PO BID 07/18/18 omeprazole mg PO DAILY 07/18/18 oxycodone [OxyContin] mg PO Q12H 07/18/18 Allergies Allergy/AdvReac Type Severity Reaction Status Date / Time Iodinated Contrast- Oral and Allergy Anaphylaxis Verified 07/18/18 09:31 IV Dye [Contrast] Review of Systems ROS: all other systems reviewed are negative FOR[facility]LY [facility] Medical History Medical History CHF (congestive heart failure) (Acute) Chronic back pain (Acute) Coronary artery disease involving coronary bypass graft (Acute) Depression (Acute) Diabetes (Acute) GERD (gastroesophageal reflux disease) (Acute) Surgical History Surgical History AICD (automatic cardioverter/defibrillator) present (Acute) Social History Social History Substance History: No History of Abuse Second Hand Smoke Exposure: No Smoking Status: Never smoker How Often Do You Have a Drink Containing Alcohol: Never Recent Travel in [place] within the Last 8 Weeks: No Recent Out of Country Travel within the Last 8 Weeks: No Immunization History Tetanus Immunization: Unsure Hx Influenza Vaccine This Season: No Exam Narrative Exam Narrative: GENERAL: Well-developed middle-age -[place] male patient currently in mild distress. Awake and oriented 3. SKIN: Focused skin assessment warm/dry. HEAD: Atraumatic. Normocephalic. EYES: Pupils equal and round. No scleral icterus. No injection or drainage. ENT: No nasal bleeding or discharge. Mucous membranes pink and moist. NECK: Trachea midline. No JVD. Supple. CARDIOVASCULAR: Regular rate and rhythm. No murmur appreciated. Pulses are present and equal bilaterally. RESPIRATORY: No accessory muscle use. Clear to auscultation. Breath sounds equal bilaterally. GASTROINTESTINAL: Abdomen soft, non-tender, nondistended. Hepatic and splenic margins not palpable. MUSCULOSKELETAL: No obvious deformities. No clubbing. No cyanosis. No edema. NEUROLOGICAL: Awake and alert. No obvious cranial nerve deficits. Motor grossly within normal limits. Normal speech. PSYCHIATRIC: Appropriate mood and affect; insight and judgment normal. Course Initial Documented Vital Signs Temperature 97.9 F 07/18/18 08:33 Pulse Rate 77 07/18/18 08:33 Respiratory Rate 18 07/18/18 08:33 Blood Pressure 171/120 H 07/18/18 08:33 Pulse Oximetry 98 07/18/18 08:33 Last Documented Vital Signs Temperature 97.9 F 07/18/18 08:33 Pulse Rate 80 07/18/18 09:01 Respiratory Rate 19 07/18/18 09:01 Blood Pressure 165/100 H 07/18/18 09:01 Pulse Oximetry 99 07/18/18 09:01 Medical Decision Making MDM Narrative Medical decision making narrative: EKG did not show signs of acute dysrhythmias or ST changes. Lab work was fairly unremarkable for any significant electrolyte abnormalities. Chest x-ray shows mild pulmonary edema and BNP was also ordered. CT the brain did not show any signs of acute intracranial processes. Patient has no focal neurological deficits, not complaining of chest pains currently. His blood pressure is on the high side but his vital signs are fairly stable otherwise. At this point, considering patient's cardiac history, my plan would be to admit him for further evaluation of his syncope. Case is discussed with family practice resident service for admission. Medical Screen Exam Complete: Yes Emergency Medical Condition: Yes Differential Diagnosis Differential Diagnosis: Dehydration versus dysrhythmias versus electrolyte abnormalities versus ACS Lab Data Result diagrams: 07/18/18 09:13 07/18/18 09:13 Lab Results 08/21/18 08/21/18 08/21/18 Range/Units 09:13 09:13 09:13 WBC 5.0 (4.0-11.0) th/mm3 RBC 4.90 (4.50-5.90) mil/mm3 Hgb 15.0 (13.0-17.0) gm/dL Hct 45.1 (39.0-51.0) % MCV 92.0 (80.0-100.0) fL MCH 30.5 (27.0-34.0) pg MCHC 33.2 (32.0-36.0) % RDW 14.4 (11.6-17.2) % Plt Count 189 (150-450) th/mm3 MPV 9.5 (7.0-11.0) fL Neut % (Auto) 54.0 (16.0-70.0) % Lymph % (Auto) 35.4 (9.0-44.0) % [place] % (Auto) 7.1 (0.0-8.0) % Eos % (Auto) 2.8 (0.0-4.0) % Baso % (Auto) 0.7 (0.0-2.0) % Neut # (Auto) 2.7 (1.8-7.7) th/mm3 Lymph # (Auto) 1.8 (1.0-4.8) th/mm3 [place] # (Auto) 0.4 (0.0-0.9) th/mm3 Eos # (Auto) 0.1 (0.0-0.4) th/mm3 Baso # (Auto) 0.0 (0.0-0.2) th/mm3 WBC Differential . Differential Comment Auto diff final PT 9.9 (9.8-11.6) sec INR 1.0 Ratio Sodium 140 (136-145) meq/L Potassium 4.6 (3.5-5.1) meq/L Chloride 108 H (98-107) meq/L Carbon Dioxide 25.0 (21.0-32.0) meq/L Anion Gap 7 (5-15) meq/L BUN 20 H (7-18) mg/dL Creatinine 1.00 (0.60-1.30) mg/dL Estimated GFR Greater than 89 (>89) mL/min Random Glucose 99 (74-106) mg/dL Calcium 8.1 L (8.5-10.1) mg/dL Total Bilirubin 0.6 (0.2-1.0) mg/dL AST 33 (15-37) U/L ALT 32 (12-78) U/L Alkaline Phosphatase 136 H (45-117) U/L Troponin I Less than 0.02 L (0.02-0.05) ng/mL Total Protein 7.1 (6.4-8.2) g/dL Albumin 3.3 L (3.4-5.0) g/dL Urine Color (Yellw/Straw) Urine Clarity (Clear) Urine pH (5.0-8.5) Ur Specific [place] (1.002-1.035) Urine Protein (Neg-Trace) mg/dL Urine Glucose (UA) (Negative) mg/dL Urine Ketones (Negative) mg/dL Urine Occult Blood (Negative) Urine Nitrate (Negative) Urine Bilirubin (Negative) Urine Urobilinogen (Less than 2) mg/dL Ur Leukocyte Esterase (Negative) Urine WBC (0-5) /hpf Urine Bacteria (None) /hpf Micro UA Comment Urine Culture Comments 07/18/18 Range/Units 09:40 WBC (4.0-11.0) th/mm3 RBC (4.50-5.90) mil/mm3 Hgb (13.0-17.0) gm/dL Hct (39.0-51.0) % MCV (80.0-100.0) fL MCH (27.0-34.0) pg MCHC (32.0-36.0) % RDW (11.6-17.2) % Plt Count (150-450) th/mm3 MPV (7.0-11.0) fL Neut % (Auto) (16.0-70.0) % Lymph % (Auto) (9.0-44.0) % [place] % (Auto) (0.0-8.0) % Eos % (Auto) (0.0-4.0) % Baso % (Auto) (0.0-2.0) % Neut # (Auto) (1.8-7.7) th/mm3 Lymph # (Auto) (1.0-4.8) th/mm3 [place] # (Auto) (0.0-0.9) th/mm3 Eos # (Auto) (0.0-0.4) th/mm3 Baso # (Auto) (0.0-0.2) th/mm3 WBC Differential Differential Comment PT (9.8-11.6) sec INR Ratio Sodium (136-145) meq/L Potassium (3.5-5.1) meq/L Chloride (98-107) meq/L Carbon Dioxide (21.0-32.0) meq/L Anion Gap (5-15) meq/L BUN (7-18) mg/dL Creatinine (0.60-1.30) mg/dL Estimated GFR (>89) mL/min Random Glucose (74-106) mg/dL Calcium (8.5-10.1) mg/dL Total Bilirubin (0.2-1.0) mg/dL AST (15-37) U/L ALT (12-78) U/L Alkaline Phosphatase (45-117) U/L Troponin I (0.02-0.05) ng/mL Total Protein (6.4-8.2) g/dL Albumin (3.4-5.0) g/dL Urine Color Yellow (Yellw/Straw) Urine Clarity Clear (Clear) Urine pH 6.0 (5.0-8.5) Ur Specific [place] 1.016 (1.002-1.035) Urine Protein Negative (Neg-Trace) mg/dL Urine Glucose (UA) Negative (Negative) mg/dL Urine Ketones Negative (Negative) mg/dL Urine Occult Blood Negative (Negative) Urine Nitrate Negative (Negative) Urine Bilirubin Negative (Negative) Urine Urobilinogen Less than 2 (Less than 2) mg/dL Ur Leukocyte Esterase Negative (Negative) Urine WBC 1 (0-5) /hpf Urine Bacteria Rare H (None) /hpf Micro UA Comment Culture not ind Urine Culture Comments Culture not ind Imaging Data Radiologist's impression: Chest X-Ray 07/18/18 09:08 CONCLUSION: 1. Mild interstitial opacities bilaterally could represent mild interstitial pulmonary edema. 2. Stable mild enlargement of the cardiac silhouette. Head CT 07/18/18 09:41 CONCLUSION: Unremarkable study. . Discharge Plan Discharge Disposition Patient Disposition: 30 Still Patient Discharge Condition Condition: Stable Discharge Details Anticipated Discharge Date: 07/18/18 Diagnosis: Syncope Physicians Team ED Provider: Karan Flynn Primary Care Provider: UNKNOWN, Rxs /Orders / Referrals /Forms Prescriptions: No Action atorvastatin 10 mg Tablet PO DAILY RF: 0 carvedilol 3.125 mg Tablet PO DAILY RF: 0 omeprazole 10 mg Capsule,Delayed Release(Dr/Ec) PO DAILY RF: 0 metformin 1,000 mg Tablet PO BID RF: 0 furosemide [Lasix] 20 mg Tablet PO DAILY RF: 0 gabapentin 100 mg Capsule PO DAILY RF: 0 oxycodone [OxyContin] 10 mg Tablet,Oral Only,Ext.Rel.12 Hr PO Q12H RF: 0 Depression Pill RF: 0 Discharge Interventions Interventions: Vital Signs Last Done: 07/18/18 09:01 Status ED Status: With Doctor
[2018-07-18 09:26] LABS: Baso % (Auto) 0.7 % (0.0-2.0); Eos # (Auto) 0.1 th/mm3 (0.0-0.4); Eos % (Auto) 2.8 % (0.0-4.0); Hematocrit 45.1 % (39.0-51.0); Lymph # (Auto) 1.8 th/mm3 (1.0-4.8); Lymph % (Auto) 35.4 % (9.0-44.0); Mean Corpuscular HGB Conc 33.2 % (32.0-36.0); Mean Corpuscular Hemoglobin 30.5 pg (27.0-34.0); Mean Platelet Volume 9.5 fL (7.0-11.0); Mono # (Auto) 0.4 th/mm3 (0.0-0.9); Mono % (Auto) 7.1 % (0.0-8.0); Neut # (Auto) 2.7 th/mm3 (1.8-7.7); Platelet Count 189 th/mm3 (150-450); Red Cell Distribution Width 14.4 % (11.6-17.2)
[2018-07-18 09:33] LABS: Prothrombin Time 9.9 sec (9.8-11.6)
[2018-07-18 09:39] LABS: Alanine Aminotransferase 32 U/L (12-78)
--- NOTE | 2018-07-18 09:42 | XR ---
EXAM DATE: 07/18/2018 9:35 AM EDT AGE/SEX: 52 years / Male INDICATIONS: Palpitations. Patient has been light headed. CLINICAL DATA: This is the patient's initial encounter. Patient reports that signs and symptoms have been present for 4 - 6 days and indicates a pain score of 0/10. MEDICAL/SURGICAL HISTORY: . Cardiovascular disease. Coronary artery disease. Pacemaker. CABG . [place] [facility] [place]. . FINDINGS: Underinflated portable AP view of the chest demonstrates a mildly enlarged cardiac silhouette in this patient post median sternotomy. Single lead left chest wall cardiac pacing device/AICD is present. T here is mild perihilar and lower lung zone interstitial prominence. No pleural effusion or pneumothor ax is identified. The bones and soft tissues demonstrate no acute finding. CONCLUSION: 1. Mild interstitial opacities bilaterally could represent mild interstitial pulmonary edema. 2. Stable mild enlargement of the cardiac silhouette. Electronically signed by: Jacek Shine MD 07/18/2018 9:41 AM EDT
[2018-07-18 09:43] LABS: Alkaline Phosphatase 136 U/L (45-117); Total Protein 7.1 g/dL (6.4-8.2)
[2018-07-18 09:48] LABS: Albumin 3.3 g/dL (3.4-5.0); Anion Gap 7 meq/L (5-15); Aspartate Aminotransferase 33 U/L (15-37); Blood Urea Nitrogen 20 mg/dL (7-18); Calcium 8.1 mg/dL (8.5-10.1); Chloride 108 meq/L (98-107); Glomerular Filtration Rate Greater Than 89 mL/min (>89); Glucose,Random 99 mg/dL (74-106); Sodium 140 meq/L (136-145)
[2018-07-18 09:52] LABS: Potassium 4.6 meq/L (3.5-5.1)
[2018-07-18 09:56] LABS: Bacteria,Urine Rare /hpf; Bilirubin,Urine Negative (Negative); Clarity,Urine Clear (Clear); Color,Urine Yellow (Yellw/Straw); Glucose,Urine (UA) Negative (Negative); Leukocyte Esterase,Urine Negative (Negative); Nitrite,Urine Negative (Negative); Specific Gravity,Urine 1.016 (1.002-1.035)
--- NOTE | 2018-07-18 11:10 | CT ---
EXAM DATE: 07/18/2018 11:06 AM EDT AGE/SEX: 52 years / Male INDICATIONS: Dizziness x 3 days. Syncopal episode today. CLINICAL DATA: This is the patient's initial encounter. Patient reports that signs and symptoms have been present for 3 days and indicates a pain score of 0/10. MEDICAL/SURGICAL HISTORY: Cardiovascular disease. CABG. Defibrillator. RADIATION DOSE: 40.30 CTDI (mGy) COMPARISON: No prior exams available for comparison. TECHNIQUE: CT of the head without contrast. Using automated exposure control and adjustment of the mA and/or kV according to patient size, radiation dose was kept as low as reasonably achievable to ob tain optimal diagnostic quality images. DICOM format image data is available electronically for revi ew and comparison. FINDINGS: There is no evidence for intracranial hemorrhage, mass effect, mass lesions, edema, or extra-axial fl uid collections. The visualized bony structures appear intact. The ventricles are normal size for t he patient's age. There are no signs of acute infarction for technique. CONCLUSION: Unremarkable study. . Electronically signed by: Hattie Bacon MD 07/18/2018 11:09 AM EDT
--- NOTE | 2018-07-18 12:29 | P.HPFP ---
History of Present Illness Primary Care Physician: UNKNOWN Chief Complaint: syncope History of Present Illness: 52-year-old male with past medical history hypertension, CAD, CABG 4, diabetes , GERD, depression who presents with syncope. This morning when going to his car he felt lightheaded and dizzy and fell to ground outside on grass. Does not know how long he was down and does not believe he hit his head. Afterward he felt completely normal and drove to the emergency department. While driving he did notice some blurriness to his vision again. He said over the last 3 days he has had headache, feeling of dizziness, and blurriness in his vision. He says he has these spells 10 times a day. He has never had this dizziness before. No changes in his medications. He said he has been drinking lots of fluids. He says when he starts to feel dizzy his left eye starts twitching. He denies feeling vertigo. Also in the past 2 weeks he is noticed that he has had increased wheezing with activity requiring his albuterol. He is also been feeling fatigued. He notes no smell odor, no nausea, no chest pain, and no palpitations. He denies fever or chills. He says his appetite has been decreased the last 3 days. He checks his blood pressure at home and it has been 135/70. He lives at home with his [id number]. - Diagnosis (1) Syncope (2) CHF (congestive heart failure) (3) GERD (gastroesophageal reflux disease) (4) Diabetes (5) Chronic back pain (6) Coronary artery disease involving coronary bypass graft (7) Depression (8) Nutrition, metabolism, and development symptoms Review of Systems Constitutional: Reports headache(s), Denies chills, Denies fever(s) Comments: decreased appetite Eyes: Reports blurry vision, Reports change in vision Ears, Nose, Mouth, and Throat: Reports dizziness, Reports headache(s) Cardiovascular: Reports shortness of breath with activity, Denies chest pain, Denies excessive sweating, Denies rapid, pounding, or irregular heartbeat Respiratory: Reports shortness of breath with activity, Reports wheezing Gastrointestinal: Denies abdominal pain, Denies nausea, Denies vomiting Genitourinary: Denies painful urination, Denies urinary frequency Musculoskeletal: Reports back pain Neurologic: Reports dizziness, Reports fainting Psychiatric: Denies confusion Endocrine: Denies rapid, pounding, or irregular heartbeat Hematologic/Lymphatic: Denies easy bleeding, Denies easy bruising PMFSH - History History Provided By: Patient - Medical History Medical History: Medical History (Last Updated 07/18/18 @ 13:28 by Daniela Dunn MD, R1) Depression (Acute) CHF (congestive heart failure) (Acute) GERD (gastroesophageal reflux disease) (Acute) Diabetes (Acute) Chronic back pain (Acute) Coronary artery disease involving coronary bypass graft (Acute) - Surgical History Surgical History: Surgical History (Last Updated 07/18/18 @ 12:25 by Daniela Dunn MD, R1) AICD (automatic cardioverter/defibrillator) present S/P CABG x 4 S/P appendectomy - Tobacco History Second Hand Smoke Exposure: No Smoking Status: Never smoker - Alcohol History How Often Do You Have a Drink Containing Alcohol: Never - Substance Use History Substance History: No History of Abuse - Travel History Recent Travel in the [place] Within the Last 8 Weeks: No Recent Travel Out of the Country Within the Last 8 Weeks: No - Immunization History Tetanus Immunization: Unsure Hx Influenza Vaccine This Season: No Medications and Allergies Active Medications: Active Medications Sodium Chloride (Ns Flush) 2 ml IV.FLUSH PRN PRN PRN Reason: FLUSH AFTER USING IV ACCESS Allergies Allergy/AdvReac Type Severity Reaction Status Date / Time Iodinated Contrast- Oral and Allergy Anaphylaxis Verified 07/18/18 09:31 IV Dye [Contrast] Home Medications Medication Instructions Recorded Confirmed Type Depression Pill 07/18/18 History atorvastatin mg PO DAILY 07/18/18 History carvedilol mg PO DAILY 07/18/18 History furosemide [Lasix] mg PO DAILY 07/18/18 History gabapentin mg PO DAILY 07/18/18 History metformin mg PO BID 07/18/18 History omeprazole mg PO DAILY 07/18/18 History oxycodone [OxyContin] mg PO Q12H 07/18/18 History Exam Vital signs: Vital Signs 07/18/18 08:33 07/18/18 08:37 07/18/18 09:01 Temperature 97.9 F Pulse Rate 77 80 Respiratory Rate 18 19 Blood Pressure 171/120 H 158/107 H 165/100 H Pulse Oximetry 98 99 Intake & Output 07/17/18 07/18/18 07/18/18 18:59 06:59 18:59 Weight 117.934 kg - Constitutional no acute distress - Routine HEENT Exam Head: Present: normocephalic, atraumatic Eye: Present: EOMI, PERRL Comments: peripheral vision normal - Routine Neck Exam Absent: JVD - Detailed Respiratory Exam bilateral Present: clear to auscultation. Absent: rhonchi, wheezes - Routine Cardiovascular Exam Present: RRR, S1, S2. Absent: murmur - Routine Abdominal Exam Present: soft. Absent: tenderness, distended - Routine Skin Exam Comments: lumps consistent with lipoma on right wrist, right side, and right lower abdomen - Routine Neurological Exam Present: alert, oriented X3, CN II-XII intact, normal speech. Absent: sensory deficit, motor deficit, nystagmus, facial asymmetry strength 5/5 of upper and lower extremities, nose to finger as well as heel to [place] cerebellum accurate Results - Labs Result diagrams: 07/18/18 09:13 07/18/18 09:13 Abnormal lab results 07/18/18 07/18/18 Range/Units 09:13 09:40 Chloride 108 H (98-107) meq/L BUN 20 H (7-18) mg/dL Calcium 8.1 L (8.5-10.1) mg/dL Alkaline Phosphatase 136 H (45-117) U/L Troponin I Less than 0.02 L (0.02-0.05) ng/mL Albumin 3.3 L (3.4-5.0) g/dL Urine Bacteria Rare H (None) /hpf Short CBC 07/18/18 Range/Units 09:13 WBC 5.0 (4.0-11.0) th/mm3 Hgb 15.0 (13.0-17.0) gm/dL Hct 45.1 (39.0-51.0) % Plt Count 189 (150-450) th/mm3 BMP 07/18/18 09:13 Sodium 140 Potassium 4.6 Chloride 108 H Carbon Dioxide 25.0 BUN 20 H Creatinine 1.00 Calcium 8.1 L Cardiac Enzymes 07/18/18 Range/Units 09:13 Troponin I Less than 0.02 L (0.02-0.05) ng/mL Liver Function 07/18/18 Range/Units 09:13 Total Bilirubin 0.6 (0.2-1.0) mg/dL AST 33 (15-37) U/L ALT 32 (12-78) U/L Alkaline Phosphatase 136 H (45-117) U/L Albumin 3.3 L (3.4-5.0) g/dL Urine 07/18/18 Range/Units 09:40 Urine Color Yellow (Yellw/Straw) Urine Clarity Clear (Clear) Urine pH 6.0 (5.0-8.5) Ur Specific [place] 1.016 (1.002-1.035) Urine Protein Negative (Neg-Trace) mg/dL Urine Glucose (UA) Negative (Negative) mg/dL - Imaging Impressions Chest X-Ray 07/18/18 09:08 CONCLUSION: 1. Mild interstitial opacities bilaterally could represent mild interstitial pulmonary edema. 2. Stable mild enlargement of the cardiac silhouette. Head CT 07/18/18 09:41 CONCLUSION: Unremarkable study. . Caprini VTE Risk Assessment Caprini VTE Risk Assessment: Moderate/High Risk (score >= 2) Caprini Risk Assessment Model: Point Value = 1 Point Value = 2 Point Value = 3 Point Value = 5 Age 41-60 Minor surgery BMI > 25 kg/m2 Swollen legs Varicose veins or History of unexplained or recurrent spontaneous Oral contraceptives or hormone replacement Sepsis (< 1 month) Serious lung disease, including pneumonia (< 1 month) Abnormal pulmonary function Acute myocardial infarction Congestive heart failure (< 1 month) History of inflammatory bowel disease Medical patient at bed rest Age 61-74 Arthroscopic surgery Major open surgery (> 45 min) Laparoscopic surgery (> 45 min) Malignancy Confined to bed (> 72 hours) Immobilizing plaster cast Central venous access Age >= 75 History of VTE Family history of VTE Factor V Leiden Prothrombin [id number] Lupus anticoagulant Anticardiolipin antibodies Elevated serum homocysteine Heparin-induced thrombocytopenia Other congenital or acquired thrombophilia Stroke (< 1 month) Elective arthroplasty Hip, pelvis, or leg fracture Acute spinal cord injury (< 1 month) Prophylaxis Regimen: Total Risk Factor Score Risk Level Prophylaxis Regimen 0-1 Low Early ambulation 2 Moderate Order ONE of the following: *Sequential Compression Device (SCD) *Heparin 5000 units SQ BID 3-4 Higher Order ONE of the following medications: *Heparin 5000 units SQ TID *Enoxaparin/Lovenox 40 mg SQ daily (WT < 150 kg, CrCl > 30 mL/min) *Enoxaparin/Lovenox 30 mg SQ daily (WT < 150 kg, CrCl > 10-29 mL/min) *Enoxaparin/Lovenox 30 mg SQ BID (WT < 150 kg, CrCl > 30 mL/min) AND/OR *Sequential Compression Device (SCD) 5 or more Highest Order ONE of the following medications: *Heparin 5000 units SQ TID (Preferred with Epidurals) *Enoxaparin/Lovenox 40 mg SQ daily (WT < 150 kg, CrCl > 30 mL/min) *Enoxaparin/Lovenox 30 mg SQ daily (WT < 150 kg, CrCl > 10-29 mL/min) *Enoxaparin/Lovenox 30 mg SQ BID (WT < 150 kg, CrCl > 30 mL/min) AND *Sequential Compression Device (SCD) Assessment and Plan - Assessment (1) Syncope Code(s): R55 - Syncope and collapse Status: Acute Plan: Three day history of dizziness and today syncope episode. Denied palpitations, chest pain or shortness of breath. CAD and CHF. -BMP wnL, glucose 99 -troponin <.2, serial troponins -EKG normal sinus rhythm, serial EKGs -Chest x-ray showed mild interstitial opacities bilaterally could represent mild interstitial pulmonary edema, and stable mild enlargement of the cardiac silhouette. -Head Ct had no abnormalities. -Admit to observation for syncope work-up -carotid Doppler -cardiac echo -orthostatic blood pressures (2) CHF (congestive heart failure) Code(s): I50.9 - Heart failure, unspecified Status: Acute Plan: Wheezing and SOB with activity for past two weeks. Continue on home medication -albuterol PRN SOB -cardiac echo. (3) GERD (gastroesophageal reflux disease) Code(s): K21.9 - Gastro-esophageal reflux disease without esophagitis Status: Acute Plan: Continue on home medication (4) Diabetes Code(s): E11.9 - Type 2 diabetes mellitus without complications Status: Acute Plan: On metformin at home. SS insulin (5) Chronic back pain Code(s): M54.9 - Dorsalgia, unspecified; G89.29 - Other chronic pain Status: Acute Plan: From fall. Continue on home medication. (6) Coronary artery disease involving coronary bypass graft Code(s): I25.810 - Atherosclerosis of coronary artery bypass graft(s) without angina pectoris Status: Acute Plan: Continue on home medication (7) Depression Code(s): F32.9 - Major depressive disorder, single episode, unspecified Status : Acute Plan: Continue on home medication (8) Nutrition, metabolism, and development symptoms Code(s): R63.8 - Other symptoms and signs concerning food and fluid intake Status: Acute Plan: Diet: Diabetic 0 DVT: lovenox Electrolytes: replete as needed - Assessment and Plan 52-year-old male with past medical history hypertension, CAD, CABG 4, diabetes , GERD, depression who presents with syncope. Denied any chest pain or shortness of breath. Head Ct had no abnormalities. Chest x-ray showed mild interstitial opacities bilaterally could represent mild interstitial pulmonary edema, and stable mild enlargement of the cardiac silhouette. Electrolytes within normal limits. Glucose 99. Blood pressure 171/90 on admission. Admitted for syncope work-up for echo, carotid doppler, cardiac telemetry, and EEG. Disposition: unkown Discharge: home Discussed with Dr. Alexis
--- NOTE | 2018-07-18 14:41 | US ---
EXAM DATE: 07/18/2018 1:54 PM EDT AGE/SEX: 52 years / Male INDICATIONS: Syncope. CLINICAL DATA: This is the patient's subsequent encounter. Patient reports that signs and symptoms h ave been present for 1 day and indicates a pain score of 0/10. MEDICAL/SURGICAL HISTORY: Gastroesophageal reflux disease. Congestive heart failure. Back pain. Depression. Diabetes. CABG. Appendectomy. AICD. COMPARISON: [facility] [place] CAROTID ARTER[place], 02/21/2017. . VELOCITY PARAMETERS: ICA/CCA Ratio: Right 1.1 , Left 0.9 ICA: Right 64.2 cm/sec, Left 52.3 cm/sec CCA: Right 58.9 cm/sec, Left 56.5 cm/sec ECA: Right 93.0 cm/sec, Left 56.5 cm/sec Vertebral: Right 31.0 cm/sec antegrade, Left 30.3 cm/sec antegrade FINDINGS: Right Carotid: There is mild calcified and noncalcified plaque in the carotid bulb.The waveforms are within normal limits. Left Carotid: There is mild noncalcified plaque and intimal thickening in the common carotid artery and minimal atherosclerotic disease in the carotid bulb. The waveforms are within normal limits. Other: None. CONCLUSION: 1. Right Internal Carotid Artery: Findings indicate <50% stenosis. 2. Left Internal Carotid Artery: Findings indicate <50% stenosis. Electronically signed by: Jacek Shine MD 07/18/2018 2:39 PM EDT
--- NOTE | 2018-07-18 16:24 | P.PNFP ---
Subjective Interval history: Attending note: Very pleasant 52-year-old -Stateless gentleman admitted to observation after several days of episodes of lightheadedness and dizziness with an actual reporting of loss of consciousness on the morning of admission. Patient does not report any history of chest pain concomitantly, he is not sure how long he was unconscious. He does note that his clothes were wet and dirty from the ground, he changed clothes and called a friend, eventually made it to the emergency room. Very significant past medical history of hypertension, coronary artery disease status post bypass, ejection fraction reported to be in the 20% range, AICD/pacemaker implant implantation, diabetes, GERD and depression. 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 Sherwood, his insurance is changed and he is going to be seeing a retail beauty specialist in [place]. Patient has an instrument at bedside where he can have his defibrillator interrogated. Reports having done this about a week ago. Please refer to resident H&P for complete discussion of past medical history, family history, social history and review of systems. Results - Labs Result diagrams: 07/18/18 09:13 07/18/18 09:13 Abnormal lab results 07/18/18 07/18/18 Range/Units 09:13 09:40 Chloride 108 H (98-107) meq/L BUN 20 H (7-18) mg/dL Calcium 8.1 L (8.5-10.1) mg/dL Alkaline Phosphatase 136 H (45-117) U/L Troponin I Less than 0.02 L (0.02-0.05) ng/mL Albumin 3.3 L (3.4-5.0) g/dL Urine Bacteria Rare H (None) /hpf Short CBC 07/18/18 Range/Units 09:13 WBC 5.0 (4.0-11.0) th/mm3 Hgb 15.0 (13.0-17.0) gm/dL Hct 45.1 (39.0-51.0) % Plt Count 189 (150-450) th/mm3 BMP 07/18/18 09:13 Sodium 140 Potassium 4.6 Chloride 108 H Carbon Dioxide 25.0 BUN 20 H Creatinine 1.00 Calcium 8.1 L Cardiac Enzymes 07/18/18 Range/Units 09:13 Troponin I Less than 0.02 L (0.02-0.05) ng/mL Liver Function 07/18/18 Range/Units 09:13 Total Bilirubin 0.6 (0.2-1.0) mg/dL AST 33 (15-37) U/L ALT 32 (12-78) U/L Alkaline Phosphatase 136 H (45-117) U/L Albumin 3.3 L (3.4-5.0) g/dL Urine 07/18/18 Range/Units 09:40 Urine Color Yellow (Yellw/Straw) Urine Clarity Clear (Clear) Urine pH 6.0 (5.0-8.5) Ur Specific Holt 1.016 (1.002-1.035) Urine Protein Negative (Neg-Trace) mg/dL Urine Glucose (UA) Negative (Negative) mg/dL - Imaging Impressions Carotid Doppler Study 07/18/18 00:00 CONCLUSION: 1. Right Internal Carotid Artery: Findings indicate <50% stenosis. 2. Left Internal Carotid Artery: Findings indicate <50% stenosis. Chest X-Ray 07/18/18 09:08 CONCLUSION: 1. Mild interstitial opacities bilaterally could represent mild interstitial pulmonary edema. 2. Stable mild enlargement of the cardiac silhouette. Head CT 07/18/18 09:41 CONCLUSION: Unremarkable study. . Physical Exam Vital signs: Vital Signs 07/18/18 08:33 07/18/18 08:37 07/18/18 09:01 Temperature 97.9 F Pulse Rate 77 80 Respiratory Rate 18 19 Blood Pressure 171/120 H 158/107 H 165/100 H Pulse Oximetry 98 99 07/18/18 12:54 Temperature Pulse Rate 73 Respiratory Rate 17 Blood Pressure 116/67 Pulse Oximetry 99 Intake & Output 07/17/18 07/18/18 07/18/18 18:59 06:59 18:59 Weight 117.934 kg Other: # Voids 2 Narrative: Vital signs blood pressure noted has ranged from 116/67-170 1/120 pulse currently approximately 80/min and regular respirations 18 temperature afebrile General appearance middle-aged -Stateless gentleman alert oriented pleasant conversation in no acute distress. HEENT: Grossly normal nonlocalizing Neck: No bruits, no thyromegaly. Lungs: Diminished clear breath sounds. No localized rales or wheezes Cardiac: AICD/pacemaker left upper chest implanted. S1-S2, no S3 or significant murmurs. Abdomen: Soft and protuberant, no apparent tenderness, no apparent masses. Extremities notable for lipoma right forearm and feet are warm and dry, calves are supple, feet are well-perfused. Labs reviewed, CBC unremarkable. CMP notable for glucose of 99 urinalysis unremarkable. EKG sinus rhythm nonspecific ST-T wave changes. Assessment and Plan - Assessment (1) Syncope Code(s): R55 - Syncope and collapse Status: Acute Plan: Three day history of dizziness and today syncope episode. Denied palpitations, chest pain or shortness of breath. CAD and CHF. -BMP wnL, glucose 99 -troponin <.2, serial troponins -EKG normal sinus rhythm, serial EKGs -Chest x-ray showed mild interstitial opacities bilaterally could represent mild interstitial pulmonary edema, and stable mild enlargement of the cardiac silhouette. -Head Ct had no abnormalities. -Admit to observation for syncope work-up -carotid Doppler -cardiac echo -orthostatic blood pressures (2) CHF (congestive heart failure) Code(s): I50.9 - Heart failure, unspecified Status: Acute Plan: Wheezing and SOB with activity for past two weeks. Continue on home medication -albuterol PRN SOB -cardiac echo. (3) GERD (gastroesophageal reflux disease) Code(s): K21.9 - Gastro-esophageal reflux disease without esophagitis Status: Acute Plan: Continue on home medication (4) Diabetes Code(s): E11.9 - Type 2 diabetes mellitus without complications Status: Acute Plan: On metformin at home. SS insulin (5) Chronic back pain Code(s): M54.9 - Dorsalgia, unspecified; G89.29 - Other chronic pain Status: Acute Plan: From fall. Continue on home medication. (6) Coronary artery disease involving coronary bypass graft Code(s): I25.810 - Atherosclerosis of coronary artery bypass graft(s) without angina pectoris Status: Acute Plan: Continue on home medication (7) Depression Code(s): F32.9 - Major depressive disorder, single episode, unspecified Status : Acute Plan: Continue on home medication (8) Nutrition, metabolism, and development symptoms Code(s): R63.8 - Other symptoms and signs concerning food and fluid intake Status: Acute Plan: Diet: Diabetic 0 DVT: lovenox Electrolytes: replete as needed - Assessment and Plan 52-year-old male with past medical history hypertension, CAD, CABG 4, diabetes , GERD, depression who presents with syncope. Denied any chest pain or shortness of breath. Head Ct had no abnormalities. Chest x-ray showed mild interstitial opacities bilaterally could represent mild interstitial pulmonary edema, and stable mild enlargement of the cardiac silhouette. Electrolytes within normal limits. Glucose 99. Blood pressure 171/90 on admission. Admitted for syncope work-up for echo, carotid doppler, cardiac telemetry, and EEG. Disposition: unkown Discharge: home Discussed with Dr. Alexis Troponin less than 0.02. Attending assessment: [id number] -Stateless gentleman with very significant history of cardiovascular disease including coronary artery disease , hypertension, status post CABG and AICD/pacemaker admitted with an episode of loss of consciousness with several days of presyncopal type symptoms. Case discussed with the resident team and agree with orders as written by the resident. Eric Alexis MD 07/18/2018.
--- NOTE | 2018-07-18 19:48 | ECG ---
Date Performed: 07/18/2018 Time Performed: 08:51:29 PTAGE: 52 years EKG: Sinus rhythm BORDERLINE LEFT AXIS DEVIATION LEFT VENTRICULAR HYPERTROPHY AND ST-T CHANGE ABNORMAL ECG PREVIOUS TRACING :11/14/2017 @03.43 Since the previous tracing, no significant change noted DOCTOR: Violetta Dorsey Interpretating Date/Time 07/18/2018 19:45:58
[2018-07-18] MEDS: Temazepam 15 MG Capsule PO SCH (20:32)
[2018-07-18] MEDS: Carvedilol 6.25 MG Tablet PO SCH (20:32)
[2018-07-18] MEDS: oxyCODONE/Acetaminophen 10/325 Tablet PO PRN (20:36)
[2018-07-18] MEDS: Isosorbide Mononitrate 30 MG ER 24HR Tablet (Imdur) PO SCH (20:37)
[2018-07-19] MEDS ORDERED: Dextrose 50% in Water 50 ML Vial IV.PUSH PRN (07:11)
[2018-07-19] MEDS: Furosemide 20 MG Tablet PO SCH (08:09)
[2018-07-19] MEDS: Isosorbide Mononitrate 30 MG ER 24HR Tablet (Imdur) PO SCH (08:09)
[2018-07-19] MEDS: Enoxaparin Inj 40 MG/0.4 ML Syringe SQ SCH (08:09)
[2018-07-19] MEDS: Carvedilol 6.25 MG Tablet PO SCH ×2 (08:09→22:57)
[2018-07-19] MEDS: Gabapentin 300 MG Capsule PO SCH ×3 (08:09→17:24)
[2018-07-19] MEDS: Lisinopril 20 MG Tablet PO SCH (08:10)
[2018-07-19] MEDS: Pantoprazole Sodium 20 MG DR Tablet PO SCH (08:10)
[2018-07-19] MEDS ORDERED: Non-Formulary Drug (Lisinopril [Lisinopril] 2.5 MG) PO SCH (09:00)
[2018-07-19] MEDS: Insulin NovoLOG Aspart Correctional Sugar Inj SQ SCH ×4 (09:06→22:57)
[2018-07-19] MEDS: oxyCODONE/Acetaminophen 10/325 Tablet PO PRN ×2 (10:16→23:03)
[2018-07-19 10:17] LABS: Baso % (Auto) 0.8 % (0.0-2.0); Eos # (Auto) 0.1 th/mm3 (0.0-0.4); Eos % (Auto) 3.2 % (0.0-4.0); Hematocrit 45.5 % (39.0-51.0); Hemoglobin 15.3 gm/dL (13.0-17.0); Lymph # (Auto) 1.7 th/mm3 (1.0-4.8); Lymph % (Auto) 39.6 % (9.0-44.0); Mean Corpuscular HGB Conc 33.6 % (32.0-36.0); Mean Corpuscular Hemoglobin 30.7 pg (27.0-34.0); Mean Corpuscular Volume 91.3 fL (80.0-100.0); Mean Platelet Volume 9.3 fL (7.0-11.0); Mono # (Auto) 0.3 th/mm3 (0.0-0.9); Mono % (Auto) 7.9 % (0.0-8.0); Neut # (Auto) 2.1 th/mm3 (1.8-7.7); Neut % (Auto) 48.5 % (16.0-70.0); Platelet Count 188 th/mm3 (150-450); Red Blood Count 4.99 mil/mm3 (4.50-5.90); Red Cell Distribution Width 14.3 % (11.6-17.2); White Blood Count 4.4 th/mm3 (4.0-11.0)
--- NOTE | 2018-07-19 11:17 | P.PNFP ---
Subjective Interval history: No acute events overnight. Telemetry was reviewed which showed an occasional 1- 2 beat run of V. tach but otherwise was normal. Orthostatic vital signs were obtained which were normal. Patient continued to have multiple 7-10 second episodes of dizziness/lightheadedness. States the majority of these have been when he was walking to the bathroom or sitting up. He continues to deny any chest pain associated with the symptoms. He states his AICD was interrogated 2 weeks ago and was told it was normal at that time. <Jace Lloyd - 07/19/18 12:18> Results - Labs Result diagrams: 07/19/18 08:58 07/18/18 09:13 <Eric Alexis - 07/19/18 13:49> Abnormal lab results 07/18/18 Range/Units 23:29 Troponin I Less than 0.02 L (0.02-0.05) ng/mL Short CBC 07/19/18 Range/Units 08:58 WBC 4.4 (4.0-11.0) th/mm3 Hgb 15.3 (13.0-17.0) gm/dL Hct 45.5 (39.0-51.0) % Plt Count 188 (150-450) th/mm3 Cardiac Enzymes 07/18/18 Range/Units 23:29 Troponin I Less than 0.02 L (0.02-0.05) ng/mL <Eric Alexis - 07/19/18 13:49> Abnormal lab results 07/18/18 Range/Units 23:29 Troponin I Less than 0.02 L (0.02-0.05) ng/mL Short CBC 07/19/18 Range/Units 08:58 WBC 4.4 (4.0-11.0) th/mm3 Hgb 15.3 (13.0-17.0) gm/dL Hct 45.5 (39.0-51.0) % Plt Count 188 (150-450) th/mm3 Cardiac Enzymes 07/18/18 Range/Units 23:29 Troponin I Less than 0.02 L (0.02-0.05) ng/mL <Jace Lloyd - 07/19/18 11:17> - Imaging Impressions Carotid Doppler Study 07/18/18 00:00 CONCLUSION: 1. Right Internal Carotid Artery: Findings indicate <50% stenosis. 2. Left Internal Carotid Artery: Findings indicate <50% stenosis. <Eric Alexis E - 07/19/18 13:49> Impressions Carotid Doppler Study 07/18/18 00:00 CONCLUSION: 1. Right Internal Carotid Artery: Findings indicate <50% stenosis. 2. Left Internal Carotid Artery: Findings indicate <50% stenosis. <Jace Lloyd B - 07/19/18 11:17> Physical Exam Vital signs: Vital Signs 07/18/18 16:00 07/18/18 16:10 07/18/18 20:00 Temperature 97.8 F 98.8 F Pulse Rate 72 75 75 Respiratory Rate 18 20 Blood Pressure 123/68 112/62 139/85 Pulse Oximetry 99 98 07/18/18 22:40 07/19/18 00:00 07/19/18 01:27 Temperature 97.7 F Pulse Rate 69 69 85 Respiratory Rate 17 Blood Pressure 118/76 Pulse Oximetry 96 07/19/18 04:00 07/19/18 04:07 07/19/18 12:00 Temperature 97.5 F L 97.8 F Pulse Rate 68 70 62 Respiratory Rate 16 16 Blood Pressure 137/88 131/92 H Pulse Oximetry 98 98 Intake & Output 07/18/18 07/19/18 07/19/18 18:59 06:59 18:59 Intake Total 480 / 480 Balance 480 / 480 Weight 117.934 kg 55.792 kg Intake: Oral 480 / 480 Other: # Voids 2 Weight On Admission 55.792 kg <Eric Alexis E - 07/19/18 13:49> Vital Signs 07/18/18 12:54 07/18/18 16:00 07/18/18 16:10 Temperature 97.8 F Pulse Rate 73 72 75 Respiratory Rate 17 18 Blood Pressure 116/67 123/68 112/62 Pulse Oximetry 99 99 07/18/18 20:00 07/18/18 22:40 07/19/18 00:00 Temperature 98.8 F 97.7 F Pulse Rate 75 69 69 Respiratory Rate 20 17 Blood Pressure 139/85 118/76 Pulse Oximetry 98 96 07/19/18 01:27 07/19/18 04:00 07/19/18 04:07 Temperature 97.5 F L Pulse Rate 85 68 70 Respiratory Rate 16 Blood Pressure 137/88 Pulse Oximetry 98 Intake & Output 07/18/18 07/19/18 07/19/18 18:59 06:59 18:59 Intake Total 480 / 480 Balance 480 / 480 Weight 117.934 kg Intake: Oral 480 / 480 Other: # Voids 2 <Jace Lloyd Fam - 07/19/18 11:17> Narrative: General appearance middle-aged -[place] gentleman alert oriented pleasant conversation in no acute distress. HEENT: Grossly normal nonlocalizing Neck: No bruits, no thyromegaly. Lungs: Diminished clear breath sounds. No localized rales or wheezes Cardiac: AICD/pacemaker left upper chest implanted. S1-S2, no S3 or significant murmurs. Abdomen: Soft and protuberant, no apparent tenderness, no apparent masses. Extremities notable for lipoma right forearm and feet are warm and dry, calves are supple, feet are well-perfused. <Jace Lloyd Fam - 07/19/18 12:18> Assessment and Plan - Assessment (1) Syncope Code(s): R55 - Syncope and collapse Status: Acute (2) CHF (congestive heart failure) Code(s): I50.9 - Heart failure, unspecified Status: Acute (3) GERD (gastroesophageal reflux disease) Code(s): K21.9 - Gastro-esophageal reflux disease without esophagitis Status: Acute (4) Diabetes Code(s): E11.9 - Type 2 diabetes mellitus without complications Status: Acute (5) Chronic back pain Code(s): M54.9 - Dorsalgia, unspecified; G89.29 - Other chronic pain Status: Acute (6) Coronary artery disease involving coronary bypass graft Code(s): I25.810 - Atherosclerosis of coronary artery bypass graft(s) without angina pectoris Status: Acute (7) Depression Code(s): F32.9 - Major depressive disorder, single episode, unspecified Status : Acute (8) Nutrition, metabolism, and development symptoms Code(s): R63.8 - Other symptoms and signs concerning food and fluid intake Status: Acute <Eric Alexis - 07/19/18 13:49> (1) Syncope Code(s): R55 - Syncope and collapse Status: Acute Plan: Three day history of dizziness and syncope episode on day of admission. Denied palpitations, chest pain or shortness of breath. CAD and CHF. -BMP wnL, glucose 99 -troponin <.02, were trended and continued to be normal -Chest x-ray showed mild interstitial opacities bilaterally could represent mild interstitial pulmonary edema, and stable mild enlargement of the cardiac silhouette. -Head Ct had no abnormalities -orthostatic blood pressures obtained on admission were overall normal -carotid Doppler on admission showed mild calcified and noncalcified plaques in the carotid bulb/artery bilaterally. Less than 50% stenosis -cardiac echo pending -EEG pending -EKG normal sinus rhythm -telemetry showed occasional 2-3 beat run of V. tach, otherwise normal -Consulting cardiology in light of significant cardiac history -Ordering AICD interrogation (2) CHF (congestive heart failure) Code(s): I50.9 - Heart failure, unspecified Status: Acute Plan: Wheezing and SOB with activity for past two weeks. Continue on home carvedilol, Lasix -albuterol PRN SOB -cardiac echo pending (3) GERD (gastroesophageal reflux disease) Code(s): K21.9 - Gastro-esophageal reflux disease without esophagitis Status: Acute Plan: Continue on home pantoprazole (4) Diabetes Code(s): E11.9 - Type 2 diabetes mellitus without complications Status: Acute Plan: On metformin at home. SS insulin (5) Chronic back pain Code(s): M54.9 - Dorsalgia, unspecified; G89.29 - Other chronic pain Status: Acute Plan: Continue home schedule/acetaminophen (6) Coronary artery disease involving coronary bypass graft Code(s): I25.810 - Atherosclerosis of coronary artery bypass graft(s) without angina pectoris Status: Acute Plan: Continue on home atorvastatin (7) Depression Code(s): F32.9 - Major depressive disorder, single episode, unspecified Status : Acute Plan: Continue on home Cymbalta (8) Nutrition, metabolism, and development symptoms Code(s): R63.8 - Other symptoms and signs concerning food and fluid intake Status: Acute Plan: Diet: Diabetic 0 DVT: lovenox Electrolytes: replete as needed <Jace Lloyd B - 07/19/18 11:56> - Assessment and Plan Attending note: 07/19/2018. Patient seen and evaluated with the resident team. Agree with resident team evaluation and orders as recorded. Eric Alexis MD <Eric Alexis - 07/19/18 13:49> 52-year-old male with past medical history hypertension, CAD, CABG 4, diabetes , GERD, depression who presents with syncope. Denied any chest pain or shortness of breath. Head Ct had no abnormalities. Chest x-ray showed mild interstitial opacities bilaterally could represent mild interstitial pulmonary edema, and stable mild enlargement of the cardiac silhouette. ACS workup is negative admitted for syncope work-up for echo, carotid doppler, cardiac telemetry, and EEG. Consulting cardiology and ordering for AICD interrogation Disposition: unkown Discharge: home Discussed with Dr. Alexis <Jace Lloyd - 07/19/18 12:18>
[2018-07-19 16:27] LABS: Anion Gap 8 meq/L (5-15); Blood Urea Nitrogen 14 mg/dL (7-18); Calcium 8.5 mg/dL (8.5-10.1); Carbon Dioxide 28.3 meq/L (21.0-32.0); Chloride 104 meq/L (98-107); Glomerular Filtration Rate Greater Than 89 mL/min (>89); Glucose,Random 94 mg/dL (74-106); Potassium 4.2 meq/L (3.5-5.1); Sodium 140 meq/L (136-145)
--- NOTE | 2018-07-19 21:47 | MG ---
cc: Kelvin Torres MD ELECTROENCEPHALOGRAM RECORD NUMBER: [id number] DESCRIPTION: An 8-10 Hz alpha activity at 20-40 microvolts. Low amplitude beta in the frontal channels. Good anterior to posterior gradient. Good driving with photic stimulation. Desynchronized theta occurring in frontocentral channels and some background slowing suggestive of drowsy state/sleep state. Mild left frontal sharp transients appear to be sleep state associated, possible stage II sleep. Good background during arousals. Single-lead EKG showing sinus rhythm. INTERPRETATION: Overall, normal awake and sleep electroencephalogram. Clinical correlation. MD VASILE Finn/shahrzad , 09:06 PM , 09:10 PM
[2018-07-19] MEDS: Temazepam 15 MG Capsule PO SCH (22:57)
[2018-07-20] MEDS: Insulin NovoLOG Aspart Correctional Sugar Inj SQ SCH (08:35)
[2018-07-20] MEDS: oxyCODONE/Acetaminophen 10/325 Tablet PO PRN (08:49)
[2018-07-20] MEDS: Isosorbide Mononitrate 30 MG ER 24HR Tablet (Imdur) PO SCH (08:50)
[2018-07-20] MEDS: Pantoprazole Sodium 20 MG DR Tablet PO SCH (08:50)
[2018-07-20] MEDS: Lisinopril 20 MG Tablet PO SCH (08:50)
[2018-07-20] MEDS: Gabapentin 300 MG Capsule PO SCH ×2 (08:51→14:30)
[2018-07-20] MEDS: Enoxaparin Inj 40 MG/0.4 ML Syringe SQ SCH (08:51)
[2018-07-20] MEDS: Furosemide 20 MG Tablet PO SCH (08:51)
[2018-07-20] MEDS: Carvedilol 6.25 MG Tablet PO SCH (08:51)
--- NOTE | 2018-07-20 09:42 | P.PNFP ---
Subjective Interval history: Patient had 5 seconds of wide complex V tach on telemetry overnight - patient states he was asymptomatic at that time. Vital signs were otherwise normal. Patient denies any chest pain, shortness of breath, nausea vomiting. Patient states that he had a couple more episodes yesterday of the lightheadedness/ changes in vision but has not had any since. In further questioning patient states that laying flat has provided relief from the symptoms when he has had them. Results - Labs Result diagrams: 07/19/18 08:58 07/19/18 15:45 Short CBC 07/19/18 Range/Units 08:58 WBC 4.4 (4.0-11.0) th/mm3 Hgb 15.3 (13.0-17.0) gm/dL Hct 45.5 (39.0-51.0) % Plt Count 188 (150-450) th/mm3 BMP 07/19/18 15:45 Sodium 140 Potassium 4.2 Chloride 104 Carbon Dioxide 28.3 BUN 14 Creatinine 1.04 Calcium 8.5 Physical Exam Vital signs: Vital Signs 07/19/18 12:00 07/19/18 15:35 07/19/18 19:48 Temperature 97.8 F 97.6 F 98.8 F Pulse Rate 62 66 87 Respiratory Rate 16 16 18 Blood Pressure 131/92 H 123/77 103/57 L Pulse Oximetry 98 95 95 07/19/18 20:00 07/20/18 00:30 07/20/18 05:00 Temperature 96.8 F L 96.9 F L Pulse Rate 63 Respiratory Rate 18 21 20 Blood Pressure 122/79 117/67 Pulse Oximetry 96 97 07/20/18 08:00 Temperature 97.4 F L Pulse Rate 70 Respiratory Rate 18 Blood Pressure 131/80 Pulse Oximetry 95 Intake & Output 07/19/18 07/20/18 07/20/18 18:59 06:59 18:59 Weight 55.792 kg 55.792 kg Other: # Voids 3 Date of Last Bowel Movement 07/19/18 07/19/18 # Bowel Movements 1 Weight On Admission 55.792 kg Narrative: General appearance middle-aged -[place] gentleman alert oriented pleasant conversation in no acute distress. HEENT: Grossly normal nonlocalizing Neck: No bruits, no thyromegaly. Lungs: Diminished clear breath sounds. No localized rales or wheezes Cardiac: AICD/pacemaker left upper chest implanted. S1-S2, no S3 or significant murmurs. Abdomen: Soft and protuberant, no apparent tenderness, no apparent masses. Extremities notable for lipoma right forearm and feet are warm and dry, calves are supple, feet are well-perfused. Assessment and Plan - Assessment (1) Syncope Code(s): R55 - Syncope and collapse Status: Acute Plan: Three day history of dizziness and syncope episode on day of admission. Denied palpitations, chest pain or shortness of breath. CAD and CHF. -BMP wnL, glucose 99 -troponin <.02, were trended and continued to be normal -Chest x-ray showed mild interstitial opacities bilaterally could represent mild interstitial pulmonary edema, and stable mild enlargement of the cardiac silhouette. -Head Ct had no abnormalities -orthostatic blood pressures obtained on admission were overall normal -carotid Doppler on admission showed mild calcified and noncalcified plaques in the carotid bulb/artery bilaterally. Less than 50% stenosis -cardiac echo pending -EEG was normal -EKG normal sinus rhythm -telemetry showed 5 second run of wide-complex V. tach overnight -AICD interrogatedno abnormalities noted -Cardiology was consulted -no further cardiac recommendations after echocardiogram results -Cardiology did put in a consult for neurology -patient will be okay for discharge pending urology evaluation (2) CHF (congestive heart failure) Code(s): I50.9 - Heart failure, unspecified Status: Acute Plan: Wheezing and SOB with activity for past two weeks. Continue on home carvedilol, Lasix -albuterol PRN SOB -cardiac echo pending (3) GERD (gastroesophageal reflux disease) Code(s): K21.9 - Gastro-esophageal reflux disease without esophagitis Status: Acute Plan: Continue on home pantoprazole (4) Diabetes Code(s): E11.9 - Type 2 diabetes mellitus without complications Status: Acute Plan: Holding home metformin Blood sugars have been normal during this admission, discontinuing Accu-Cheks and sliding scale (5) Chronic back pain Code(s): M54.9 - Dorsalgia, unspecified; G89.29 - Other chronic pain Status: Acute Plan: Continue home schedule/acetaminophen (6) Coronary artery disease involving coronary bypass graft Code(s): I25.810 - Atherosclerosis of coronary artery bypass graft(s) without angina pectoris Status: Acute Plan: Continue on home atorvastatin (7) Depression Code(s): F32.9 - Major depressive disorder, single episode, unspecified Status : Acute Plan: Continue on home Cymbalta (8) Nutrition, metabolism, and development symptoms Code(s): R63.8 - Other symptoms and signs concerning food and fluid intake Status: Acute Plan: Diet: Diabetic 2200 DVT: lovenox Electrolytes: replete as needed - Assessment and Plan 52-year-old male with past medical history hypertension, CAD, CABG 4, diabetes , GERD, depression who presents with syncope. Denied any chest pain or shortness of breath. Head Ct had no abnormalities. Chest x-ray showed mild interstitial opacities bilaterally could represent mild interstitial pulmonary edema, and stable mild enlargement of the cardiac silhouette. ACS workup is negative admitted for syncope work-up for echo, carotid doppler, cardiac telemetry, and EEG. Cardiology was consulted and AICD interrogation was normal. Echocardiogram pending, otherwise further cardiac workup. Neurology was consulted. Patient will be safe for discharge pending urology evaluation Disposition: Possibly home today
[2018-07-20 12:13] LABS: Eos # (Auto) 0.2 th/mm3 (0.0-0.4); Eos % (Auto) 3.3 % (0.0-4.0); Hematocrit 43.2 % (39.0-51.0); Hemoglobin 14.5 gm/dL (13.0-17.0); Lymph # (Auto) 1.7 th/mm3 (1.0-4.8); Lymph % (Auto) 36.6 % (9.0-44.0); Mean Corpuscular HGB Conc 33.6 % (32.0-36.0); Mean Corpuscular Hemoglobin 30.4 pg (27.0-34.0); Mean Corpuscular Volume 90.5 fL (80.0-100.0); Mean Platelet Volume 8.8 fL (7.0-11.0); Mono # (Auto) 0.4 th/mm3 (0.0-0.9); Mono % (Auto) 8.5 % (0.0-8.0); Neut # (Auto) 2.3 th/mm3 (1.8-7.7); Neut % (Auto) 50.6 % (16.0-70.0); Platelet Count 178 th/mm3 (150-450); Red Blood Count 4.77 mil/mm3 (4.50-5.90); Red Cell Distribution Width 14.3 % (11.6-17.2); White Blood Count 4.6 th/mm3 (4.0-11.0)
--- NOTE | 2018-07-20 12:32 | P.PNCA ---
Subjective Interval history: No events overnight Up and walking around without a problem (Consult dictated, not transcribed yet) Physical Exam Vital signs: Vital Signs 07/19/18 15:35 07/19/18 19:48 07/19/18 20:00 Temperature 97.6 F 98.8 F Pulse Rate 66 87 Respiratory Rate 16 18 18 Blood Pressure 123/77 103/57 L Pulse Oximetry 95 95 07/20/18 00:30 07/20/18 05:00 07/20/18 07:10 Temperature 96.8 F L 96.9 F L Pulse Rate 63 65 Respiratory Rate 21 20 Blood Pressure 122/79 117/67 Pulse Oximetry 96 97 07/20/18 08:00 07/20/18 12:00 Temperature 97.4 F L 98.8 F Pulse Rate 70 78 Respiratory Rate 18 18 Blood Pressure 131/80 108/71 Pulse Oximetry 95 95 Intake & Output 07/19/18 07/20/18 07/20/18 18:59 06:59 18:59 Weight 55.792 kg 55.792 kg Other: # Voids 3 Date of Last Bowel Movement 07/19/18 07/19/18 # Bowel Movements 1 Weight On Admission 55.792 kg Narrative: General appearance middle-aged -Portuguese gentleman alert oriented pleasant conversation in no acute distress. HEENT: Grossly normal nonlocalizing Neck: No bruits, no thyromegaly. Lungs: Diminished clear breath sounds. No localized rales or wheezes Cardiac: AICD/pacemaker left upper chest implanted. S1-S2, no S3 or significant murmurs. Abdomen: Soft and protuberant, no apparent tenderness, no apparent masses. Extremities notable for lipoma right forearm and feet are warm and dry, calves are supple, feet are well-perfused. 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 - Other cardiomyopathies Status: Acute (2) Syncope Code(s): R55 - Syncope and collapse Status: Acute (3) Depression Code(s): F32.9 - Major depressive disorder, single episode, unspecified Status : Acute (4) CHF (congestive heart failure) Code(s): I50.9 - Heart failure, unspecified Status: Acute (5) GERD (gastroesophageal reflux disease) Code(s): K21.9 - Gastro-esophageal reflux disease without esophagitis Status: Acute (6) Diabetes Code(s): E11.9 - Type 2 diabetes mellitus without complications Status: Acute (7) Chronic back pain Code(s): M54.9 - Dorsalgia, unspecified; G89.29 - Other chronic pain Status: Acute (8) Coronary artery disease involving coronary bypass graft Code(s): I25.810 - Atherosclerosis of coronary artery bypass graft(s) without angina pectoris Status: Acute - Plan 1) Syncope Unknown cause Carotid showing less than 50% bilaterally Interrogation showing no problems 2) Repeat echo 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
[2018-07-20 12:41] LABS: Calcium 8.8 mg/dL (8.5-10.1); Carbon Dioxide 31.4 meq/L (21.0-32.0); Potassium 4.1 meq/L (3.5-5.1)
--- NOTE | 2018-07-20 17:20 | ECHRPT ---
Indication: CONCLUSIONS The left ventricular systolic function is mildly reduced with an estimated ejection fraction in the range of 45- 50%. Normal left ventricular size. Moderate concentric left ventricular hypertrophy. No regional wall motion abnormalities are present. The left atrial size is [id number] dilated. Trace mitral valve regurgitation. The pulmonary valve is not well visualized. BP: / HR: Rhythm: Sinus MEASUREMENTS (Male / Female) Normal Values Technical Quality:Good 2D ECHO LV Diastolic Diameter PLAX 4.5 cm 4.2 - 5.9 / 3.9 - 5.3 cm LV Systolic Diameter PLAX 3.7 cm IVS Diastolic Thickness 1.5 cm 0.6 - 1.0 / 0.6 - 0.9 cm LVPW Diastolic Thickness 1.5 cm 0.6 - 1.0 / 0.6 - 0.9 cm LV Relative Wall Thickness 0.7 LVOT Diameter 2.2 cm LV Ejection Fraction MOD 4C 45.0 % LV Ejection Fraction 4C AL 47.0 % M-MODE Aortic Root Diameter MM 2.5 cm LA Systolic Diameter MM 4.0 cm LA Ao Ratio MM 1.6 AV Cusp Separation MM 2.0 cm DOPPLER AV Peak Velocity 128.0 cm/s AV Peak Gradient 6.6 mmHg LVOT Peak Velocity 73.1 cm/s LVOT Peak Gradient 2.1 mmHg AV Area Cont Eq pk 2.2 cm MV Area PHT 2.1 cm Mitral E Point Velocity 36.5 cm/s Mitral A Point Velocity 53.3 cm/s Mitral E to A Ratio 0.7 LV E' Lateral Velocity 5.2 cm/s Mitral E to LV E' Lateral Ratio 7.1 LV E' Septal Velocity 5.3 cm/s Mitral E to LV E' Septal Ratio 6.9 PV Peak Velocity 85.5 cm/s PV Peak Gradient 2.9 mmHg FINDINGS LEFT VENTRICLE The left ventricular systolic function is mildly reduced with an estimated ejection fraction in the range of 45- 50%. Normal left ventricular size. Moderate concentric left ventricular hypertrophy. No regional wall motion abnormalities are present. RIGHT VENTRICLE Normal right ventricular size and systolic function. LEFT ATRIUM The left atrial size is [id number]-[id number] dilated. RIGHT ATRIUM The right atrial size is normal. ATRIAL SEPTUM Normal atrial septal thickness without atrial level shunting by limited color doppler interrogation. AORTA The aortic root and proximal ascending aorta are normal in size on limited imaging. MITRAL VALVE Structurally normal mitral valve. Trace mitral valve regurgitation. AORTIC VALVE Trileaflet aortic valve. No aortic valve stenosis or regurgitation. TRICUSPID VALVE Structurally normal tricuspid valve. No tricuspid valve stenosis or regurgitation. PULMONARY VALVE The pulmonary valve is not well visualized. VESSELS The inferior vena cava is normal in size. PERICARDIUM No pericardial effusion. Adolfo Palacios MD, FACC (Electronically Signed) Final Date:20 July 2018 17:19
--- NOTE | 2018-07-20 20:28 | MB ---
cc: Rajiv Doshi MD, PhD DATE: 07/20/2018 REASON FOR CONSULTATION: Syncope. HISTORY OF PRESENT ILLNESS: Mr. Azevedo is a very nice 52-year-old man who was admitted with an episode of loss of consciousness. This occurred two days ago. He woke up in the morning, was feeling a little bit lightheaded when he was going out of his car when he went to put the keys and suddenly lost consciousness without warning. He feels he was out for only a very brief period of time. There is no postictal state, no bladder incontinence. No focal deficits. States he was found to have high blood pressure. When he stood up the pressure would drop. He has had episodes of lightheadedness upon standing. PAST MEDICAL HISTORY: He has a history of coronary artery disease, hypertension, CABG x4, GERD, depression, chronic back pain. MEDICATIONS: 1. Albuterol. 2. Aspirin. 3. Lipitor. 4. Coreg. 5. Cymbalta. 6. Lovenox. 7. Lasix. 8. Neurontin. 9. Imdur. 10. Prinivil. 11. Percocet p.r.n. pain. 12. Protonix. 13. Restoril. NEUROLOGICAL EXAMINATION: VITAL SIGNS: Blood pressure is 131/80 sitting. Pulse is 70, respiratory rate 18, temperature 97 degrees. NEUROLOGIC: Higher cortical functions are normal. Cranial nerves intact. Motor exam: There is no focal deficit. DIAGNOSTIC DATA: CT of the brain is normal. EEG is within normal limits. LABORATORY DATA: The white count is 5000, hemoglobin 4.9, hematocrit 45.1%, platelets 189,000. PT 9.9, INR 1. Sodium is 140, potassium 4.2, chloride 104, CO2 is 28, BUN is 14, creatinine 1.04, GFR greater than 89, glucose 94, calcium 8.5. IMPRESSION: Syncope, probably related to orthostatic hypotension. I doubt that this was a neurologic etiology. ADDENDUM: The patient is stable neurologically for discharge when cleared by the medicine service. Rajiv Doshi MD, PhD IZZY/ct , 05:14 PM , 05:21 PM
--- NOTE | 2018-07-21 10:55 | P.DS ---
Date of admission: 07/18/18 11:55 Primary care physician: UNKNOWN Brief History from admission: 52-year-old male with past medical history hypertension, CAD, CABG 4, diabetes , GERD, depression who presents with syncope. This morning when going to his car he felt lightheaded and dizzy and fell to ground outside on grass. Does not know how long he was down and does not believe he hit his head. Afterward he felt completely normal and drove to the emergency department. While driving he did notice some blurriness to his vision again. He said over the last 3 days he has had headache, feeling of dizziness, and blurriness in his vision. He says he has these spells 10 times a day. He has never had this dizziness before. No changes in his medications. He said he has been drinking lots of fluids. He says when he starts to feel dizzy his left eye starts twitching. He denies feeling vertigo. Also in the past 2 weeks he is noticed that he has had increased wheezing with activity requiring his albuterol. He is also been feeling fatigued. He notes no smell odor, no nausea, no chest pain, and no palpitations. He denies fever or chills. He says his appetite has been decreased the last 3 days. He checks his blood pressure at home and it has been 135/70. He lives at home with his [id number]. DS: Diagnosis - Discharge Diagnosis (1) Syncope Status: Acute (2) CHF (congestive heart failure) Status: Acute (3) GERD (gastroesophageal reflux disease) Status: Acute (4) Diabetes Status: Acute (5) Chronic back pain Status: Acute (6) Coronary artery disease involving coronary bypass graft Status: Acute (7) Depression Status: Acute (8) Nutrition, metabolism, and development symptoms Status: Acute DS: Summary Hospital Course: 52-year-old male with past medical history hypertension, CAD, CABG 4, diabetes , GERD, depression who presents with syncope. Denied any chest pain or shortness of breath. Head Ct had no abnormalities. Chest x-ray showed mild interstitial opacities bilaterally could represent mild interstitial pulmonary edema, and stable mild enlargement of the cardiac silhouette. ACS workup was negative (troponin <0.02) admitted for syncope work-up for echo, carotid doppler , cardiac telemetry, and EEG. EEG normal and Doppler showed <50% stenosis bilaterally. Cardiology was consulted and AICD interrogation was normal. Overnight 5 seconds of wide complex V tach on telemetry but patient asymptomatic at that time. 07/19 echo: L ventricular systolic function mildly reduced EF 45- 50%. Normal left ventricular size. Moderate concentric left ventricular hypertrophy. No regional wall motion abnormalities are present. The left atrial size is [id number]-sb-dsbjjzmymq dilated. Cardiology did not believe syncope was due to cardiac etiology and consulted neurology. Neurology consult, Syncope, probably related to orthostatic hypotension. I doubt that this was a neurologic etiology. The patient is stable neurologically for discharge when cleared by the medicine service. Patient was discharged and encouraged to make follow up appointment with PCP at [facility]. - Time Spent with Patient Total time spent providing and/or coordinating discharge services: Less than 30 minutes - Quality: VTE Deep Vein Thrombosis/Pulmonary Embolism Present on Admission: No Exam Vital signs: Vital Signs 07/20/18 12:00 07/20/18 16:00 Temperature 98.8 F 98.9 F Pulse Rate 78 75 Respiratory Rate 18 18 Blood Pressure 108/71 126/86 Pulse Oximetry 95 95 Narrative: General appearance middle-aged -[place] gentleman alert oriented pleasant conversation in no acute distress. HEENT: Grossly normal nonlocalizing Neck: No bruits, no thyromegaly. Lungs: Diminished clear breath sounds. No localized rales or wheezes Cardiac: AICD/pacemaker left upper chest implanted. S1-S2, no S3 or significant murmurs. Abdomen: Soft and protuberant, no apparent tenderness, no apparent masses. Extremities notable for lipoma right forearm and feet are warm and dry, calves are supple, feet are well-perfused. Results Procedures completed during hospitalization: none Labs on day of discharge: Labs from last 24 hours 07/20/18 07/20/18 11:45 11:45 WBC 4.6 RBC 4.77 Hgb 14.5 Hct 43.2 MCV 90.5 MCH 30.4 MCHC 33.6 RDW 14.3 Plt Count 178 MPV 8.8 Neut % (Auto) 50.6 Lymph % (Auto) 36.6 [place] % (Auto) 8.5 H Eos % (Auto) 3.3 Baso % (Auto) 1.0 Neut # (Auto) 2.3 Lymph # (Auto) 1.7 [place] # (Auto) 0.4 Eos # (Auto) 0.2 Baso # (Auto) 0.0 WBC Differential . Differential Comment Auto diff final Sodium 141 Potassium 4.1 Chloride 104 Carbon Dioxide 31.4 Anion Gap 6 BUN 15 Creatinine 1.21 Estimated GFR 76 L Random Glucose 105 Calcium 8.8 - Impressions ITS Impressions Carotid Doppler Study 07/18/18 00:00 CONCLUSION: 1. Right Internal Carotid Artery: Findings indicate <50% stenosis. 2. Left Internal Carotid Artery: Findings indicate <50% stenosis. Chest X-Ray 07/18/18 09:08 CONCLUSION: 1. Mild interstitial opacities bilaterally could represent mild interstitial pulmonary edema. 2. Stable mild enlargement of the cardiac silhouette. Head CT 07/18/18 09:41 CONCLUSION: Unremarkable study. . Discharge Plan - Discharge Disposition Patient Disposition: 01 Discharge Home - Discharge Condition Condition: Stable - Discharge Order Discharge Orders: Discharge Order (Routine); Ordered 07/20/18 Ordered By: Jacinta Cook - Discharge Details Anticipated Discharge Date: 07/18/18 - Physicians Team Primary Care Provider: UNKNOWN, Attending Provider: Eric Alexis Other Providers: Donnie Mcgiure MD ; [facility] [employer] ; Rajiv Doshi MD, PhD
== END 2018-07-20 18:35 | disposition home or self-care (01) ==
LOC: NEPE 08:27 → NEPFCDU 08:27 → NEDA 08:27 → NEPFCDU 15:04
PROVIDERS: ADMIT Family Medicine; ATTEND Family Medicine